=== PATIENT | female | born 1975 | race Caucasian/White ===

== ENCOUNTER → 2017-08-19 08:05 | Outpatient (CLI) | payer BC, SELFPAY ==
--- NOTE | 2017-08-19 08:09 | US_ITS ---
US abdomen limited History:Right upper quadrant pain Ordering Physician:Kari Davis Patient Age: 41 years Comparison:None Findings: Pancreas:Unremarkable. No obvious mass or abnormal fluid collection. No ductal dilatation Liver:No focal liver lesions demonstrated. Homogeneous echogenicity. No intrahepatic biliary ductal dilatation evident Right Kidney:Unremarkable. Normal size and echogenicity. No hydronephrosis Gallbladder:Prior cholecystectomy. Common bile duct is slightly prominent at 8 mm which could be physiological response to the previous cholecystectomy.. Impression: Mild prominence of the common bile duct. Prior cholecystectomy. If there is clinical concern for biliary obstruction then, MRCP be of further value
== END ==
PROVIDERS: PCP Nurse Practitioner Acute Care; Visit Provider Nurse Practitioner Acute Care
DX: R10.11 Right upper quadrant pain (principal)
CPT/HCPCS: 76705

== ENCOUNTER → 2018-03-17 11:28 | Outpatient (POV) | payer BC, SELFPAY | PROVIDERS: Visit Provider Nurse Practitioner Acute Care | DX: Z00.00 Encounter for general adult medical examination without abnormal findings (principal) ==

== ENCOUNTER → 2018-03-31 07:53 | Outpatient (CLI) | payer BC, SELFPAY | PROVIDERS: PCP Family Medicine; Visit Provider Nurse Practitioner Acute Care | DX: R10.11 Right upper quadrant pain (principal); R93.3 Abnormal findings on diagnostic imaging of other parts of digestive tract ==

== ENCOUNTER → 2018-04-01 08:46 | Outpatient (CLI) | payer BC, SELFPAY ==
--- NOTE | 2018-04-01 08:48 | MR_ITS ---
MR abdomen wo con, MR 3-d myelogram/MRCP CLINICAL INDICATION: Right upper quadrant pain. Abnormal right upper quadrant ultrasound with prominent common bile duct ITS.REASON: RUQ PAIN, ABNORMAL FINDINGS GI TRACT ORDERING PHYSICIAN: Kari Davis PATIENT AGE: 42 years Comparison: 03/19/2018 TECHNIQUE: Multiplanar multiecho sequences performed without contrast. MRCP images also generated and reviewed FINDINGS: There are postcholecystectomy changes. There is mild prominence of the intra and extrahepatic biliary radicals. The common bile duct measures up to 11 mm. No internal filling defects are evident. The common bile duct tapers distally as expected. The prominence of the common bile duct malleolus related to postcholecystectomy changes. The common hepatic duct measures up to 14 mm. Pancreatic duct is normal in caliber The liver, spleen, adrenal glands, pancreas, and kidneys have an unremarkable appearance. There is a T2 hyperintense lesion involving the L1 vertebral body on the left. This is nonspecific. IMPRESSION: 1. There is prominence of the common bile duct and common hepatic duct and intrahepatic biliary radicles. This may be related to postcholecystectomy changes. No evidence of common duct stone. Stricture of the distal common bile duct cannot be excluded. The pancreatic duct is not dilated. 2. T2 hyperintense lesion involves the elbow one vertebral body on the left which is nonspecific
== END ==
PROVIDERS: PCP Family Medicine; Visit Provider Nurse Practitioner Acute Care
DX: R10.11 Right upper quadrant pain (principal); R93.3 Abnormal findings on diagnostic imaging of other parts of digestive tract
CPT/HCPCS: 74181; 76376

== ENCOUNTER 2018-04-16 23:13 | Inpatient (IN) ==
[2018-04-16 23:51] LABS: Microscopic, Urine URINE MICROSCOPIC (MICROSCOPIC)
[2018-04-16 23:52] LABS: Basophils % 0.2 % (0.1-2.0); Eosinophils # 0.1 K/mm3 (0.0-0.4); Eosinophils % 0.7 % (0.1-12.0); Hematocrit 47.4 % (37.0-47.0); Hemoglobin 15.4 g/dL (12.2-16.2); Lymphocytes # 1.9 K/mm3 (0.7-4.5); Lymphocytes % 13.2 % (10-50); Mean Corpuscular HGB Conc 32.5 g/dL (31.8-35.4); Mean Corpuscular Hemoglobin 29.9 pg (27.0-31.2); Mean Corpuscular Volume 91.7 fl (81-99); Mean Platelet Volume 7.7 fl (7.4-10.4); Monocytes # 0.6 K/mm3 (0.1-1.0); Monocytes % 3.9 % (1.7-9.3); Neutrophils # 11.7 K/mm3 (1.8-7.8); Neutrophils % 82.1 % (37.0-80.0); Platelet Count 333 K/mm3 (142-424); Red Blood Count 5.17 M/mm3 (4.20-5.40); Red Cell Distribution Width 12.7 % (11.5-17.5); White Blood Count 14.2 K/mm3 (4.8-10.8)
[2018-04-16 23:53] LABS: Appearance,Urine CLEAR (Clear); Blood, Urine 1+ (Negative); Color,Urine YELLOW (Yellow); Glucose,Urine (UA) Negative (Negative); Ketones,Urine Negative (Negative); Leukocyte Esterase,Urine Negative (Negative); Protein,Urine Negative (Negative); Specific Gravity, Urine >= 1.030 (1.005-1.030); Urobilinogen,Urine 0.2 EU/dl (0.2)
[2018-04-16 23:55] LABS: Bilirubin,Urine Negative (Negative)
[2018-04-17 00:01] LABS: Bacteria,Urine 1+ /lpf; Mucus,Urine 1+ /lpf
[2018-04-17 00:12] LABS: Albumin Level 3.3 gm/dL (3.4-5.0); Albumin/Globulin Ratio 0.9 (1.1-1.8); Anion Gap 15.1 mEq/L (5-15); Bilirubin,Total 0.7 mg/dL (0.2-1.0); C-Reactive Protein 1.3 mg/L (0.0-0.9); Calcium 8.9 mg/dL (8.5-10.1); Globulin 3.6 gm/dl (1.3-3.2); Potassium 4.1 mmoL/L (3.5-5.1); Total Protein,Serum 6.9 gm/dL (6.4-8.2)
--- NOTE | 2018-04-17 01:02 | Emergency Department Note ---
ED Disposition Clinical Impression: Pancreatitis, acute Qualifiers: Pancreatitis type: other Acute pancreatitis complication: no infection or necrosis Qualified Code(s): K85.80 - Other acute pancreatitis without necrosis or infection Disposition: Admitted As Inpatient Condition on Discharge: Fair Instructions: DI for Nausea -- Adult, DI for Nausea -- Child, DI for Diarrhea and Traveler's Diarrhea -- Adult, DI for Diarrhea and Traveler's Diarrhea -- Child Referrals: Provider,Referral, [Primary Care Provider] - - Critical Care Critical Care Time: No Attestation: On 04/16/18, the high probability of a clinically significant, sudden or life threatening deterioration of the following system(s) required my full and direct attention, intervention and personal management. The time I documented below is in addition to time spent performing reported procedures but includes the following listed in this critical care notation. Medical Decision Making - Medical Records Medical records reviewed: Yes: I reviewed the patient's medical records. - Rip Inquiry Pt receiving controlled substance: No Vital Signs: 04/16/18 23:30 Temperature 98.2 F Temperature Source Oral Pulse Rate [Right Radial] 89 Respiratory Rate 18 Blood Pressure [Right Arm] 151/82 H Blood Pressure Mean [Right Arm] 105 Blood Pressure Source [Right Arm] Automatic Cuff Blood Pressure Position [Right Arm] Supine 02 Sat by Pulse Oximetry 100 Oxygen Delivery Method Room Air - Lab Data Lab results reviewed: Yes: I reviewed the patient's lab results. Lab Results 04/16/18 23:44: Urine Color Yellow, Urine Appearance Clear, Urine pH 6.0, Ur Specific [place] >= 1.030, Urine Protein Negative, Urine Glucose (UA) Negative, Urine Ketones Negative, Urine Blood 1+, Urine Nitrate Negative, Urine Bilirubin Negative, Urine Urobilinogen 0.2, Ur Leukocyte Esterase Negative, Urine RBC 5- 10, Urine WBC 3-5, Ur Squamous Epith Cells 10-20, Urine Bacteria 1+, Urine Mucus 1+ 04/16/18 23:44: WBC 14.2 H, RBC 5.17, Hgb 15.4, Hct 47.4 H, MCV 91.7, MCH 29.9, MCHC 32.5, RDW 12.7, Plt Count 333, MPV 7.7, Neut % (Auto) 82.1 H, Lymph % (Auto) 13.2, [place] % (Auto) 3.9, Eos % (Auto) 0.7, Baso % (Auto) 0.2, Neut # (Auto) 11.7 H, Lymph # (Auto) 1.9, [place] # (Auto) 0.6, Eos # (Auto) 0.1, Baso # (Auto) 0.0 04/16/18 23:44: Sodium 138, Potassium 4.1, Chloride 102, Carbon Dioxide 25, A nion Gap 15.1 H, BUN 11, Creatinine 0.83, Estimated Creat Clear 105, Estimated GFR 76, Est GFR ( Amer) 92, Glucose 122 H, Calcium 8.9, Total Bilirubin 0.7, AST 173 H, ALT 138 H, Alkaline Phosphatase 122 H, C-Reactive Protein 1.3 H, Total Protein 6.9, Albumin 3.3 L, Globulin 3.6 H, Albumin/Globulin Ratio 0.9 L, Amylase 1011 H*, Lipase 8649 H 04/16/18 23:44: ESR 14 Result diagrams: 04/16/18 23:44 04/16/18 23:44 Orders (Tests/Meds): ED MEDICATIONS Generic Name Dose Route Start Last Admin Trade Name Freq PRN Reason Stop Dose Admin Sodium Chloride 1,000 mls @ 999 mls/hr 04/16/18 23:45 04/16/18 23:44 Sod Chlor 0.9% 1000ml Bag IV 04/17/18 00:45 999 mls/hr .Q1H1M KASI Administration Sodium Chloride 1,000 mls @ 999 mls/hr 04/17/18 00:30 Sod Chlor 0.9% 1000ml Bag IV 04/17/18 01:30 .Q1H1M KASI Discontinued Medications Generic Name Dose Route Start Last Admin Trade Name Freq PRN Reason Stop Dose Admin Famotidine 20 mg 04/16/18 23:43 04/16/18 23:44 Pepcid 20mg/2ml Vial IV 04/16/18 23:44 20 mg ONCE ONE Administration Ketorolac Tromethamine 30 mg 04/16/18 23:43 04/16/18 23:44 Toradol 30mg/Ml Vial IV 04/16/18 23:44 30 mg ONCE ONE Administration Metoclopramide HCl 10 mg 04/16/18 23:43 04/16/18 23:44 Reglan 10mg/2ml Vial IVP 04/16/18 23:44 10 mg ONCE ONE Administration Morphine Sulfate 4 mg 04/16/18 23:52 04/16/18 23:52 Morphine 4mg/Ml Syringe IV 04/16/18 23:53 4 mg ONCE ONE Administration Ondansetron HCl 4 mg 04/16/18 23:43 04/16/18 23:44 Zofran 4mg/2ml Vial IV 04/16/18 23:44 4 mg ONCE ONE Administration ORDERS Category Date Time Status CT abdomen pelvis wo con Stat Cat Scan 04/17/18 00:12 Taken Urinalysis and Microscopic Stat Lab 04/16/18 23:44 Ordered - CT Data CT Scan: Abdomen, Pelvis Time Received: 01:[address] Reviewed: Yes: I have viewed the radiologist's interpretation Preliminary Findings: Abnormal (pancreatitis ) - Physician Consults Physician Consulted: susanne Reason -: Admission Nausea/Vomiting/Diarrhea HPI - General Chief complaint: Nausea/Vomiting/Diarrhea Stated complaint: Procedure in [place] today,vomiting,pain Time Seen by Provider: 04/17/18 00:48 Mode of Arrival: Ambulatory Source of Information: Patient, Spouse, Medical Record Limitations: No Limitations Description of Symptoms (Recalled from ER Triage Doc. by RN): Pt had ERCP today by Dr Snider and C/O vomiting today - History of Present Illness HPI Narrative: pt with upper abd pain with n/v after ercp this am - pt with progressive abd pain MD complaint: nausea, vomiting, abdominal pain Onset (ago): hour(s) Associated Abdominal Pain: Yes Location of pain: epigastric Severity: severe Consistency: colicky Associated symptoms: nausea/vomiting - Related Data Home Medications Medication Instructions Recorded Confirmed Atenolol [Atenolol 25mg Tab] 25 mg PO BID 08/07/17 04/16/18 Cimetidine [Tagamet Hb] 200 mg PO DAILY 08/07/17 04/16/18 diphenhydrAMINE HCl [Benadryl] 25 mg PO DAILY 08/07/17 04/16/18 buspirone 10 mg tablet 10 mg PO DAILY 30 Days #60 tab 11/22/17 04/16/18 psyllium oral powder 1 tbsp PO DAILY 11/22/17 04/16/18 Allergies Allergy/AdvReac Type Severity Reaction Status Date / Time doxycycline Allergy Severe Palpitation Verified 04/16/18 23:53 s ampicillin [AMPICILLIN] Allergy Unknown VOMITTING Verified 04/16/18 23:53 AND DIARRHEA [facility] History - Hepatitis A Screen Drug use history?: No High risk sexual behaviors?: No History of sexually transmitted infection?: No Currently employed?: No Childcare worker?: No Do you have indoor plumbing?: Yes Do you have electricity?: Yes Attestation statement:: This patient has been screened for Hepatitis A risk factors. I have reviewed the patient's past medical history: Yes Medical History: Reports:: Arrhythmia, Palpitations Denies:: Cancer, Diabetes Mellitus Type 1, Diabetes Mellitus Type 2, Internal Pacemaker, Lung Disease, MRSA, Seizures Other Medical History: Reports: Other Other Surgeries: Yes: Appendectomy, Cholecystectomy, Hysterectomy-Total. No: Pacemaker Amputation: No Fractures: No Comment: gallstones - Social History Smoking Status: Current every day smoker Tobacco Type: cigarettes # Packs/Day (cigarettes): 1 Alcohol Intake: never Alcohol Intake Frequency:: other Occupational Status: unemployed - Psychiatric History Expresses thoughts of harming self/others: None Suicide Plan Description: No Plan Family Hx:: No significant family history ROS Obtained: Yes All systems reviewed & no additional complaints - Constitutional Constitutional: Denies fever(s) - Eyes Eyes: Denies change in vision - ENT Ears, Nose, Mouth, and Throat: Denies headache(s), Denies sore throat - Cardiovascular Cardiovascular: Denies chest pain - Respiratory Respiratory: No cough - Gastrointestinal Gastrointestingal: Reports: as per HPI, abdominal pain, nausea, vomiting - Genitourinary Female Genitourinary: Denies flank pain - Musculoskeletal Musculoskeletal: Denies joint pain, Denies joint swelling - Integumentary/Breasts Skin/Breast: Denies rash - Neurologic Neurologic: Denies headache(s), Denies seizure-like activity Physical Exam - General General appearance: alert, in no apparent distress - Head Head exam: normocephalic - Eye Eye exam: Present: PERRL, EOMI. Absent: scleral icterus - ENT ENT exam: Present: mucous membranes dry - Neck Neck exam: Present: trachea midline - Respiratory Respiratory exam: Absent: respiratory distress - Cardiovascular Cardiovascular exam: Present: regular rate - Abdominal Exam Abdominal exam: Present: soft, tenderness Abdominal tenderness: Present: epigastrium, moderate - Extremities Exam Extremities exam: Present: full ROM - Neurological Exam Neurological exam: Present: alert, oriented X3, CN II-XII intact - Psychiatric Psychiatric exam: Present: normal affect - Skin Skin exam: Absent: rash
[2018-04-17 06:32] LABS: Anion Gap 11.9 mEq/L (5-15); Potassium 3.9 mmoL/L (3.5-5.1)
[2018-04-17 06:41] LABS: Basophils % 0.2 % (0.1-2.0); Eosinophils % 0.4 % (0.1-12.0); Lymphocytes % 17.2 % (10-50); Mean Corpuscular Hemoglobin 29.8 pg (27.0-31.2); Mean Platelet Volume 7.7 fl (7.4-10.4); Monocytes # 0.5 K/mm3 (0.1-1.0); Monocytes % 4.3 % (1.7-9.3); Neutrophils % 77.9 % (37.0-80.0); Platelet Count 257 K/mm3 (142-424); Red Cell Distribution Width 12.8 % (11.5-17.5); White Blood Count 11.5 K/mm3 (4.8-10.8)
[2018-04-17 07:02] LABS: Calcium 7.6 mg/dL (8.5-10.1)
[2018-04-17 07:03] LABS: Bilirubin,Direct 0.1 mg/dL (0.0-0.2); Bilirubin,Indirect 0.4 mg/dL (0.0-0.9); Bilirubin,Total 0.5 mg/dL (0.2-1.0)
[2018-04-17 07:04] LABS: Albumin Level 2.6 gm/dL (3.4-5.0); Total Protein,Serum 5.4 gm/dL (6.4-8.2)
[2018-04-17 07:09] LABS: Hemoglobin 12.8 g/dL (12.2-16.2)
--- NOTE | 2018-04-17 07:17 | Pharmacy Consult Notes ---
[facility] Pharmacy VTE Monitoring - Patient Demographics Admission date: 04/16/18 Report Date: 04/17/18 Time: 07:17 Allergies/Adverse Reactions: Patient Allergies doxycycline Allergy (Severe, Verified 04/16/18 23:53) Palpitations ampicillin [AMPICILLIN] Allergy (Unknown, Verified 04/16/18 23:53) VOMITTING AND DIARRHEA Height: 1.68 m Weight: 75.551 kg Patient Problems: Current Active Problems Pancreatitis, acute (Acute) - VTE Risk Labs: VTE Related Lab Results Hgb 12.8 g/dL (12.2-16.2) D 04/17/18 05:45 Hct 40.0 % (37.0-47.0) 04/17/18 05:45 Plt Count 257 K/mm3 (142-424) 04/17/18 05:45 BUN 12 mg/dL (7-18) 04/17/18 05:45 Creatinine 0.73 mg/dL (0.55-1.02) 04/17/18 05:45 Estimated Creat Clear 121 mL/min (50-200) 04/17/18 05:45 Was VTE Risk Assessment Performed: Yes VTE Risk Level: Low Risk Clinical Trial Participant: No - Prophylaxis VTE Prophylaxis Ordered?: Yes Types of VTE Prophylaxis: TEDS Knee High Location of Applied Device: Bilateral Lower Extremeties
--- NOTE | 2018-04-17 08:35 | History & Physical Report ---
*Admission Date: 04/16/18 *Chief complaint: epigastric pain, vomiting *History of present illness: Ms. Damon is a 42-year-old female who has been to the office of [facility] only a few times in the past. The last time she was seen in the office was in July 2017 for right upper quadrant abdominal pain. She had had a previous cholecystectomy and was referred to Dr. Logan for the pain. The patient states she has been seeing Dr. Logan off and on since that time due to chronic abdominal pain. She even had to quit her job. She had an ultrasound of the right upper quadrant on 08/19/2017 which showed mild prominence of the common bile duct. She then had an MRCP on 03/12 07/27 which showed a possible stricture of the distal common bile duct. Dr. Logan also performed and EGD and a colonoscopy on 09/27/17 which showed bile reflux, pylorospasm, and a hemorrhoid. She states yesterday Dr. Logan performed a dilation of her bile duct and she was discharged home. She states she was home for only a few hours and began vomiting and having extreme epigastric pain, therefore she presented to the emergency room. She was found to have a pancreatitis and elevated liver enzymes. She was admitted and placed n.p.o. and started on IV fluids and pain medication. At this time the patient states she is still having significant pain. She has only vomited once since admission. 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 No: Pacemaker Amputation: No Fractures: No - *Social History Educational Level: Completed High School Smoking Status: Current every day smoker Tobacco Type: cigarettes # Packs/Day (cigarettes): 1 Alcohol Intake: former Alcohol Intake Frequency:: other Substance Use Type: former substance user Occupational Status: unemployed Housing: house Household Members: spouse, children Travel in the last 8 weeks: None - Psychiatric History Expresses thoughts of harming self/others: None Suicide Plan Description: No Plan Family Hx:: Coronary Artery Disease, Diabetes Review of Systems - Constitutional Reports weakness, Denies fever(s) - Eyes Denies blurry vision, Denies double vision - ENT Reports dry mouth, Reports nasal congestion, Denies sore throat - *Cardiovascular Denies chest pain, Denies shortness of breath, Denies rapid, pounding, or irregular heartbeat - *Respiratory Denies cough, Denies shortness of breath - *Gastrointestinal Reports abdominal pain (epigastric), Reports nausea, Reports vomiting, Denies loose stools - *Genitourinary Denies difficulty urinating, Denies painful urination - *Musculoskeletal Denies joint pain, Denies body aches - *Neurologic Reports weakness, Denies headache(s), Denies seizure-like activity, Denies dizziness Meds Home Medications Medication Instructions Recorded Confirmed Type Atenolol [Atenolol 25mg Tab] 25 mg PO BID 08/07/17 04/17/18 History Cimetidine [Tagamet Hb] 200 mg PO DAILY 08/07/17 04/17/18 History diphenhydrAMINE HCl [Benadryl] 25 mg PO HS 08/07/17 04/17/18 History buspirone 10 mg tablet 10 mg PO BID 30 Days #60 tab 11/22/17 04/17/18 History psyllium oral powder 1 tbsp PO DAILY 11/22/17 04/16/18 History Phenobarb/Hyoscy/Atropine/Scop 16.2 mg PO NEEDED PRN 04/17/18 04/17/18 History [ Tablet] Polyethylene Glycol 3350 [Miralax 17 gm PO DAILY 04/17/18 04/17/18 History 17gm Packet] Allergies Allergy/AdvReac Type Severity Reaction Status Date / Time doxycycline Allergy Severe Palpitation Verified 04/16/18 23:53 s ampicillin [AMPICILLIN] Allergy Unknown VOMITTING Verified 04/16/18 23:53 AND DIARRHEA Exam Vital signs and Labs for Last 24 Hours: Temp Pulse Resp BP Pulse Ox 98.2 F 82 18 119/69 96 04/17/18 07:15 04/17/18 07:15 04/17/18 07:15 04/17/18 07:15 04/17/18 07:15 Laboratory Results - last 24 hr 04/16/18 23:44: Urine Color Yellow, Urine Appearance Clear, Urine pH 6.0, Ur Specific [place] >= 1.030, Urine Protein Negative, Urine Glucose (UA) Negative, Urine Ketones Negative, Urine Blood 1+, Urine Nitrate Negative, Urine Bilirubin Negative, Urine Urobilinogen 0.2, Ur Leukocyte Esterase Negative, Urine RBC 5- 10, Urine WBC 3-5, Ur Squamous Epith Cells 10-20, Urine Bacteria 1+, Urine Mucus 1+ 04/16/18 23:44: WBC 14.2 H, RBC 5.17, Hgb 15.4, Hct 47.4 H, MCV 91.7, MCH 29.9, MCHC 32.5, RDW 12.7, Plt Count 333, MPV 7.7, Neut % (Auto) 82.1 H, Lymph % (Auto) 13.2, [place] % (Auto) 3.9, Eos % (Auto) 0.7, Baso % (Auto) 0.2, Neut # (Auto) 11.7 H, Lymph # (Auto) 1.9, [place] # (Auto) 0.6, Eos # (Auto) 0.1, Baso # (Auto) 0.0 04/16/18 23:44: Sodium 138, Potassium 4.1, Chloride 102, Carbon Dioxide 25, Anion Gap 15.1 H, BUN 11, Creatinine 0.83, Estimated Creat Clear 105, Estimated GFR 76, Est GFR ( Amer) 92, Glucose 122 H, Calcium 8.9, Total Bilirubin 0.7, AST 173 H, ALT 138 H, Alkaline Phosphatase 122 H, C-Reactive Protein 1.3 H, Total Protein 6.9, Albumin 3.3 L, Globulin 3.6 H, Albumin/Globulin Ratio 0.9 L, Amylase 1011 H*, Lipase 8649 H 04/16/18 23:44: ESR 14 04/17/18 05:45: WBC 11.5 H, RBC 4.30, Hgb 12.8 D, Hct 40.0, MCV 93.0, MCH 29.8, MCHC 32.0, RDW 12.8, Plt Count 257, MPV 7.7, Neut % (Auto) 77.9, Lymph % (Auto) 17.2, [place] % (Auto) 4.3, Eos % (Auto) 0.4, Baso % (Auto) 0.2, Neut # (Auto) 9.0 H, Lymph # (Auto) 2.0, [place] # (Auto) 0.5, Eos # (Auto) 0.0, Baso # (Auto) 0.0 04/17/18 05:45: Sodium 139, Potassium 3.9, Chloride 105, Carbon Dioxide 26, Anion Gap 11.9, BUN 12, Creatinine 0.73, Estimated Creat Clear 121, Estimated GFR 88, Est GFR ( Amer) 106, Glucose 97 D, Calcium 7.6 L D 04/17/18 05:45: Total Bilirubin 0.5, Direct Bilirubin 0.1, Indirect Bilirubin 0.4, AST 70 H D, ALT 93 H D, Alkaline Phosphatase 94, Total Protein 5.4 L, Albumin 2.6 L D, Lipase 4466 H I & O for Last 24 hours: Intake & Output 04/14/18 04/15/18 04/16/18 04/17/18 11:59 11:59 11:59 11:59 Intake Total 1725 / 1725 Balance 1725 / 1725 Weight 166 lb 9 oz - Constitutional no acute distress - *Routine HEENT Exam Head: Present: normocephalic Eye: Present: EOMI, PERRL ENT: Present: mucous membranes dry - *Routine Neck Exam Present: supple. Absent: lymphadenopathy - *Routine Respiratory Exam Present: CTA bilaterally - *Routine Cardiovascular Exam Present: RRR - *Routine Abdominal Exam Present: soft, normoactive bowel sounds, tenderness (diffuse but worse in the epigastric area) - *Routine Extremities Exam Absent: cyanosis, clubbing, edema - *Routine Skin Exam Present: warm. Absent: rash - *Routine Neurological Exam Present: alert, oriented X3 H&P: Result - Impressions Abd CT 1. Acute pancreatitis. 2. Pneumobilia which may be due to the recent ERCP. Fatty liver. 3. Nonobstructing left nephrolithiasis Assessment and Plan (1) Pancreatitis, acute Current visit: Yes Status: Acute Qualifiers: Pancreatitis type: other Acute pancreatitis complication: no infection or necrosis Qualified Code(s): K85.80 - Other acute pancreatitis without necrosis or infection Category: Medical Code(s): K85.90 - Acute pancreatitis without necrosis or inf ection, unspecified (2) Common bile duct dilatation Current visit: Yes Status: Acute Category: Medical Code(s): K83.8 - Other specified diseases of biliary tract (3) Palpitations Current visit: Yes Status: Chronic Category: Medical Code(s): R00.2 - Palpitations - Assessment and plan all Dx Assessment and Plan for all problems:: LFTs and pancreatic enzymes are improving. Will keep patient n.p.o. Will continue pain medication, IV fluids, and antiemetics. Will consult Dr. Logan.
--- NOTE | 2018-04-18 08:49 | Progress Note ---
Internal Medicine - PN: Subj *Date: 04/18/18 *Time: 08:46 Interval history: The patient actually feels better. She was able to rest some last night. She has less discomfort. Her abdomen is soft exam. Blood work is pending. Dr. Joiner spoke with Dr. Logan yesterday. He will be seeing her this morning. We anticipate discharge with outpatient follow-up. Exam Vital signs and Labs for Last 24 Hours: Temp Pulse Resp BP Pulse Ox 98.4 F 97 H 18 118/68 95 04/18/18 08:00 04/18/18 08:00 04/18/18 08:00 04/18/18 08:00 04/18/18 08:00 I & O for Last 24 hours: Intake & Output 04/15/18 04/16/18 04/17/18 04/18/18 11:59 11:59 11:59 11:59 Intake Total 1725 / 1725 1325 / 1325 Balance 1725 / 1725 1325 / 1325 Weight 166 lb 9 oz 167 lb 1.766 oz - Constitutional no acute distress - *Routine HEENT Exam Head: Present: normocephalic Eye: Present: PERRL ENT: Present: mucous membranes moist - *Routine Respiratory Exam Present: CTA bilaterally - *Routine Cardiovascular Exam Present: RRR - *Routine Abdominal Exam Present: soft, tenderness (Mildly tender). Absent: mass - *Routine Extremities Exam Absent: edema Assessment and Plan (1) Pancreatitis, acute Current visit: Yes Status: Acute Qualifiers: Pancreatitis type: other Acute pancreatitis complication: no infection or necrosis Qualified Code(s): K85.80 - Other acute pancreatitis without necrosis or infection Category: Medical Code(s): K85.90 - Acute pancreatitis without necrosis or infection, unspecified (2) Common bile duct dilatation Current visit: Yes Status: Acute Category: Medical Code(s): K83.8 - Other specified diseases of biliary tract (3) Palpitations Current visit: Yes Status: Chronic Category: Medical Code(s): R00.2 - Palpitations - Assessment and plan all Dx Assessment and Plan for all problems:: The patient will be seen by Dr. Logan today. Possible discharge later on today. Outpatient follow-up.
[2018-04-18 09:34] LABS: Albumin Level 2.6 gm/dL (3.4-5.0); Albumin/Globulin Ratio 0.8 (1.1-1.8); Anion Gap 15.5 mEq/L (5-15); Bilirubin,Total 0.9 mg/dL (0.2-1.0); Calcium 8.1 mg/dL (8.5-10.1); Globulin 3.1 gm/dl (1.3-3.2); Potassium 3.5 mmoL/L (3.5-5.1); Total Protein,Serum 5.7 gm/dL (6.4-8.2)
--- NOTE | 2018-04-18 15:02 | Procedure Note ---
[facility] Procedure Note Procedure Note:: S: The patient is much clinically improved is sitting up and wants to eat and go home O: Afebrile vital signs stable Cardiovascular regular rate and rhythm Chest clear to auscultation Abdomen some tenderness in the periumbilical region, no masses, no rebound or guarding, normoactive bowel sounds A/P: 1. Post ERCP pancreatitis. The patient is much clinically improved. The patient's amylase lipase are improved and she had interstitial pancreatitis on CAT scan. I would recommend that we advance the diet today to low-fat and if patient tolerates diet may go home later this evening or in the morning. I discussed this with the patient. She can follow-up as an outpatient.
--- NOTE | 2018-04-18 17:39 | Progress Note ---
Internal Medicine - PN: Subj *Date: 04/18/18 *Time: 17:36 Exam Vital signs and Labs for Last 24 Hours: Temp Pulse Resp BP Pulse Ox 98.1 F 95 H 20 98/56 L 99 04/18/18 16:00 04/18/18 16:00 04/18/18 16:00 04/18/18 16:00 04/18/18 16:00 Laboratory Results - last 24 hr 04/18/18 09:00: Sodium 135 L, Potassium 3.5, Chloride 102, Carbon Dioxide 21, Anion Gap 15.5 H, BUN 9, Creatinine 0.60, Estimated Creat Clear 148, Estimated GFR 110, Est GFR ( Amer) 133 D, Glucose 69 L, Calcium 8.1 L, Total Bilirubin 0.9, AST 22 D, ALT 54 D, Alkaline Phosphatase 89, Total Protein 5.7 L, Albumin 2.6 L, Globulin 3.1, Albumin/Globulin Ratio 0.8 L 04/18/18 09:00: Amylase 154 H 04/18/18 09:00: Lipase 479 H I & O for Last 24 hours: Intake & Output 04/16/18 04/17/18 04/18/18 04/19/18 11:59 11:59 11:59 11:59 Intake Total 1725 / 1725 1325 / 1325 240 / 240 Balance 1725 / 1725 1325 / 1325 240 / 240 Weight 166 lb 9 oz 167 lb 1.766 oz Assessment and Plan (1) Pancreatitis, acute Current visit: Yes Status: Acute Qualifiers: Pancreatitis type: other Acute pancreatitis complication: no infection or necrosis Qualified Code(s): K85.80 - Other acute pancreatitis without necrosis or infection Category: Medical Code(s): K85.90 - Acute pancreatitis without necrosis or infection, unspecified (2) Common bile duct dilatation Current visit: Yes Status: Acute Category: Medical Code(s): K83.8 - Other specified diseases of biliary tract (3) Palpitations Current visit: Yes Status: Chronic Category: Medical Code(s): R00.2 - Palpitations
--- NOTE | 2018-04-20 21:43 | Discharge Summary ---
General - General Admission date:: 04/17/18 Discharge date: 04/18/18 HPI HPI: Ms. Damon is a 42-year-old female who has been to the office of [facility] only a few times in the past. The last time she was seen in the office was in July 2017 for right upper quadrant abdominal pain. She had had a previous cholecystectomy and was referred to Dr. Logan for the pain. The patient states she has been seeing Dr. Logan off and on since that time due to chronic abdominal pain. She even had to quit her job. She had an ultrasound of the right upper quadrant on 08/19/2017 which showed mild prominence of the common bile duct. She then had an MRCP on 03/12 07/27 which showed a possible stricture of the distal common bile duct. Dr. Logan also performed and EGD and a colonoscopy on 09/27/17 which showed bile reflux, pylorospasm, and a hemorrhoid. She states yesterday Dr. Logan performed a dilation of her bile duct and she was discharged home. She states she was home for only a few hours and began vomiting and having extreme epigastric pain, therefore she presented to the emergency room. She was found to have a pancreatitis and elevated liver enzymes. She was admitted and placed n.p.o. and started on IV fluids and pain medication. At this time the patient states she is still having significant pain. She has only vomited once since admission. Hospital Course Hospital Course: The patient's abdominal CT showed acute pancreatitis and pneumobilia likely due to recent ERCP. It also showed fatty liver and nonobstructing left nephrolithiasis. The patient's LFTs and pancreatic enzymes were improving and she was therefore kept n.p.o. Pain medication, IV fluids and antiemetics were continued and Dr. Logan was consulted. By the next day, the patient felt better and was able to rest and had less discomfort. Dr. Joiner did speak with Dr. Logan about the patient and he saw her in consultation. He felt she had post ERCP pancreatitis but was clinically improved. Her amylase and lipase as well as LFT's had improved. He recommended to advance her diet to a low-fat diet and if she tolerated this, he felt she could go home and follow-up with him as an outpatient. The patient tolerated her diet and was stable to be discharged home. She will follow-up in the office [facility] as well as with Dr. Logan. Objective Vital signs: Temp Pulse Resp BP Pulse Ox 98.1 F 95 H 20 98/56 L 99 04/18/18 16:00 04/18/18 16:00 04/18/18 16:00 04/18/18 16:00 04/18/18 16:00 Narrative: - Constitutional no acute distress - *Routine HEENT Exam Head: Present: normocephalic Eye: Present: EOMI, PERRL ENT: Present: mucous membranes dry - *Routine Neck Exam Present: supple. Absent: lymphadenopathy - *Routine Respiratory Exam Present: CTA bilaterally - *Routine Cardiovascular Exam Present: RRR - *Routine Abdominal Exam Present: soft, normoactive bowel sounds, tenderness (diffuse but worse in the epigastric area) - *Routine Extremities Exam Absent: cyanosis, clubbing, edema - *Routine Skin Exam Present: warm. Absent: rash - *Routine Neurological Exam Present: alert, oriented X3 DS: Diagnosis - Discharge Diagnosis (1) Pancreatitis, acute Status: Acute (2) Common bile duct dilatation Status: Acute (3) Palpitations Status: Chronic Discharge Plan - Patient Discharge Instructions ACTIVITY: Limited activity DIET: low fat, low cholesterol Patient Instructions: Acute Pancreatitis - Follow up Plan Follow up with: Carlene Joiner MD [Primary Care Provider] - 04/23/18 Unknown provider or service follow up:: 04/18/18 17:44 Needs follow-up appointment with Kari Davis APRN, gastroenterology. Disposition: Home, Self-Shelter Medications: Home Medications Medication Instructions Recorded Confirmed Type Atenolol [Atenolol 25mg Tab] 25 mg PO BID 08/07/17 04/17/18 History Cimetidine [Tagamet Hb] 200 mg PO DAILY 08/07/17 04/17/18 History buspirone 10 mg tablet 10 mg PO BID 30 Days #60 tab 11/22/17 04/17/18 History psyllium oral powder 1 tbsp PO DAILY 11/22/17 04/16/18 History Phenobarb/Hyoscy/Atropine/Scop 16.2 mg PO NEEDED PRN 04/17/18 04/17/18 History [ Tablet] Polyethylene Glycol 3350 [Miralax 17 gm PO DAILY 04/17/18 04/17/18 History 17gm Packet] Prescriptions/Medication Reconciliation: Continue buspirone 10 mg tablet 10 mg PO BID 30 Days #60 tab psyllium oral powder 1 tbsp PO DAILY Cimetidine [Tagamet Hb] 200 mg PO DAILY Phenobarb/Hyoscy/Atropine/Scop [ Tablet] 16.2 mg PO NEEDED PRN PRN Reason: STOMACH CRAMPS Polyethylene Glycol 3350 [Miralax 17gm Packet] 17 gm PO DAILY Atenolol [Atenolol 25mg Tab] 25 mg PO BID Discontinued diphenhydrAMINE HCl [Benadryl] 25 mg PO HS
== END 2018-04-18 18:15 | disposition home or self-care (01) | DRG 440 ==
LOC: ER 23:13 → 2ND 04-17 01:20
PROVIDERS: ADMIT Family Medicine; ATTEND Family Medicine
CPT/HCPCS: J2405

== ENCOUNTER → 2018-05-19 10:43 | Outpatient (POV) | payer BC, SELFPAY ==
[2018-05-19 11:36] LABS: Basophils % 0.3 % (0.1-2.0); Eosinophils # 0.3 K/mm3 (0.0-0.4); Eosinophils % 2.8 % (0.1-12.0); Hematocrit 45.2 % (37.0-47.0); Hemoglobin 14.8 g/dL (12.2-16.2); Lymphocytes # 2.4 K/mm3 (0.7-4.5); Mean Corpuscular HGB Conc 32.7 g/dL (31.8-35.4); Mean Corpuscular Hemoglobin 30.1 pg (27.0-31.2); Mean Corpuscular Volume 92.2 fl (81-99); Mean Platelet Volume 7.9 fl (7.4-10.4); Monocytes # 0.6 K/mm3 (0.1-1.0); Monocytes % 6.6 % (1.7-9.3); Neutrophils # 6.4 K/mm3 (1.8-7.8); Neutrophils % 65.3 % (37.0-80.0); Platelet Count 284 K/mm3 (142-424); Red Blood Count 4.91 M/mm3 (4.20-5.40); Red Cell Distribution Width 12.9 % (11.5-17.5); White Blood Count 9.7 K/mm3 (4.8-10.8)
[2018-05-19 12:29] LABS: Alanine Aminotransferase 25 U/L (12-78); Albumin Level 3.1 gm/dL (3.4-5.0); Alkaline Phosphatase 86 U/L (46-116); Amylase 38 U/L (25-115); Anion Gap 13.4 mEq/L (5-15); Aspartate Amino Transferase 13 U/L (15-37); Bilirubin,Total 0.3 mg/dL (0.2-1.0); Blood Urea Nitrogen 11 mg/dL (7-18); Carbon Dioxide 28 mmol/L (21.0-32.0); Chloride 104 mmol/L (98-107); Creatinine,Serum 0.87 mg/dL (0.55-1.02); Estimated Glomerular Filt Rate 72 ml/min (>60); GFR (African American) 87 ML/MIN (>60); Glucose 84 mg/dL (74-106); Lipase 153 u/L (73-393); Potassium 4.4 mmoL/L (3.5-5.1); Sodium 141 mmol/L (136-145); Total Protein,Serum 6.1 gm/dL (6.4-8.2)
== END ==
PROVIDERS: Visit Provider Nurse Practitioner Acute Care
DX: K85.90 Acute pancreatitis without necrosis or infection, unspecified (principal)
CPT/HCPCS: 36415; 80053; 82150; 83690; 85025

== ENCOUNTER → 2018-09-16 10:18 | Outpatient (POV) | payer BC, SELFPAY | PROVIDERS: Visit Provider Dermatology | DX: Z00.00 Encounter for general adult medical examination without abnormal findings (principal) ==

== ENCOUNTER → 2018-10-20 12:44 | Outpatient (POV) | payer BC, SELFPAY | PROVIDERS: PCP Family Medicine; Visit Provider Nurse Practitioner Family | DX: Z00.00 Encounter for general adult medical examination without abnormal findings (principal) ==

== ENCOUNTER → 2019-04-09 18:33 | Outpatient (CLI) | payer BC, SELFPAY | PROVIDERS: Visit Provider Podiatrist | DX: L60.0 Ingrowing nail (principal) | CPT/HCPCS: 87102; 87206; 87220 ==

== ENCOUNTER → 2019-05-06 10:42 | Outpatient (CLI) | payer BC, SELFPAY ==
--- NOTE | 2019-05-06 10:47 | XR_ITS ---
PROCEDURE: XR CHEST 2V CLINICAL HISTORY: BRONCHITIS Hemoptysis COMPARISON: Chest from 01/01/2016 FINDINGS: The cardiomediastinal silhouette and pulmonary vascularity are within normal limits. The lungs are clear without infiltrates, suspicious nodules, or pleural effusions. Minimal thoracic curvature convex right and thoracolumbar curvature convex left IMPRESSION: No acute findings. Dictated by: Jason Manuel MD 05/06/2019 11:59 Electronically signed by Jason Maneul MD in [place] 05/06/2019 11:59
== END ==
PROVIDERS: PCP Family Medicine; Visit Provider Nurse Practitioner Family
DX: J40 Bronchitis, not specified as acute or chronic (principal)
CPT/HCPCS: 71046

== ENCOUNTER → 2022-01-01 16:44 | Outpatient (CLI) | payer BC, SELFPAY ==
--- NOTE | 2022-01-01 16:47 | MM_ITS ---
PROCEDURE INFORMATION: Exam: MG Bilateral Screening 3D Mammography Exam date and time: 01/01/2022 4:39 PM Age: 46 years old Clinical indication: Baseline. No family history of breast cancer. TECHNIQUE: Imaging protocol: Bilateral Screening tomosynthesis and 2D mammography including computer-aided detection (CAD) when performed. COMPARISON: No relevant prior studies available. FINDINGS: MAMMOGRAPHY: Breast composition: The breasts are heterogeneously dense, which may obscure small masses. Mass: No suspicious mass. Architectural distortion: None. Calcifications: No suspicious calcifications. Asymmetric density: None. Skin thickening: None. Axillary adenopathy: None. IMPRESSION: No mammographic evidence of malignancy. Annual screening is recommended unless otherwise clinically indicated. ASSESSMENT: BI-RADS Category 1: Negative
== END ==
PROVIDERS: PCP Family Medicine; Visit Provider Nurse Practitioner Family
DX: Z12.31 Encounter for screening mammogram for malignant neoplasm of breast (principal)
CPT/HCPCS: 77063; 77067

== ENCOUNTER 2022-07-14 21:07 | Emergency (ER) | payer BC, SELFPAY ==
[2022-07-14 21:08] VITALS: BP 155/80; PULSE 66; RESP 16; TEMP 36.4; O2SAT 99; BMI 27.4
[2022-07-14 21:24] VITALS: BP 155/80; PULSE 66; RESP 16; TEMP 36.4; O2SAT 97
--- NOTE | 2022-07-15 01:47 | HMH.EDGENADL ---
Discharge Plan Disposition Patient Disposition: Home, Self-Care Condition: Good Prescriptions Prescriptions: No Action ciclopirox 0.77 % gel 1 applic topical ONCE 90 Days Qty: 30 2RF psyllium powder 1 tbsp PO DAILY buspirone 10 mg tablet 10 mg PO TID 30 Days Qty: 90 xqtvcbwk-plvjysqbs-DB 3.5-10,000-1 mg/mL-unit/mL-% solution 2 drp OTIC DAILY 14 Days Qty: 10 0RF Rx Instructions: apply 2 drops to the affected toe after soaking daily. mupirocin 2 % ointment 1 applic TOPICAL BID Qty: 30 0RF atenolol 25 MG tablet 25 mg PO BID cimetidine 200 MG tablet 200 mg PO DAILY segrljyhl-duteca-rzwlhkkq-scop 16.2 MG tablet 16.2 mg PO NEEDED PRN (Reason: STOMACH CRAMPS) polyethylene glycol 3350 17 GM powder in packet 17 gm PO DAILY Referrals Follow up/Referrals: Lilli Galdamez APRN [Primary Care Provider] - See instructions Clinical Impressions Clinical Impression: Acute carpal tunnel syndrome Discharge ED Provider: Armond Erickson General Adult HPI General Chief complaint: Extremity Injury, Upper Stated complaint: Right Wrist pain Time Seen by Provider: 07/14/22 21:13 Mode of Arrival: Ambulatory Source of Information: Patient Limitations: No Limitations Description of Symptoms (Recalled from ER Triage Doc. by RN): Pt arrives to ED with c/o right wrist pain that started approx 0430 this morning. Pt stated it woke her up from her sleep and worsens w movement. Denies any trauma. History of Present Illness HPI narrative: This is a very pleasant 46-year-old lady with no significant past medical history who presents to the emergency department with a chief complaint of right wrist pain. Patient first noticed this upon awakening this morning. She complains of pain in her right wrist. Denies any trauma. No fevers. No erythema.This is never happened before. Related Data Home Medications Medication Instructions Recorded Confirmed atenolol 25 mg tablet 25 mg PO BID palpitations 08/07/17 04/09/19 cimetidine 200 mg tablet 200 mg PO DAILY GERD 08/07/17 04/09/19 psyllium 1 tbsp PO DAILY CONSTIPATION 11/22/17 04/09/19 kftvkllaf-nzujgpuxh-xovcaaao-scop 16.2 mg PO NEEDED PRN STOMACH 04/17/18 04/09/19 16.2 mg-0.1037 mg-0.0194 mg tablet CRAMPS polyethylene glycol 3350 17 gram 17 gm PO DAILY CONSTIPATION 04/17/18 04/09/19 oral powder packet buspirone 10 mg tablet 10 mg PO TID Anxiety 30 days #90 04/09/19 04/09/19 tabs Previous Rx's Medication Instructions Recorded ciclopirox 0.77 % topical gel 1 applic topical ONCE toenail 04/09/19 fungus 90 days #30 grams mupirocin 2 % topical ointment 1 applic topical BID #30 grams 04/15/19 ydhsjwqo-wylzmrtpz-ftftdzyhl 3.5 2 drp otic (ear) DAILY infection 04/15/19 mg/mL-10,000 unit/mL-1 % ear 14 days #10 mL solution Allergies Allergy/AdvReac Type Severity Reaction Status Date / Time doxycycline Allergy Severe Palpitation Verified 04/09/19 11:06 s ampicillin [AMPICILLIN] Allergy Unknown VOMITTING Verified 04/09/19 11:06 AND DIARRHEA PFSH [facility] Disclaimer: The information contained in this section may have been updated after the patient was seen, as this information can be updated by other users. Social History Smoking Status: Never smoker alcohol intake: never substance use type: former substance user current occupational status: unemployed Travel in the last 8 weeks: None household members: spouse and children housing: house caffeine: No ROS Obtained: Yes All systems reviewed & no additional complaints except as documented Physical Exam General General appearance: alert and in no apparent distress Head Head exam: atraumatic Eye Eye exam: Present normal appearance ENT ENT exam: Present normal exam Neck Neck exam: Present normal inspection Chest Chest inspection: Present normal inspection Respiratory Respiratory exam: Present normal lung sounds bilateral
== END 2022-07-14 21:28 | disposition home or self-care (01) ==
LOC: ER 21:23
PROVIDERS: Emergency Provider Emergency Medicine; PCP Nurse Practitioner Family
DX: G56.01 Carpal tunnel syndrome, right upper limb (principal)
CPT/HCPCS: 99283; 99284

== ENCOUNTER 2022-07-28 05:16 | Emergency (ER) | payer BC, SELFPAY ==
[2022-07-28 05:25] VITALS: BP 123/67; PULSE 76; RESP 15; TEMP 36.2; O2SAT 98; BMI 26.6
--- NOTE | 2022-07-28 05:31 | XR_ITS ---
PROCEDURE INFORMATION: Exam: XR Right Forearm Exam date and time: 07/28/2022 5:31 AM Age: 46 years old Clinical indication: Pain; Lower or forearm; Right; Additional info: Wrist pain, no known injury with rad up into forea TECHNIQUE: Imaging protocol: Radiologic exam of the right forearm. Views: 2 views. COMPARISON: CR XR WRIST RT MIN 3V 07/28/2022 5:29 AM FINDINGS: Bones/joints: No acute bony injury or malalignment in the visualized right forearm. Soft tissues: No radiopaque soft tissue foreign body. IMPRESSION: No acute bony injury or malalignment in the visualized right forearm.
--- NOTE | 2022-07-28 05:31 | XR_ITS ---
PROCEDURE INFORMATION: Exam: XR Right Wrist Exam date and time: 07/28/2022 5:29 AM Age: 46 years old Clinical indication: Pain; Wrist; Right; Additional info: Wrist pain radiating up into elbow, no known injur TECHNIQUE: Imaging protocol: Radiologic exam of the right wrist. Views: 3 or more views. COMPARISON: No relevant prior studies available. FINDINGS: The order requisition states right wrist while the images are labeled left wrist. Technologist clarification is required. Bones/joints: No acute bony injury or malalignment in the visualized wrist. Soft tissues: No radiopaque foreign body. IMPRESSION: No acute bony injury or malalignment in the visualized wrist, see comments above.
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
[2022-07-28 06:08] VITALS: BP 115/57; PULSE 71; RESP 15; TEMP 36.8; O2SAT 98
== END 2022-07-28 06:38 | disposition home or self-care (01) ==
PROVIDERS: Emergency Provider Emergency Medicine; PCP Nurse Practitioner Family
DX: M25.531 Pain in right wrist (principal)
CPT/HCPCS: 73090; 73110; 96372; 99283; 99284

== ENCOUNTER 2024-06-11 10:56 | Outpatient (POV) | payer BC, SELFPAY ==
--- NOTE | 2024-06-11 11:52 | EXP.PAIN.OV ---
HPI Data of Consult Patient: new to practice Consult date: 06/11/24 Requesting Physician: Vera Orona APRN Primary Care Provider: Lilli Galdamez APRN Consult Narrative Reason for consult: Neck pain, left arm numbness tingling, mid back pain History of present illness: Ms. Damon is a 48 year old female who presents today as a new patient. She is a referral from [facility]. Today she rates her pain a 10 out of 10. Patient states thats she had a cervical fusion back in September 2022 and had chronic neck pain for about a year before this surgery. Patient states that then she ended up having chronic pain throughout her neck even after surgery and it has continued to progressively worsen. Patient has tried oral medications, heat and ice, topicals, at home stretching exercise for longer than 12 weeks. Patient has had physical therapy with no change of symptoms. She states that the heat can temporarily help but sometimes will also aggravate her back symptoms. She states that ice just made it worse. Patient states that it is an intense burning sensation that is constant and nothing seems to help. Patient states it feels like she is chewing on an electric fence . Patient states even the simplest activities like washing her hair that she cannot complete. She states she has to stop and take multiple breaks. Patient does state the pain is all at around the base of her neck and radiates down to around her bra line. Patient states that she has tried meloxicam in the past with no help. Patient states that she does continue Tylenol and ibuprofen as well as has been given muscle relaxers and some pain medicines. Patient is interested in any help we may be able to provide. Patient states she is just miserable and feels like she has no quality of life. Her Rip has been reviewed and is appropriate. CC: Vera Orona APRN [facility] Disclaimer: The information contained in this section may have been updated after the patient was seen, as this information can be updated by other users. Medical History (Updated 06/11/24 @ 11:54 by Vera Orona APRN) Cervical vertebral fusion Social History Smoking Status: Unknown if ever smoked alcohol intake: never substance use type: former substance user current occupational status: unemployed Travel in the last 8 weeks: None household members: spouse and children housing: house caffeine: No Review of Systems Review of Systems Review of systems:: pertinent systems reviewed and negative unless documented below Review of systems (narrative): Review of Systems: General: No recent weight changes, no fever, no sleep disturbances Respiratory: No cough, no shortness of air, no recurring pulmonary infections Cardiovascular/peripheral vascular: No chest pain, no palpitations, no edema, no shortness of breath Gastrointestinal: No new onset incontinence, normal bowel movements reported Genitourinary: No new onset incontinence Musculoskeletal: Neck pain, mid back pain, left arm numbness tingling Psychiatric: [Normal mood/affect] Neurological: [Denies weakness in extremities], [denies balance issues] Meds Home Medications and Allergies Home Medications ?Medication ?Instructions ?Recorded ?Confirmed ?Type atenolol 25 mg tablet 25 mg PO BID palpitations 08/07/17 07/28/22 History buspirone 10 mg tablet 10 mg PO TID Anxiety 30 days #90 04/09/19 07/28/22 History tabs ketorolac 10 mg tablet 10 mg PO Q8H 3 days #9 tabs 07/28/22 Rx prednisone 20 mg tablet 20 mg PO BID #10 tabs 07/28/22 Rx diclofenac sodium 75 mg 75 mg PO BID #28 tabs 06/11/24 Rx tablet,delayed release New Prescriptions to Start Prescriptions: diclofenac sodium Vera Orona Allergies Allergy/AdvReac Type Severity Reaction Status Date / Time doxycycline Allergy Severe Palpitation Verified 04/09/19 11:06 s ampicillin (AMPICILLIN) Allergy Unknown VOMITTING Verified 04/09/19 11:06 AND DIARRHEA Objective Narrative: Physical Exam: General: Alert and oriented x3, no acute distress, pleasant and cooperative Lungs: Respirations even and unlabored, symmetrical chest expansion Eyes: PERRL Musculoskeletal: Flexion and extension of cervical [spine] somewhat guarded secondary to pain, [antalgic gait noted] point tenderness along her lower cervical spine and radiating down her thoracic spine Neurological: Speech clear, no gross sensory deficit Additional findings Additional findings: X-ray imaging cervical spine 10/12/2022 Findings: No acute fracture. No subluxation. There is severe degenerative disc disease at C4-C5, C5-C6 and C6 or C7 with posterior osteophytes resulting in central canal and bilateral neuroforaminal stenosis. Soft tissues are unremarkable. Limited images of the lung apices are unremarkable. Assessment and Plan *Assessment and plan (1) Cervical radiculopathy: Status: Acute Category: Medical Code(s): M54.12 - Radiculopathy, cervical region (2) Degenerative disc disease, cervical: Status: Acute Category: Medical Code(s): M50.30 - Other cervical disc degeneration, unspecified cervical region (3) Thoracic radiculopathy: Status: Acute Category: Medical Code(s): M54.14 - Radiculopathy, thoracic region (4) Mid back pain: Status: Acute Category: Medical Code(s): M54.9 - Dorsalgia, unspecified Plan Patient is experiencing severe pain from her neck down to her mid back with radiating numbness and tingling. I did discuss with the patient due to the extent of her complaints I would like to order x-ray imaging of her cervical and thoracic spine. Patient will also be sent for MRI without contrast of her cervical spine. It has been over a year since she has had any updated imaging. I did also discuss with the patient that in future we will also plan to do an MRI of her thoracic spine. Patient agrees with this plan of care. I will order the patient a compounded cream and send in a prescription of diclofenac 75 mg twice daily. Patient was counseled to discontinue all other NSAIDs while taking this medication and to take it with food to minimize GI upset. Patient acknowledges understanding agrees with this plan of care. We did also talk regarding in future about starting on a nerve medication we will follow-up with this at her next appointment. Patient will return to clinic in 2 weeks. Patient has been instructed to contact the clinic with any concerns before the next appointment. Dr. Redd has reviewed this note and agrees with this plan of care. This note was dictated using voice recognition software and make contain errors or omissions. All injections are used with Lidocaine, Bupivacaine and Depo Medrol. Occasionally urine drug screen is needed to verify patient's compliance with our office pain contract. This is ordered based off specific treatments related to chronic pain with the potential to abuse certain medications.
--- NOTE | 2024-06-11 11:56 | XR_ITS ---
FINAL REPORT CLINICAL HISTORY: Chronic neck pain COMPARISON: None FINDINGS: Three views of the cervical spine were obtained. No fracture is present. There is surgical fusion of C4 through C7. The hardware is unremarkable. No prevertebral soft tissue swelling is seen. Retrolisthesis is noted of C4 on C5 measuring 2.5 mm. IMPRESSION: Lower cervical fusion. Retrolisthesis of C4 on C5. Reviewed, Interpreted and Dictated by Carlene Brian MD Transcribed by Yesenia Baum Authenticated and [facility]
--- NOTE | 2024-06-11 11:56 | XR_ITS ---
FINAL REPORT CLINICAL HISTORY: Mid back pain COMPARISON: None FINDINGS: Four views of the thoracic spine were obtained. There is no fracture present. There are mild diffuse degenerative disc changes. Mild S shaped scoliosis is noted. IMPRESSION: Mild degenerative changes. Reviewed, Interpreted and Dictated by Carlene Brian MD Transcribed by Yesenia Baum Authenticated and [facility]
[2024-06-11 12:36] VITALS: BP 138/93; PULSE 99; RESP 18; O2SAT 96; BMI 26.6
== END 2024-06-11 23:59 | disposition home or self-care (01) ==
PROVIDERS: PCP Nurse Practitioner Family; Visit Provider Nurse Practitioner Family
DX: M50.10 Cervical disc disorder with radiculopathy, unspecified cervical region (principal); M43.22 Fusion of spine, cervical region; M54.9 Dorsalgia, unspecified
CPT/HCPCS: 72040; 72072; 99202; G0463

== ENCOUNTER 2024-06-25 09:23 | Outpatient (POV) | payer BC, SELFPAY ==
--- OUTSIDE RECORDS SUMMARY | 2024-06-25 09:25 | XMS_ITS | Clinical Summary ---
Author Organization [facility] , [facility] Address [address] [place] [phone] Phone Care Team Providers Care Business Line Manager Name Role Phone Anne Galdamez APRN Unavailable [phone] Yara LINDSEY, Meir Wiseman Unavailable [phone] Reason for Visit and Chief Complaint Epidural Steroid Injection Problems Includes: Problems addressed during this encounter and other active Problems All Visits Onset Date Resolved Date Provider Condition S tatus Lower Back Pain 12/30/2023 Sanchez mejía MD Active Last Documented On 4 11:59AM ; [facility], [facility] Neck Pain 09/24/2022 Sanchez Zamora MD Active Last Documented On 3 8:32AM ; [facility] Joint Pain, Localized in the Right Wrist 05/14/2022 Meir Livingston MD Active Last Documented On 3 12:47PM ; [facility], [facility] Plan of Treatment Future Appointments Date Time Location Provi ceferino Phone Call 06/25/2024 1:00PM [facility] DENICE BENEDICT PA-C Last Documented On 5 3:38PM ; [facility] Epidural Steroid Injection 07/01/2024 1:30PM [facility] DENICE Ramsey [employer] ADJUSTER Last Documented On 5 1:19PM ; [facility], [facility] Follow Up 08/17/2024 1:15PM [facility] ISAIAS Zamora MD Last Documented On 5 3:14PM ; [facility], [facility] Assessments Includes: Assessments from this encounter No Assessments Recorded Medical Equipment - Implanted Devices Includes: Current Devices No Medical Equipment Recorded Medications Includes: Medications discussed during this encounter and other current Medications Current Medications (continue as prescribed) traMADol HCl 50 MG Oral Tablet 06/05/2024 - 07/05/2024 Provider: Sanchez Zamora MD Diagnosis: Fusion of spine, cervical region Take 1 tablet PO up to twice a day, NEEDED Last Documented On 5 4:13PM By Sanchez Zamora ; [facility] Wegovy 2.4 MG/0.75ML Subcuta neous Solution Auto-injector 02/22/2024 Provider: Anne Galdamez APRN Diagnosis: Last Documented On 5 10:42AM By Aileen Hollingsworth ; [facility] Atenolol 25 MG Oral Tablet 02/17/2024 Provider: Diagnosis: Last Documented On 5 10:42AM By Aileen Hollingsworth ; [facility] Hyoscyamine Sulfate 0.125 MG Sublingual Tablet Subling ual 06/17/2023 Provider: Diagnosis: Last Documented On 4 3:26PM By Dottie Cardenas ; [facility] busPIRone HCl 5 MG Oral Tablet 06/17/2023 Provider: Diagnosis: Last Documented On 4 3:25PM By Dottie Cardenas ; [facility] Estradiol 1 MG Oral Tablet 05/05/2023 Provider: Mackenzie Galdamez APRN Diagnosis: Last Documented On 4 3:24PM By Dottie Cardenas ; [facility] FLUoxetine HCl 20 MG Oral Capsule 05/05/2023 Provide r: Anne Galdamez APRN Diagnosis: Last Documented On 4 3:24PM By Dottie Cardenas ; [facility] Medications Administered Includes: Administered Medications from this encounter No Administered Medications Recorded Results Includes: Results discussed during this encounter No Results Recorded For Specified Dates History of Present Illness Includes: History of Present Illness from this encounter No History of Present Illness Recorded Social History No Social History Recorded - Smoking Status Unknown Procedures and Surgical History Includes: Procedures from this encounter Procedures Code Diagnosis Performing Provider Service Location Service Date Cervical/Thoracic epidural injection 45527 Radiculopathy, cervical region Chau Ramsey [facility] 05/20/2024 Last Documented On 5 1:48PM ; [facility] Triamcinolone/Kenalog, 10mg per cc [id number] Radiculopathy, cervical region Chau Ramsey [employer] [facility] 05/20/2024 Last Documented On 5 1:48PM ; [facility] Medical History Includes: Medical History addressed during this encounter No Medical History Recorded Family History Includes: Family History addressed during this encounter No Family History Recorded Review of Systems Includes: Review of Systems from this encounter No Review of Systems Recorded Mental Status Includes: Mental Status from this encounter No Mental Status Recorded Functional Status Includes: Functional Status from this encounter No Functional Status Recorded Physical Exam Includes: Physical Exam from this encounter No Physical Exam Recorded Allergies Includes: Active Allergies Substance Type Reaction Onset Date Resolved Date Statu s Ampicillin Allergy Vomiting, Diarrh ea / Diarrheal disorder 05/14/2022 Active Last Documented On 5 9:48AM ; [facility] Encounters Encounter Provider Location Date Check-In Time Check-Out Time Diagnosis Epidural Steroid Injection Chau Ramsey [employer] [facility] 05/21/19 25 2:44PM 3:13PM Insurance Includes: Active Insurance Policies Plan Name Member ID Group # Subscriber Relationship Effect erika Dates 1 - [facility] [id number] Kamaljit Damon 03/11/2022 - Unknown Clinical Notes Includes: Clinical Notes from this encounter No Clinical Notes Recorded
--- OUTSIDE RECORDS SUMMARY | 2024-06-25 09:25 | XMS_ITS | Clinical Summary ---
Author Organization [facility] , [facility] Address [address] [place] [address] Phone Care Team Providers Care Assistant Store Leader Name Role Phone Anne Galdamez APRN Unavailable [phone] Yara LINDSEY, Meir Wiseman Unavailable [phone] Reason for Visit and Chief Complaint [Patient Encounter] Problems Includes: Problems addressed during this encounter and other active Problems All Visits Onset Date Resolved Date Provider Condition S tatus Lower Back Pain 12/30/2023 Sanchez mejía MD Active Last Documented On 4 11:59AM ; [facility] Neck Pain 09/24/2022 Sanchez Zamora MD Active Last Documented On 3 8:32AM ; [facility] Joint Pain, Localized in the Right Wrist 05/14/2022 Meir Livingston MD Active Last Documented On 3 12:47PM ; [facility], [facility] Plan of Treatment Pending Tests Order Diagnosis Results Due Ordering P rovider Radiology - CT Scan Cervical Cervicalgia 10/08/22 Denzel Zamora MD Last Documented On 3 9:44AM ; [facility] Radiology - MRI MRI Lumbar Spine Low back pain, unspecified 01/13/24 Sanchez Zamora MD Last Documented On 4 10:58AM ; [facility], [facility] Future Appointments Date Time Location Provi ceferino Phone Call 06/25/2024 1:00PM [facility] DENICE BENEDICT PA-C Last Documented On 5 3:38PM ; [facility], [facility] Epidural Steroid Injection 07/01/2024 1:30PM [facility] DENICE Ramsey CRNA Last Documented On 5 1:19PM ; [facility], [facility] Follow Up 08/17/2024 1:15PM [facility] ISAIAS Zamora MD Last Documented On 5 3:14PM ; [facility], [facility] Assessments Includes: Assessments from this encounter No Assessments Recorded Medical Equipment - Implanted Devices Includes: Current Devices No Medical Equipment Recorded Medications Includes: Medications discussed during this encounter and other current Medications New / Renewed during this visit Sanchez Zamora MD on 06/05/2024 traMADol HCl 50 MG Oral Tablet Provider: Sanchez mejía MD 30 day supply: 60 tablet, 0 refills Diagnosis: Fusion of spine, cervical region Take 1 tablet PO up to twice a day, NEEDED Pharmacy: [facility] [phone], [address] - Last Documented On 5 4:13PM By Sanchez Zamora ; [facility], [facility] Current Medications (continue as prescribed) Wegovy 2.4 MG/0.75ML Subcuta neous Solution Auto-injector 02/22/2024 Provider: Anne Galdamez APRN Diagnosis: Last Documented On 5 10:42AM By Aileen Hollingsworth ; [facility], [facility] Atenolol 25 MG Oral Tablet 02/17/2024 Provider: Diagnosis: Last Documented On 5 10:42AM By Aileen Hollingsworth ; [facility], [facility] Hyoscyamine Sulfate 0.125 MG Sublingual Tablet Subling ual 06/17/2023 Provider: Diagnosis: Last Documented On 4 3:26PM By Dottie Cardenas ; [facility], [facility] busPIRone HCl 5 MG Oral Tablet 06/17/2023 Provider: Diagnosis: Last Documented On 4 3:25PM By Dottie Cardenas ; [facility], [facility] Estradiol 1 MG Oral Tablet 05/05/2023 Provider: Mackenzie Galdamez APRN Diagnosis: Last Documented On 4 3:24PM By Dottie Cardenas ; [facility], [facility] FLUoxetine HCl 20 MG Oral Capsule 05/05/2023 Provide r: Anne Galdamez GEE Diagnosis: Last Documented On 4 3:24PM By Dottie Cardenas ; [facility], [facility] Medications Administered Includes: Administered Medications from this encounter No Administered Medications Recorded Results Includes: Results discussed during this encounter No Results Recorded For Specified Dates History of Present Illness Includes: History of Present Illness from this encounter No History of Present Illness Recorded Social History No Social History Recorded - Smoking Status Unknown Medical History Includes: Medical History addressed during [...] Active Last Documented On 5 9:48AM ; [facility], [facility] Encounters Encounter Provider Location Date Check-In Time Check-Out Time Diagnosis [Patient Encounter] Sanchez Zamora MD 06/05/2024 4:01PM 11:59PM Insurance Includes: Active Insurance Policies Plan Name Member ID Group # Subscriber Relationship Effect erika Dates - [facility] [id number] Kamaljit Damon 03/11/2022 - Unknown Clinical Notes Includes: Clinical Notes from this encounter No Clinical Notes Recorded
--- OUTSIDE RECORDS SUMMARY | 2024-06-25 09:26 | XMS_ITS ---
Care Plan - [facility], [facility] Created on: June 25, 2024 Yasmeen Damon : 1975 Sex: Female Author Organization [facility] , [facility] Address [address] [place] [address] Phone Care Team Providers Care Drawer Liner Name Role Phone Anne Galdamez APRN Unavailable [phone] Yara LINDSEY, Meir Wiseman Unavailable [phone]
--- OUTSIDE RECORDS SUMMARY | 2024-06-25 09:26 | XMS_ITS | Clinical Summary ---
Author Organization [facility] , [facility] Address [address] [place] [phone] Phone Care Team Providers Care E Commerce Marketing Manager Name Role Phone Anne Galdamez APRN Unavailable [phone] Yara LINDSEY, Meir Wiseman Unavailable [phone] Reason for Visit and Chief Complaint The Chief Complaint is: lower back pain Problems Includes: Problems addressed during this encounter and other active Problems Current Visit Onset Date Resolved Date Provider Conditio n Status Lower Back Pain 12/30/2023 Sanchez mejía MD Active Last Documented On 4 11:59AM ; [facility] Past Visits Onset Date Resolved Date Provider Condition Status Neck Pain 09/24/2022 Sanchez Zamora MD Active Last Documented On 3 8:32AM ; [facility], [facility] Joint Pain, Localized in the Right Wrist 05/14/2022 Meir Livingston MD Active Last Documented On 3 12:47PM ; [facility], [facility] Plan of Treatment Pending Tests Order Diagnosis Results Due Ordering P rovider Radiology - CT Scan Cervical Cervicalgia 10/08/22 Denzel Zamora MD Last Documented On 3 9:44AM ; [facility], [facility] Radiology - MRI MRI Lumbar Spine Low back pain, unspecified 01/13/24 Sanchez Zamora MD Last Documented On 4 10:58AM ; [facility] Future Appointments Date Time Location Provi ceferino Phone Call 06/25/2024 1:00PM [facility] DENICE BENEDICT PA-C Last Documented On 5 3:38PM ; [facility] Epidural Steroid Injection 07/01/2024 1:30PM [facility] DENICE Ramsey CRNA Last Documented On 5 1:19PM ; [facility] Follow Up 08/17/2024 1:15PM [facility] ISAIAS Zamora MD Last Documented On 5 3:14PM ; [facility], [facility] Instructions to patient Lose weight Last Documented On 5 9:48AM ; [facility] Assessments Includes: Assessments from this encounter Findings - Overweight - Last Documented On 05/22/2024 8:33AM ; [facility], [facility] Instructions Includes: Instructions from this encounter Instructions to patient Lose weight Last Documented On 5 9:48AM ; [facility] Medical Equipment - Implanted Devices Includes: Current Devices No Medical Equipment Recorded Medications Includes: Medications discussed during this encounter and other current Medications New / Renewed during this visit Sanchez Zamora MD on 04/27/2024 tiZANidine HCl 4 MG Oral Tablet Provider: Sanchez mejía MD 30 day supply: 90 tablet, 0 refills Diagnosis: Cervical disc disorder at C5-C6 level with myelopathy Take 1 tablet PO up to three times a day, NEEDED Pharmacy: [facility] [id number], [address] - Last Documented On 5 11:35AM By Sanchez Zamora ; [facility], [facility] Current Medications (continue as prescribed) traMADol HCl 50 MG Oral Tablet 06/05/2024 - 07/05/2024 Provider: Sanchez Zamora MD Diagnosis: Fusion of spine, cervical region Take 1 tablet PO up to twice a day, NEEDED Last Documented On 5 4:13PM By Sanchez VALENTINO [facility], [facility] Wegovy 2.4 MG/0.75ML Subcuta neous Solution Auto-injector 02/22/2024 Provider: Anne Galdamez APRN Diagnosis: Last Documented On 5 10:42AM By Aileen VALENTINO [facility], [facility] Atenolol 25 MG Oral Tablet 02/17/2024 Provider: Diagnosis: Last Documented On 5 10:42AM By Aileen Hollingsworth ; [facility] Hyoscyamine Sulfate 0.125 MG Sublingual Tablet Subling ual 06/17/2023 Provider: Diagnosis: Last Documented On 4 3:26PM By Dottie Cardenas ; [facility], [facility] busPIRone HCl 5 MG Oral Tablet 06/17/2023 Provider: Diagnosis: Last Documented On 4 3:25PM By Dottie Cardenas ; [facility] Estradiol 1 MG Oral Tablet 05/05/2023 Provider: Mackenzie Galdamez APRN Diagnosis: Last Documented On 4 3:24PM By Dottie Cardenas ; [facility], [facility] FLUoxetine HCl 20 MG Oral Capsule 05/05/2023 Provide r: Anne Galdamez APRN Diagnosis: Last Documented On 4 3:24PM By Dottie Cardenas ; [facility], [facility] Past Medications on file tiZANidine HCl 4 MG Oral Tablet 03/13/2024 - 04/12/2024 Provider: Sanchez Zamora MD Diagnosis: Cervical disc disorder at C5-C6 level with myelopathy Take 1 tablet PO up to three times a day, NEEDED Last Documented On 5 3:14PM By Aileen Hollingsworth ; [facility], [facility] tiZANidine HCl 4 MG Oral Tablet 02/21/2024 - 03/02/2024 Provider: Sanchez Zamora MD Diagnosis: Cervical disc disorder at C5-C6 level with myelopathy Take 1 tablet PO up to three times a day, NEEDED Last Documented On 4 3:53PM By Sanchez Zamora ; [facility] tiZANidine HCl 4 MG Oral Tablet 02/04/2024 - 02/14/2024 Provider: CONCETTA BENEDICT PA-C Diagnosis: Cervical disc di sorder at C5-C6 level with myelopathy Take 1 tablet PO up to three times a day, NEEDED Last Documented On 4 4:14PM By Aileen Hollingsworth ; [facility], [facility] HYDROcodone-Acetaminophen 10 -325 MG Oral Tablet 12/30/2023 - 01/06/2024 Provider: Sanchez Zamora MD Diagnosis: Radiculopathy, cervical region Take 1 tablet PO Q4H, NEE DED-may take with tylenol Last Documented On 4 12:13PM By Sanchez Zamora ; [facility] HYDROcodone-Acetaminophen 10 -325 MG Oral Tablet 11/25/2023 - 12/02/2023 Provider: Sanchez Zamora MD Diagnosis: Radiculopathy, cervical region Take 1 tablet PO Q4H, NEE DED-may take with tylenol Last Documented On 4 2:14PM By Sanchez Zamora ; [facility] Methocarbamol 750 MG Oral Tablet 11/01/2023 - 12/01/2023 Provider: Sanchez Zamora MD Diagnosis: Cervical disc disorder at C5-C6 level with myelopathy Take 1 tablet PO up to 3 michelle es a day as needed Last Documented On 4 2:38PM By Sanchez Zamora ; [facility] HYDROcodone-Acetaminophen 10 -325 MG Oral Tablet 11/01/2023 - 11/08/2023 Provider: Sanchez Zamora MD Diagnosis: Radiculopathy, cervical region Take 1 tablet PO Q4H, NEE DED-may take with tylenol Last Documented On 4 2:38PM By Sanchez Zamora ; [facility] Medrol 4 MG Oral Tablet Therapy Pack 10/23/2023 - 10/30/2023 Provider: Sanchez Dawn MD Diagnosis: Cervicalgia Take as directed Last Documented On 4 10:25AM By Aileen Hollingsworth ; [facility] HYDROcodone-Acetaminophen 10 -325 MG Oral Tablet 10/14/2023 - 10/21/2023 Provider: Sanchez Zamora MD Diagnosis: Radiculopathy, cervical region Take 1 tablet PO Q4H, NEE DED-may take with tylenol Last Documented On 4 8:56AM By Sanchez Zamora ; [facility] Cephalexin 500 MG Oral Tablet 10/09/2023 - 10/16/2023 Provider: Sanchez Dawn MD Diagnosis: Cervicalgia Take 1 tablet PO four times a day until finished Last Documented On 4 1:39PM By Aileen Hollingsworth ; [facility], [facility] Medrol 4 MG Oral Tablet Therapy Pack 10/09/2023 - 10/16/2023 Provider: Sanchez Dawn MD Diagnosis: Cervicalgia Take as directed Last Documented On 4 1:39PM By Aileen Hollingsworth ; [facility] HYDROcodone-Acetaminophen 10 -325 MG Oral Tablet 10/02/2023 - 10/09/2023 Provider: Sanchez Zamora MD Diagnosis: Radiculopathy, cervical region Take 1 tablet PO Q4H, NEE DED-may take with tylenol Last Documented On 4 5:00PM By Sanchez Zamora ; [facility] Docusate Sodium 100 MG Oral Capsule, conventional 09/26/2023 - 10/26/2023 Provider: Sanchez Hayden MD Diagnosis: Take 1 capsule PO twice a day for constipation Last Documented On 4 2:39PM By Sanchez Zamora ; [facility] Methocarbamol 750 MG Oral Tablet 09/26/2023 - 10/26/2023 Provider: Sanchez Dawn MD Diagnosis: three times a day Take 1 tab let PO up to 3 times a day as needed Last Documented On 4 2:39PM By Sanchez Zamora ; [facility] HYDROcodone-Acetaminophen 5- 325 MG Oral Tablet 09/26/2023 - 10/03/2023 Provider: Sanchez Zamora MD Diagnosis: 1 po q 4h Take 1 tablet PO q 4h as needed - may take with Tylenol Last Documented On 4 2:39PM By Sanchez Zamora ; [facility] Methocarbamol 750 MG Oral Tablet 07/05/2023 - 08/04/2023 Provider: Sanchez Zamora MD Diagnosis: Cervicalgia Take 1 tablet PO up to 3 times a day as needed Last Documented On 4 4:01PM By Aileen Hollingsworth ; [facility] Meloxicam 15 MG Oral Tablet 07/05/2023 - 08/04/2023 Provider: Sanchez Dawn MD Diagnosis: Cervicalgia Take 1 tablet PO once a day, as needed Last Documented On 4:01PM By Aileen Hollingsworth ; [facility] Medications Administered Includes: Administered Medications from this encounter No Administered Medications Recorded Vital Signs Includes: Vital Signs from this encounter Vital Name 04/27/2024 09:48A Height (in) 65 Weight (lb) 165.25 Body Mass Index 27.5 Body Surface Area 1.8 Pain Level 8 Note: HL Last Documented: On 04/27/2024 9:48AM ; [facility] Results Includes: Results discussed during this encounter No Results Recorded For Specified Dates History of Present Illness Includes: History of Present Illness from this encounter MARYBETH Damon is a 48 year old female. - Allergy list reviewed - Problem list reviewed - Medication list reviewed - Previous history of new onset pain Injury is not work related or an automotive accident - Patient pain level from 1-10: 8 - Yes, previous treatment. - History of Physical Therapy - History of Home Exercise - History of Injections 04/02/2024 Isaac L4-S1 MBB 0% relief - - Review of medications documented Medications used for this condition: This is a 48-year-old female following up with me. Unfortunately the L4-5 and L5-S1 facet joint injections really did not help her very much. She was complaining of a lot of pain in her posterior cervical spine particularly sort of at the C7 spinous process down to the area around her bra strap. Social History Description Last Updated Caffeine use 05/14/2022 Last Documented On 5 9:48AM ; [facility] Tobacco non-user 05/14/2022 Last Documented On 5 9:48AM ; [facility] No recent change in diet 05/14/2022 Last Documented On 5 9:48AM ; [facility] Not a current smoker. 05/14/2022 Last Documented On 5 9:48AM ; [facility] Not exercising regularly 05/14/2022 Last Documented On 5 9:48AM ; [facility] Not using alcohol 05/14/2022 Last Documented On 5 9:48AM ; [facility] Not using drugs 05/14/2022 Last Documented On 5 9:48AM ; [facility], [facility] Smoking Status Unknown Procedures and Surgical History Includes: Procedures from this encounter Procedures Code Diagnosis Performing Provider Service L ocation Service Date use of tobacco assessment performed 1000F Last Documented On 5 9:48AM ; [facility], [facility] review of medications documented 1160F Last Documented On 5 9:48AM ; [facility], [facility] X-ray 10/09/2023 Neck @ [facility] ~10/23/2023 Neck @ [facility] ~11/25/2023 Neck @ [facility] ~12/30/2023 Neck @ [facility] ~12/30/2023 LSpine @ [facility] [id number] Last Documented On 5 9:50AM ; [facility], [facility] CT scan 10/12/2022 [facility]Spine @ [facility] [id number] Last Documented On 5 9:48AM ; [facility], [facility] an MRI was performed 09/05/2022 Neck @ [facility] ~11/0 10/2023 [facility]Spine @ [facility] [id number] Last Documented On 5 9:48AM ; [facility], [facility] Surgical History Last Updated Past Surgical History: 09/27/2023 C4-7 A CDF @ [facility] 10/09/2023 Last Documented On 5 9:48AM ; [facility] History of appendectomy 05/14/2022 Last Documented On 5 9:48AM ; [facility], [facility] History of History of Gallbladder 2022 Last Documented On 5 9:48AM ; [facility], [facility] History of hysterectomy 05/14/2022 Last Documented On 5 9:48AM ; [facility], [facility] Medical History Includes: Medical History addressed during this encounter Description Last Updated History of Heartburn / Acid Reflux 05/14 Last Documented On 5 9:48AM ; [facility], [facility] History of History of Blood Transfusion 05/14/2022 Last Documented On 5 9:48AM ; [facility] History of Irregular Heartbeat 3 Last Documented On 5 9:48AM ; [facility] Family History Includes: Family History addressed during this encounter Description Last Updated Diabetes mellitus 05/14/2022 Last Documented On 5 9:48AM ; [facility] Review of Systems Includes: Review of Systems from this encounter Systemic: Not feeling tired, no recent weight loss, and no recent weight gain. Head: No headache and no sinus pain. Eyes: No vision problems, no Cataracts, no Glasses/Contacts, and no Glaucoma. Otolaryngeal: No hearing loss and no tinnitus. Cardiovascular: No chest pain or discomfort. Palpitations. No Hypertension and no High Cholesterol. Pulmonary: No daytime asthma symptoms and no chronic cough. No wheezing. Gastrointestinal: Heartburn. No abdominal pain. Indigestion. No Peptic Ulcer, no GI Stomach Bleed, and no Ulcers. Acid Reflux. Endocrine: No hot flashes, no muscle weakness, no Diabetes, no Hypothyroid, and no Hyperthyroid. Hematologic: No easy bleeding, no tendency for easy bruising, and no Anemia. Musculoskeletal: No Arthritis and no lower back pain. No soft tissue swelling. Pain localized to one or more joints. Neurological: No dizziness, no convulsions, and no numbness. Psychological: Anxiety. No emotional lability, no depression, and no insomnia. Not crying for no reason. Skin: No dry skin. No Ulcers, no Scars, and no rash. Allergic and Immunologic: No complaint of seasonal allergic reaction. Mental Status Includes: Mental Status from this encounter Description Anxiety Functional Status Includes: Functional Status from this encounter No Functional Status Recorded Physical Exam Includes: Physical Exam from this encounter Allergies Includes: Active Allergies Substance Type Reaction Onset Date Resolved Date Statu s Ampicillin Allergy Vomiting, Diarrh ea / Diarrheal disorder 05/14/2022 Active Last Documented On 5 9:48AM ; [facility] Encounters Encounter Provider Location Date Check-In Time Check-Out Time Diagnosis Follow Up Sanchez guaman MD [facility] 5 9:26AM 10:49AM Overweight Insurance Includes: Active Insurance Policies Plan Name Member ID Group # Subscriber Relationship Effect erika Dates 1 - [employer] [place] [id number] Kamaljit Damon 03/11/2022 - Unknown Clinical Notes Includes: Clinical Notes from this encounter * Progress note Date Encounter Last Documented by 04/27/2024 Follow Up Last documented on 05/22/2024; 8:33 AM, Sanchez Hayden MD; [facility] Active Problems & Conditions - Joint Pain, Localized in the Right Wrist - Lower Back Pain - Neck Pain Chief Complaint The Chief Complaint is: Lower back pain. Referred Here Referred by [facility]- Dr. Meir Colin. History of Present Illness Yasmeen Damon is a 48 year old female. - Allergy list reviewed - Problem list reviewed - Medication list reviewed - Previous history of new onset pain Injury is not work related or an automotive accident - Patient pain level from 1-10: 8 - Yes, previous treatment. - History of Physical Therapy - History of Home Exercise - History of Injections 04/02/2024 Isaac L4-S1 MBB 0% relief - - Review of medications documented Medications used for this condition: This is a 48-year-old female following up with me. Unfortunately the L4-5 and L5-S1 facet joint injections really did not help her very much. She was complaining of a lot of pain in her posterior cervical spine particularly sort of at the C7 spinous process down to the area around her bra strap. Current Medication - Atenolol 25 MG Oral Tablet twice a day 90 days, 0 refills - busPIRone HCl 5 MG Oral Tablet take as directed 0 days, 0 refills - Estradiol 1 MG Oral Tablet 90 days, 0 refills - FLUoxetine HCl 20 MG Oral Capsule 90 days, 0 refills - Hyoscyamine Sulfate 0.125 MG Sublingual Tablet Sublingual take as directed 0 days, 0 refills - Wegovy 2.4 MG/0.75ML Subcutaneous Solution Auto-injector use as directed 28 days, 0 refills Past Medical/Surgical History Diagnoses: History of Blood Transfusion Irregular Heartbeat Heartburn / Acid Reflux Surgical: - Appendectomy - Past Surgical History: 09/27/2023 C4-7 ACDF @ [facility] - Hysterectomy - History of Gallbladder Social History Not a current smoker. Current diet: No recent change in diet. Caffeine use: Caffeine use. Tobacco use: Tobacco non-user. Alcohol: Not using alcohol. Drug Use: Not using drugs. Habits: Not exercising regularly. Allergies - Ampicillin Reaction: Diarrhea / Diarrheal disorder (Severe), Vomiting (Severe) Family History Diabetes mellitus Review Of Systems Systemic: Not feeling tired, no recent weight loss, and no recent weight gain. Head: No headache and no sinus pain. Eyes: No vision problems, no Cataracts, no Glasses/Contacts, and no Glaucoma. Otolaryngeal: No hearing loss and no tinnitus. Cardiovascular: No chest pain or discomfort. Palpitations. No Hypertension and no High Cholesterol. Pulmonary: No daytime asthma symptoms and no chronic cough. No wheezing. Gastrointestinal: Heartburn. No abdominal pain. Indigestion. No Peptic Ulcer, no GI Stomach Bleed, and no Ulcers. Acid Reflux. Endocrine: No hot flashes, no muscle weakness, no Diabetes, no Hypothyroid, and no Hyperthyroid. Hematologic: No easy bleeding, no tendency for easy bruising, and no Anemia. Musculoskeletal: No Arthritis and no lower back pain. No soft tissue swelling. Pain localized to one or more joints. Neurological: No dizziness, no convulsions, and no numbness. Psychological: Anxiety. No emotional lability, no depression, and no insomnia. Not crying for no reason. Skin: No dry skin. No Ulcers, no Scars, and no rash. Allergic and Immunologic: No complaint of seasonal allergic reaction. Physical Findings - Vitals taken 04/27/2024 09:48 am HL Height 65 in Weight 165 lbs 4 oz Body Mass Index 27.5 kg/m2 Body Surface Area 1.8 m2 Pain Level 8 General: Alert and Oriented A&Ox3 Focused Musculoskeletal Exam of the Spine: Patient is able to ambulate in the room without assistive device No focal tenderness to palpation in the Lumbar Spine Motor HF KE AD EHL GS Right 5/5 5/5 5/5 5/5 5/5 Left 5/5 5/5 5/5 5/5 5/5 Sensation L2 L3 L4 L5 S1 Right 2 2 2 2 2 Left 2 2 2 2 2 Patellar reflex is 2+ bilaterally Achilles reflex is 2+ bilaterally No ankle clonus Symmetric, palpable posterior tibialis pulse bilaterally User Defined 5 This is a 48-year-old female status post C4-7 anterior cervical diskectomy and fusion that was done for cervical myelopathy and cervical stenosis. It was nice seeing Yasmeen. I told her that I think it would be reasonable to try C7-T1 epidural steroid injection to treat these symptoms in her cervicothoracic junction. Assessment - Overweight Previous Tests Imaging: X-Ray: X-ray 10/09/2023 Neck @ [facility] 10/23/2023 Neck @ [facility] 11/25/2023 Neck @ [facility] 12/30/2023 Neck @ [facility] 12/30/2023 LSpine @ [facility]. CT Scan: CT scan 10/12/2022 Kushal @ [facility]. MRI Scan: An MRI was performed 09/05/2022 Neck @ [facility] 01/17/2024 LSpine @ [facility]. Counseling/Education - Tobacco non-user - Use of tobacco assessment performed - Lose weight Plan StartCited - Cervical disc disorder at C5-C6 level with myelopathy tiZANidine HCl 4 MG tablet Take 1 tablet PO up to three times a day, NEEDED, 30 days, 0 refills EndCited Practice Management Use of tobacco assessment performed Review of medications documented. Care Team - Anne Galdamez APRN Notes This dictation was done with voice recognition software and may contain errors or omissions. Health Reminders - Assess BMI satisfied 04/27/2024. - Assess Tobacco Use satisfied 05/14/2022. - Follow Up Plan BMI Management satisfied 04/27/2024.
--- OUTSIDE RECORDS SUMMARY | 2024-06-25 09:26 | XMS_ITS ---
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 Role Phone Denice FLORENCENLetitiaAnne Unavailable [phone] Yara LINDSEY, Meir Wiseman Unavailable [phone] Problems Includes: Active, inactive, and resolved Problems All Visits Onset Date Resolved Date Provider Condition S tatus Lower Back Pain 12/30/2023 Sanchez mejía MD Active Last Documented On 4 11:59AM ; [facility] Neck Pain 09/24/2022 Sacnhez Zamora MD Active Last Documented On 3 8:32AM ; [facility] Joint Pain, Localized in the Right Wrist 05/14/2022 Meir Livingston MD Active Last Documented On 3 12:47PM ; [facility] Plan of Treatment Pending Tests Order Diagnosis Results Due Ordering P rovider Procedure/Tests EMG 06/18/22 Meir Livingston MD Last Documented On 3 5:13PM ; [facility] Radiology - MRI MRI Cervical Spine 08/22/22 Cory Livingston MD Last Documented On 3 1:02PM ; [facility] Radiology - CT Scan Cervical Cervicalgia 10/08/22 Denzel Zamora MD Last Documented On 3 9:44AM ; [facility] Radiology - MRI MRI Lumbar Spine Low back pain, unspecified 01/13/24 Sanchez Zamora MD Last Documented On 4 10:58AM ; [facility] Future Appointments Date Time Location Provi ceferino Phone Call 06/25/2024 1:00PM [facility] DENICE BENEDICT PA-C Last Documented On 5 3:38PM ; [facility] Epidural Steroid Injection 07/01/2024 1:30PM [facility] DENICE Ramsey CRNA Last Documented On 5 1:19PM ; [facility] Follow Up 08/17/2024 1:15PM [facility] ISAIAS Zamora MD Last Documented On 5 3:14PM ; [facility] Instructions to patient Lose weight Last Documented On 5 9:48AM ; [facility] Lose weight Last Documented On 5 10:05AM ; [facility] Lose weight Last Documented On 4 10:49AM ; [facility] Lose weight Last Documented On 4 1:42PM ; [facility] Lose weight Last Documented On 4 9:52AM ; [facility] Lose weight Last Documented On 4 1:04PM ; [facility] Lose weight Last Documented On 4 3:46PM ; [facility] Lose weight Last Documented On 3 8:32AM ; [facility] Lose weight Last Documented On 3 1:54PM ; [facility] Lose weight Last Documented On 3 2:56PM ; [facility] Lose weight Last Documented On 3 2:32PM ; [facility] Lose weight Last Documented On 3 1:04PM ; [facility] Assessments Includes: Assessments for all patient encounters Findings Encounter Date Overweight Follow Up with Sanchez Hayden MD 04/27/2024 Last Documented On 5 8:33AM ; [facility] Overweight Follow Up with Sanchez Hayden MD 03/23/2024 Last Documented On 5 11:40AM ; [facility] Overweight Follow Up with Sanchez Hayden MD 12/30/2023 Last Documented On 4 10:58AM ; [facility] Overweight Post Op with Sanchez craig MD 11/25/2023 Last Documented On 4 3:49PM ; [facility] Overweight Post Op with Sanchez craig MD 10/23/2023 Last Documented On 4 6:38PM ; [facility] Overweight Post Op with Sanchez craig MD 10/09/2023 Last Documented On 4 9:37AM ; [facility] Overweight Follow Up with Sanchez Hayden MD 06/17/2023 Last Documented On 4 11:19AM ; [facility] Overweight WORK COMP with Sanchez Hayden MD 09/24/2022 Last Documented On 3 10:21AM ; [facility] Instructions Includes: Instructions for all patient encounters Instructions to patient Lose weight Last Documented On 5 9:48AM ; [facility] Lose weight Last Documented On 5 10:05AM ; [facility] Lose weight Last Documented On 4 10:49AM ; [facility] Lose weight Last Documented On 4 1:42PM ; [facility] Lose weight Last Documented On 4 9:52AM ; [facility] Lose weight Last Documented On 4 1:04PM ; [facility] Lose weight Last Documented On 4 3:46PM ; [facility] Lose weight Last Documented On 3 8:32AM ; [facility] Lose weight Last Documented On 3 1:54PM ; [facility] Lose weight Last Documented On 3 2:56PM ; [facility] Lose weight Last Documented On 3 2:32PM ; [facility] Lose weight Last Documented On 3 1:04PM ; [facility] Medical Equipment - Implanted Devices Includes: Current and historical Devices No Medical Equipment Recorded Medications Includes: Current and historical Medications Current Medications (continue as prescribed) traMADol HCl 50 MG Oral Tablet 06/05/2024 - 07/05/2024 Provider: Sanchez Zamora MD Diagnosis: Fusion of spine, cervical region Take 1 tablet PO up to twice a day, NEEDED Last Documented On 5 4:13PM By Sanchez Zamora ; [facility] Wegovy 2.4 MG/0.75ML Subcuta neous Solution Auto-injector 02/22/2024 Provider: Anne Galdamez APRN Diagnosis: Last Documented On 5 10:42AM By Aileen Hollingsworth ; [facility] Atenolol 25 MG Oral Tablet 02/17/2024 Provider: Diagnosis: Last Documented On 5 10:42AM By Aileen Hollingsworth ; [facility] Hyoscyamine Sulfate 0.125 MG Sublingual Tablet Subling ual 06/17/2023 Provider: Diagnosis: Last Documented On 4 3:26PM By Dottie Cardenas ; [facility] busPIRone HCl 5 MG Oral Tablet 06/17/2023 Provider: Diagnosis: Last Documented On 4 3:25PM By Dottie Cardenas ; [facility] Estradiol 1 MG Oral Tablet 05/05/2023 Provider: Mackenzie Galdamez APRN Diagnosis: Last Documented On 4 3:24PM By Dottie Cardenas ; [facility] FLUoxetine HCl 20 MG Oral Capsule 05/05/2023 Provide r: Anne Galdamez APRN Diagnosis: Last Documented On 4 3:24PM By Dottie Cardenas ; [facility] Past Medications on file tiZANidine HCl 4 MG Oral Tablet 04/27/2024 - 05/27/2024 Provider: Sanchez Zamora MD Diagnosis: Cervical disc disorder at C5-C6 level with myelopathy Take 1 tablet PO up to three times a day, NEEDED Last Documented On 5 11:35AM By Sanchez Zamora ; [facility] tiZANidine HCl 4 MG Oral Tablet 03/13/2024 - 04/12/2024 Provider: Sanchez Zamora MD Diagnosis: Cervical disc disorder at C5-C6 level with myelopathy Take 1 tablet PO up to three times a day, NEEDED Last Documented On 5 3:14PM By Aileen Hollingsworth ; [facility] tiZANidine HCl 4 MG Oral Tablet 02/21/2024 - 03/02/2024 Provider: Sanchez Zamora MD Diagnosis: Cervical disc disorder at C5-C6 level with myelopathy Take 1 tablet PO up to three times a day, NEEDED Last Documented On 4 3:53PM By Sanchez Zamora ; [facility] tiZANidine HCl 4 MG Oral Tablet 02/04/2024 - 02/14/2024 Provider: CONCETTA BENEDICT PA-C Diagnosis: Cervical disc di sorder at C5-C6 level with myelopathy Take 1 tablet PO up to three times a day, NEEDED Last Documented On 4 4:14PM By Aileen Hollingsworth ; [facility] HYDROcodone-Acetaminophen 10 -325 MG Oral Tablet 12/30/2023 - 01/06/2024 Provider: Sanchez Zamora MD Diagnosis: Radiculopathy, cervical region Take 1 tablet PO Q4H, NEE DED-may take with tylenol Last Documented On 4 12:13PM By Sanchez Zamora ; [facility] HYDROcodone-Acetaminophen 10 -325 MG Oral Tablet 11/25/2023 - 12/02/2023 Provider: Sanchez Zamora MD Diagnosis: Radiculopathy, cervical region Take 1 tablet PO Q4H, NEE DED-may take with tylenol Last Documented On 4 2:14PM By Sanchez Zamora ; [facility] Methocarbamol 750 MG Oral Tablet 11/01/2023 - 12/01/2023 Provider: Sanchez Zamora MD Diagnosis: Cervical disc disorder at C5-C6 level with myelopathy Take 1 tablet PO up to 3 michelle es a day as needed Last Documented On 4 2:38PM By Sanchez Zamora ; [facility] HYDROcodone-Acetaminophen 10 -325 MG Oral Tablet 11/01/2023 - 11/08/2023 Provider: Sanchez Zamora MD Diagnosis: Radiculopathy, cervical region Take 1 tablet PO Q4H, NEE DED-may take with tylenol Last Documented On 4 2:38PM By Sanchez Zamora ; [facility] Medrol 4 MG Oral Tablet Therapy Pack 10/23/2023 - 10/30/2023 Provider: Sanchez Dawn MD Diagnosis: Cervicalgia Take as directed Last Documented On 4 10:25AM By Aileen Hollingsworth ; [facility] HYDROcodone-Acetaminophen 10 -325 MG Oral Tablet 10/14/2023 - 10/21/2023 Provider: Sanchez Zamora MD Diagnosis: Radiculopathy, cervical region Take 1 tablet PO Q4H, NEE DED-may take with tylenol Last Documented On 4 8:56AM By Sanchez Zamora ; [facility] Cephalexin 500 MG Oral Tablet 10/09/2023 - 10/16/2023 Provider: Sanchez Dawn MD Diagnosis: Cervicalgia Take 1 tablet PO four times a day until finished Last Documented On 4 1:39PM By Aileen Hollingsworth ; [facility] Medrol 4 MG Oral Tablet Therapy Pack 10/09/2023 - 10/16/2023 Provider: Sanchez Dawn MD Diagnosis: Cervicalgia Take as directed Last Documented On 4 1:39PM By Aileen Hollingsworth ; [facility] HYDROcodone-Acetaminophen 10 -325 MG Oral Tablet 10/02/2023 - 10/09/2023 Provider: Sanchez Zamora MD Diagnosis: Radiculopathy, cervical region Take 1 tablet PO Q4H, NEE DED-may take with tylenol Last Documented On 4 5:00PM By Sanchez Zamora ; [facility] Docusate Sodium 100 MG Oral Capsule, conventional 09/26/2023 - 10/26/2023 Provider: Sanchez Hayden MD Diagnosis: Take 1 capsule PO twice a day for constipation Last Documented On 4 2:39PM By Sanchez Zamora ; [facility] Methocarbamol 750 MG Oral Tablet 09/26/2023 - 10/26/2023 Provider: Sanchez Dawn MD Diagnosis: three times a day Take 1 tab let PO up to 3 times a day as needed Last Documented On 4 2:39PM By Sanchez Zamora ; [facility] HYDROcodone-Acetaminophen 5- 325 MG Oral Tablet 09/26/2023 - 10/03/2023 Provider: Sanchez Zamora MD Diagnosis: 1 po q 4h Take 1 tablet PO q 4h as needed - may take with Tylenol Last Documented On 4 2:39PM By Sanchez Zamora ; [facility] Methocarbamol 750 MG Oral Tablet 07/05/2023 - 08/04/2023 Provider: Sanchez Zamora MD Diagnosis: Cervicalgia Take 1 tablet PO up to 3 times a day as needed Last Documented On 4 4:01PM By Aileen Hollingsworth ; [facility] Meloxicam 15 MG Oral Tablet 07/05/2023 - 08/04/2023 Provider: Sanchez Dawn MD Diagnosis: Cervicalgia Take 1 tablet PO once a day, as needed Last Documented On 4 4:01PM By Aileen Hollingsworth ; [facility] Hyoscyamine Sulfate 0.125 MG Sublingual Tablet Sublingual 04/08/2023 - 06/17/2023 Provider: Diagnosis: Last Documented On 4 3:25PM By Dottie Cardenas ; [facility] Atenolol 25 MG Oral Tablet 03/20/2023 - 06/19/2023 Pro vider: Diagnosis: Last Documented On 5 10:42AM By Aileen Hollingsworth ; [facility] traMADol HCl 50 MG Oral Tablet 08/08/2022 - 06/17/2023 Provider: Diagnosis: Last Documented On 4 3:25PM By Dottie Cardenas ; [facility] Ketorolac Tromethamine 10 MG Oral Tablet 08/08/2022 - 06/17/2023 Provider: Diagnosis: Last Documented On 4 3:25PM By Dottie Cardenas ; [facility] predniSONE 10 MG Oral Tablet 08/08/2022 - 06/17/2023 P rovider: Diagnosis: Last Documented On 4 3:25PM By Dottie Cardenas ; [facility] Estradiol 0.5 MG Oral Tablet 05/03/2022 - 06/17/2023 P rovider: Anne Galdamez APRN Diagnosis: Last Documented On 4 3:25PM By Dottie Cardenas ; [facility] methylPREDNISolone 4 MG Oral Tablet Therapy Pack 05/02/2022 - 06/17/2023 Provider: Demetria CURRY Diagnosis: Last Documented On 4 3:25PM By Dottie Cardenas ; [facility] busPIRone HCl 10 MG Oral Tablet 04/17/2022 - Provider: Diagnosis: Last Documented On 4 3:25PM By Dottie Cardenas ; [facility] Atenolol 25 MG Oral Tablet 03/06/2022 - 06/17/2023 Pro vider: CARLOS GILMORE MD Diagnosis: Last Documented On 4 3:24PM By Dottie Cardenas ; [facility] Medications Administered Includes: Administered Medications in patient's chart No Administered Medications Recorded Vital Signs Includes: Vital Signs from 06/26/2023 through 06/25/2024 Vital Name 04/27/2024 09:48A 03/23/2024 10:06A 12/30/2023 11:26A 11/25/2023 01:43P 10/23/2023 09:55A Height (in) 65 65 65 65 65 Weight (lb) 165.25 170 178.6 181 189 Body Mass Index 27.5 28.3 29.7 30.1 31.5 Body Surface Area 1.8 1.8 1.9 1.9 1.9 Pain Level 8 5 5 3 Note: HL clw LC HL HL Last Documented: On 04/27/2024 9:48AM ; [facility] On 03/23/2024 10:13AM ; [facility] On 12/30/2023 11:26AM ; [facility] On 11/25/2023 1:43PM ; [facility] On 10/23/2023 9:55AM ; [facility] Vital Name 10/09/2023 01:04P Height (in) 65 Weight (lb) 189.4 Body Mass Index 31.5 Body Surface Area 1.9 Note: HL Last Documented: On 10/09/2023 1:04PM ; [facility] Results Includes: Results from 06/26/2023 through 06/25/2024 No Results Recorded For Specified Dates History of Present Illness History of Present Illness not supported for this document type No History of Present Illness Recorded Social History Description Last Updated Caffeine use 05/14/2022 Last Documented On 3 2:08PM ; [facility] Tobacco non-user 05/14/2022 Last Documented On 3 2:08PM ; [facility] No recent change in diet 05/14/2022 Last Documented On 3 2:08PM ; [facility] Not a current smoker. 05/14/2022 Last Documented On 3 2:08PM ; [facility] Not exercising regularly 05/14/2022 Last Documented On 3 2:08PM ; [facility] Not using alcohol 05/14/2022 Last Documented On 3 2:08PM ; [facility] Not using drugs 05/14/2022 Last Documented On 3 2:08PM ; [facility] Smoking Status Unknown Procedures and Surgical History Includes: Procedures from 06/26/2023 through 06/25/2024 Procedures Code Diagnosis Performing Provider Service Location Service Date Triamcinolone/Danis alog, 10mg per cc J3301 Radiculopathy, cervical region Chau Ramsey CRNA [facility] 05/20/2024 Last Documented On 5 1:48PM ; [facility] Cervical/Thoracic epidural injection 64069 Radiculopathy, cervical region Chau Ramsey NURSE PRACTITIONER [facility] 05/20/2024 Last Documented On 5 1:48PM ; [facility] Triamcinolone/Kenalog, 10mg per cc 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, lumbar region Chau Ramsey NURSE PRACTITIONER [facility] 04/02/2024 Last Documented On 5 9:49AM ; [facility] Injection, paravertebral facet, lumb/sacr second level (Bilateral Procedure) 69675 Spondyls w/o myelopathy or radiculopathy, lumbosacr region Chau Ramsey NURSE PRACTITIONER [facility] 04/02/2024 Last Documented On 5 9:49AM ; [facility] Injection, paravertebral facet, lumbar / sacral (Bilateral Procedure) 24300 Spondylosis w/o myelopathy or radiculopathy, lumbar region Chau Ramsey NURSE PRACTITIONER [facility] 04/02/2024 Last Documented On 5 9:49AM ; [facility] X-RAY EXAM OF LOWER SPINE 4-5 VIEWS 11809 Other low back pain Sanchez Zamora MD [facility] 12/30/2023 Last Documented On 4 1:40PM ; [facility] X-RAY EXAM OF NECK SPINE 2 VIEWS 11162 Fusion of spine, cervical region Sanchez Zamora MD [facility] 12/30/2023 Last Documented On 4 1:40PM ; [facility] X-RAY EXAM OF NECK SPINE 2 VIEWS 19197 Fusion of spine, cervical region Sanchez Zamora MD [facility] 11/25/2023 Last Documented On 4 3:13PM ; [facility] X-RAY EXAM OF NECK SPINE 2 VIEWS 78290 Fusion of spine, cervical region Sanchez Zamora MD [facility] 10/23/2023 Last Documented On 4 8:43AM ; [facility] X-RAY EXAM OF NECK SPINE 2 VIEWS 53729 Cervical disc disorder at C6-C7 level with myelopathy [facility] 10/09/2023 Last Documented On 4 6:37AM ; [facility] Insertion of interbody cage each interspace 53671 Cervical disc disorder at C6-C7 level with myelopathy Sanchez aZmora MD [facility] 09/27/2023 Last Documented On 4 8:18AM ; [facility] Arthrodesis, anterior interbody, including disc space prepar (Distinct procedure) 63985 Cervical disc disorder at C6-C7 level with myelopathy Sanchez Zamora MD [facility] 09/27/2023 Last Documented On 4 8:18AM ; [facility] INSERT SPINE FIXATION DEVICE (Distinct procedure) 49584 Cervical disc disorder at C4-C5 level with myelopathy, Cervical disc disorder at C5-C6 level with myelopathy, Cervical disc disorder at C6-C7 level with myelopathy Sanchez Zamora MD [facility] 09/27/2023 Last Documented On 4 12:44PM ; [facility] SPINAL BONE ALLOGRAFT 18943 Cervical disc disorder at C6-C7 level with myelopathy Sanchez Zamora MD [facility] 09/27/2023 Last Documented On 4 8:18AM ; [facility] Arthrodesis, anterior interbody, including disc space prepar 66605 Cervical disc disorder at C5-C6 level with myelopathy Sanchez Zamora MD [facility] 09/27/2023 Last Documented On 4 8:18AM ; [facility] Arthodesis,anterior interbody 88744 Cervical disc disorder at C4-C5 level with myelopathy Sanchez Zamora MD [facility] 09/27/2023 Last Documented On 4 12:55PM ; [facility] Surgical History Last Updated Past Surgical History: 09/27/2023 C4-[address] [facility] 10/09/2023 Last Documented On 4 9:37AM ; [facility] History of appendectomy 05/14/2022 Last Documented On 3 2:08PM ; [facility] History of History of Gallbladder 2022 Last Documented On 3 2:08PM ; [facility] History of hysterectomy 05/14/2022 Last Documented On 3 2:08PM ; [facility] Medical History Includes: Medical History in patient's chart Description Last Updated History of Heartburn / Acid Reflux 05/14 Last Documented On 3 2:08PM ; [facility] History of History of Blood Transfusion 05/14/2022 Last Documented On 3 2:08PM ; [facility] History of Irregular Heartbeat 3 Last Documented On 3 2:08PM ; [facility] Family History Includes: Family History in patient's chart Description Last Updated Diabetes mellitus 05/14/2022 Last Documented On 3 2:08PM ; [facility] Review of Systems Review of Systems not supported for this document type No Review of Systems Recorded Mental Status No Mental Status Recorded Functional Status No Functional Status Recorded Physical Exam Physical Exam not supported for this document type No Physical Exam Recorded Immunizations Includes: Immunizations in patient's chart Vaccine Dose # Date Site Reaction(s) Status Source Influenza 1 12/09/2021 Complete (Reported) Patient Last Documented On 3 1:05PM ; [facility] PCV (Pneumovax 23) 1 05/14/2022 Complete (Refused - Patient objection) [facility] Last Documented On 3 1:05PM ; [facility] Td 1 05/14/2022 Complete (Refused - Patient objection) [facility] Last Documented On 3 1:05PM ; [facility] Allergies Includes: Active, inactive, and resolved Allergies Substance Type Reaction Onset Date Resolved Date Statu s Ampicillin Allergy Vomiting, Diarrh ea / Diarrheal disorder 05/14/2022 Active Last Documented On 5 9:48AM ; [facility] Encounters Includes: Encounters from 06/26/2023 through 06/25/2024 Encounter Provider Location Date Check-In Time Check-Out Time Diagnosis [Patient Encounter] [facility] 06/06/19 25 05/20/2024 4:01PM 05/20/2024 11:59PM Epidural Steroid Injection Chau Ramsey NURSE PRACTITIONER [facility] 05/21/19 2:44PM 3:13PM Epidural Steroid Injection Chau Ramsey NURSE PRACTITIONER 05/21/19 25 04/27/2024 9:16AM 04/27/2024 11:59PM Follow Up [facility] 04/27/19 9:26AM 10:49AM Overweight facet Chau Ramsey [facility] 04/02/19 2:41PM 3:06PM Follow Up [facility] 03/23/19 10:03AM 10:54AM Overweight [Patient Encounter] [facility] 02/21/20 24 12/30/2023 3:52PM 12/30/2023 11:59PM [Patient Encounter] CONCETTA BENEDICT PA-C 02/04/20 24 12/30/2023 4:08PM 12/30/2023 11:59PM Follow Up [facility] 12/30/19 10:48AM 12:01PM Overweight Post Op [facility] 11/25/19 24 1:36PM 2:03PM Overweight Post Op [facility] 10/23/19 9:47AM 10:19AM Overweight Post Op [facility] 10/09/19 24 12:55PM 1:32PM Overweight [facility] 09/27/19 24 8:28AM 06/17/2023 11:59PM [Patient Encounter] [facility] 09/26/19 24 06/17/2023 2:34PM 06/17/2023 11:59PM Insurance Includes: Active Insurance Policies Plan Name Member ID Group # Subscriber Relationship Effect erika Dates 1 - [employer] [place] [id number] Kamaljit Damon 03/11/2022 - Unknown Clinical Notes Includes: Signed Clinical Notes starting from 02/22/2022 * Progress note Date Encounter Last Documented by 04/27/2024 Follow Up Last documented on 05/22/2024; 8:33 AM, Sanchez Hayden MD; [facility] Active Problems & Conditions - Joint Pain, [...] Past Surgical History: 09/27/2023 C4-[address] [facility] - Hysterectomy - History of Gallbladder Social [...] 12/30/2023 Neck @ [facility] 12/30/2023 LSpine @ [facility]. CT Scan: CT scan 10/12/2022 Kushal @ [facility]. MRI Scan: An MRI was performed 09/05/2022 Neck @ [facility] [facility] [place] 01/[facility]24 [facility]ine @ [facility] [place]. Counseling/Education - Tobacco non-user - Use of [...] Follow Up Plan BMI Management satisfied 04/27/2024. * Progress note Date Encounter Last Documented by 04/02/2024 facet Last documented on 04/07/2024; 11:53 AM, Chau Ramsey NURSE PRACTITIONER; [facility] Plan LUMBAR TWO LEVEL FACET BLOCK Diagnosis-facet joint arthropathy Procedure- BILATERAL lumbar L4-5, L5-S1 facet joint injection under fluoroscopy Details of the procedure were explained to the patient. The patient was taken to procedure room and placed in the prone position on fluoroscopy table. The area over the lumbar spine was cleansed using chlorhexidine as a cleansing solution. Using fluoroscopy guidance markers were placed at the BILATERAL L4-5 and L5-S1 facet joints. The skin and subcutaneous tissue was anesthetized using 1% lidocaine and a 25-gauge needle. Using fluoroscopy guidance a 22-gauge 3 inch spinal needle was used to access the BILATERAL L4-5 and L5-S1 facet joint. At this time 1 cc of 1% lidocaine containing 40 mg of KENALOG was injected. [place] were removed. Band-Aid applied. Patient tolerated the procedure without difficulty. There were no complications. Patient was reevaluated 10 minutes postprocedure. Patient reports improvement in terms of their lumbar back pain in flexion, extension, left and right rotation. Notes This dictation was done with voice recognition software and may contain errors and omissions. * Progress note Date Encounter Last Documented by 03/23/2024 Follow Up Last documented on 03/23/2024; 11:40 AM, Sanchez Hayden MD; [facility] Active Problems & Conditions - Joint Pain, [...] accident - Patient pain level from 1-10: 5 - Yes, previous treatment. - History of Physical Therapy - History of Home Exercise - - Review of medications documented Medications used for this condition: This is a 48 we will following up with me on an of the lumbar spine. She report pain in her back that is worse running [id number]. We provided her a home exercise program on 09/24/2022 and she continues the exercises daily. Current Medication - Atenolol 25 MG Oral [...] as directed 0 days, 0 refills - tiZANidine HCl 4 MG Oral Tablet Take 1 tablet PO up to three times a day, NEEDED, 30 days, 0 refills - Wegovy 2.4 MG/0.75ML Subcutaneous Solution Auto-injector use as directed 28 days, 0 refills Past Medical/Surgical History Diagnoses: History of Blood Transfusion Irregular Heartbeat Heartburn / Acid Reflux Surgical: - Appendectomy - Past Surgical History: 09/27/2023 C4-[address] [facility] - Hysterectomy - History of Gallbladder Social [...] allergic reaction. Physical Findings - Vitals taken 03/23/2024 10:06 am clw Height 65 in Weight 170 lbs Body Mass Index 28.3 kg/m2 Body Surface Area 1.8 m2 Pain Level 5 General: Alert and Oriented A&Ox3 Focused Musculoskeletal [...] clonus Symmetric, palpable posterior tibialis pulse bilaterally Tests MRI lumbar spine There was no obvious fracture or spondylolisthesis but there is lumbar facet arthropathy with bilateral facet effusions at L4-5 and L5 S1 User Defined 5 This is a 48-year-old female with lumbar facet arthropathy. It was nice seeing Yasmeen in the office today. I told her we could try bilateral L4-5 and L5-S1 facet joint injections part of a radiofrequency ablation workup at these levels. Assessment - Overweight Previous Tests Imaging: X-Ray: X-ray 08/08/2022 Neck @ [facility] 10/09/2023 Neck @ [facility] 10/23/2023 Neck @ [facility] 11/25/2023 Neck @ [facility] 12/30/2023 Neck @ [facility]. CT Scan: CT scan 10/12/2022 Kushal @ [facility]. MRI Scan: An MRI was performed 09/05/2022 Neck @ [facility] [place] 01/17/2024 LSpine @ [facility] [place]. Counseling/Education - Tobacco non-user - Use of tobacco assessment performed - Lose weight Practice Management Use of tobacco assessment performed Review of medications documented. Care Team - Anne Galdamez APRN Notes This dictation was done with voice recognition software and may contain errors or omissions. Health Reminders - Assess BMI satisfied 03/23/2024. - Assess Tobacco Use satisfied 05/14/2022. - Follow Up Plan BMI Management satisfied 03/23/2024. * Progress note Date Encounter Last Documented by 12/30/2023 Follow Up Last documented on 12/31/2023; 10:58 AM, Sanchez Hayden MD; [facility] Active Problems & Conditions - Joint Pain, Localized in the Right Wrist - Lower Back Pain - Neck Pain Chief Complaint The Chief Complaint is: Neck pain. Referred Here Referred by IHR. History of Present Illness Yasmeen Damon is a 48 year old female. - Allergy list reviewed - Problem list reviewed - Medication list reviewed - Previous history of new onset pain Injury is not work related or an automotive accident - Patient pain level from 1-10: 5 - Yes, previous treatment. - History of Physical Therapy - History of Home Exercise - - Review of medications documented Medications used for this condition: This is a very pleasant 48-year-old female who is following up three-month status post C4-7 anterior cervical diskectomy and fusion. She said that her left arm function continues to improve in she was nearly regained full strengthen it although it is still slightly weak compared to the right. Otherwise she is now complaining of a lot of low back pain and some numbness in the legs. Current Medication - Atenolol 25 MG Oral Tablet 90 days, 0 refills - busPIRone HCl 5 MG Oral Tablet take as directed 0 days, 0 refills - Estradiol 1 MG Oral Tablet 90 days, 0 refills - FLUoxetine HCl 20 MG Oral Capsule 90 days, 0 refills - Hyoscyamine Sulfate 0.125 MG Sublingual Tablet Sublingual take as directed 0 days, 0 refills Past Medical/Surgical History Diagnoses: History of Blood Transfusion Irregular Heartbeat Heartburn / Acid Reflux Surgical: - Appendectomy - Past Surgical History: 09/27/2023 C4-[address]CDF @ [facility] - Hysterectomy - History of Gallbladder Social [...] allergic reaction. Physical Findings - Vitals taken 12/30/2023 11:26 am LC Height 65 in Weight 178 lbs 9.6 oz Body Mass Index 29.7 kg/m2 Body Surface Area 1.9 m2 Pain Level 5 General: Alert and oriented x3 Focused musculoskeletal exam of the spine: Surgical incision is well-healed and clean, dry, and intact. There are no signs or symptoms concerning for infection Moving the bilateral lower extremities similar to preoperative state with no new focal deficits She now has full 5/5 strength of her biceps and can initiate shoulder abduction and I can appreciate dealt with firing at a 4-/ 5 strength level. Continues to have 5/5 strength with wrist extension, finger flexion, elbow extension, and hand intrinsics. This is slightly improved from her last exam Ambulating similar to preoperative state Tests 2v cervical spine xrays AP and Lateral views of the cervical spine were obtained today There is anterior cervical instrumentation that has not changed in appearance there is no concern for hardware failure or loosening. 4v lumbar spine xrays AP, Lateral, Flexion and Extension views of the lumbar spine were obtained today There is no obvious fracture or spondylolisthesis User Defined 5 This is a 48-year-old female with a history of a prior C4-7 anterior cervical diskectomy and fusion overall doing well from that standpoint now with lumbar radiculopathy. It was nice seeing Yasmeen back in the office. I told her that I think it is reasonable to proceed with an MRI of the lumbar spine in his hip there was any compressive pathology contributing to her symptoms. Assessment - Overweight Previous Tests Imaging: X-Ray: An X-ray was performed 08/08/2022 Neck @ [facility] 10/09/2023 Neck @ [facility] 10/23/2023 Neck @ [facility] 11/25/2023 Neck @ [facility] 12/30/2023 Neck @ [facility]. CT Scan: CT scan 10/12/2022 Amyine @ [facility]. MRI Scan: An MRI was performed 09/05/2022 Neck @ [facility] [place]. Counseling/Education - Tobacco non-user - Use of tobacco assessment performed - Lose weight Plan StartCited - Low back pain, unspecified Therapy/Physical Therapy: Lumbar Instructions: See PT order attached Radiology/MRI: MRI Lumbar Spine EndCited StartCited - Radiculopathy, cervical region HYDROcodone-Acetaminophen 10-325 MG tablet Take 1 tablet PO Q4H, NEEDED-may take with tylenol, 7 days, 0 refills EndCited Practice Management Use of tobacco assessment performed Review of medications documented. Care Team - Anne Galdamez APRN Notes This dictation was done with voice recognition software and may contain errors or omissions. * Progress note Date Encounter Last Documented by 11/25/2023 Post Op Last documented on 11/25/2023; 3:49 PM, Sanchez Hayden MD; [facility] Active Problems & Conditions - Joint Pain, Localized in the Right Wrist - Neck Pain Chief Complaint The Chief Complaint is: Neck pain. Referred Here Referred by IHR. History of Present Illness Yasmeen Damon is a 48 year old female. - Allergy list reviewed - Problem list reviewed - Medication list reviewed - Previous history of new onset pain Injury is not work related or an automotive accident - Patient pain level from 1-10: 3 - Yes, previous treatment. - History of Physical Therapy - History of Home Exercise - - Review of medications documented Medications used for this condition: This is a 48-year-old female following up me 2 months after a C4-7 anterior cervical diskectomy and fusion unfortunately associated with a left C5 nerve palsy. She was very happy to tell me that her left deltoid function is improving and she was able to do her own make up today. Current Medication - Atenolol 25 MG Oral Tablet 90 days, 0 refills - busPIRone HCl 5 MG Oral Tablet take as directed 0 days, 0 refills - Estradiol 1 MG Oral Tablet 90 days, 0 refills - FLUoxetine HCl 20 MG Oral Capsule 90 days, 0 refills - Hyoscyamine Sulfate 0.125 MG Sublingual Tablet Sublingual take as directed 0 days, 0 refills - Methocarbamol 750 MG Oral Tablet Take 1 tablet PO up to 3 times a day as needed, 30 days, 0 refills Past Medical/Surgical History Diagnoses: History of Blood Transfusion Irregular Heartbeat Heartburn / Acid Reflux Surgical: - Appendectomy - Past Surgical History: 09/27/2023 C4-[address]F @ [facility] - Hysterectomy - History of Gallbladder Social [...] allergic reaction. Physical Findings - Vitals taken 11/25/2023 01:43 pm HL Height 65 in Weight 181 lbs Body Mass Index 30.1 kg/m2 Body Surface Area 1.9 m2 Pain Level 3 General: Alert and oriented x3 Focused musculoskeletal exam of the spine: Surgical incision is well-healed and clean, dry, and intact. There are no signs or symptoms concerning for infection Moving the bilateral lower extremities similar to preoperative state with no new focal deficits She now has full 5/5 strength of her biceps and can initiate shoulder abduction and I can appreciate dealt with firing at a 3 or 5 strength level. Continues to have 5/5 strength with wrist extension, finger flexion, elbow extension, and hand intrinsics. This is slightly improved from her last exam Ambulating similar to preoperative state Tests 2v cervical spine xrays AP and Lateral views of the cervical spine were obtained today There is similar appearance of her C4-7 anterior cervical diskectomy and fusion with no obvious hardware failure or complication. User Defined 5 48-year-old female 2 months status post C4-7 anterior cervical diskectomy and fusion complicated by a left C5 palsy postoperatively. It was nice seeing Yasmeen in the office today. It was very relieved to see that her left C5 nerve as already starting to show signs of motor recovery. I told her we will continue watch. I will see her back in a month which will constitute a three- month postoperative visit. Assessment - Overweight Previous Tests Imaging: X-Ray: An X-ray was performed 08/08/2022 Neck @ [facility] 10/09/2023 Neck @ [facility] 10/23/2023 Neck @ [facility] 11/25/2023 Neck @ [facility]. CT Scan: CT scan 10/12/2022 Amyine @ [facility]. MRI Scan: An MRI was performed 09/05/2022 Neck @ [facility] [place]. Counseling/Education - Tobacco non-user - Use of tobacco assessment performed - Lose weight Plan StartCited - Radiculopathy, cervical region HYDROcodone-Acetaminophen 10-325 MG tablet Take 1 tablet PO Q4H, NEEDED-may take with tylenol, 7 days, 0 refills EndCited Practice Management Use of tobacco assessment performed Review of medications documented. Care Team - Anne Galdamez APRN Notes This dictation was done with voice recognition software and may contain errors or omissions. * Progress note Date Encounter Last Documented by 10/23/2023 Post Op Last documented on 10/23/2023; 6:38 PM, Sanchez Hay[place] MD; [facility] Active Problems & Conditions - Joint Pain, Localized in the Right Wrist - Neck Pain Chief Complaint The Chief Complaint is: Neck pain. Referred Here Referred by IHR. History of Present Illness Yasmeen Damon is a 48 year old female. - Allergy list reviewed - Problem list reviewed - Medication list reviewed - Previous history of new onset pain Injury is not work related or an automotive accident - Patient pain level from 1-10: 7 - Yes, previous treatment. - History of Physical Therapy - History of Home Exercise - - Review of medications documented Medications used for this condition: This is a 48-year-old female following up with me status post a C4-5, C5-6, C6-7 anterior cervical diskectomy and fusion. This was complicated by a C5 nerve palsy in the left side. She does notice that she was getting some pins and needles in the left deltoid area and does feel as though she was getting some return of function Current Medication - Atenolol 25 MG Oral Tablet 90 days, 0 refills - busPIRone HCl 5 MG Oral Tablet take as directed 0 days, 0 refills - Docusate Sodium 100 MG Oral Capsule, conventional Take 1 capsule PO twice a day for constipation, 30 days, 0 refills - Estradiol 1 MG Oral Tablet 90 days, 0 refills - FLUoxetine HCl 20 MG Oral Capsule 90 days, 0 refills - Hyoscyamine Sulfate 0.125 MG Sublingual Tablet Sublingual take as directed 0 days, 0 refills - Methocarbamol 750 MG Oral Tablet three times a day Take 1 tablet PO up to 3 times a day as needed, 30 days, 0 refills Past Medical/Surgical History Diagnoses: History of Blood Transfusion Irregular Heartbeat Heartburn / Acid Reflux Surgical: - Appendectomy - Past Surgical History: 09/27/2023 C4-[address]CDF @ [facility] - Hysterectomy - History of Gallbladder Social [...] allergic reaction. Physical Findings - Vitals taken 10/23/2023 09:55 am HL Height 65 in Weight 189 lbs Body Mass Index 31.5 kg/m2 Body Surface Area 1.9 m2 General: Alert and oriented x3 Focused musculoskeletal exam of the spine: Surgical incision is well-healed and clean, dry, and intact. There are no signs or symptoms concerning for infection Moving the bilateral lower extremities similar to preoperative state with no new focal deficits She does have focal weakness in the left C5 nerve distribution with difficulty with deltoid function and biceps function, but she was 5/5 strength with wrist extension, finger flexion, elbow extension, and hand intrinsics. This is slightly improved from her last exam Ambulating similar to preoperative state Tests 2v cervical spine xrays AP and Lateral views of the cervical spine were obtained today There is no interval change in the appearance of her anterior cervical diskectomy and fusion hardware User Defined 5 This is a 48-year-old female status post C4-5, C5-6, C6-7 anterior cervical diskectomy and fusion. Now with left C5 nerve palsy. It was very nice seeing Yasmeen in the office today. I told her I would give her another Medrol Dosepak because I do think it helped her a great deal. We are also going to start her in physical therapy predominantly for left C5 nerve palsy to work on passive range of motion recruitment of left deltoid biceps fibers. She will follow up with me in somewhere between 2-4 weeks to check in. Assessment - Overweight Previous Tests Imaging: X-Ray: An X-ray was performed 08/08/2022 Neck @ [facility] 10/09/2023 Neck @ [facility] 10/23/2023 Neck @ [facility]. CT Scan: CT scan 10/12/2022 CSpine @ [facility]. MRI Scan: An MRI was performed 09/05/2022 Neck @ [facility] [place]. Counseling/Education - Tobacco non-user - Use of tobacco assessment performed - Lose weight Plan StartCited - Cervicalgia Therapy/Physical Therapy: Cervical Instructions: See PT order attached Medrol 4 MG tablet Take as directed, 7 days, 0 refills EndCited Practice Management Use of tobacco assessment performed Review of medications documented. Care Team - Anne Galdamez APRN Notes This dictation was done with voice recognition software and may contain errors or omissions. * Progress note Date Encounter Last Documented by 10/09/2023 Post Op Last documented on 10/10/2023; 9:37 AM, Sanchez Hay[place] MD; [facility], [facility] Active Problems & Conditions - Joint Pain, Localized in the Right Wrist - Neck Pain Chief Complaint The Chief Complaint is: Neck pain. Referred Here Referred by IHR. History of Present Illness Yasmeen Damon is a 47 year old female. - Allergy list reviewed - Problem list reviewed - Medication list reviewed - Previous history of new onset pain Injury is not work related or an automotive accident - Patient pain level from 1-10: 7 - Yes, previous treatment. - History of Physical Therapy - History of Home Exercise - - Review of medications documented Medications used for this condition: This is a 47-year-old female following up 2 weeks status post a C4-7 anterior cervical diskectomy and fusion. She does say that she can appreciate a difference in the where neck feels and feels as though it has improved some of her symptoms. However, her major complaint right now is weakness with her left arm in a difficulty lifting it with forward elevation. She has no distal weakness in the wrist extensors her hand function, nearly proximal weakness. She said she did not notice it until 2-3 days after her surgery. Otherwise, she denies fevers or chills. Denies drainage from her incision. She did have some redness from the tape over her incision but said that most adhesives give her this reaction. Current Medication - Atenolol 25 MG Oral Tablet 90 days, 0 refills - busPIRone HCl 5 MG Oral Tablet take as directed 0 days, 0 refills - Docusate Sodium 100 MG Oral Capsule, conventional Take 1 capsule PO twice a day for constipation, 30 days, 0 refills - Estradiol 1 MG Oral Tablet 90 days, 0 refills - FLUoxetine HCl 20 MG Oral Capsule 90 days, 0 refills - Hyoscyamine Sulfate 0.125 MG Sublingual Tablet Sublingual take as directed 0 days, 0 refills - Methocarbamol 750 MG Oral Tablet three times a day Take 1 tablet PO up to 3 times a day as needed, 30 days, 0 refills Past Medical/Surgical History Diagnoses: History of Blood Transfusion Irregular Heartbeat Heartburn / Acid Reflux Surgical: - Appendectomy - Past Surgical History: 09/27/2023 C4-[address]F @ [facility] - Hysterectomy - History of Gallbladder Social [...] allergic reaction. Physical Findings - Vitals taken 10/09/2023 01:04 pm HL Height 65 in Weight 189 lbs 6.4 oz Body Mass Index 31.5 kg/m2 Body Surface Area 1.9 m2 General: Alert and oriented x3 Focused musculoskeletal exam of the spine: Surgical incision is well-healed and clean, dry, and intact. There are no signs or symptoms concerning for infection Moving the bilateral lower extremities similar to preoperative state with no new focal deficits She does have focal weakness in the left C5 nerve distribution with difficulty with deltoid function and biceps function, but she was 5/5 strength with wrist extension, finger flexion, elbow extension, and hand intrinsics. Ambulating similar to preoperative state Tests 2v cervical spine xrays AP and Lateral views of the cervical spine were obtained today There is anterior cervical diskectomy and fusion hardware at C4-5, C5-6, and C6- 7 with no obvious subsidence or failure User Defined 5 This is a 47-year-old female 2 weeks status post C4-7 anterior cervical diskectomy and fusion now with a left C5 nerve palsy. It was very nice seeing Yasmeen in the office today. We had a long and difficult conversation about the postoperative C5 nerve palsy. I did explain to her that there is a low incidence of this occurring in all cervical spine surgeries in the risk is elevated in patients with preoperative cervical myelopathy such as her. The risks also goes up with ossified disc fragments or posterior longitudinal ligament fragments. We did use neuro monitoring in her case as a precaution, but the signals were unreliable and I believe that 1 of the NURSE PRACTITIONER is in the room may have administered a paralytic which made the signal is even more unreliable. Either way, we spent a good deal of time counseling her on the rate of postoperative C5 nerve palsy in the likelihood of recovery. I do suspect she will recover. I am going to give her a Medrol Dosepak for now and I am going to see her back sooner than typical for follow up to assess things further and I will likely start her in physical therapy for the left arm at that time. Assessment - Overweight Previous Tests Imaging: X-Ray: An X-ray was performed 08/08/2022 Neck @ [facility] 10/09/2023 Neck @ [facility]. CT Scan: CT scan 10/12/2022 Amyine @ [facility]. MRI Scan: An MRI was performed 09/05/2022 Neck @ [facility] [place]. Counseling/Education - Tobacco non-user - Use of tobacco assessment performed - Lose weight Plan StartCited - Cervicalgia Medrol 4 MG tablet Take as directed, 7 days, 0 refills Cephalexin 500 MG tablet Take 1 tablet PO four times a day until finished, 7 days, 0 refills EndCited Practice Management Use of tobacco assessment performed Review of medications documented. Care Team - Anne Galdamez APRN Notes This dictation was done with voice recognition software and may contain errors or omissions.
--- OUTSIDE RECORDS SUMMARY | 2024-06-25 09:26 | XMS_ITS | Clinical Summary ---
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 Name Role Phone Anne Galdamez APRN Unavailable [phone] Yara LINDSEY, Meir Wiseman Unavailable [phone] Reason for Visit and Chief Complaint facet Problems Includes: Problems addressed during this encounter and other active Problems All Visits Onset Date Resolved Date Provider Condition S tatus Lower Back Pain 12/30/2023 Sanchez mejía MD Active Last Documented On 4 11:59AM ; [facility] Neck Pain 09/24/2022 Sanchez Zamora MD Active Last Documented On 3 8:32AM ; [facility] Joint Pain, Localized in the Right Wrist 05/14/2022 Meir Livingston MD Active Last Documented On 3 12:47PM ; [facility] Plan of Treatment LUMBAR TWO LEVEL FACET BLOCK Diagnosis-facet joint [...] containing 40 mg of KENALOG was injected. [place] were removed. Band-Aid applied. Patient tolerated the procedure without difficulty. There were no complications. Patient was reevaluated 10 minutes postprocedure. Patient reports improvement in terms of their lumbar back pain in flexion, extension, left and right rotation. - Last Documented On 04/07/2024 11:53AM ; [facility], [facility] Future Appointments Date Time Location Provi ceferino Phone Call 06/25/2024 1:00PM [facility]-C Last Documented On 3:38PM ; [facility] Epidural Steroid Injection 07/01/2024 1:30PM [facility] Chau Ramsey CRNA Last Documented On 1:19PM ; [facility] Follow Up 08/17/2024 1:15PM [facility] ISAIAS Zamora MD Last Documented On 3:14PM ; [facility] Assessments Includes: Assessments from this encounter [...] twice a day, NEEDED Last Documented On 4:13PM By Sanchez Zamora ; [facility] Wegovy 2.4 MG/0.75ML Subcuta neous Solution Auto-injector 02/22/2024 Provider: Anne Galdamez APRN Diagnosis: Last Documented On 5 10:42AM By Aileen Hollingsworth ; [facility] Atenolol 25 MG Oral Tablet 02/17/2024 Provider: Diagnosis: Last Documented On 10:42AM By Aileen Hollingsworth ; [facility] Hyoscyamine Sulfate 0.125 MG Sublingual Tablet Subling ual 06/17/2023 Provider: Diagnosis: Last Documented On 3:26PM By Dottie Bean [facility] busPIRone HCl 5 MG Oral Tablet 06/17/2023 Provider: Diagnosis: Last Documented On 4 3:25PM By Dottie Bean [facility] Estradiol 1 MG Oral Tablet 05/05/2023 Provider: Mackenzie Galdamez APRN Diagnosis: Last Documented On 4 3:24PM By Dottie Cardenas ; [facility] FLUoxetine HCl 20 MG Oral Capsule 05/05/2023 Provide r: Annekelby Galdamez APRN Diagnosis: Last Documented On 4 3:24PM By Dottie Cardenas ; [facility] Medications Administered Includes: Administered Medications from [...] Diagnosis Performing Provider Service Location Service Date Injection, paravertebral facet, lumbar / sacral (Bilateral Procedure) 15920 Spondylosis w/o myelopathy or radiculopathy, lumbar region Chau Ramsey CRNA [facility] 04/02/2024 Last Documented On 5 9:49AM ; [facility] Injection, paravertebral facet, lumb/sacr second level (Bilateral Procedure) 92345 Spondyls w/o myelopathy or radiculopathy, lumbosacr region Chau Ramsey CANOE INSPECTOR FINAL [facility] 04/02/2024 Last Documented On 5 9:49AM ; [facility] Triamcinolone/Kenalog, 10mg per cc 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, lumbar region Chau Ramsey CANOE INSPECTOR FINAL [facility] 04/02/2024 Last Documented On 5 9:49AM ; [facility] Medical History Includes: Medical History addressed [...] Active Last Documented On 5 9:48AM ; [facility] Encounters Encounter Provider Location Date Check-In Time Check- Out Time Diagnosis facet Chau Ramsey MARCIA [facility] 5 2:41PM 3:06PM Insurance Includes: Active Insurance Policies Plan Name Member ID Group # Subscriber Relationship Effect erika Dates 1 - [facility] [id number] Kamaljit Damon 03/11/2022 - Unknown Clinical Notes Includes: Clinical Notes from this encounter * Progress note Date Encounter Last Documented by 04/02/2024 facet Last documented on 04/07/2024; 11:53 AM, Chau Ramsey CRNA; [facility] Plan LUMBAR TWO LEVEL FACET BLOCK Diagnosis-facet [...] containing 40 mg of KENALOG was injected. [place] were removed. Band-Aid applied. Patient tolerated the procedure without difficulty. There were no complications. Patient was reevaluated 10 minutes postprocedure. Patient reports improvement in terms of their lumbar back pain in flexion, extension, left and right rotation. Notes This dictation was done with voice recognition software and may contain errors and omissions.
--- OUTSIDE RECORDS SUMMARY | 2024-06-25 09:27 | XMS_ITS | Clinical Summary ---
Author Organization [facility] , [facility] Address [address] [place] [address] Phone Care Team Providers Care Account Resolution Expert Name Role Phone Anne Galdamez APRN Unavailable [phone] Yara LINDSEY, Meir Wiseman Unavailable [phone] Reason for Visit and Chief Complaint Epidural Steroid Injection Problems Includes: Problems addressed during this encounter and other active Problems All Visits Onset Date Resolved Date Provider Condition S tatus Lower Back Pain 12/30/2023 Sanchez mejía MD Active Last Documented On 4 11:59AM ; [facility], [facility] Neck Pain 09/24/2022 Sanchez Zamora MD Active Last Documented On 3 8:32AM ; [facility], [facility] Joint Pain, Localized in the Right Wrist 05/14/2022 Meir Livingston MD Active Last Documented On 3 12:47PM ; [facility], [facility] Plan of Treatment Future Appointments Date Time Location Provi ceferino Phone Call 06/25/2024 1:00PM [facility] DENICE BENEDICT PA-C Last Documented On 5 3:38PM ; [facility], [facility] Epidural Steroid Injection 07/01/2024 1:30PM [facility] DENICE Ramsey WINDOW SHADE CUTTER Last Documented On 5 1:19PM ; [facility], [facility] Follow Up 08/17/2024 1:15PM [facility] ISAIAS Zamora MD Last Documented On 5 3:14PM ; [facility], [facility] Assessments Includes: Assessments from this encounter [...] On 5 4:13PM By Sanchez Zamora ; [facility], [facility] Wegovy 2.4 MG/0.75ML Subcuta neous Solution Auto-injector 02/22/2024 Provider: Anne Galdamez APRN Diagnosis: Last Documented On 5 10:42AM By Aileen Hollingsworth ; [facility], [facility] Atenolol 25 MG Oral Tablet 02/17/2024 Provider: Diagnosis: Last Documented On 5 10:42AM By Aileen Hollingsworth ; [facility], [facility] Hyoscyamine Sulfate 0.125 MG Sublingual Tablet Subling ual 06/17/2023 Provider: Diagnosis: Last Documented On 4 3:26PM By Dottie Cardenas ; [facility] busPIRone HCl 5 MG Oral Tablet 06/17/2023 Provider: Diagnosis: Last Documented On 4 3:25PM By Dottie Cardenas ; [facility] Estradiol 1 MG Oral Tablet 05/05/2023 Provider: Mackenzie Galdamez APRN Diagnosis: Last Documented On 4 3:24PM By Dottie Cardenas ; [facility], [facility] FLUoxetine HCl 20 MG Oral Capsule 05/05/2023 Provide r: Anne Galdamez APRN Diagnosis: Last Documented On 4 3:24PM By Dottie Cardenas ; [facility], [facility] Medications Administered Includes: Administered Medications from [...] Diarrheal disorder 05/14/2022 Active Last Documented On 9:48AM ; [facility], [facility] Encounters Encounter Provider Location Date Check-In Time Check-Out Time Diagnosis Epidural Steroid Injection Chau Ramsey CRNA 05/20/2024 9:16AM 11:59PM Insurance Includes: Active Insurance Policies Plan Name Member ID Group # Subscriber Relationship Effect erika Dates 1 - [facility] [id number] Nelson, Kamaljit 03/11/2022 - Unknown Clinical Notes Includes: Clinical Notes from this encounter No Clinical Notes Recorded
--- NOTE | 2024-06-25 09:37 | A.OFFVIS_ITS ---
[facility] Disclaimer: The information contained in this section may have been updated after the patient was seen, as this information can be updated by other users. Medical History Anxiety GERD (gastroesophageal reflux disease) Palpitations Cervical vertebral fusion Surgical History Hx of cholecystectomy H/O: hysterectomy Hx of cervical spinal arthrodesis History of appendectomy Family History Other Diabetes Social History Smoking Status: Unknown if ever smoked alcohol intake: never substance use type: former substance user current occupational status: other Travel in the last 8 weeks: None household members: spouse and children housing: house caffeine: No PM Subjective & Objective Subjective Subjective:: Patient is a pleasant 48-year-old female who presents today for 2-week follow-up of cervical and thoracic x-ray imaging. Today she rates her pain a 6 out of 10. patient was prescribed compounded cream and diclofenac 75 mg twice a day from her last visit. Patient states that she did not necessarily notice a significant improvement with the diclofenac however did feel like that the cream did help. Patient does state that she is still having the same pain that we discussed from her last visit. Patient just continues to state that she has absolutely no quality of life. Patient has been dealing with this pain for over a year following her cervical fusion with no additional changes. She has tried injection therapy including epidurals with minimal relief. Her Rip has been reviewed. Review of Systems: General: No recent weight changes, no fever, no sleep disturbances Respiratory: No cough, no shortness of air, no recurring pulmonary infections Cardiovascular/peripheral vascular: No chest pain, no palpitations, no edema, no shortness of breath Gastrointestinal: No new onset incontinence, normal bowel movements reported Genitourinary: No new onset incontinence Musculoskeletal: Neck pain, left arm numbness tingling Psychiatric: [Normal mood/affect] Neurological: [Denies weakness in extremities], [denies balance issues] Pain at rest (0-10 scale): 6 Objective Objective:: Physical Exam: General: Alert and oriented x3, no acute distress, pleasant and cooperative Lungs: Respirations even and unlabored, symmetrical chest expansion Eyes: PERRL Musculoskeletal: Flexion and extension of cervical [spine] somewhat guarded secondary to pain, [antalgic gait noted] Neurological: Speech clear, no gross sensory deficit Has patient had previous pain injection?: No Conservative treatment options previously tried: Home exercise plan Length of treatment: Longer than 12 weeks Meds Home Medications and Allergies Home Medications ?Medication ?Instructions ?Recorded ?Confirmed ?Type atenolol 25 mg tablet 25 mg PO BID palpitations 08/07/17 06/25/24 History buspirone 10 mg tablet 10 mg PO TID Anxiety 30 days #90 04/09/19 06/25/24 History tabs ketorolac 10 mg tablet 10 mg PO Q8H 3 days #9 tabs 07/28/22 06/25/24 Rx prednisone 20 mg tablet 20 mg PO BID #10 tabs 07/28/22 06/25/24 Rx diclofenac sodium 75 mg 75 mg PO BID #28 tabs 06/11/24 06/25/24 Rx tablet,delayed release New Prescriptions to Start Prescriptions: Allergies Allergy/AdvReac Type Severity Reaction Status Date / Time doxycycline Allergy Severe Palpitation Verified 04/09/19 11:06 s ampicillin (AMPICILLIN) Allergy Unknown VOMITTING Verified 04/09/19 11:06 AND DIARRHEA Assessment and Plan *Assessment and plan (1) Thoracic radiculopathy: Status: Acute Category: Medical Code(s): M54.14 - Radiculopathy, thoracic region (2) Mid back pain: Status: Acute Category: Medical Code(s): M54.9 - Dorsalgia, unspecified (3) Cervical radiculopathy: Status: Acute Category: Medical Code(s): M54.12 - Radiculopathy, cervical region (4) Degenerative disc disease, cervical: Status: Acute Category: Medical Code(s): M50.30 - Other cervical disc degeneration, unspecified cervical region Plan I did review over the patient's x-ray imaging of her cervical and thoracic spine. I did discuss with the patient that hopefully we will have approval from insurance for the advanced MRI coming up. I will send in a 2-week dose of gabapentin 100 mg 3 times daily and baclofen 5 mg 3 times daily as needed. Patient will return to clinic in 2 weeks. Patient has been instructed to contact the clinic with any concerns before the next appointment. Dr. Redd has reviewed this note and agrees with this plan of care. This note was dictated using voice recognition software and make contain errors or omissions. All injections are used with Lidocaine, Bupivacaine and Depo Medrol. Occasionally urine drug screen is needed to verify patient's compliance with our office pain contract. This is ordered based off specific treatments related to chronic pain with the potential to abuse certain medications.
[2024-06-25 10:07] VITALS: BP 126/78; PULSE 97; RESP 14; O2SAT 97; BMI 26.6
== END 2024-06-25 23:59 | disposition home or self-care (01) ==
PROVIDERS: PCP Nurse Practitioner Family; Visit Provider Nurse Practitioner Family
DX: M54.9 Dorsalgia, unspecified (principal); M50.10 Cervical disc disorder with radiculopathy, unspecified cervical region
CPT/HCPCS: 99212; G0463

== ENCOUNTER 2024-07-02 16:55 | Outpatient (CLI) | payer BC, SELFPAY ==
--- OUTSIDE RECORDS SUMMARY | 2024-07-02 16:56 | XMS_ITS | Clinical Summary ---
Author Organization [facility] , [facility] Address [address] [place] [address] Phone Care Team Providers Care Stone Grader Name Role Phone Denice FLORENCENAnne Unavailable [phone] Yara LINDSEY, Meir Wiseman Unavailable [phone] Reason for Visit and Chief Complaint Epidural Steroid Injection Problems Includes: Problems addressed during this encounter and other active Problems All Visits Onset Date Resolved Date Provider Condition S tatus Lower Back Pain 12/30/2023 Sanchez mejía MD Active Last Documented On 4 11:59AM ; [facility], [facility] Neck Pain 09/24/2022 Sanchez Zamora MD Active Last Documented On 3 8:32AM ; [facility], [facility] Joint Pain, Localized in the Right Wrist 05/14/2022 Meir Livingston MD Active Last Documented On 3 12:47PM ; [facility], [facility] Plan of Treatment Future Appointments Date Time Location Provi ceferino Follow Up 08/17/2024 1:15PM [facility] Sanchez Zamora MD Last Documented On 5 3:14PM ; [facility], [facility] Assessments Includes: Assessments from this encounter No Assessments Recorded Medical Equipment - Implanted Devices Includes: Current Devices No Medical Equipment Recorded Medications Includes: Medications discussed during this encounter and other current Medications Current Medications (continue as prescribed) Baclofen 5 MG Oral Tablet 06/25/2024 Provider: Irvin Orona APRN Diagnosis: Last Documented On 5 1:43PM By Yue Núñez ; [facility], [facility] Gabapentin 100 MG Oral Capsule 06/25/2024 Provider: Vera Orona APRN Diagnosis: Last Documented On 5 1:43PM By Yue Núñez ; [facility] traMADol HCl 50 MG Oral Tablet 06/05/2024 - 07/05/2024 Provider: Sanchez Zamora MD Diagnosis: Fusion of spine, cervical region Take 1 tablet PO up to twice a day, NEEDED Last Documented On 5 4:13PM By Sanchez Zamora ; [facility] Wegovy 2.4 MG/0.75ML Subcuta neous Solution Auto-injector 02/22/2024 Provider: Anne Galdamez APRN Diagnosis: Last Documented On 5 10:42AM By Aileen Hollingsworth ; [facility] Atenolol 25 MG Oral Tablet 02/17/2024 Provider: Diagnosis: Last Documented On 5 10:42AM By Aileen Hollingsworth ; [facility] Hyoscyamine Sulfate 0.125 MG Sublingual Tablet Subling ual 06/17/2023 Provider: Diagnosis: Last Documented On 4 3:26PM By Dottie Cardenas ; [facility] busPIRone HCl 5 MG Oral Tablet 06/17/2023 Provider: Diagnosis: Last Documented On 4 3:25PM By Dottie Cardenas ; [facility] Estradiol 1 MG Oral Tablet 05/05/2023 Provider: Mackenzie Galdamez APRN Diagnosis: Last Documented On 4 3:24PM By Dottie Cardenas ; [facility] FLUoxetine HCl 20 MG Oral Capsule 05/05/2023 Provide r: Anne Galdamez APRN Diagnosis: Last Documented On 4 3:24PM By Dottie Cardenas ; [facility], [facility] Medications Administered Includes: Administered Medications from [...] Service Location Service Date Cervical/Thoracic epidural injection 83659 Radiculopathy, cervical region Chau Ramsey [facility] 05/20/2024 Last Documented On 5 1:48PM ; [facility] Triamcinolone/Kenalog, 10mg per cc J3301 Radiculopathy, cervical region Chau Ramsey [facility] 05/20/2024 Last Documented On 5 1:48PM ; [facility] Medical History Includes: Medical History addressed during [...] disorder 05/14/2022 Active Last Documented On 5 1:04PM ; [facility] Encounters Encounter Provider Location Date Check-In Time Check-Out Time Diagnosis Epidural Steroid Injection Chau Ramsey [facility] 05/21/19 25 2:44PM 3:13PM Insurance Includes: Active Insurance Policies Plan Name Member ID Group # Subscriber Relationship Effect erika Dates 1 - [facility] [id number] Kamaljit Damon 03/11/2022 - Unknown Clinical Notes Includes: Clinical Notes from this encounter No Clinical Notes Recorded
--- OUTSIDE RECORDS SUMMARY | 2024-07-02 16:56 | XMS_ITS | Clinical Summary ---
Author Organization [facility] , [facility] Address [address] [place] [address] Phone Care Team Providers Care Field Return Repairer Name Role Phone Anne Galdamez APRN Unavailable [phone] Yara LINDSEY, Meir Wiseman Unavailable [phone] Reason for Visit and Chief Complaint [Patient Encounter] Problems Includes: Problems addressed during this encounter and other active Problems All Visits Onset Date Resolved Date Provider Condition S tatus Lower Back Pain 12/30/2023 Sanchez mejía MD Active Last Documented On 4 11:59AM ; [facility], [facility] Neck Pain 09/24/2022 Sanchez Zamora MD Active Last Documented On 3 8:32AM ; [facility], [facility] Joint Pain, Localized in the Right Wrist 05/14/2022 Meir Livingston MD Active Last Documented On 3 12:47PM ; [facility], [facility] Plan of Treatment Pending Tests Order Diagnosis Results Due Ordering P rovider Radiology - CT Scan Cervical Cervicalgia 10/08/22 Denzel Zamora MD Last Documented On 3 9:44AM ; [facility], [facility] Radiology - MRI MRI Lumbar Spine Low back pain, unspecified 01/13/24 Sanchez Zamora MD Last Documented On 4 10:58AM ; [facility], [facility] Future Appointments Date Time Location Provi ceferino Follow Up 08/17/2024 1:15PM [facility] IGLOOELAINA Zamora MD Last Documented On 5 3:14PM ; [facility], [facility] Assessments Includes: Assessments from this encounter [...] up to twice a day, NEEDED Pharmacy: [facility] [phone], [address] - Last Documented On 5 4:13PM By Sanchez Zamora ; [facility], [facility] Current Medications (continue as prescribed) Baclofen 5 MG Oral Tablet 06/25/2024 Provider: Irvin Orona APRN Diagnosis: Last Documented On 5 1:43PM By Yue Núñez ; [facility], [facility] Gabapentin 100 MG Oral Capsule 06/25/2024 Provider: Vera Orona APRN Diagnosis: Last Documented On 5 1:43PM By Yue Núñez ; [facility], [facility] Wegovy 2.4 MG/0.75ML Subcuta neous Solution Auto-injector 02/22/2024 Provider: Anne Galdamez APRN Diagnosis: Last Documented On 5 10:42AM By Aileen Hollingsworth ; [facility], [facility] Atenolol 25 MG Oral Tablet 02/17/2024 Provider: Diagnosis: Last Documented On 5 10:42AM By Aileen Hollingsworth ; [facility], [facility] Hyoscyamine Sulfate 0.125 MG Sublingual Tablet Subling ual 06/17/2023 Provider: Diagnosis: Last Documented On 4 3:26PM By Dottie Cardenas ; [facility] busPIRone HCl 5 MG Oral Tablet 06/17/2023 Provider: Diagnosis: Last Documented On 4 3:25PM By Dottie Cardenas ; [facility] Estradiol 1 MG Oral Tablet 05/05/2023 Provider: Mackenzie Galdamez APRN Diagnosis: Last Documented On 4 3:24PM By Dottie Cardenas ; [facility], [facility] FLUoxetine HCl 20 MG Oral Capsule 05/05/2023 Provide r: Anne Omalleyscarlet FLYNN Diagnosis: Last Documented On 4 3:24PM By Dottie Cardenas ; [facility], [facility] Medications Administered Includes: Administered Medications from [...] Active Last Documented On 5 1:04PM ; [facility], [facility] Encounters Encounter Provider Location Date Check-In Time Check-Out Time Diagnosis [Patient Encounter] Sanchez Zamora MD 06/05/2024 4:01PM 11:59PM Insurance Includes: Active Insurance Policies Plan Name Member ID Group # Subscriber Relationship Effect erika Dates - [facility] [id number] Kamaljit Damon 03/11/2022 - Unknown Clinical Notes Includes: Clinical Notes from this encounter No Clinical Notes Recorded
--- NOTE | 2024-07-02 16:57 | MR_ITS ---
PROCEDURE INFORMATION: Exam: MR Cervical Spine Without Contrast Exam date and time: 07/02/2024 5:02 PM Age: 48 years old Clinical indication: Neck pain. PT had fusion in September 2023. PT stated left arm numbness and sharp pain between scapula's since surgery TECHNIQUE: Imaging protocol: Magnetic resonance imaging of the cervical spine without contrast. COMPARISON: CR XR CERVICAL SPINE 3V 06/11/2024 11:57 AM FINDINGS: Bones/joints: Craniocervical alignment is normal. Prior ACDF C4-C7. Odontoid intact. C2-C3: Minor uncovertebral spurring bilaterally. No canal or foraminal stenosis. C3-C4: Mild anterior spurring. Shallow right paracentral protrusion, probably spondylotic, measuring 2.3 mm AP with slight rightward ventral cord surface flattening. No intrinsic cord signal change. Mild canal stenosis with midline AP thecal sac 8.9 mm. No significant foraminal stenosis. C4-C5: Interbody fusion with severe local susceptibility artifact. Right paracentral protrusion, probably spondylotic, measuring 3-4 mm AP with moderate-severe rightward ventral cord surface flattening and severe canal stenosis with midline AP thecal sac 6.5 mm. Faint cord T2 hyperintensity suggesting mild compressive myelomalacia. No cord hemorrhage or syrinx. Severe left and mild-moderate right foraminal stenosis. C5-C6: Interbody fusion with severe local susceptibility artifact. Central to right foraminal protrusion, likely spondylotic, measuring 4.5 mm AP. Severe central canal stenosis with midline AP thecal sac 6.1 mm and severe ventral cord surface flattening. Faint cord T2 hyperintensity suggesting compressive myelomalacia. No cord hemorrhage or syrinx. Severe right and moderate-severe left foraminal stenosis. C6-C7: Interbody fusion with severe local susceptibility artifact. Posterior central to left paracentral annular protrusion measuring 4 mm AP with severe central canal stenosis, midline AP thecal sac 6.2 mm, and moderate-severe leftward ventral cord surface flattening. Faint cord T2 hyperintensity suggesting mild compressive myelomalacia. No cord hemorrhage or syrinx. Small right foraminal protrusion measuring 3.5 mm AP x 7 mm transverse, producing moderate right foraminal stenosis. C7-T1: Mild anterior spurring. No canal or foraminal stenosis. Soft tissues: Soft tissues are unremarkable. Brain: Visualized portions of the brain are unremarkable. Thyroid: There is a 12 mm T2 hyperintense nodule in the right thyroid lobe which does not require further evaluation based on current consensus criteria. Vasculature: Expected flow voids in the vertebral arteries. Nerves: 5 mm root sheath cyst incidentally noted in the proximal right T1 root. IMPRESSION: 1. Prior ACDF C4-C7 with severe metallic susceptibility effects limiting assessment. 2. Protrusions at C3-C4 through C6-C7 with varying degrees of canal and foraminal stenosis detailed above. Given the susceptibility effects from the metallic hardware, CT myelography may be helpful to quantify stenoses. 3. Severe canal stenosis with significant cord surface flattening and mild compressive myelomalacia is seen C4-C5 through C6-C7. COMMENTS: Consistent with the [employer]'s Incidental Findings Committee white paper (J Am Gayatri Radiol 2015): In patients aged 35 years and older with an incidental thyroid nodule equal to or greater than 1.[address], MRI or extrathyroidal US, further evaluation with dedicated thyroid US is recommended for patients with normal life expectancy and without comorbidities. For smaller nodules without suspicious features, no further evaluation or follow up is recommended.
--- OUTSIDE RECORDS SUMMARY | 2024-07-02 16:57 | XMS_ITS ---
Care Plan - [facility], [facility] Created on: July 02, 2024 Yasmeen Damon : 1975 Sex: Female Author Organization [facility] , [facility] Address [address] [place] [address] Phone Care Team Providers Care Phd Intern Name Role Phone Anne Galdamez APRN Unavailable [phone] Yara LINDSEY, Meir Wiseman Unavailable [phone]
--- OUTSIDE RECORDS SUMMARY | 2024-07-02 16:57 | XMS_ITS ---
Author Organization [facility] , [facility] Address [address] [place] [address] Phone Care Team Providers Care Storage Center Manager Name Role Phone Denice FLORENCENLetitiaAnne Unavailable [phone] Yara LINDSEY, Meir Wiseman Unavailable [phone] Problems Includes: Active, inactive, and resolved Problems All Visits Onset Date Resolved Date Provider Condition S tatus Lower Back Pain 12/30/2023 Sanchez mejía MD Active Last Documented On 4 11:59AM ; [facility], [facility] Neck Pain 09/24/2022 Sanchez Zamora MD Active Last Documented On 3 8:32AM ; [facility], [facility] Joint Pain, Localized in the Right Wrist 05/14/2022 Meir Livingston MD Active Last Documented On 3 12:47PM ; [facility], [facility] Plan of Treatment Pending Tests Order Diagnosis Results Due Ordering P rovider Procedure/Tests EMG 06/18/22 Meir Livingston MD Last Documented On 3 5:13PM ; [facility], [facility] Radiology - MRI MRI Cervical Spine 08/22/22 Cory Livingston MD Last Documented On 3 1:02PM ; [facility], [facility] Radiology - CT Scan Cervical Cervicalgia 10/08/22 Denzel Zamora MD Last Documented On 3 9:44AM ; [facility], [facility] Radiology - MRI MRI Lumbar Spine Low back pain, unspecified 01/13/24 Sanchez Zamora MD Last Documented On 4 10:58AM ; [facility], [facility] Future Appointments Date Time Location Provi ceferino Follow Up 08/17/2024 1:15PM [facility] LARSEN BAYAilyn Zamora MD Last Documented On 5 3:14PM ; [facility] Instructions to patient Lose weight Last Documented On 5 1:05PM ; [facility] Lose weight Last Documented On 5 9:48AM [...] weight Last Documented On 3 1:04PM ; [facility] Assessments Includes: Assessments for all patient encounters Findings Encounter Date Overweight Phone Call with CONCETTA Camarillo 06/25/2024 Last Documented On 5 1:33PM ; [facility] Overweight Follow Up with Sanchez Hayden MD 04/27/2024 Last Documented On 5 8:33AM ; [facility] Overweight Follow Up with Sanchez Hayden MD 03/23/2024 Last Documented On 5 11:40AM ; [facility] Overweight Follow Up with Sanchez Hayden MD 12/30/2023 Last Documented On 4 10:58AM ; [facility] Overweight Post Op with Sanchze craig MD 11/25/2023 Last Documented On 4 [...] patient Lose weight Last Documented On 5 1:05PM ; [facility] Lose weight Last Documented On 5 9:48AM [...] weight Last Documented On 3 1:04PM ; [facility] Medical Equipment - Implanted Devices Includes: Current and historical Devices No Medical Equipment Recorded Medications Includes: Current and historical Medications Current Medications (continue as prescribed) Baclofen 5 MG Oral Tablet 06/25/2024 Provider: Irvin Orona APRN Diagnosis: Last Documented On 5 1:43PM By Yue Wilton ; [facility], [facility] Gabapentin 100 MG Oral Capsule 06/25/2024 Provider: Vera Orona APRN Diagnosis: Last Documented On 5 1:43PM By Yue Núñez ; [facility] traMADol HCl 50 MG Oral Tablet 06/05/2024 - 07/05/2024 Provider: Sanchez Zamora MD Diagnosis: Fusion of spine, cervical region Take 1 tablet PO up to twice a day, NEEDED Last Documented On 5 4:13PM By Sanchez Zamora ; [facility], [facility] Wegovy 2.4 MG/0.75ML Subcuta neous Solution Auto-injector 02/22/2024 Provider: Anne Galdamez APRN Diagnosis: Last Documented On 5 10:42AM By Aileen Hollingsworth ; [facility], [facility] Atenolol 25 MG Oral Tablet 02/17/2024 Provider: Diagnosis: Last Documented On 5 10:42AM By Aileen Hollingsworth ; [facility], [facility] Hyoscyamine Sulfate 0.125 MG Sublingual Tablet Subling ual 06/17/2023 Provider: Diagnosis: Last Documented On 4 3:26PM By Dottie Cardenas ; [facility], [facility] busPIRone HCl 5 MG Oral Tablet 06/17/2023 Provider: Diagnosis: Last Documented On 4 3:25PM By Dottie Cardenas ; [facility], [facility] Estradiol 1 MG Oral Tablet 05/05/2023 Provider: Mackenzie Galdamez APRN Diagnosis: Last Documented On 4 3:24PM By Dottie Cardenas ; [facility], [facility] FLUoxetine HCl 20 MG Oral Capsule 05/05/2023 Provide r: Anne Galdamez APRN Diagnosis: Last Documented On 4 3:24PM By Dottie Cardenas ; [facility], [facility] Past Medications on file tiZANidine HCl 4 MG Oral Tablet 04/27/2024 - 05/27/2024 Provider: Sanchez Zamora MD Diagnosis: Cervical disc disorder at C5-C6 level with myelopathy Take 1 tablet PO up to three times a day, NEEDED Last Documented On 5 11:35AM By Sanchez Zamora ; [facility] tiZANidine HCl 4 MG Oral Tablet 03/13/2024 - 04/12/2024 Provider: Sanchez Zamora MD Diagnosis: Cervical disc disorder at C5-C6 level with myelopathy Take 1 tablet PO up to three times a day, NEEDED Last Documented On 5 3:14PM By Aileen Hollingsworth ; [facility] tiZANidine HCl 4 MG Oral Tablet 02/21/2024 - 03/02/2024 Provider: Sanchez Zamora MD Diagnosis: Cervical disc disorder at C5-C6 level with myelopathy Take 1 tablet PO up to three times a day, NEEDED Last Documented On 4 3:53PM By Sanchez Zamora ; [facility] tiZANidine HCl 4 MG Oral Tablet 02/04/2024 - 02/14/2024 Provider: CONCETTA BENEDICT PA-C Diagnosis: Cervical disc di sorder at C5-C6 level with myelopathy Take 1 tablet PO up to three times a day, NEEDED Last Documented On 4 4:14PM By Aileen Hollingsworth ; [facility] HYDROcodone-Acetaminophen 10 -325 MG Oral Tablet 12/30/2023 - 01/06/2024 Provider: Sanchez Zamora MD Diagnosis: Radiculopathy, cervical region Take 1 tablet PO Q4H, NEE DED-may take with tylenol Last Documented On 4 12:13PM By Sanchez Zamora ; [facility] HYDROcodone-Acetaminophen 10 -325 MG Oral Tablet 11/25/2023 - 12/02/2023 Provider: Sanchez Zamora MD Diagnosis: Radiculopathy, cervical region Take 1 tablet PO Q4H, NEE DED-may take with tylenol Last Documented On 4 2:14PM By Sanchez Zamora ; [facility] HYDROcodone-Acetaminophen 10 -325 MG Oral Tablet 11/01/2023 - 11/08/2023 Provider: Sanchez Zamora MD Diagnosis: Radiculopathy, cervical region Take 1 tablet PO Q4H, NEE DED-may take with tylenol Last Documented On 4 2:38PM By Sanchez Zamora ; [facility] Methocarbamol 750 MG Oral Tablet 11/01/2023 - 12/01/2023 Provider: Sanchez Zamora MD Diagnosis: Cervical disc disorder at C5-C6 level with myelopathy Take 1 tablet PO up to 3 michelle es a day as needed Last Documented On 4 2:38PM By Sanchez Zamora ; [facility] Medrol 4 MG Oral Tablet Therapy Pack 10/23/2023 - 10/30/2023 Provider: Sanchez Dawn MD Diagnosis: Cervicalgia Take as directed Last Documented On 4 10:25AM By Aileen Hollingsworth ; [facility] HYDROcodone-Acetaminophen 10 -325 MG Oral Tablet 10/14/2023 - 10/21/2023 Provider: Sanchez Zamora MD Diagnosis: Radiculopathy, cervical region Take 1 tablet PO Q4H, NEE DED-may take with tylenol Last Documented On 4 8:56AM By Sanchez Zamora ; [facility] Medrol 4 MG Oral Tablet Therapy Pack 10/09/2023 - 10/16/2023 Provider: Sanchez Dawn MD Diagnosis: Cervicalgia Take as directed Last Documented On 4 1:39PM By Aileen Hollingsworth ; [facility] Cephalexin 500 MG Oral Tablet 10/09/2023 - 10/16/2023 Provider: Sanchez Dawn MD Diagnosis: Cervicalgia Take 1 tablet PO four times a day until finished Last Documented On 4 1:39PM By Aileen Hollingsworth ; [facility] HYDROcodone-Acetaminophen 10 -325 MG Oral Tablet 10/02/2023 - 10/09/2023 Provider: Sacnhez Zamora MD Diagnosis: Radiculopathy, cervical region Take 1 tablet PO Q4H, NEE DED-may take with tylenol Last Documented On 4 5:00PM By Sanchez Zamora ; [facility], [facility] Docusate Sodium 100 MG Oral Capsule, conventional 09/26/2023 - 10/26/2023 Provider: Sanchez Hayden MD Diagnosis: Take 1 capsule PO twice a day for constipation Last Documented On 4 2:39PM By Sanchez Zamora ; [facility] HYDROcodone-Acetaminophen 5- 325 MG Oral Tablet 09/26/2023 - 10/03/2023 Provider: Sanchez Zamora MD Diagnosis: 1 po q 4h Take 1 tablet PO q 4h as needed - may take with Tylenol Last Documented On 4 2:39PM By Sanchez Zamora ; [facility] Methocarbamol 750 MG Oral Tablet 09/26/2023 - 10/26/2023 Provider: Sanchez Dawn MD Diagnosis: three times a day Take 1 tab let PO up to 3 times a day as needed Last Documented On 4 2:39PM By Sanchez Zamora ; [facility] Meloxicam 15 MG Oral Tablet 07/05/2023 - 08/04/2023 Provider: Sanchez Dawn MD Diagnosis: Cervicalgia Take 1 tablet PO once a day, as needed Last Documented On 4 4:01PM By Aileen Hollingsworth ; [facility] Methocarbamol 750 MG Oral Tablet 07/05/2023 - 08/04/2023 Provider: Sanchez Zamora MD Diagnosis: Cervicalgia Take 1 tablet PO up to 3 times a day as needed Last Documented On 4 4:01PM By Aileen Hollingsworth ; [facility] Hyoscyamine Sulfate 0.125 MG Sublingual Tablet Sublingual 04/08/2023 - 06/17/2023 Provider: Diagnosis: Last Documented On 4 3:25PM By Dottie Cardenas ; [facility] Atenolol 25 MG Oral Tablet 03/20/2023 - 06/19/2023 Pro vider: Diagnosis: Last Documented On 5 10:42AM By Aileen Hollingsworth ; [facility] traMADol HCl 50 MG Oral Tablet 08/08/2022 - 06/17/2023 Provider: Diagnosis: Last Documented On 4 3:25PM By Dottie Cardenas ; [facility] Ketorolac Tromethamine 10 MG Oral Tablet 08/08/2022 - 06/17/2023 Provider: Diagnosis: Last Documented On 4 3:25PM By Dottie Cardenas ; [facility] predniSONE 10 MG Oral Tablet 08/08/2022 - 06/17/2023 P rovider: Diagnosis: Last Documented On 4 3:25PM By Dottie Cardenas ; [facility] Estradiol 0.5 MG Oral Tablet 05/03/2022 - 06/17/2023 P rovider: Anne Galdamez APRN Diagnosis: Last Documented On 4 3:25PM By Dottie Cardenas ; [facility] methylPREDNISolone 4 MG Oral Tablet Therapy Pack 05/02/2022 - 06/17/2023 Provider: Demetria CURRY Diagnosis: Last Documented On 4 3:25PM By Dottie Cardenas ; [facility] busPIRone HCl 10 MG Oral Tablet 04/17/2022 - Provider: Diagnosis: Last Documented On 4 3:25PM By Dottie Cardenas ; [facility] Atenolol 25 MG Oral Tablet 03/06/2022 - 06/17/2023 Pro vider: CARLOS GILMORE MD Diagnosis: Last Documented On 4 3:24PM By Dottie Cardenas ; [facility] Medications Administered Includes: Administered Medications in patient's chart No Administered Medications Recorded Vital Signs Includes: Vital Signs from 07/03/2023 through 07/02/2024 Vital Name 04/27/2024 09:48A 03/23/2024 10:06A 12/30/2023 11:26A 11/25/2023 01:43P 10/23/2023 09:55A Height (in) 65 65 65 65 65 Weight (lb) 165.25 170 178.6 181 189 Body Mass Index 27.5 28.3 29.7 30.1 31.5 Body Surface Area 1.8 1.8 1.9 1.9 1.9 Pain Level 8 5 5 3 Note: HL clw LC HL HL Last Documented: On 04/27/2024 9:48AM ; [facility] On 03/23/2024 10:13AM ; [facility] On 12/30/2023 11:26AM ; [facility] On 11/25/2023 1:43PM ; [facility] On 10/23/2023 9:55AM ; [facility] Vital Name 10/09/2023 01:04P Height (in) 65 Weight (lb) 189.4 Body Mass Index 31.5 Body Surface Area 1.9 Note: HL Last Documented: On 10/09/2023 1:04PM ; [facility] Results Includes: Results from 07/03/2023 through 07/02/2024 No Results Recorded For Specified Dates History of Present Illness History of Present Illness not supported for this document type No History of Present Illness Recorded Social History Description Last Updated Caffeine use 05/14/2022 Last Documented On 3 2:08PM ; [facility] Tobacco non-user 05/14/2022 Last Documented On 3 2:08PM ; [facility] No recent change in diet 05/14/2022 Last Documented On 3 2:08PM ; [facility] Not a current smoker. 05/14/2022 Last Documented On 3 2:08PM ; [facility] Not exercising regularly 05/14/2022 Last Documented On 3 2:08PM ; [facility] Not using alcohol 05/14/2022 Last Documented On 3 2:08PM ; [facility] Not using drugs 05/14/2022 Last Documented On 3 2:08PM ; [facility] Smoking Status Unknown Procedures and Surgical History Includes: Procedures from 07/03/2023 through 07/02/2024 Procedures Code Diagnosis Performing Provider Service Location Service Date Audio Only Telehealth level 2 [place] [address] Other intervertebral disc displacement, lumbar region CONCETTA BENEDICT PA-C Telehealth Services 06/25/2024 Last Documented On 5 3:47PM ; [facility], [facility] Triamcinolone/Kenalog, 10mg per cc J3301 Radiculopathy, cervical region Chau Ramsey [employer] [facility] 05/20/2024 Last Documented On 5 1:48PM ; [facility] Cervical/Thoracic epidural injection 06036 Radiculopathy, cervical region Chau Ramsey [employer] [facility] 05/20/2024 Last Documented On 5 1:48PM ; [facility] Injection, paravertebral facet, lumbar / sacral (Bilateral Procedure) 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 Spondylosis w/o myelopathy or radiculopathy, lumbar region Chau Ramsey [employer] [facility] 04/02/2024 Last Documented On 5 9:49AM ; [facility] Triamcinolone/Kenalog, 10mg per cc 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, lumbar region Chau Ramsey [employer] [facility] 04/02/2024 Last Documented On 5 9:49AM ; [facility] Injection, paravertebral facet, lumb/sacr second level (Bilateral Procedure) 78535 Spondyls w/o myelopathy or radiculopathy, lumbosacr region Chau Ramsey [employer] [facility] 04/02/2024 Last Documented On 5 9:49AM ; [facility] X-RAY EXAM OF LOWER SPINE 4-5 VIEWS 55049 Other low back pain Sanchez Zamora MD [facility] 12/30/2023 Last Documented On 4 1:40PM ; [facility] X-RAY EXAM OF NECK SPINE 2 VIEWS 56941 Fusion of spine, cervical region Sanchez Zamora MD [facility] 12/30/2023 Last Documented On 4 1:40PM ; [facility] X-RAY EXAM OF NECK SPINE 2 VIEWS 30582 Fusion of spine, cervical region Sanchez Zamora MD [facility] 11/25/2023 Last Documented On 4 3:13PM ; [facility] X-RAY EXAM OF NECK SPINE 2 VIEWS 12067 Fusion of spine, cervical region Sanchez Zamora MD [facility] 10/23/2023 Last Documented On 4 8:43AM ; [facility] X-RAY EXAM OF NECK SPINE 2 VIEWS 39020 Cervical disc disorder at C6-C7 level with myelopathy Sanchez Zamora MD [facility] 10/09/2023 Last Documented On 4 6:37AM ; [facility] Arthrodesis, anterior interbody, including disc space prepar (Distinct procedure) 02055 Cervical disc disorder at C6-C7 level with myelopathy Sanchez Zamora MD [facility] 09/27/2023 Last Documented On 4 8:18AM ; [facility] INSERT SPINE FIXATION DEVICE (Distinct procedure) 64758 Cervical disc disorder at C4-C5 level with myelopathy, Cervical disc disorder at C5-C6 level with myelopathy, Cervical disc disorder at C6-C7 level with myelopathy Sanchez Zamora MD [facility] 09/27/2023 Last Documented On 4 12:44PM ; [facility] Insertion of interbody cage each interspace 88472 Cervical disc disorder at C6-C7 level with myelopathy Sanchez Zamora MD [facility] 09/27/2023 Last Documented On 4 8:18AM ; [facility] SPINAL BONE ALLOGRAFT 03447 Cervical disc disorder at C6-C7 level with myelopathy Sanchez Zamora MD [facility] 09/27/2023 Last Documented On 4 8:18AM ; [facility] Arthodesis,anterior interbody 47008 Cervical disc disorder at C4-C5 level with myelopathy Sanchez Zamora MD [facility] 09/27/2023 Last Documented On 4 12:55PM ; [facility] Arthrodesis, anterior interbody, including disc space prepar 55397 Cervical disc disorder at C5-C6 level with myelopathy Sanchez Zamora MD [facility] 09/27/2023 Last Documented On 4 8:18AM ; [facility] Surgical History Last Updated Past Surgical History: 09/27/2023 C4-[address] [facility] 10/09/2023 Last Documented On 4 9:37AM ; [facility] History of appendectomy 05/14/2022 Last Documented On 3 2:08PM ; [facility] History of History of Gallbladder 2022 Last Documented On 3 2:08PM ; [facility] History of hysterectomy 05/14/2022 Last Documented On 3 2:08PM ; [facility] Medical History Includes: Medical History in patient's chart Description Last Updated History of Heartburn / Acid Reflux 05/14 Last Documented On 3 2:08PM ; [facility] History of History of Blood Transfusion 05/14/2022 Last Documented On 3 2:08PM ; [facility] History of Irregular Heartbeat 3 Last Documented On 3 2:08PM ; [facility] Family History Includes: Family History in patient's chart Description Last Updated Diabetes mellitus 05/14/2022 Last Documented On 3 2:08PM ; [facility] Review of Systems Review of Systems not [...] Patient Last Documented On 3 1:05PM ; [facility] PCV (Pneumovax 23) 1 05/14/2022 Complete (Refused - Patient objection) [facility] Last Documented On 3 1:05PM ; [facility] Td 1 05/14/2022 Complete (Refused - Patient objection) [facility] Last Documented On 3 1:05PM ; [facility] Allergies Includes: Active, inactive, and resolved Allergies Substance Type Reaction Onset Date Resolved Date Statu s Ampicillin Allergy Vomiting, Diarrh ea / Diarrheal disorder 05/14/2022 Active Last Documented On 5 1:04PM ; [facility] Encounters Includes: Encounters from 07/03/2023 through 07/02/2024 Encounter Provider Location Date Check-In Time Check-Out Time Diagnosis facet Chau Ramsey [facility] 07/02/19 25 1:22PM 2:17PM Phone Call CONCETTA BENEDICT PA-C [facility] 06/26/19 25 12:51PM 1:22PM Overweight [Patient Encounter] Sanchez Almonte-John Paul mejía MD 06/06/19 25 05/20/2024 4:01PM 05/20/2024 11:59PM Epidural Steroid Injection Chau Ramsey [facility] 05/21/19 25 2:44PM 3:13PM Epidural Steroid Injection Chau Ramsey [facility] 05/21/19 25 04/27/2024 9:16AM 04/27/2024 11:59PM Follow Up Sanchez Almonte-John Paul mejía MD [facility] 04/27/19 25 9:26AM 10:49AM Overweight facet Chau Ramsey [facility] 04/02/19 25 2:41PM 3:06PM Follow Up Sanchez Vazquezen-John Paul mejía MD [facility] 03/23/19 25 10:03AM 10:54AM Overweight [Patient Encounter] Sanchez Almonte-John Paul mejía MD 02/21/20 24 12/30/2023 3:52PM 12/30/2023 11:59PM [Patient Encounter] CONCETTA BENEDICT PA-C 02/04/20 24 12/30/2023 4:08PM 12/30/2023 11:59PM Follow Up Graysen Almonte-Fit ts MD [facility] 12/30/19 24 10:48AM 12:01PM Overweight Post Op Sanchez mejía MD [facility] 11/25/19 24 1:36PM 2:03PM Overweight Post Op Sanchez mejía MD [facility] 10/23/19 24 9:47AM 10:19AM Overweight Post Op Sanchez mejía MD [facility] 10/09/19 24 12:55PM 1:32PM Overweight [facility] Sanchez mejía MD Surgery 09/27/19 24 8:28AM 06/17/2023 11:59PM [Patient Encounter] Sanchez mejía MD 09/26/19 24 06/17/2023 2:34PM 06/17/2023 11:59PM Insurance Includes: Active Insurance Policies Plan Name Member ID Group # Subscriber Relationship Effect erika Dates 1 - [facility] [id number] Kamaljit Damon 03/11/2022 - Unknown Clinical Notes Includes: Signed Clinical Notes starting from 02/22/2022 * Progress note Date Encounter Last Documented by 06/25/2024 Phone Call Last documented on 06/25/2024; 1:33 PM, CONCETTA Cardenas; [facility] Active Problems & Conditions - [...] medications documented Medications used for this condition: Patient's visit today was done via telephone due to scheduling. Patient is scheduled for lumbar epidural injection. Patient dealing mainly with mechanical back symptoms. We did discuss her response to the facet blocks that she had back in March. Patient reports that she had 80% relief for a couple hours following the injection. This was feeling pretty good for him. In this seemed to be the area of concern as far as her back pain is concerned. Unfortunately there was no long-term benefit with the injections. Current Medication - Atenolol 25 MG Oral [...] as directed 0 days, 0 refills - traMADol HCl 50 MG Oral Tablet Take 1 tablet PO up to twice a day, NEEDED, 30 days, 0 refills - Wegovy 2.4 MG/0.75ML Subcutaneous Solution Auto-injector use as directed 28 days, 0 refills Past Medical/Surgical History Diagnoses: History of Blood Transfusion Irregular Heartbeat Heartburn / Acid Reflux Surgical: - Appendectomy - Past Surgical History: 09/27/[address] C4-[address] [facility] - Hysterectomy - History of Gallbladder [...] Immunologic: No complaint of seasonal allergic reaction. Assessment - Overweight Patient has some mild disc degeneration with disc bulging at the L5-S1 level. But she appears to have had an excellent response temporarily to the facet blocks that she had back in March. We have discussed pursuing facet rhizotomy in this case. Patient is wanting to pursue this. Patient understands that is he will have to have a repeat diagnostic injection 1st. It is she gets good temporary relief then we can pursue the facet rhizotomy. I did review her previous MRI scan. There was just some minor disc degeneration at the L5-S1 level. But no high-grade stenosi this. s associated with Previous Tests Imaging: X-Ray: X-ray 10/09/2023 Neck @ [facility] 10/23/2023 Neck @ [facility] 11/25/2023 Neck @ O 12/30/2023 Neck @ [facility] 12/30/2023 LSpine @ [facility]. CT Scan: CT scan 10/12/2022 Kushal @ [facility]. MRI Scan: An MRI was performed 09/05/2022 Neck @ [facility] 01/17/2024 LSpine @ [facility]. Counseling/Education - Tobacco non-user - Use of tobacco assessment performed - Lose weight Plan Repeat facet medial branch blocks with the purpose of pursuing facet rhizotomy. Follow up thereafter. Notes This dictation was done with voice recognition software and may contain errors or omissions. Practice Management Use of tobacco assessment performed Review of medications documented. Care Team - Anne Galdamez APRN Health Reminders - Assess Tobacco Use satisfied 05/14/2022. * Progress note Date Encounter Last Documented by 04/27/2024 Follow Up Last documented on 05/22/2024; 8:33 AM, Sanchez Hayden MD; [facility], [facility] Active Problems & Conditions - [...] Past Surgical History: 09/27/2023 C4-7 ACDF @ [facility] - Hysterectomy - History of Gallbladder Social [...] 12/30/2023 Neck @ [facility] 12/30/2023 LSpine @ [facility]. CT Scan: CT scan 10/12/2022 Kushal @ [facility]. MRI Scan: An MRI was performed 09/05/2022 Neck @ [facility] 01/17/2024 LSpine @ [facility]. Counseling/Education - Tobacco non-user - Use of [...] documented on 04/07/2024; 11:53 AM, Chau Ramsey KEY PUNCH OPERATOR; [facility], [facility] Plan LUMBAR TWO LEVEL FACET [...] containing 40 mg of KENALOG was injected. [place] were removed. Band-Aid applied. Patient tolerated the [...] on 03/23/2024; 11:40 AM, Sanchez Hayden MD; [facility], [facility] Active Problems & Conditions - [...] in her back that is worse running [id number]. We provided her a home exercise program [...] Surgical History: 09/27/2023 C4-[address] [facility] - Hysterectomy - History of Gallbladder [...] Tests Imaging: X-Ray: X-ray 08/08/2022 Neck @ [facility] 10/09/2023 Neck @ [facility] 10/23/2023 Neck @ [facility] 11/25/2023 Neck @ [facility] 12/30/2023 Neck @ [facility]. CT Scan: CT scan 10/12/2022 Kushal @ [facility]. MRI Scan: An MRI was performed 09/05/2022 Neck @ [facility] 01/17/2024 LSpine @ [facility]. Counseling/Education - Tobacco non-user - Use of [...] on 12/31/2023; 10:58 AM, Sanchez Hayden MD; [facility], [facility] Active Problems & Conditions - [...] Surgical History: 09/27/2023 C4-[address] [facility] - Hysterectomy - History of Gallbladder [...] 10/23/2023 Neck @ [facility] 11/25/2023 Neck @ [facility] 12/30/2023 Neck @ [facility]. CT Scan: CT scan 10/12/2022 Amyelda @ [facility]. MRI Scan: An MRI was performed 09/05/2022 Neck @ [facility]. Counseling/Education - Tobacco non-user - Use of [...] on 11/25/2023; 3:49 PM, Sanchez Hayden MD; [facility], [facility] Active Problems & Conditions - [...] Surgical History: 09/27/2023 C4-[address] [facility] - Hysterectomy - History of Gallbladder [...] An X-ray was performed 08/08/2022 Neck @ [facility] 10/09/2023 Neck @ [facility] 10/23/2023 Neck @ [facility] 11/25/2023 Neck @ [facility]. CT Scan: CT scan 10/12/2022 Kushal @ [facility]. MRI Scan: An MRI was performed 09/05/2022 Neck @ [facility]. Counseling/Education - Tobacco non-user - Use of [...] on 10/23/2023; 6:38 PM, Sanchez Hayden MD; [facility], [facility] Active Problems & Conditions - [...] is a 48-year-old female following up with ri status post a C4-5, C5-6, C6-7 anterior [...] Surgical History: 09/27/2023 C4-[address]F @ [facility] - Hysterectomy - History of Gallbladder [...] 10/09/2023 Neck @ [facility] 10/23/2023 Neck @ [facility]. [facility] Scan: CT scan 10/12/2022 Amyine @ [facility]. MRI Scan: An MRI was performed 09/05/2022 Neck @ [facility]. Counseling/Education - Tobacco non-user - Use of [...] on 10/10/2023; 9:37 AM, Sanchez Hayden MD; [facility], [facility] Active Problems & Conditions - [...] Surgical History: 09/27/2023 C4-[address] [facility] - Hysterectomy - History of Gallbladder [...] and I believe that 1 of the KEY PUNCH OPERATOR is in the room may have administered [...] 08/08/2022 Neck @ [facility] 10/09/2023 Neck @ [facility]. CT Scan: CT scan 10/12/2022 Kushal @ [facility]. MRI Scan: An MRI was performed 09/05/2022 Neck @ [facility]. Counseling/Education - Tobacco non-user - Use of [...]
--- OUTSIDE RECORDS SUMMARY | 2024-07-02 16:57 | XMS_ITS | Clinical Summary ---
Author Organization [facility] , [facility] Address [address] [place] [phone] Phone Care Team Providers Care Apparatus Engineering Technologist Name Role Phone Denice FLORENCENAnne Unavailable [phone] Yara LINDSEY, Meir Wiseman Unavailable [phone] Reason for Visit and Chief Complaint Epidural Steroid Injection Problems Includes: Problems addressed during this encounter and other active Problems All Visits Onset Date Resolved Date Provider Condition S tatus Lower Back Pain 12/30/2023 Sanchez mejía MD Active Last Documented On 4 11:59AM ; [facility], [facility] Neck Pain 09/24/2022 Sanchez Zamora MD Active Last Documented On 3 8:32AM ; [facility], [facility] Joint Pain, Localized in the Right Wrist 05/14/2022 Meir Livingston MD Active Last Documented On 3 12:47PM ; [facility], [facility] Plan of Treatment Future Appointments Date Time Location Provi ceferino Follow Up 08/17/2024 1:15PM [facility] Sanchez Zamora MD Last Documented On 5 3:14PM ; [facility], [facility] Assessments Includes: Assessments from this encounter No Assessments Recorded Medical Equipment - Implanted Devices Includes: Current Devices No Medical Equipment Recorded Medications Includes: Medications discussed during this encounter and other current Medications Current Medications (continue as prescribed) Baclofen 5 MG Oral Tablet 06/25/2024 Provider: Irvin Orona APRN Diagnosis: Last Documented On 5 1:43PM By Yue Núñez ; [facility], [facility] Gabapentin 100 MG Oral Capsule 06/25/2024 Provider: Vera Orona APRN Diagnosis: Last Documented On 5 1:43PM By Yue Núñez ; [facility], [facility] traMADol HCl 50 MG Oral Tablet 06/05/2024 - 07/05/2024 Provider: Sanchez Zamora MD Diagnosis: Fusion of spine, cervical region Take 1 tablet PO up to twice a day, NEEDED Last Documented On 5 4:13PM By Sanchez Zamora ; [facility], [facility] Wegovy 2.4 MG/0.75ML Subcuta neous Solution Auto-injector 02/22/2024 Provider: Anne Galdamez APRN Diagnosis: Last Documented On 5 10:42AM By Aileen Hollingsworth ; [facility], [facility] Atenolol 25 MG Oral Tablet 02/17/2024 Provider: Diagnosis: Last Documented On 5 10:42AM By Aileen Hollingsworth ; [facility], [facility] Hyoscyamine Sulfate 0.125 MG Sublingual Tablet Subling ual 06/17/2023 Provider: Diagnosis: Last Documented On 4 3:26PM By Dottie Cardenas ; [facility], [facility] busPIRone HCl 5 MG Oral Tablet 06/17/2023 Provider: Diagnosis: Last Documented On 4 3:25PM By Dottie Cardenas ; [facility] Estradiol 1 MG Oral Tablet 05/05/2023 Provider: Mackenzie Galdamez APRN Diagnosis: Last Documented On 4 3:24PM By Dottie Cardenas ; [facility], [facility] FLUoxetine HCl 20 MG Oral Capsule 05/05/2023 Provide r: Anne Galdamez APRN Diagnosis: Last Documented On 4 3:24PM By Dottie Cardenas ; [facility] Medications Administered Includes: Administered Medications from this [...] Active Last Documented On 5 1:04PM ; [facility], [facility] Encounters Encounter Provider Location Date Check-In Time Check-Out Time Diagnosis Epidural Steroid Injection Chau Ramsey CRNA 05/20/2024 9:16AM 11:59PM Insurance Includes: Active Insurance Policies Plan Name Member ID Group # Subscriber Relationship Effect erika Dates 1 - [facility] [id number] Nelson, Kamaljit 03/11/2022 - Unknown Clinical Notes Includes: Clinical Notes from this encounter No Clinical Notes Recorded
--- OUTSIDE RECORDS SUMMARY | 2024-07-02 16:57 | XMS_ITS | Clinical Summary ---
Author Organization [facility] , [facility] Address [address] [place] [address] Phone Care Team Providers Care Leaf Conditioner Name Role Phone Anne Galdamez APRN Unavailable [phone] Yara LINDSEY, Meir Wiseman Unavailable [phone] Reason for Visit and Chief Complaint facet Problems Includes: Problems addressed during this encounter and other active Problems All Visits Onset Date Resolved Date Provider Condition S tatus Lower Back Pain 12/30/2023 Sanchez mejía MD Active Last Documented On 4 11:59AM ; [facility] Neck Pain 09/24/2022 Sanchez Zamora MD Active Last Documented On 3 8:32AM ; [facility] Joint Pain, Localized in the Right Wrist 05/14/2022 Meir Livingston MD Active Last Documented On 3 12:47PM ; [facility] Plan of Treatment LUMBAR TWO LEVEL [...] containing 40 mg of KENALOG was injected. [place] were removed. Band-Aid applied. Patient tolerated the procedure without difficulty. There were no complications. Patient was reevaluated 10 minutes postprocedure. Patient reports improvement in terms of their lumbar back pain in flexion, extension, left and right rotation. - Last Documented On 07/02/2024 10:58AM ; [facility] Future Appointments Date Time Location Provi ceferino Follow Up 08/17/2024 1:15PM [facility] ISAIAS Zamora MD Last Documented On 3:14PM ; [facility], [facility] Assessments Includes: Assessments from this encounter No Assessments Recorded Medical Equipment - Implanted Devices Includes: Current Devices No Medical Equipment Recorded Medications Includes: Medications discussed during this encounter and other current Medications Current Medications (continue as prescribed) Baclofen 5 MG Oral Tablet 06/25/2024 Provider: Irvin Orona APRN Diagnosis: Last Documented On 1:43PM By Yue Núñez ; [facility], [facility] Gabapentin 100 MG Oral Capsule 06/25/2024 Provider: Vera Orona APRN Diagnosis: Last Documented On 1:43PM By Yue Núñez ; [facility], [facility] traMADol HCl 50 MG Oral Tablet 06/05/2024 - 07/05/2024 Provider: Sanchez Zamora MD Diagnosis: Fusion of spine, cervical region Take 1 tablet PO up to twice a day, NEEDED Last Documented On 4:13PM By Sanchez Zamora ; [facility], [facility] Wegovy 2.4 MG/0.75ML Subcuta neous Solution Auto-injector 02/22/2024 Provider: Anne Galdamez APRN Diagnosis: Last Documented On 5 10:42AM By Aileen Hollingsworth ; [facility], [facility] Atenolol 25 MG Oral Tablet 02/17/2024 Provider: Diagnosis: Last Documented On 5 10:42AM By Aileen Hollingsworth ; [facility], [facility] Hyoscyamine Sulfate 0.125 MG Sublingual Tablet Subling ual 06/17/2023 Provider: Diagnosis: Last Documented On 4 3:26PM By Dottie Bean [facility], [facility] busPIRone HCl 5 MG Oral Tablet 06/17/2023 Provider: Diagnosis: Last Documented On 4 3:25PM By Dottie Bean [facility] Estradiol 1 MG Oral Tablet 05/05/2023 Provider: Mackenzie Galdamez APRN Diagnosis: Last Documented On 4 3:24PM By Dottie Cardenas ; [facility] FLUoxetine HCl 20 MG Oral Capsule 05/05/2023 Provide r: Anne Galdamez APRN Diagnosis: Last Documented On 4 3:24PM By Dottie Cardenas ; [facility] Medications Administered Includes: Administered Medications from [...] Active Last Documented On 5 1:04PM ; [facility] Encounters Encounter Provider Location Date Check-In Time Check- Out Time Diagnosis facet Chau Ramsey CRNA [facility] 5 1:22PM 2:17PM Insurance Includes: Active Insurance Policies Plan Name Member ID Group # Subscriber Relationship Effect erika Dates 1 - [facility] [id number] Kamaljit Damon 03/11/2022 - Unknown Clinical Notes Includes: Clinical Notes from this encounter No Clinical Notes Recorded
--- OUTSIDE RECORDS SUMMARY | 2024-07-02 16:57 | XMS_ITS | Clinical Summary ---
Author Organization [facility] , [facility] Address [address] [place] [address] Phone Care Team Providers Care Esthetician Name Role Phone Anne Galdamez APRN Unavailable [phone] Yara LINDSEY, Meir Wiseman Unavailable [phone] Reason for Visit and Chief Complaint The Chief Complaint is: lower back pain Problems Includes: Problems addressed during this encounter and other active Problems Current Visit Onset Date Resolved Date Provider Conditio n Status Lower Back Pain 12/30/2023 Sanchez mejía MD Active Last Documented On 4 11:59AM ; [facility], [facility] Past Visits Onset Date Resolved Date Provider Condition Status Neck Pain 09/24/2022 Sanchez Zamora MD Active Last Documented On 3 8:32AM ; [facility], [facility] Joint Pain, Localized in the Right Wrist 05/14/2022 Meir Livingston MD Active Last Documented On 3 12:47PM ; [facility], [facility] Plan of Treatment Repeat facet medial branch blocks with the purpose of pursuing facet rhizotomy. Follow up thereafter. - Last Documented On 06/25/2024 1:33PM ; [facility], [facility] Future Appointments Date Time Location Provi ceferino Follow Up 08/17/2024 1:15PM [facility] [place] Zam[place] MD Last Documented On 5 3:14PM ; [facility], [facility] Instructions to patient Lose weight Last Documented On 5 1:05PM ; [facility], [facility] Assessments Includes: Assessments from this encounter Findings - Overweight - Last Documented On 06/25/2024 1:33PM ; [facility] DELUCAS, [facility] Patient has some mild disc degeneration with [...] no high-grade stenosi this. s associated with - Last Documented On 06/25/2024 1:33PM ; [facility], [facility] Instructions Includes: Instructions from this encounter Instructions to patient Lose weight Last Documented On 1:05PM ; [facility], [facility] Medical Equipment - Implanted Devices Includes: Current Devices No Medical Equipment Recorded Medications Includes: Medications discussed during this encounter and other current Medications Current Medications (continue as prescribed) Baclofen 5 MG Oral Tablet 06/25/2024 Provider: Irvin Orona APRN Diagnosis: Last Documented On 1:43PM By Yue Núñez ; [facility], [facility] Gabapentin 100 MG Oral Capsule 06/25/2024 Provider: Vera Orona APRN Diagnosis: Last Documented On 1:43PM By Yue Núñez ; [facility], [facility] traMADol HCl 50 MG Oral Tablet 06/05/2024 - 07/05/2024 Provider: Sanchez Zamora MD Diagnosis: Fusion of spine, cervical region Take 1 tablet PO up to twice a day, NEEDED Last Documented On 4:13PM By Sanchez Zamora ; [facility], [facility] Wegovy 2.4 MG/0.75ML Subcuta neous Solution Auto-injector 02/22/2024 Provider: Anne Galdamez APRN Diagnosis: Last Documented On 10:42AM By Aileen Hollingsworth ; [facility], [facility] Atenolol 25 MG Oral Tablet 02/17/2024 Provider: Diagnosis: Last Documented On 10:42AM By Aileen Hollingsworth ; [facility], [facility] Hyoscyamine Sulfate 0.125 MG Sublingual Tablet Subling ual 06/17/2023 Provider: Diagnosis: Last Documented On 4 3:26PM By Dottie Cardenas ; [facility], [facility] busPIRone HCl 5 MG Oral Tablet 06/17/2023 Provider: Diagnosis: Last Documented On 4 3:25PM By Dottie Cardenas ; [facility] Estradiol 1 MG Oral Tablet 05/05/2023 Provider: Mackenzie Galdamez APRN Diagnosis: Last Documented On 4 3:24PM By Dottie Cardenas ; [facility], [facility] FLUoxetine HCl 20 MG Oral Capsule 05/05/2023 Provide r: Anne Denice FLYNN Diagnosis: Last Documented On 4 3:24PM By Dottie Cardenas ; [facility], [facility] Past Medications on file tiZANidine HCl 4 MG Oral Tablet 04/27/2024 - 05/27/2024 Provider: Sanchez Zamora MD Diagnosis: Cervical disc disorder at C5-C6 level with myelopathy Take 1 tablet PO up to three times a day, NEEDED Last Documented On 5 11:35AM By Sanchez Zamora ; [facility], [facility] tiZANidine HCl 4 MG Oral Tablet 03/13/2024 - 04/12/2024 Provider: Sanchez Zamora MD Diagnosis: Cervical disc disorder at C5-C6 level with myelopathy Take 1 tablet PO up to three times a day, NEEDED Last Documented On 5 3:14PM By Aileen Hollingsworth ; [facility], [facility] tiZANidine HCl 4 MG Oral Tablet 02/21/2024 - 03/02/2024 Provider: Sanchez Zamora MD Diagnosis: Cervical disc disorder at C5-C6 level with myelopathy Take 1 tablet PO up to three times a day, NEEDED Last Documented On 4 3:53PM By Sanchez Zamora ; [facility] tiZANidine HCl 4 MG Oral Tablet 02/04/2024 - 02/14/2024 Provider: CONCETTA BENEDICT PA-C Diagnosis: Cervical disc di sorder at C5-C6 level with myelopathy Take 1 tablet PO up to three times a day, NEEDED Last Documented On 4 4:14PM By Aileen Hollingsworth ; [facility] HYDROcodone-Acetaminophen 10 -325 MG Oral Tablet 12/30/2023 - 01/06/2024 Provider: Sanchez Zamora MD Diagnosis: Radiculopathy, cervical region Take 1 tablet PO Q4H, NEE DED-may take with tylenol Last Documented On 4 12:13PM By Sanchez Zamora ; [facility] HYDROcodone-Acetaminophen 10 -325 MG Oral Tablet 11/25/2023 - 12/02/2023 Provider: Sanchez Zamora MD Diagnosis: Radiculopathy, cervical region Take 1 tablet PO Q4H, NEE DED-may take with tylenol Last Documented On 4 2:14PM By Sanchez Zamora ; [facility] HYDROcodone-Acetaminophen 10 -325 MG Oral Tablet 11/01/2023 - 11/08/2023 Provider: Sanchez Zamora MD Diagnosis: Radiculopathy, cervical region Take 1 tablet PO Q4H, NEE DED-may take with tylenol Last Documented On 4 2:38PM By Sanchez Zamora ; [facility] Methocarbamol 750 MG Oral Tablet 11/01/2023 - 12/01/2023 Provider: Sanchez Zamora MD Diagnosis: Cervical disc disorder at C5-C6 level with myelopathy Take 1 tablet PO up to 3 michelle es a day as needed Last Documented On 4 2:38PM By Sanchez Zamora ; [facility] Medrol 4 MG Oral Tablet Therapy Pack 10/23/2023 - 10/30/2023 Provider: Sanchez Dawn MD Diagnosis: Cervicalgia Take as directed Last Documented On 4 10:25AM By Aileen Hollingsworth ; [facility] HYDROcodone-Acetaminophen 10 -325 MG Oral Tablet 10/14/2023 - 10/21/2023 Provider: Sanchez Zamora MD Diagnosis: Radiculopathy, cervical region Take 1 tablet PO Q4H, NEE DED-may take with tylenol Last Documented On 4 8:56AM By Sanchez Zamora ; [facility] Medrol 4 MG Oral Tablet Therapy Pack 10/09/2023 - 10/16/2023 Provider: Sanchez Dawn MD Diagnosis: Cervicalgia Take as directed Last Documented On 4 1:39PM By Aileen Hollingsowrth ; [facility] Cephalexin 500 MG Oral Tablet 10/09/2023 - 10/16/2023 Provider: Sanchez Dawn MD Diagnosis: Cervicalgia Take 1 tablet PO four times a day until finished Last Documented On 4 1:39PM By Aileen Hollingsworth ; [facility] HYDROcodone-Acetaminophen 10 -325 MG Oral Tablet 10/02/2023 - 10/09/2023 Provider: Sanchez Zamora MD Diagnosis: Radiculopathy, cervical region Take 1 tablet PO Q4H, NEE DED-may take with tylenol Last Documented On 4 5:00PM By Sanchez Zamora ; [facility] Docusate Sodium 100 MG Oral Capsule, conventional 09/26/2023 - 10/26/2023 Provider: Sanchez Hayden MD Diagnosis: Take 1 capsule PO twice a day for constipation Last Documented On 4 2:39PM By Sanchez Zamora ; [facility] HYDROcodone-Acetaminophen 5- 325 MG Oral Tablet 09/26/2023 - 10/03/2023 Provider: Sanchez Zamora MD Diagnosis: 1 po q 4h Take 1 tablet PO q 4h as needed - may take with Tylenol Last Documented On 4 2:39PM By Sanchez Zamora ; [facility] Methocarbamol 750 MG Oral Tablet 09/26/2023 - 10/26/2023 Provider: Sanchez Dawn MD Diagnosis: three times a day Take 1 tab let PO up to 3 times a day as needed Last Documented On 4 2:39PM By Sanchez Zamora ; [facility] Meloxicam 15 MG Oral Tablet 07/05/2023 - 08/04/2023 Provider: Sanchez Dawn MD Diagnosis: Cervicalgia Take 1 tablet PO once a day, as needed Last Documented On 4 4:01PM By Aileen Hollingsworth ; [facility] Methocarbamol 750 MG Oral Tablet 07/05/2023 - [...] was no long-term benefit with the injections. Social History Description Last Updated Caffeine use 05/14/2022 Last Documented On 5 1:04PM ; [facility] Tobacco non-user 05/14/2022 Last Documented On 5 1:04PM ; [facility] No recent change in diet 05/14/2022 Last Documented On 5 1:04PM ; [facility] Not a current smoker. 05/14/2022 Last Documented On 5 1:04PM ; [facility] Not exercising regularly 05/14/2022 Last Documented On 5 1:04PM ; [facility] Not using alcohol 05/14/2022 Last Documented On 5 1:04PM ; [facility], [facility] Not using drugs 05/14/2022 Last Documented On 5 1:04PM ; [facility], [facility] Smoking Status Unknown Procedures and Surgical History Includes: Procedures from this encounter Procedures Code Diagnosis Performing Provider Service Location Service Date Audio Only Telehealth level 2 [place] [address] Other intervertebral disc displacement, lumbar region [facility] BENED[facility] PA-C Telehealth Services 06/25/2024 Last Documented On 5 3:47PM ; [facility], [facility] use of tobacco assessment performed 1000F Last Documented On 5 1:05PM ; [facility], [facility] review of medications documented 1160F Last Documented On 5 1:05PM ; [facility], [facility] X-ray 10/09/2023 Neck @ [facility] ~10/23/2023 Neck @ [facility] ~11/25/2023 Neck @ [facility] ~12/30/2023 Neck @ [facility] ~12/30/2023 [facility]Spine @ [facility] [id number] Last Documented On 5 1:05PM ; [facility] CT scan 10/12/2022 [facility]Spine @ [place] [id number] Last Documented On 5 1:05PM ; [facility] an MRI was performed 09/05/2022 Neck @ [facility] ~11/0 10/2023 [facility] @ [facility] [id number] Last Documented On 5 1:05PM ; [facility] Surgical History Last Updated Past Surgical History: 09/27/2023 C4-7 A CDF @ [facility] 10/09/2023 Last Documented On 5 1:04PM ; [facility] History of appendectomy 05/14/2022 Last Documented On 5 1:04PM ; [facility] History of History of Gallbladder 2022 Last Documented On 5 1:04PM ; [facility], [facility] History of hysterectomy 05/14/2022 Last Documented On 5 1:04PM ; [facility], [facility] Medical History Includes: Medical History addressed during this encounter Description Last Updated History of Heartburn / Acid Reflux 05/14 Last Documented On 5 1:04PM ; [facility] History of History of Blood Transfusion 05/14/2022 Last Documented On 5 1:04PM ; [facility] History of Irregular Heartbeat 3 Last Documented On 5 1:04PM ; [facility] Family History Includes: Family History addressed during this encounter Description Last Updated Diabetes mellitus 05/14/2022 Last Documented On 5 1:04PM ; [facility] Review of Systems Includes: Review of [...] Active Last Documented On 5 1:04PM ; [facility] Encounters Encounter Provider Location Date Check-In Time Check-Out Time Diagnosis Phone Call CONC[facility] BENEDICT PA-C [facility] 06/26/19 12:51PM 1:22PM Overweight Insurance Includes: Active Insurance Policies Plan Name Member ID Group # Subscriber Relationship Effect erika Dates 1 - [facility] [id number] Kamaljit Damon 03/11/2022 - Unknown Clinical Notes Includes: Clinical Notes from this encounter * Progress note Date Encounter Last Documented by 06/25/2024 Phone Call Last documented on 06/25/2024; 1:33 PM, CONCETTA Cardenas; [facility], [facility] Active Problems & Conditions - Joint [...] Past Surgical History: 09/27/2023 C4-7 ACDF @ [facility] - Hysterectomy - History of Gallbladder [...] 12/30/2023 Neck @ [facility] 12/30/2023 LSpine @ [facility]. CT Scan: CT scan 10/12/2022 Kushal @ [facility]. MRI Scan: An MRI was performed 09/05/2022 Neck @ [facility] 01/17/2024 LSpine @ [facility]. Counseling/Education - Tobacco non-user - Use of [...]
== END 2024-07-02 23:59 | disposition home or self-care (01) ==
LOC: RAD 16:55
PROVIDERS: PCP Nurse Practitioner Family; Visit Provider Nurse Practitioner Family
DX: M48.02 Spinal stenosis, cervical region (principal)
CPT/HCPCS: 72141

== ENCOUNTER 2024-07-09 10:14 | Outpatient (POV) | payer BC, SELFPAY ==
--- OUTSIDE RECORDS SUMMARY | 2024-07-09 10:17 | XMS_ITS ---
Care Plan - [facility], [facility] Created on: July 09, 2024 Yasmeen Damon : 1975 Sex: Female Author Organization [facility] , [facility] Address [address] [place] [address] Phone Care Team Providers Care Husbandry Technician Name Role Phone Anne Galdamez APRN Unavailable [phone] Yara LINDSEY, Meir Wiseman Unavailable [phone]
--- OUTSIDE RECORDS SUMMARY | 2024-07-09 10:17 | XMS_ITS | Clinical Summary ---
Author Organization [facility] , [facility] Address [address] [place] [address] Phone Care Team Providers Care Mobile Patrol Officer Name Role Phone Denice FLORENCENAnne Unavailable [phone] Yara LINDSEY, Meir Wiseman Unavailable [phone] Reason for Visit and Chief Complaint Epidural Steroid Injection Problems Includes: Problems addressed during this encounter and other active Problems All Visits Onset Date Resolved Date Provider Condition S tatus Lower Back Pain 12/30/2023 Sanchez mejía MD Active Last Documented On 4 11:59AM ; [facility], [facility] Neck Pain 09/24/2022 Sanchez Zamora MD Active Last Documented On 3 8:32AM ; [facility], [facility] Joint Pain, Localized in the Right Wrist 05/14/2022 Meir Livingston MD Active Last Documented On 3 12:47PM ; [facility], [facility] Plan of Treatment Future Appointments Date Time Location Provi ceferino Follow Up 08/17/2024 1:15PM [facility] Sanchez Zamora MD Last Documented On 5 3:14PM ; [facility], [facility] Assessments Includes: Assessments from this encounter No Assessments Recorded Medical Equipment - Implanted Devices Includes: Current Devices No Medical Equipment Recorded Medications Includes: Medications discussed during this encounter and other current Medications Current Medications (continue as prescribed) Baclofen 5 MG Oral Tablet 06/25/2024 Provider: Irvin Orona APRN Diagnosis: Last Documented On 5 1:43PM By Yue Núñez ; [facility] Gabapentin 100 MG Oral Capsule 06/25/2024 Provider: Vera Orona APRN Diagnosis: Last Documented On 5 1:43PM By Yue Núñez ; [facility] Wegovy 2.4 MG/0.75ML Subcuta neous Solution Auto-injector 02/22/2024 Provider: Anne Galdamez APRN Diagnosis: Last Documented On 5 10:42AM By Aileen Hollingsworth ; [facility] Atenolol 25 MG Oral Tablet 02/17/2024 Provider: Diagnosis: Last Documented On 5 10:42AM By Aileen Hollingsworth ; [facility] Hyoscyamine Sulfate 0.125 MG Sublingual Tablet Subling ual 06/17/2023 Provider: Diagnosis: Last Documented On 4 3:26PM By Dottie Cardenas ; [facility] busPIRone HCl 5 MG Oral Tablet 06/17/2023 Provider: Diagnosis: Last Documented On 4 3:25PM By Dottie Cardenas ; [facility] Estradiol 1 MG Oral Tablet 05/05/2023 Provider: Mackenzie Galdamez APRN Diagnosis: Last Documented On 4 3:24PM By Dottie Cardenas ; [facility] FLUoxetine HCl 20 MG Oral Capsule 05/05/2023 Provide r: Anne Galdamez APRN Diagnosis: Last Documented On 4 3:24PM By Dottie Cardenas ; [facility] Medications Administered Includes: Administered Medications from this [...] Service Location Service Date Cervical/Thoracic epidural injection 36634 Radiculopathy, cervical region [facility] 05/20/2024 Last Documented On 5 1:48PM ; [facility] Triamcinolone/Kenalog, 10mg per cc [id number] Radiculopathy, cervical region [facility] 05/20/2024 Last Documented On 5 1:48PM ; [facility] Medical History Includes: Medical [...] Active Last Documented On 5 1:04PM ; [facility] Encounters Encounter Provider Location Date Check-In Time Check-Out Time Diagnosis Epidural Steroid Injection Chau Ramsey [facility] 05/21/19 25 2:44PM 3:13PM Insurance Includes: Active Insurance Policies Plan Name Member ID Group # Subscriber Relationship Effect erika Dates 1 - [facility] [id number] Kamaljit Damon 03/11/2022 - Unknown Clinical Notes Includes: Clinical Notes from this encounter No Clinical Notes Recorded
--- OUTSIDE RECORDS SUMMARY | 2024-07-09 10:17 | XMS_ITS | Clinical Summary ---
Author Organization [facility] , [facility] Address [address] [place] [address] Phone Care Team Providers Care Worm Farm Laborer Name Role Phone Anne Galdamez APRN Unavailable [phone] Yara LINDSEY, Meir Wiseman Unavailable [phone] Reason for Visit and Chief Complaint [Patient Encounter] Problems Includes: Problems addressed during this encounter and other active Problems All Visits Onset Date Resolved Date Provider Condition S tatus Lower Back Pain 12/30/2023 Sanchez mejía MD Active Last Documented On 4 11:59AM ; [facility], [facility] Neck Pain 09/24/2022 Sanchez Zamora MD Active Last Documented On 3 8:32AM ; [facility], [facility] Joint Pain, Localized in the Right Wrist 05/14/2022 Meir Livingston MD Active Last Documented On 3 12:47PM ; [facility], [facility] Plan of Treatment Pending Tests Order Diagnosis Results Due Ordering P rovider Radiology - CT Scan Cervical Cervicalgia 10/08/22 Denzel Zamora MD Last Documented On 3 9:44AM ; [facility] Radiology - MRI MRI Lumbar Spine Low back pain, unspecified 01/13/24 Sanchez Zamora MD Last Documented On 4 10:58AM ; [facility], [facility] Future Appointments Date Time Location Provi ceferino Follow Up 08/17/2024 1:15PM [facility] NOMEELAINA Zamora MD Last Documented On 5 3:14PM ; [facility], [facility] Assessments Includes: Assessments from this encounter No [...] up to twice a day, NEEDED Pharmacy: [id number] - [address], [id number] - Last Documented On 5 4:13PM By Sanchez Zamora ; [facility], [facility] Current Medications (continue as prescribed) Baclofen 5 MG Oral Tablet 06/25/2024 Provider: Irvin Orona APRN Diagnosis: Last Documented On 5 1:43PM By Yue Núñez ; [facility], [facility] Gabapentin 100 MG Oral Capsule 06/25/2024 Provider: Vera Orona APRN Diagnosis: Last Documented On 5 1:43PM By Yue Núñez ; [facility], [facility] Wegovy 2.4 MG/0.75ML Subcuta neous Solution Auto-injector 02/22/2024 Provider: Anne Galdamez APRN Diagnosis: Last Documented On 5 10:42AM By Aileen Hollingsworth ; [facility], [facility] Atenolol 25 MG Oral Tablet 02/17/2024 Provider: Diagnosis: Last Documented On 5 10:42AM By Aileen Hollingsworth ; [facility], [facility] Hyoscyamine Sulfate 0.125 MG Sublingual Tablet Subling ual 06/17/2023 Provider: Diagnosis: Last Documented On 4 3:26PM By Dottie Cardenas ; [facility] busPIRone HCl 5 MG Oral Tablet 06/17/2023 Provider: Diagnosis: Last Documented On 4 3:25PM By Dottie Cardenas ; [facility] Estradiol 1 MG Oral Tablet 05/05/2023 Provider: Mackenzie Galdamez APRN Diagnosis: Last Documented On 4 3:24PM By Dottie Cardenas ; [facility], [facility] FLUoxetine HCl 20 MG Oral Capsule 05/05/2023 Provide r: Anne Omalleyscarlet FLYNN Diagnosis: Last Documented On 4 3:24PM By Dottie Cardenas ; [facility] Medications Administered Includes: Administered Medications from this [...] Active Last Documented On 5 1:04PM ; [facility], [facility] Encounters Encounter Provider Location Date Check-In Time Check-Out Time Diagnosis [Patient Encounter] Sanchez Zamora MD 06/05/2024 4:01PM 11:59PM Insurance Includes: Active Insurance Policies Plan Name Member ID Group # Subscriber Relationship Effect erika Dates - [facility] [id number] Kamaljit Damon 03/11/2022 - Unknown Clinical Notes Includes: Clinical Notes from this encounter No Clinical Notes Recorded
--- OUTSIDE RECORDS SUMMARY | 2024-07-09 10:17 | XMS_ITS | Clinical Summary ---
Author Organization [facility] , [facility] Address [address] [place] [address] Phone Care Team Providers Care Genetic Scientist Name Role Phone Anne Galdamez APRN Unavailable [phone] Yara LINDSEY, Meir Wiseman Unavailable [phone] Reason for Visit and Chief Complaint The Chief Complaint is: lower back pain Problems Includes: Problems addressed during this encounter and other active Problems Current Visit Onset Date Resolved Date Provider Conditio n Status Lower Back Pain 12/30/2023 Sanchez mejía MD Active Last Documented On 4 11:59AM ; [facility], [facility] Past Visits Onset Date Resolved Date Provider Condition Status Neck Pain 09/24/2022 Sanchez Zamora MD Active Last Documented On 3 8:32AM ; [facility] Joint Pain, Localized in the Right Wrist 05/14/2022 Meir Livingston MD Active Last Documented On 3 12:47PM ; [facility] Plan of Treatment Repeat facet medial branch blocks with the purpose of pursuing facet rhizotomy. Follow up thereafter. - Last Documented On 06/25/2024 1:33PM ; [facility], [facility] Future Appointments Date Time Location Provi ceferino Follow Up 08/17/2024 1:15PM [facility] ISAIAS Zamora MD Last Documented On 5 3:14PM ; [facility] Instructions to patient Lose weight Last Documented On 5 1:05PM ; [facility], [facility] Assessments Includes: Assessments from this encounter Findings - Overweight - Last Documented On 06/25/2024 1:33PM ; [facility], [facility] Patient has some mild disc degeneration with [...] - Last Documented On 06/25/2024 1:33PM ; [facility], [facility] Instructions Includes: Instructions from this encounter Instructions to patient Lose weight Last Documented On 1:05PM ; [facility], [facility] Medical Equipment - Implanted Devices Includes: Current Devices No Medical Equipment Recorded Medications Includes: Medications discussed during this encounter and other current Medications Current Medications (continue as prescribed) Baclofen 5 MG Oral Tablet 06/25/2024 Provider: Irvin Orona APRN Diagnosis: Last Documented On 5 1:43PM By Yue Núñez ; [facility], [facility] Gabapentin 100 MG Oral Capsule 06/25/2024 Provider: Vera Orona APRN Diagnosis: Last Documented On 1:43PM By Yue Núñez ; [facility], [facility] Wegovy 2.4 MG/0.75ML Subcuta neous Solution Auto-injector 02/22/2024 Provider: Anne Galdamez APRN Diagnosis: Last Documented On 5 10:42AM By Aileen Hollingsworth ; [facility], [facility] Atenolol 25 MG Oral Tablet 02/17/2024 Provider: Diagnosis: Last Documented On 5 10:42AM By Aileen Hollingsworth ; [facility], [facility] Hyoscyamine Sulfate 0.125 MG Sublingual Tablet Subling ual 06/17/2023 Provider: Diagnosis: Last Documented On 4 3:26PM By Dottie Cardenas ; [facility], [facility] busPIRone HCl 5 MG Oral Tablet 06/17/2023 Provider: Diagnosis: Last Documented On 4 3:25PM By Dottie Cardenas ; [facility], [facility] Estradiol 1 MG Oral Tablet 05/05/2023 Provider: Mackenzie Galdamez APRN Diagnosis: Last Documented On 4 3:24PM By Dottie Cardenas ; [facility], [facility] FLUoxetine HCl 20 MG Oral Capsule 05/05/2023 Provide r: Anne Denice FLYNN Diagnosis: Last Documented On 4 3:24PM By Dottie Cardenas ; [facility], [facility] Past Medications on file traMADol HCl 50 MG Oral Tablet 06/05/2024 - 07/05/2024 Provider: Sanchez Zamora MD Diagnosis: Fusion of spine, cervical region Take 1 tablet PO up to twice a day, NEEDED Last Documented On 5 4:13PM By Sanchez Zamora ; [facility], [facility] tiZANidine HCl 4 MG Oral Tablet 04/27/2024 - 05/27/2024 Provider: Sanchez Zamora MD Diagnosis: Cervical disc disorder at C5-C6 level with myelopathy Take 1 tablet PO up to three times a day, NEEDED Last Documented On 5 11:35AM By Sanchez Zamora ; [facility], [facility] tiZANidine HCl 4 MG Oral Tablet 03/13/2024 - 04/12/2024 Provider: Sanchez Zamora MD Diagnosis: Cervical disc disorder at C5-C6 level with myelopathy Take 1 tablet PO up to three times a day, NEEDED Last Documented On 5 3:14PM By Aileen Hollingsworth ; [facility], [facility] tiZANidine HCl 4 MG Oral Tablet 02/21/2024 - 03/02/2024 Provider: Sanchez Zamora MD Diagnosis: Cervical disc disorder at C5-C6 level with myelopathy Take 1 tablet PO up to three times a day, NEEDED Last Documented On 4 3:53PM By Sanchez Zamora ; [facility], [facility] tiZANidine HCl 4 MG Oral Tablet 02/04/2024 - 02/14/2024 Provider: CONCETTA BENEDICT PA-C Diagnosis: Cervical disc di sorder at C5-C6 level with myelopathy Take 1 tablet PO up to three times a day, NEEDED Last Documented On 4 4:14PM By Aileen Hollingsworth ; [facility] HYDROcodone-Acetaminophen 10 -325 MG Oral Tablet 12/30/2023 - 01/06/2024 Provider: Sanchez Zamora MD Diagnosis: Radiculopathy, cervical region Take 1 tablet PO Q4H, NEE DED-may take with tylenol Last Documented On 4 12:13PM By Sanchez Zamora ; [facility] HYDROcodone-Acetaminophen 10 -325 MG Oral Tablet 11/25/2023 - 12/02/2023 Provider: Sanchez Zamora MD Diagnosis: Radiculopathy, cervical region Take 1 tablet PO Q4H, NEE DED-may take with tylenol Last Documented On 4 2:14PM By Sanchez Zamora ; [facility] HYDROcodone-Acetaminophen 10 -325 MG Oral Tablet 11/01/2023 - 11/08/2023 Provider: Sanchez Zamora MD Diagnosis: Radiculopathy, cervical region Take 1 tablet PO Q4H, NEE DED-may take with tylenol Last Documented On 4 2:38PM By Sanchez Zamora ; [facility] Methocarbamol 750 MG Oral Tablet 11/01/2023 - 12/01/2023 Provider: Sanchez Zamora MD Diagnosis: Cervical disc disorder at C5-C6 level with myelopathy Take 1 tablet PO up to 3 michelle es a day as needed Last Documented On 4 2:38PM By Sanchez Zamora ; [facility] Medrol 4 MG Oral Tablet Therapy Pack 10/23/2023 - 10/30/2023 Provider: Sanchez Dawn MD Diagnosis: Cervicalgia Take as directed Last Documented On 4 10:25AM By Aileen Hollingsworth ; [facility] HYDROcodone-Acetaminophen 10 -325 MG Oral Tablet 10/14/2023 - 10/21/2023 Provider: Sanchez Zamora MD Diagnosis: Radiculopathy, cervical region Take 1 tablet PO Q4H, NEE DED-may take with tylenol Last Documented On 4 8:56AM By Sanchez Zamora ; [facility] Medrol 4 MG Oral Tablet Therapy Pack 10/09/2023 - 10/16/2023 Provider: Sanchez Dawn MD Diagnosis: Cervicalgia Take as directed Last Documented On 4 1:39PM By Aileen Hollingsworth ; [facility] Cephalexin 500 MG Oral Tablet 10/09/2023 - 10/16/2023 Provider: Sanchez Dawn MD Diagnosis: Cervicalgia Take 1 tablet PO four times a day until finished Last Documented On 4 1:39PM By Aileen Hollingsworth ; [facility] HYDROcodone-Acetaminophen 10 -325 MG Oral Tablet 10/02/2023 - 10/09/2023 Provider: Sanchez Zamora MD Diagnosis: Radiculopathy, cervical region Take 1 tablet PO Q4H, NEE DED-may take with tylenol Last Documented On 4 5:00PM By Sanchez Zamora ; [facility] Docusate Sodium 100 MG Oral Capsule, conventional 09/26/2023 - 10/26/2023 Provider: Sanchez Hayden MD Diagnosis: Take 1 capsule PO twice a day for constipation Last Documented On 4 2:39PM By Sanchez Zamora ; [facility] HYDROcodone-Acetaminophen 5- 325 MG Oral Tablet 09/26/2023 - 10/03/2023 Provider: Sanchez Zamora MD Diagnosis: 1 po q 4h Take 1 tablet PO q 4h as needed - may take with Tylenol Last Documented On 4 2:39PM By Sanchez Zamora ; [facility] Methocarbamol 750 MG Oral Tablet 09/26/2023 - 10/26/2023 Provider: Sanchez Dawn MD Diagnosis: three times a day Take 1 tab let PO up to 3 times a day as needed Last Documented On 4 2:39PM By Sanchez Zamora ; [facility] Meloxicam 15 MG Oral Tablet 07/05/2023 [...] 05/14/2022 Last Documented On 5 1:04PM ; [facility], [facility] Not using drugs 05/14/2022 Last Documented On 5 1:04PM ; [facility], [facility] Smoking Status Unknown Procedures and Surgical History Includes: Procedures from this encounter Procedures Code Diagnosis Performing Provider Service Location Service Date Audio Only Telehealth [place] [address] Other intervertebral disc displacement, lumbar region CONCETTA BENEDICT PA-C Telehealth Services 06/25/2024 Last Documented On 5 3:47PM ; [facility], [facility] use of tobacco assessment performed 1000F Last Documented On 5 1:05PM ; [facility], [facility] review of medications documented 1160F Last Documented On 5 1:05PM ; [facility], [facility] X-ray 10/09/2023 Neck @ [facility] ~10/23/2023 Neck @ [facility] ~11/25/2023 Neck @ [facility] ~12/30/2023 Neck @ [facility] ~12/30/2023 [facility]Spine @ [facility] [id number] Last Documented On 5 1:05PM ; [facility] CT scan 10/12/2022 CSpine @ [facility] [id number] Last Documented On 5 1:05PM ; [facility] an MRI was performed 09/05/2022 Neck @ [facility] ~11/0 10/2023 [facility] @ [facility] [id number] Last Documented On 5 1:05PM ; [facility] Surgical History Last Updated Past Surgical History: 09/27/2023 C4-7 A CDF @ [facility] 10/09/2023 Last Documented On 5 1:04PM ; [facility] History of appendectomy 05/14/2022 Last Documented On 5 1:04PM ; [facility] History of History of Gallbladder 2022 Last Documented On 5 1:04PM ; [facility], [facility] History of hysterectomy 05/14/2022 Last Documented On 5 1:04PM ; [facility], [facility] Medical History Includes: Medical History addressed during this encounter Description Last Updated History of Heartburn / Acid Reflux 05/14 Last Documented On 5 1:04PM ; [facility] History of History of Blood Transfusion 05/14/2022 Last Documented On 5 1:04PM ; [facility] History of Irregular Heartbeat 3 Last Documented On 5 1:04PM ; [facility] Family History Includes: Family History addressed during this encounter Description Last Updated Diabetes mellitus 05/14/2022 Last Documented On 5 1:04PM ; [facility] Review of Systems Includes: Review of [...] Active Last Documented On 5 1:04PM ; [facility] Encounters Encounter Provider Location Date Check-In Time Check-Out Time Diagnosis Phone Call CONCETTA BENEDICT PA-C [facility] 06/26/19 12:51PM 1:22PM Overweight Insurance Includes: Active Insurance Policies Plan Name Member ID Group # Subscriber Relationship Effect erika Dates 1 - [facility] [id number] Kamaljit Damon 03/11/2022 - Unknown Clinical Notes Includes: Clinical Notes from this encounter * Progress note Date Encounter Last Documented by 06/25/2024 Phone Call Last documented on 06/25/2024; 1:33 PM, CONCETTA Cardenas; [facility], [facility] Active Problems & Conditions - [...] Past Surgical History: 09/27/2023 C4-7 ACDF @ [facility] - Hysterectomy - History of Gallbladder [...] 12/30/2023 Neck @ [facility] 12/30/2023 LSpine @ [facility]. CT Scan: CT scan 10/12/2022 Kushal @ [facility]. MRI Scan: An MRI was performed 09/05/2022 Neck @ [facility] 01/17/2024 LSpine @ [facility]. Counseling/Education - Tobacco non-user - Use of [...]
--- OUTSIDE RECORDS SUMMARY | 2024-07-09 10:18 | XMS_ITS ---
Author Organization [facility] Address [address] [place] [address] Phone Care Team Providers Care Private Security Guard Name Role Phone Denice FLORENCENLetitiaAnne Unavailable [phone] Yara LINDSEY, Meir Wiseman Unavailable [phone] Problems Includes: Active, inactive, and resolved Problems All Visits Onset Date Resolved Date Provider Condition S tatus Lower Back Pain 12/30/2023 Sanchez mejía MD Active Last Documented On 4 11:59AM ; [facility] Neck Pain 09/24/2022 Sanchez Zamora MD Active Last Documented On 3 8:32AM ; [facility] Joint Pain, Localized in the Right Wrist 05/14/2022 Meir Livingston MD Active Last Documented On 3 12:47PM ; [facility] Plan of Treatment Pending Tests Order Diagnosis Results Due Ordering P rovider Procedure/Tests EMG 06/18/22 Meir Livingston MD Last Documented On 3 5:13PM ; [facility] Radiology - MRI MRI Cervical Spine 08/22/22 Cory Livingston MD Last Documented On 3 1:02PM ; [facility] Radiology - CT Scan Cervical Cervicalgia 10/08/22 Denzel Zamora MD Last Documented On 3 9:44AM ; [facility] Radiology - MRI MRI Lumbar Spine Low back pain, unspecified 01/13/24 Sanchez Zamora MD Last Documented On 4 10:58AM ; [facility] Future Appointments Date Time Location Provi ceferino Follow Up 08/17/2024 1:15PM [facility] KIPNUKAilyn Zamora MD Last Documented On 5 3:14PM [...] On 5 1:43PM By Yue Wilton ; [facility] Gabapentin 100 MG Oral Capsule 06/25/2024 Provider: Vera Orona APRN Diagnosis: Last Documented On 5 1:43PM By Yue Núñez ; [facility] Wegovy 2.4 MG/0.75ML Subcuta neous Solution Auto-injector 02/22/2024 Provider: Anne Galdamez APRN Diagnosis: Last Documented On 5 10:42AM By Aileen Hollingsworth ; [facility] Atenolol 25 MG Oral Tablet 02/17/2024 Provider: Diagnosis: Last Documented On 5 10:42AM By Aileen Hollingsworth ; [facility] Hyoscyamine Sulfate 0.125 MG Sublingual Tablet Subling ual 06/17/2023 Provider: Diagnosis: Last Documented On 4 3:26PM By Dottie Cardenas ; [facility] busPIRone HCl 5 MG Oral Tablet 06/17/2023 Provider: Diagnosis: Last Documented On 4 3:25PM By Dottie Cardenas ; [facility] Estradiol 1 MG Oral Tablet 05/05/2023 Provider: Mackenzie Galdamez APRN Diagnosis: Last Documented On 4 3:24PM By Dottie Cardenas ; [facility] FLUoxetine HCl 20 MG Oral Capsule 05/05/2023 Provide r: Anne Galdamez APRN Diagnosis: Last Documented On 4 3:24PM By Dottie Cardenas ; [facility] Past Medications on file traMADol HCl 50 MG Oral Tablet 06/05/2024 - 07/05/2024 Provider: Sanchez Zamora MD Diagnosis: Fusion of spine, cervical region Take 1 tablet PO up to twice a day, NEEDED Last Documented On 5 4:13PM By Sanchez Zamora ; [facility] tiZANidine HCl 4 MG Oral Tablet 04/27/2024 - 05/27/2024 Provider: Sanchez Zamora MD Diagnosis: Cervical disc disorder at C5-C6 level with myelopathy Take 1 tablet PO up to three times a day, NEEDED Last Documented On 5 11:35AM By Sanchez Zamora ; [facility] tiZANidine HCl 4 MG Oral Tablet 03/13/2024 - 04/12/2024 Provider: Sanchez Zamora MD Diagnosis: Cervical disc disorder at C5-C6 level with myelopathy Take 1 tablet PO up to three times a day, NEEDED Last Documented On 5 3:14PM By Aileen Hollingsworth ; [facility] tiZANidine HCl 4 MG Oral Tablet 02/21/2024 - 03/02/2024 Provider: Sanchez Zamora MD Diagnosis: Cervical disc disorder at C5-C6 level with myelopathy Take 1 tablet PO up to three times a day, NEEDED Last Documented On 4 3:53PM By Sanchez Zamora ; [facility] tiZANidine HCl 4 MG Oral Tablet 02/04/2024 - 02/14/2024 Provider: CONCETTA BENEDICT PA-C Diagnosis: Cervical disc di sorder at C5-C6 level with myelopathy Take 1 tablet PO up to three times a day, NEEDED Last Documented On 4 4:14PM By Aileen Hollingsworth ; [facility] HYDROcodone-Acetaminophen 10 -325 MG Oral Tablet 12/30/2023 - 01/06/2024 Provider: aSnchez Zamora MD Diagnosis: Radiculopathy, cervical region Take 1 tablet PO Q4H, NEE DED-may take with tylenol Last Documented On 4 12:13PM By Sanchez Zamora ; [facility] HYDROcodone-Acetaminophen 10 -325 MG Oral Tablet 11/25/2023 - 12/02/2023 Provider: Sanchez Zamora MD Diagnosis: Radiculopathy, cervical region Take 1 tablet PO Q4H, NEE DED-may take with tylenol Last Documented On 4 2:14PM By Sanchez Zamora ; [facility] HYDROcodone-Acetaminophen 10 -325 MG Oral Tablet 11/01/2023 - 11/08/2023 Provider: Sanchez Zamora MD Diagnosis: Radiculopathy, cervical region Take 1 tablet PO Q4H, NEE DED-may take with tylenol Last Documented On 4 2:38PM By Sanchez Zamora ; [facility] Methocarbamol 750 MG Oral Tablet 11/01/2023 - 12/01/2023 Provider: Sanchez Zamora MD Diagnosis: Cervical disc disorder at C5-C6 level with myelopathy Take 1 tablet PO up to 3 michelle es a day as needed Last Documented On 4 2:38PM By Sanchez Zamora ; [facility] Medrol 4 MG Oral Tablet Therapy Pack 10/23/2023 - 10/30/2023 Provider: Sanchez Dawn MD Diagnosis: Cervicalgia Take as directed Last Documented On 4 10:25AM By Aileen Hollingsworth ; [facility] HYDROcodone-Acetaminophen 10 -325 MG Oral Tablet 10/14/2023 - 10/21/2023 Provider: Sanchez Zamora MD Diagnosis: Radiculopathy, cervical region Take 1 tablet PO Q4H, NEE DED-may take with tylenol Last Documented On 4 8:56AM By Sanchez Zamora ; [facility] Medrol 4 MG Oral Tablet Therapy Pack 10/09/2023 - 10/16/2023 Provider: Sanchez Dawn MD Diagnosis: Cervicalgia Take as directed Last Documented On 4 1:39PM By Aileen Hollingsworth ; [facility] Cephalexin 500 MG Oral Tablet 10/09/2023 [...] On 4 5:00PM By Sanchez Zamora ; [facility] Docusate Sodium 100 MG Oral Capsule, conventional 09/26/2023 - 10/26/2023 Provider: Sanchez Hayden MD Diagnosis: Take 1 capsule PO twice a day for constipation Last Documented On 4 2:39PM By Sanchez Zamora ; [facility] HYDROcodone-Acetaminophen 5- 325 MG Oral Tablet 09/26/2023 - 10/03/2023 Provider: Sanchez Zamora MD Diagnosis: 1 po q 4h Take 1 tablet PO q 4h as needed - may take with Tylenol Last Documented On 4 2:39PM By Sanchez Zamora ; [facility] Methocarbamol 750 MG Oral Tablet 09/26/2023 - 10/26/2023 Provider: Sanchez Dawn MD Diagnosis: three times a day Take 1 tab let PO up to 3 times a day as needed Last Documented On 4 2:39PM By Sanchez Zamora ; [facility] Meloxicam 15 MG Oral Tablet 07/05/2023 - 08/04/2023 Provider: Sanchez Dawn MD Diagnosis: Cervicalgia Take 1 tablet PO once a day, as needed Last Documented On 4 4:01PM By Aileen Hollingsworth ; [facility] Methocarbamol 750 MG Oral Tablet 07/05/2023 - 08/04/2023 Provider: Sanchez Zamora MD Diagnosis: Cervicalgia Take 1 tablet PO up to 3 times a day as needed Last Documented On 4 4:01PM By Aileen Hollingsworth ; [facility] Hyoscyamine Sulfate 0.125 MG Sublingual Tablet Sublingual 04/08/2023 - 06/17/2023 Provider: Diagnosis: Last Documented On 4 3:25PM By Dottie Cardenas ; [facility] Atenolol 25 MG Oral Tablet 03/20/2023 - 06/19/2023 Pro vider: Diagnosis: Last Documented On 5 10:42AM By Aileen Hollingsworth ; [facility] traMADol HCl 50 MG Oral Tablet 08/08/2022 - 06/17/2023 Provider: Diagnosis: Last Documented On 4 3:25PM By Dottie Cardenas ; [facility] Ketorolac Tromethamine 10 MG Oral Tablet 08/08/2022 - 06/17/2023 Provider: Diagnosis: Last Documented On 4 3:25PM By Dottie Cardenas ; [facility] predniSONE 10 MG Oral Tablet 08/08/2022 - 06/17/2023 P rovider: Diagnosis: Last Documented On 4 3:25PM By Dottie Cardenas ; [facility] Estradiol 0.5 MG Oral Tablet 05/03/2022 - 06/17/2023 P rovider: Anne Galdamez APRN Diagnosis: Last Documented On 4 3:25PM By Dottie Cardenas ; [facility] methylPREDNISolone 4 MG Oral Tablet Therapy Pack 05/02/2022 - 06/17/2023 Provider: Demetria CURRY Diagnosis: Last Documented On 4 3:25PM By Dottie Cardenas ; [facility] busPIRone HCl 10 MG Oral Tablet 04/17/2022 - Provider: Diagnosis: Last Documented On 4 3:25PM By Dottie Cardenas ; [facility] Atenolol 25 MG Oral Tablet 03/06/2022 - 06/17/2023 Pro vider: CARLOS GILMORE MD Diagnosis: Last Documented On 4 3:24PM By Dottie Cardenas ; [facility] Medications Administered Includes: Administered Medications in patient's chart No Administered Medications Recorded Vital Signs Includes: Vital Signs from 07/10/2023 through 07/09/2024 Vital Name 04/27/2024 09:48A 03/23/2024 10:06A 12/30/2023 [...] [facility] On 10/23/2023 9:55AM ; [facility] Vital Name 10/09/2023 01:04P Height (in) 65 Weight (lb) 189.4 Body Mass Index 31.5 Body Surface Area 1.9 Note: HL Last Documented: On 10/09/2023 1:04PM ; [facility] Results Includes: Results from 07/10/2023 through 07/09/2024 No Results Recorded For Specified Dates History of Present Illness History of Present Illness not supported for this document type No History of Present Illness Recorded Social History Description Last Updated Caffeine use 05/14/2022 Last Documented On 3 2:08PM ; [facility] Tobacco non-user 05/14/2022 Last Documented On 3 2:08PM ; [facility] No recent change in diet 05/14/2022 Last Documented On 3 2:08PM ; [facility] Not a current smoker. 05/14/2022 Last Documented On 3 2:08PM ; [facility] Not exercising regularly 05/14/2022 Last Documented On 3 2:08PM ; [facility] Not using alcohol 05/14/2022 Last Documented On 3 2:08PM ; [facility] Not using drugs 05/14/2022 Last Documented On 3 2:08PM ; [facility] Smoking Status Unknown Procedures and Surgical History Includes: Procedures from 07/10/2023 through 07/09/2024 Procedures Code Diagnosis Performing Provider Service Location Service Date Triamcinolone/Ke nalog, 10mg per cc 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, lumbar region Chau Ramsey RADIOLOGY RN [facility] 07/01/2024 Last Documented On 5 4:51PM ; [facility] Injection, paravertebral facet, lumb/sacr second level (Bilateral Procedure) 95526 Spondyls w/o myelopathy or radiculopathy, lumbosacr region Chau Ramsey RADIOLOGY RN [facility] 07/01/2024 Last Documented On 5 4:51PM ; [facility] Injection, paravertebral facet, lumbar / sacral (Bilateral Procedure) 40234 Spondylosis w/o myelopathy or radiculopathy, lumbar region Chau Ramsey RADIOLOGY RN [facility] 07/01/2024 Last Documented On 5 4:51PM ; [facility] Audio Only Telehealth level 2 [place] [address] Other intervertebral disc displacement, lumbar region CONCETTA BENEDICT PA-C [facility] 06/25/2024 Last Documented On 5 3:47PM ; [facility] Triamcinolone/Kenalog, 10mg per cc J3301 Radiculopathy, cervical region Chau Ramsey RADIOLOGY RN [facility] 05/20/2024 Last Documented On 5 1:48PM ; [facility] Cervical/Thoracic epidural injection 57998 Radiculopathy, cervical region Chau Ramsey RADIOLOGY RN [facility] 05/20/2024 Last Documented On 5 1:48PM ; [facility] Injection, paravertebral facet, lumb/sacr second level (Bilateral Procedure) 27117 Spondyls w/o myelopathy or radiculopathy, lumbosacr region Chau Ramsey RADIOLOGY RN [facility] 04/02/2024 Last Documented On 5 9:49AM ; [facility] Triamcinolone/Kenalog, 10mg per cc 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, lumbar region Chau Ramsey RADIOLOGY RN [facility] 04/02/2024 Last Documented On 5 9:49AM ; [facility] Injection, paravertebral facet, lumbar / sacral (Bilateral Procedure) 91177 Spondylosis w/o myelopathy or radiculopathy, lumbar region Chau Ramsey RADIOLOGY RN [facility] 04/02/2024 Last Documented On 5 9:49AM ; [facility] X-RAY EXAM OF LOWER SPINE 4-5 VIEWS 12038 Other low back pain Sanchez Zamora MD [facility] 12/30/2023 Last Documented On 4 1:40PM ; [facility] X-RAY EXAM OF NECK SPINE 2 VIEWS 33389 Fusion of spine, cervical region Sanchez Zamora MD [facility] 12/30/2023 Last Documented On 4 1:40PM ; [facility] X-RAY EXAM OF NECK SPINE 2 VIEWS 03025 Fusion of spine, cervical region Sanchez Zamora MD [facility] 11/25/2023 Last Documented On 4 3:13PM ; [facility] X-RAY EXAM OF NECK SPINE 2 VIEWS 42717 Fusion of spine, cervical region Sanchez Zamora MD [facility] 10/23/2023 Last Documented On 4 8:43AM ; [facility] X-RAY EXAM OF NECK SPINE 2 VIEWS 12579 Cervical disc disorder at C6-C7 level with myelopathy Sanchez Zamora MD [facility] 10/09/2023 Last Documented On 4 6:37AM ; [facility] INSERT SPINE FIXATION DEVICE (Distinct procedure) 51969 Cervical disc disorder at C4-C5 level with myelopathy, Cervical disc disorder at C5-C6 level with myelopathy, Cervical disc disorder at C6-C7 level with myelopathy Sanchez Zamora MD [facility] 09/27/2023 Last Documented On 4 12:44PM ; [facility] Arthodesis,anterior interbody 38866 Cervical disc disorder at C4-C5 level with myelopathy Sanchez Zamora MD [facility] 09/27/2023 Last Documented On 4 12:55PM ; [facility] Arthrodesis, anterior interbody, including disc space prepar 71520 Cervical disc disorder at C5-C6 level with myelopathy Sanchez Zamora MD [facility] 09/27/2023 Last Documented On 4 8:18AM ; [facility] Arthrodesis, anterior interbody, including disc space prepar (Distinct procedure) 45827 Cervical disc disorder at C6-C7 level with myelopathy Sanchez Zamora MD [facility] 09/27/2023 Last Documented On 4 8:18AM ; [facility] Insertion of interbody cage each interspace 13818 Cervical disc disorder at C6-C7 level with myelopathy Sanchez Zamora MD [facility] 09/27/2023 Last Documented On 4 8:18AM ; [facility] SPINAL BONE ALLOGRAFT 54747 Cervical disc disorder at C6-C7 level with myelopathy Sanchez Zamora MD [facility] 09/27/2023 Last Documented On 4 8:18AM ; [facility] Surgical History Last Updated Past Surgical History: 09/27/2023 C4-7 A CDF @ [facility] 10/09/2023 Last Documented On 4 9:37AM ; [facility] History of appendectomy 05/14/2022 Last Documented On 3 2:08PM ; [facility] History of History of Gallbladder 2022 Last Documented On 3 2:08PM ; [facility] History of hysterectomy 05/14/2022 Last Documented On 3 2:08PM ; [facility] Medical History Includes: Medical History in patient's chart Description Last Updated History of Heartburn / Acid Reflux 05/14 Last Documented On 3 2:08PM ; [facility] History of History of Blood Transfusion 05/14/2022 Last Documented On 3 2:08PM ; [facility] History of Irregular Heartbeat 3 Last Documented On 3 2:08PM ; [facility] Family History Includes: Family History in patient's chart Description Last Updated Diabetes mellitus 05/14/2022 Last Documented On 3 2:08PM ; [facility] Review of Systems Review [...] Patient Last Documented On 3 1:05PM ; [facility] PCV (Pneumovax 23) 1 05/14/2022 Complete (Refused - Patient objection) [facility] Last Documented On 3 1:05PM ; [facility] Td 1 05/14/2022 Complete (Refused - Patient objection) [facility] Last Documented On 3 1:05PM ; [facility] Allergies Includes: Active, inactive, and resolved Allergies Substance Type Reaction Onset Date Resolved Date Statu s Ampicillin Allergy Vomiting, Diarrh ea / Diarrheal disorder 05/14/2022 Active Last Documented On 5 1:04PM ; [facility] Encounters Includes: Encounters from 07/10/2023 through 07/09/2024 Encounter Provider Location Date Check-In Time Check-Out Time Diagnosis facet Chau Ramsey CRNA [facility] 07/02/19 1:22PM 2:17PM Phone Call CONCETTA BENEDICT PA-C [facility] 06/26/19 12:51PM 1:22PM Overweight [Patient Encounter] Sanchez mejía MD 06/06/19 25 05/20/2024 4:01PM 05/20/2024 11:59PM Epidural Steroid Injection Chau Ramsey CRNA [facility] 03/12/20 25 2:44PM 3:13PM Epidural Steroid Injection Chau Ramsey [facility] 05/21/19 25 04/27/2024 9:16AM 04/27/2024 11:59PM Follow Up [place] [facility] 04/27/19 9:26AM 10:49AM Overweight facet Chau Ramsey [facility] 04/02/19 2:41PM 3:06PM Follow Up [place]ays[place] [facility] 03/23/19 25 10:03AM 10:54AM Overweight [Patient Encounter] [place] [facility] 02/21/20 24 12/30/2023 3:52PM 12/30/2023 11:59PM [Patient Encounter] CONCETTA BENEDICT PA-C 02/04/20 24 12/30/2023 4:08PM 12/30/2023 11:59PM Follow Up [place] [facility] 12/30/19 24 10:48AM 12:01PM Overweight Post Op [place] [facility] 11/25/19 24 1:36PM 2:03PM Overweight Post Op [place] [employer] [facility] 10/23/19 24 9:47AM 10:19AM Overweight Post Op [place] [employer] [facility] 10/09/19 24 12:55PM 1:32PM Overweight [facility] 09/27/19 24 8:28AM 06/17/2023 11:59PM [Patient Encounter] [place] [facility] 09/26/19 24 06/17/2023 2:34PM 06/17/2023 11:59PM Insurance Includes: Active Insurance Policies Plan Name Member ID Group # Subscriber Relationship Effect erika Dates 1 - [facility] [id number] Kamaljit Damon 03/11/2022 - Unknown Clinical Notes Includes: Signed Clinical Notes starting from 02/22/2022 * Progress note Date Encounter Last Documented by 07/01/2024 facet Last documented on 07/03/2024; 8:35 AM, Chau Ramsey CRNA; [facility] Plan LUMBAR TWO LEVEL FACET BLOCK [...] containing 40 mg of KENALOG was injected. [place] were removed. Band-Aid applied. Patient tolerated the [...] documented on 06/25/2024; 1:33 PM, CONCETTA Cardenas; [facility] Active Problems & Conditions - Joint [...] Past Surgical History: 09/27/2023 C4-7 ACDF @ [facility] - Hysterectomy - History of [...] 10/23/2023 Neck @ [facility] 11/25/2023 Neck @ [facility] 12/30/2023 Neck @ [facility] 12/30/2023 LSpine @ [facility]. CT Scan: CT scan 10/12/2022 Kushal @ [facility]. MRI Scan: An MRI was performed 09/05/2022 Neck @ [facility] 01/17/2024 LSpine @ [facility]. Counseling/Education - Tobacco non-user - Use of [...] on 05/22/2024; 8:33 AM, Sanchez Hayden MD; [facility] Active Problems & Conditions - Joint [...] Past Surgical History: 09/27/2023 C4-7 ACDF @ [facility] - Hysterectomy - History of [...] 12/30/2023 Neck @ [facility] 12/30/2023 LSpine @ [facility]. CT Scan: CT scan 10/12/2022 Amyelda @ [facility]. MRI Scan: An MRI was performed 09/05/2022 Neck @ [facility] 01/17/2024 LSpine @ [facility]. Counseling/Education - Tobacco non-user - Use of [...] documented on 04/07/2024; 11:53 AM, Chau Ramsey RADIOLOGY RN; [facility] Plan LUMBAR TWO LEVEL FACET BLOCK [...] containing 40 mg of KENALOG was injected. [place] were removed. Band-Aid applied. Patient tolerated the [...] on 03/23/2024; 11:40 AM, Sanchez Hayden MD; [facility] Active Problems & Conditions - Joint [...] in her back that is worse running [id number]. We provided her a home exercise program [...] Past Surgical History: 09/27/2023 C4-7 ACDF @ [facility] - Hysterectomy - History of [...] CT Scan: CT scan 10/12/2022 Kushal @ [facility]. MRI Scan: An MRI was performed 09/05/2022 Neck @ [facility] 01/17/2024 LSpine @ [facility]. Counseling/Education - Tobacco non-user - Use of [...] on 12/31/2023; 10:58 AM, Sanchez Hayden MD; [facility] Active Problems & Conditions - Joint [...] Past Surgical History: 09/27/2023 C4-7 ACDF @ [facility] - Hysterectomy - History of [...] 11/25/2023 Neck @ [facility] 12/30/2023 Neck @ [facility]. CT Scan: CT scan 10/12/2022 Kushal @ [facility]. MRI Scan: An MRI was performed 09/05/2022 Neck @ [facility]. Counseling/Education - Tobacco non-user - Use of [...] on 11/25/2023; 3:49 PM, Sanchez Hayden MD; [facility] Active Problems & Conditions - Joint [...] 08/08/2022 Neck @ [facility] 10/09/2023 Neck @ [facility] 10/23/2023 Neck @ [facility] 11/25/2023 Neck @ [facility]. CT Scan: CT scan 10/12/2022 Kushal @ [facility]. MRI Scan: An MRI was performed 09/05/2022 Neck @ [facility]. Counseling/Education - Tobacco non-user - Use of [...] on 10/23/2023; 6:38 PM, Sanchez Hayden MD; [facility] Active Problems & Conditions - Joint [...] is a 48-year-old female following up with mi status post a C4-5, C5-6, C6-7 anterior [...] Past Surgical History: 09/27/2023 C4-7 ACDF @ [facility] - Hysterectomy - History of [...] @ [facility]. CT Scan: CT scan 10/12/2022 CSpine @ [facility]. MRI Scan: An MRI was performed 09/05/2022 Neck @ [facility]. Counseling/Education - Tobacco non-user - Use of [...] on 10/10/2023; 9:37 AM, Sanchez Hayden MD; [facility] Active Problems & Conditions - Joint [...] Past Surgical History: 09/27/2023 C4-7 ACDF @ [facility] - Hysterectomy - History of [...] and I believe that 1 of the RADIOLOGY RN is in the room may have administered [...] 08/08/2022 Neck @ [facility] 10/09/2023 Neck @ [facility]. CT Scan: CT scan 10/12/2022 Kushal @ [facility]. MRI Scan: An MRI was performed 09/05/2022 Neck @ [facility]. Counseling/Education - Tobacco non-user - Use of [...]
--- OUTSIDE RECORDS SUMMARY | 2024-07-09 10:18 | XMS_ITS | Clinical Summary ---
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 Name Role Phone Anne Galdamez APRN Unavailable [phone] Yara LINDSEY, Meir Wiseman Unavailable [phone] Reason for Visit and Chief Complaint facet Problems Includes: Problems addressed during this encounter and other active Problems All Visits Onset Date Resolved Date Provider Condition S tatus Lower Back Pain 12/30/2023 Sanchez mejía MD Active Last Documented On 4 11:59AM ; [facility] Neck Pain 09/24/2022 Sanchez Zamora MD Active Last Documented On 3 8:32AM ; [facility] Joint Pain, Localized in the Right Wrist 05/14/2022 Meir Livingston MD Active Last Documented On 3 12:47PM ; [facility] Plan of Treatment LUMBAR TWO LEVEL [...] containing 40 mg of KENALOG was injected. [place] were removed. Band-Aid applied. Patient tolerated the procedure without difficulty. There were no complications. Patient was reevaluated 10 minutes postprocedure. Patient reports improvement in terms of their lumbar back pain in flexion, extension, left and right rotation. - Last Documented On 07/03/2024 8:35AM ; [facility], [facility] Future Appointments Date Time Location Provi ceferino Follow Up 08/17/2024 1:15PM [facility] ISAIAS Zamora MD Last Documented On 5 3:14PM ; [facility], [facility] Assessments Includes: Assessments from this encounter No Assessments Recorded Medical Equipment - Implanted Devices Includes: Current Devices No Medical Equipment Recorded Medications Includes: Medications discussed during this encounter and other current Medications Current Medications (continue as prescribed) Baclofen 5 MG Oral Tablet 06/25/2024 Provider: Irvin Orona APRN Diagnosis: Last Documented On 5 1:43PM By Yue Núñez ; [facility], [facility] Gabapentin 100 MG Oral Capsule 06/25/2024 Provider: Vera Orona APRN Diagnosis: Last Documented On 1:43PM By Yue Núñez ; [facility], [facility] Wegovy 2.4 MG/0.75ML Subcuta neous Solution Auto-injector 02/22/2024 Provider: Anne Galdamez APRN Diagnosis: Last Documented On 5 10:42AM By Aileen Hollingsworth ; [facility], [facility] Atenolol 25 MG Oral Tablet 02/17/2024 Provider: Diagnosis: Last Documented On 5 10:42AM By Aileen Hollingsworth ; [facility], [facility] Hyoscyamine Sulfate 0.125 MG Sublingual Tablet Subling ual 06/17/2023 Provider: Diagnosis: Last Documented On 4 3:26PM By Dottie Cardenas ; [facility], [facility] busPIRone HCl 5 MG Oral Tablet 06/17/2023 Provider: Diagnosis: Last Documented On 4 3:25PM By Dottie Cardenas ; [facility], [facility] Estradiol 1 MG Oral Tablet 05/05/2023 Provider: Mackenzie Galdamez APRN Diagnosis: Last Documented On 4 3:24PM By Dottie Cardenas ; [facility], [facility] FLUoxetine HCl 20 MG Oral Capsule 05/05/2023 Provide r: Anne Galdamez GEE Diagnosis: Last Documented On 4 3:24PM By Dottie Cardenas ; [facility] Medications Administered Includes: Administered Medications from [...] paravertebral facet, lumbar / sacral (Bilateral Procedure) 78282 Spondylosis w/o myelopathy or radiculopathy, lumbar region Chau Ramsey [facility] 07/01/2024 Last Documented On 5 4:51PM ; [facility] Injection, paravertebral facet, lumb/sacr second level (Bilateral Procedure) 80720 Spondyls w/o myelopathy or radiculopathy, lumbosacr region Chau Ramsey [facility] 07/01/2024 Last Documented On 5 4:51PM ; [facility] Triamcinolone/Kenalog, 10mg per cc 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, lumbar region Chau Ramsey [facility] 07/01/2024 Last Documented On 5 4:51PM ; [facility] Medical History Includes: Medical History [...] Active Last Documented On 5 1:04PM ; [facility] Encounters Encounter Provider Location Date Check-In Time Check- Out Time Diagnosis facet Chau Ramsey [facility] 1:22PM 2:17PM Insurance Includes: Active Insurance Policies Plan Name Member ID Group # Subscriber Relationship Effect erika Dates 1 - [facility] [place] [id number] Kamaljit Damon 03/11/2022 - Unknown Clinical Notes Includes: Clinical Notes from this encounter * Progress note Date Encounter Last Documented by 07/01/2024 facet Last documented on 07/03/2024; 8:35 AM, Chau Ramsey SUBSTANCE ABUSE RN; [facility], [facility] Plan LUMBAR TWO LEVEL FACET [...] containing 40 mg of KENALOG was injected. [place] were removed. Band-Aid applied. Patient tolerated the procedure without difficulty. There were no complications. Patient was reevaluated 10 minutes postprocedure. Patient reports improvement in terms of their lumbar back pain in flexion, extension, left and right rotation. Notes This dictation was done with voice recognition software and may contain errors and omissions.
--- OUTSIDE RECORDS SUMMARY | 2024-07-09 10:18 | XMS_ITS | Clinical Summary ---
Author Organization [facility] , [facility] Address [address] [place] [address] Phone Care Team Providers Care Head Wrestling Coach Name Role Phone Denice FLORENCENAnne Unavailable [phone] Yara LINDSEY, Meir Wiseman Unavailable [phone] Reason for Visit and Chief Complaint Epidural Steroid Injection Problems Includes: Problems addressed during this encounter and other active Problems All Visits Onset Date Resolved Date Provider Condition S tatus Lower Back Pain 12/30/2023 Sanchez mejía MD Active Last Documented On 4 11:59AM ; [facility], [facility] Neck Pain 09/24/2022 Sanchez Zamora MD Active Last Documented On 3 8:32AM ; [facility], [facility] Joint Pain, Localized in the Right Wrist 05/14/2022 Meir Livingston MD Active Last Documented On 3 12:47PM ; [facility], [facility] Plan of Treatment Future Appointments Date Time Location Provi ceferino Follow Up 08/17/2024 1:15PM [facility] [place] Sanchez Zamroa MD Last Documented On 5 3:14PM ; [facility], [facility] Assessments Includes: Assessments from this encounter No Assessments Recorded Medical Equipment - Implanted Devices Includes: Current Devices No Medical Equipment Recorded Medications Includes: Medications discussed during this encounter and other current Medications Current Medications (continue as prescribed) Baclofen 5 MG Oral Tablet 06/25/2024 Provider: Irvin Orona APRN Diagnosis: Last Documented On 5 1:43PM By Yue Núñez ; [facility], [facility] Gabapentin 100 MG Oral Capsule 06/25/2024 Provider: Vera Orona APRN Diagnosis: Last Documented On 5 1:43PM By Yue Núñez ; [facility], [facility] Wegovy 2.4 MG/0.75ML Subcuta neous Solution Auto-injector 02/22/2024 Provider: Anne Galdamez APRN Diagnosis: Last Documented On 5 10:42AM By Aileen Hollingsworth ; [facility], [facility] Atenolol 25 MG Oral Tablet 02/17/2024 Provider: Diagnosis: Last Documented On 5 10:42AM By Aileen Hollingsworth ; [facility], [facility] Hyoscyamine Sulfate 0.125 MG Sublingual Tablet Subling ual 06/17/2023 Provider: Diagnosis: Last Documented On 4 3:26PM By Dottie Cardenas ; [facility], [facility] busPIRone HCl 5 MG Oral Tablet 06/17/2023 Provider: Diagnosis: Last Documented On 4 3:25PM By Dottie Cardenas ; [facility], [facility] Estradiol 1 MG Oral Tablet 05/05/2023 Provider: Mackenzie Galdamez APRN Diagnosis: Last Documented On 4 3:24PM By Dottie Cardenas ; [facility], [facility] FLUoxetine HCl 20 MG Oral Capsule 05/05/2023 Provide r: Anne Galdamez APRN Diagnosis: Last Documented On 4 3:24PM By Dottie Cardenas ; [facility], [facility] Medications Administered Includes: Administered Medications [...] Active Last Documented On 5 1:04PM ; [facility], [facility] Encounters Encounter Provider Location Date Check-In Time Check-Out Time Diagnosis Epidural Steroid Injection Chau Ramsey CRNA 05/20/2024 9:16AM 11:59PM Insurance Includes: Active Insurance Policies Plan Name Member ID Group # Subscriber Relationship Effect erika Dates 1 - [facility] [id number] Kamaljit Damon 03/11/2022 - Unknown Clinical Notes Includes: Clinical Notes from this encounter No Clinical Notes Recorded
--- NOTE | 2024-07-09 10:49 | A.OFFVIS_ITS ---
[facility] Disclaimer: The information contained in this section may have been updated after the patient was seen, as this information can be updated by other users. Medical History (Updated 07/09/24 @ 10:51 by Vera Orona APRN) Anxiety GERD (gastroesophageal reflux disease) Palpitations Cervical vertebral fusion Surgical History Hx of cholecystectomy H/O: hysterectomy Hx of cervical spinal arthrodesis History of appendectomy Family History Other Diabetes Social History Smoking Status: Unknown if ever smoked alcohol intake: never substance use type: former substance user current occupational status: other Travel in the last 8 weeks?: None household members: spouse and children housing: house caffeine: No PM Subjective & Objective Subjective Subjective:: Patient is a pleasant 48-year-old female who presents today for follow-up of her cervical MRI. Today she rates her pain an 8 out of 10. She denies any new falls or injuries. She does state that it is still that same pain she has been dealing with from her prior visits. Patient did get gabapentin 100 mg 3 times a day from our office at the last visit along with baclofen 5 mg 3 times a day. Patient does state that the gabapentin did significantly help her nerve pain but she did not notice this much improvement with the baclofen. She denies any side effects. We did prior to this visit actually contact the patient over the phone due to the extensive findings on her imaging to get scheduled for neurosurgery consult. Patient does state that she did get a appointment with them on August 17 and they all. Her Rip has been reviewed and is appropriate. Review of Systems: General: No recent weight changes, no fever, no sleep disturbances Respiratory: No cough, no shortness of air, no recurring pulmonary infections Cardiovascular/peripheral vascular: No chest pain, no palpitations, no edema, no shortness of breath Gastrointestinal: No new onset incontinence, normal bowel movements reported Genitourinary: No new onset incontinence Musculoskeletal: Neck pain Psychiatric: [Normal mood/affect] Neurological: [Denies weakness in extremities], [denies balance issues] Pain at rest (0-10 scale): 8 Objective Objective:: Physical Exam: General: Alert and oriented x3, no acute distress, pleasant and cooperative Lungs: Respirations even and unlabored, symmetrical chest expansion Eyes: PERRL Musculoskeletal: Flexion and extension of cervical [spine] somewhat guarded secondary to pain, [antalgic gait noted] Neurological: Speech clear, no gross sensory deficit Has patient had previous pain injection?: No Conservative treatment options previously tried: Home exercise plan Length of treatment: Longer than 12 weeks Meds Home Medications and Allergies Home Medications ?Medication ?Instructions ?Recorded ?Confirmed ?Type atenolol 25 mg tablet 25 mg PO BID palpitations 08/07/17 06/25/24 History buspirone 10 mg tablet 10 mg PO TID Anxiety 30 days #90 04/09/19 06/25/24 His tory tabs ketorolac 10 mg tablet 10 mg PO Q8H 3 days #9 tabs 07/28/22 06/25/24 Rx prednisone 20 mg tablet 20 mg PO BID #10 tabs 07/28/22 06/25/24 Rx diclofenac sodium 75 mg 75 mg PO BID #28 tabs 06/11/24 06/25/24 Rx tablet,delayed release baclofen 5 mg tablet 5 mg PO TID #42 tabs 06/25/24 Rx gabapentin 100 mg capsule 100 mg PO TID #42 caps 06/25/24 Rx New Prescriptions to Start Prescriptions: Allergies Allergy/AdvReac Type Severity Reaction Status Date / Time doxycycline Allergy Severe Palpitation Verified 04/09/19 11:06 s ampicillin (AMPICILLIN) Allergy Unknown VOMITTING Verified 04/09/19 11:06 AND DIARRHEA Assessment and Plan *Assessment and plan (1) Myelomalacia of cervical cord: Status: Acute Category: Medical Code(s): G95.89 - Other specified diseases of spinal cord (2) Spinal stenosis in cervical region: Status: Acute Category: Medical Code(s): M48.02 - Spinal stenosis, cervical region Plan I did discuss at length with the patient regarding her cervical imaging with multilevel severe narrowing and softening of her cord. Patient was counseled that I do believe with her significant findings that it may be more beneficial for surgical intervention. Patient was counseled that I do believe the extent of her cervical spine is why she is not gotten more significant relief with injections in the past. Patient was counseled that I would highly recommend a spinal cord stimulator or pump trial in the future and that those may be beneficial options to give her quality of life. We did discuss at length that it is not a bad idea to even see another neurosurgeon in the meantime so she can have a couple different views on her options. Patient is going to review over with her regarding this options. I will refill her gabapentin and provide a 1 month supply of this medication. I will increase her baclofen to 10 mg 3 times daily and also send in a prescription of tramadol 50 mg 3 times daily with a 1 month supply. Patient will return to clinic in 1 month for reevaluation of symptoms and plan of care. Risks and benefits of the medication have been explained in detail to the patient. The patient does understand the risk of dependence on the medication when given over a prolonged period. Patient has been advised of risks of oversedation with the prescribed medication. Narcan has been offered to the paitent in the event of oversedation. Patient has been advised that a family member should also be educated regarding administration of Narcan. The patient has been advised to consult with his/her primary care provider and pharmacist regarding drug-drug interaction of medications currently prescribed. Patient has been prescribed a controlled substance after being counseled on the medication, medication safety, and possible side effects. Opioid contract was reviewed and signed by the patient, and that they have agreed to all of the terms set forth by our compliance program. A UDS is needed to verify patient's compliance with our office pain contract. This is ordered based off specific treatments related to chronic pain with the potential to abuse certain medications. Patient has been instructed to contact the clinic with any concerns before the next appointment. Dr. Redd has reviewed this note and agrees with this plan of care. This note was dictated using voice recognition software and make contain errors or omissions.
[2024-07-09 11:45] VITALS: BP 127/85; PULSE 101; RESP 18; O2SAT 93; BMI 26.6
== END 2024-07-09 23:59 | disposition home or self-care (01) ==
PROVIDERS: PCP Nurse Practitioner Family; Visit Provider Nurse Practitioner Family
DX: G95.89 Other specified diseases of spinal cord (principal); M48.02 Spinal stenosis, cervical region
CPT/HCPCS: 99212; G0463

== ENCOUNTER 2024-08-12 10:11 | Outpatient (POV) | payer BC, SELFPAY ==
[2024-08-12 10:33] VITALS: BP 114/67; PULSE 103; RESP 14; O2SAT 98; BMI 22.9
--- NOTE | 2024-08-12 11:04 | EXP.PAIN.SOA ---
[facility] Disclaimer: The information contained in this section may have been updated after the patient was seen, as this information can be updated by other users. Medical History Anxiety GERD (gastroesophageal reflux disease) Palpitations Cervical vertebral fusion Surgical History Hx of cholecystectomy H/O: hysterectomy Hx of cervical spinal arthrodesis History of appendectomy Family History Other Diabetes Social History Smoking Status: Unknown if ever smoked alcohol intake: never substance use type: former substance user current occupational status: other Travel in the last 8 weeks?: None household members: spouse and children housing: house caffeine: No PM Subjective & Objective Subjective Subjective:: Patient is a pleasant 48-year-old female who presents today for 1 month follow-up. Today she rates her neck pain and overall 3 out of 10 currently. She does deny any new falls or injuries. She states that the medication we are doing is really seeming to help. Patient is currently managed with baclofen 10 mg 3 times a day, tramadol 50 mg 3 times a day and gabapentin 100 mg 3 times a day. She denies any side effects. Patient is asking if we can make some adjustments to the gabapentin. Patient does still have her neurosurgery appointment coming up on the and that she did end up calling our office to get the additional referral to a neurosurgeon that we recommended. She states she has not heard anything from that office. Her Rip has been reviewed and is appropriate. Review of Systems: General: No recent weight changes, no fever, no sleep disturbances Respiratory: No cough, no shortness of air, no recurring pulmonary infections Cardiovascular/peripheral vascular: No chest pain, no palpitations, no edema, no shortness of breath Gastrointestinal: No new onset incontinence, normal bowel movements reported Genitourinary: No new onset incontinence Musculoskeletal: Neck pain Psychiatric: [Normal mood/affect] Neurological: [Denies weakness in extremities], [denies balance issues] Pain at rest (0-10 scale): 3 Objective Objective:: Physical Exam: General: Alert and oriented x3, no acute distress, pleasant and cooperative Lungs: Respirations even and unlabored, symmetrical chest expansion Eyes: PERRL Musculoskeletal: Flexion and extension of cervical [spine] somewhat guarded secondary to pain, [antalgic gait noted] Neurological: Speech clear, no gross sensory deficit Has patient had previous pain injection?: No Conservative treatment options previously tried: Home exercise plan Length of treatment: Longer than 12 weeks Meds Home Medications and Allergies Home Medications ?Medication ?Instructions ?Recorded ?Confirmed ?Type atenolol 25 mg tablet 25 mg PO BID palpitations 08/07/17 08/12/24 History buspirone 10 mg tablet 10 mg PO TID Anxiety 30 days #90 04/09/19 08/12/24 History tabs ketorolac 10 mg tablet 10 mg PO Q8H 3 days #9 tabs 07/28/22 08/12/24 Rx prednisone 20 mg tablet 20 mg PO BID #10 tabs 07/28/22 08/12/24 Rx diclofenac sodium 75 mg 75 mg PO BID #28 tabs 06/11/24 08/12/24 Rx tablet,delayed release baclofen 5 mg tablet 5 mg PO TID #42 tabs 06/25/24 08/12/24 Rx gabapentin 100 mg capsule 100 mg PO TID #90 caps 07/22/24 08/12/24 Rx baclofen 10 mg tablet See Rx Instructions .Route 08/10/24 08/12/24 Rx .COMPLEX #90 tabs gabapentin 100 mg capsule 200 mg (2 x 100 mg) PO TID #180 08/12/24 Rx caps tramadol 50 mg tablet 50 mg PO TID #90 tabs 08/12/24 Rx New Prescriptions to Start Prescriptions: gabapentin YeyoVera A tramadol YeyoVera A Allergies Allergy/AdvReac Type Severity Reaction Status Date / Time doxycycline Allergy Severe Palpitation Verified 04/09/19 11:06 s ampicillin (AMPICILLIN) Allergy Unknown VOMITTING Verified 04/09/19 11:06 AND DIARRHEA Assessment and Plan *Assessment and plan (1) Degenerative disc disease, cervical: Status: Acute Category: Medical Code(s): M50.30 - Other cervical disc degeneration, unspecified cervical region (2) Cervical radiculopathy: Status: Acute Category: Medical Code(s): M54.12 - Radiculopathy, cervical region (3) Myelomalacia of cervical cord: Status: Acute Category: Medical Code(s): G95.89 - Other specified diseases of spinal cord (4) Spinal stenosis in cervical region: Status: Acute Category: Medical Code(s): M48.02 - Spinal stenosis, cervical region Plan I will refill the patient's tramadol, baclofen and change her gabapentin to 200 mg 3 times a day. Patient will return to clinic in 1 month following her neurosurgery appointment. We will also check into the referral that we sent to Dr. Frank's office. We will review over this at our upcoming appointment. Patient agrees with this plan of care. Risks and benefits of the medication have been explained in detail to the patient. The patient does understand the risk of dependence on the medication when given over a prolonged period. Patient has been advised of risks of oversedation with the prescribed medication. Narcan has been offered to the paitent in the event of oversedation. Patient has been advised that a family member should also be educated regarding administration of Narcan. The patient has been advised to consult with his/her primary care provider and pharmacist regarding drug-drug interaction of medications currently prescribed. Patient has been prescribed a controlled substance after being counseled on the medication, medication safety, and possible side effects. Opioid contract was reviewed and signed by the patient, and that they have agreed to all of the terms set forth by our compliance program. A UDS is needed to verify patient's compliance with our office pain contract. This is ordered based off specific treatments related to chronic pain with the potential to abuse certain medications. Patient has been instructed to contact the clinic with any concerns before the next appointment. Dr. Redd has reviewed this note and agrees with this plan of care. This note was dictated using voice recognition software and make contain errors or omissions.
== END 2024-08-12 23:59 | disposition home or self-care (01) ==
PROVIDERS: Visit Provider Nurse Practitioner Family
DX: M48.02 Spinal stenosis, cervical region (principal); Z79.891 Long term (current) use of opiate analgesic; Z79.899 Other long term (current) drug therapy
CPT/HCPCS: 99212; G0463

== ENCOUNTER 2024-09-04 07:38 | Outpatient (CLI) | payer BC, SELFPAY ==
--- OUTSIDE RECORDS SUMMARY | 2023-12-03 09:30 | XMS_ITS ---
Author Organization [facility] Address 1210 [facility] [address] [place] [phone] Care Team Providers Care Fruit Dumper Name Role Phone Anne Galdamez Unavailable [phone] Allergies Allergen (clinical drug ingredient) Drug/Non Drug [...] 12/03/2023 Encounters Encounter Location Date Provider Diagnosis [facility] 12[facility] 36 [facility] [address] [place] [phone] 12/03/2023 Anne Galdamez Weight loss R63.4 Assessments [...] Details Follow Up: 3 Months,and prn, Reason: Provider Name:Anne Hamm scarlet, 09/21/2024 01:15:00 PM, 12[address] [facility] 36 [facility], [address], [place], [phone], Progress Notes * NALDO DAMONDOB:1975 (48 yo F)Acc No.[id number]:12/03/2023 Progress Notes Patient: NALDO VIZCAINO Provider: CRISTOBAL Santiago :1975 A ge:48 Y S ex:Female Date:12/03/2023 Address:[address] [id number] Subjective: * Chief Complaints: * 1 . [...] 1999, Removal of Gall Stones 03/2000, [place]olecystectomy- [place] 03/2000, Hysterectomy - [facility] 2013, Pancreatitis procedure 03/2018. * Hospitalization/Major [...] * Images: Billing Information: * Visit Code: 87574 Office Visit, Est Pt., Level 3. * Procedure Codes: * Electronic signature of Richelle Galdamez APRN on 09/04/2024 at 07:40 AM EDT Sign off status: Pending * Provider: CRISTOBAL Santiago Date: 0 12/03/2023 Generated for Elizabeth hodge/Delaney/Juaquin on: 0 09/04/2024 07:40 AM EDT History and Physical Notes * [...]
--- OUTSIDE RECORDS SUMMARY | 2024-02-25 09:30 | XMS_ITS ---
Author Organization [facility] Address 1210 [facility] [address] [place] [phone] Care Team Providers Care Museum Host/Hostess Name Role Phone Anne Galdamez Unavailable [phone] Allergies Allergen (clinical drug ingredient) Drug/Non Drug [...] Encounter Location Date Provider Diagnosis [place] 12[facility] 36 [facility] [address] [place] [phone] 02/25/2024 Anne Galdamez Post menopausal syndrome N95.1 [...] Months,and prn, Reason: Provider Name:Anneelda novak, 09/21/2024 01:15:00 PM, 1210 [facility] 36 [facility], [address], [place], [id number], Progress Notes * NALDO DAMONDOB:1975 (48 yo F)Acc No.[id number]:02/25/2024 Progress Notes Patient: NALDO VIZCAINO Provider: CRISTOBAL [...] * Surgical History: [place]endectomy - [place] 1999, Removal of Gall Stones 03/2000, Cholecystectomy- [place] 03/2000, Hysterectomy - [facility] 2013, Pancreatitis procedure 03/2018. * Hospitalization/Major [...] * Images: Billing Information: * Visit Code: 04329 Office Visit, Est Pt., Level 3. 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
--- OUTSIDE RECORDS SUMMARY | 2024-05-25 09:30 | XMS_ITS ---
Author Organization [facility] [address] [facility] [address] [place] [id number] Care Team Providers Care It Teacher Name Role Phone Anne Galdamez Unavailable [phone] Allergies Allergen (clinical drug ingredient) Drug/Non Drug Allergy documented on EMR Reaction Allergy Type Onset Date Status ampicillin Ampicillin Severe Vomiting & Diarrhea Drug Allergy Active REASON FOR VISIT 3 months, Needs labs & mammogram Medications Medication SIG (Take, Route, Frequency, Duration) Notes Start Date End Date Status Atenolol 25 MG 1 tab(s) orally twice a day Active Progesterone 100 MG 1 capsule at bedtime Orally Once a day 05/12/2024 Active Estradiol 2 MG 1 tab(s) Orally once a day Active MiraLax 17 GM/SCOOP 1 scoop mixed with 8 ounces of fluid Orally Once a day; Duration: 30 day(s) Active Methocarbamol 750 MG 1 tablet Orally 3 t imes daily prn Active Wegovy 2.4 MG/0.75ML 0.5 ml Subcutaneous weekly; Duration: 30 day(s) Active PROzac 20 MG 1 capsule Orally Onc e a day; Duration: 90 day(s) Active Konsyl Daily Fiber 100 % as directed ora lly 3 times a day; Duration: 7 day(s) Active busPIRone HCl 10 MG 1 tab(s) orally 3 ti mes a day Active Social History Tobacco Use: Social History Observation Description Date Details (start date - stop date) Current Smoker NA - NA CURRENT TOBACCO USE: Question Answer Notes Are you a: current smoker How often do you smoke cigarettes? every day 1 pack per day Vital Signs Blood pressure systolic 122 mm Hg 05/26/19 25 Blood pressure diastolic 80 mm Hg 025 Heart Rate 100 /min 05/25/2024 Height 64.5 in 05/25/2024 Weight 164.6 lbs 05/25/2024 BMI 27.81 kg/m2 05/25/2024 Encounters Encounter Location Date Provider Diagnosis [place] [address] [facility] 36 [facility] [address] [place] [id number] 05/25/2024 Anne Galdamez Post menopausal syndrome N95.1 ; Weight loss R63.4 and Polyarthralgia M25.50 Assessments Encounter Date Diagnosis (ICD Code) Assessment Notes Treatment Notes Treatment Clinical Notes Section Notes 05/25/2024 Post menopausal syndrome (ICD-10 - N95.1) pt does not use tobacco ; she has annual mammograms 05/25/2024 Weight loss (ICD-10 - R63.4) continue with current food choices and portions; discussed adding exericse activity 05/25/2024 Polyarthralgia (ICD-10 - M25.50) she thinks the addition of progesterone has helped her knee pain; it has not helped the back pain as yet Plan Of Treatment Medication Medication Name Sig Start Date Stop Date Notes Progesterone 100 MG 1 capsule at bedtime Orally Once a day 05/12/2024 Estradiol 2 MG 1 tab(s) Orally once a day Wegovy 2.4 MG/0.75ML 0.5 ml Subcutaneous weekly; Duration: 30 day(s) Treatment Notes Assessment Notes Post menopausal syndrome pt does not use tobacco ; she has annual mammograms Weight loss continue with curren t food choices and portions; discussed adding exericse activity Polyarthralgia she thinks the addit ion of progesterone has helped her knee pain; it has not helped the back pain as yet Next Appt Details Follow Up: 4 Months,and prn, Reason: Provider Name:Anne novak, 09/21/2024 01:15:00 PM, [address] [place] [facility] 36 [facility], [address], [place], [id number], Progress Notes * NALDO DAMONDOB:1975 (48 yo F)Acc No.[id number]:05/25/2024 Progress Notes Patient: Andre GRETANALDO Provider: CRISTOBAL Santiago :1975 A ge:48 Y S ex:Female Date:05/25/2024 Address:[address], [id number] Subjective: * Chief Complaints: * 1 . 3 months. 2. Needs labs & mammogram. * HPI: H PI: 48 year old female presents with c/o Patient is here today for?Pt is here today for a 3 month check up. Pt sts she is doing well and has no concerns at this time. * ROS: A LLERGY: no C ough. n o R unny nose. G ASTROENTEROLOGY: no N ausea. n o V omiting. n o D iarrhea.?no C onstipation. M USCULOSKELETAL: Joint pain y es, o ngonig neck pain after surgery; has FU appt with neuro surg; bilateral knee pain making walking/exercise difficult. U ROLOGY: no D ifficulty urinating. n o B lood in urine. * Medical History: P alpitations. * Surgical History: A ppendectomy - [facility] 1999, Removal of Gall Stones 03/2000, [place]olecystectomy- [place] 03/[place], Hysterectomy - [facility] 2013, Pancreatitis procedure 03/2018. * Hospitalization/Major Diagno [...] orally 3 times a day , Taking PROzac 20 MG Capsule 1 capsule Orally Once a day , Taking Atenolol 25 MG Tablet 1 tab(s) orally twice a day , Taking Wegovy 2.4 MG/0.75ML Solution Auto-injector 0.5 ml Subcutaneous weekly , Taking Estradiol 2 MG Tablet 1 tab(s) Orally once a day , Taking Progesterone 100 MG Capsule 1 capsule at bedtime Orally Once a day , Medication List reviewed and reconciled with the patient * Allergies: A mpicillin: Severe Vomiting & Diarrhea - Allergy. Objective: * Vitals: W t:164.6, Temp:97.9, BP:122/80, HR:100, O2 Sat:99% on RA, Nurse:nadia, Ht: 64.5, BMI:27.81. * Examination: G eneral Examination: General Appearance: NAD, appears healthy, alert; weight loss noted. H eart: RRR, no ectopics. L ungs: CTAB A&P. N eurologic Exam:? alert and oriented. E xtremities: no leg edema. Assessment: * Assessment: 1. P ost menopausal syndrome - N95.1 (Primary) 2 . W eight loss - R63.4? 3. P olyarthralgia - M25.50 Plan: * Treatment: 2. W eight loss Refill Wegovy Solution Auto-injector, 2.4 MG/0.75ML, 0.5 ml, Subcutaneous, weekly, 30 day(s), 4, Refills 3. Notes: continue with current food choices and portions; discussed adding exericse activity ? 3. P olyarthralgia Continue Progesterone Capsule, 100 MG, 1 capsule at bedtime, Orally, Once a day. Notes: she thinks the addition of progesterone has helped her knee pain; it has not helped the back pain as yet * Procedure Codes: 3 074F SYST BP LT 130 MM HG, 3079F DIAST BP 80-89 MM HG * Follow Up: 4 Months,and prn * Images: Billing Information: * Visit Code: 70269 Office Visit, Est Pt., Level 3. * Procedure Codes: 3074F SYST BP LT 130 MM HG. 3079F DIAST BP 80-89 MM HG. * Electronic signature of Richelle Galdamez APRN on 09/04/2024 at 07:40 AM EDT Sign off status: Pending * Provider: CRISTOBAL Santiago Date: 0 05/25/2024 Generated for Elizabeth hodge/Delaney/eTransmitting on: 0 09/04/2024 07:40 AM EDT History and Physical Notes * HPI (History of Present Illness) Category Sub-Category Detail Notes Category Not es HPI Patient is here today for Pt is here today for a 3 month check up. Pt sts she is doing well and has no concerns at this time Examination Category Sub-Category Detail Notes Category Not es General Examination Heart: RRR, no ectopics Lungs: CTAB A&P Extremities: no leg edema General Appearance: NAD, appears healthy , alert; weight loss noted Neurologic Exam: alert and oriented
--- OUTSIDE RECORDS SUMMARY | 2024-07-27 13:45 | XMS_ITS | Encounter Summary ---
Author Organization [employer] In [facility]atives Address [address] [place] [address] Care Team Providers Care Hall Director Name Role Phone Vianney Galdamez MD Primary Care Provider [phone] Reason for Referral * Echocardiography (Routine) - New Request Specialty Diagnoses / Procedures Referred By Contac t Referred To Contact Diagnoses Abnormal EKG Procedures ECHO COMPLETE (DOPPLER / COLOR) W OR WO CONTRAST Melanie Melchor PA-C [address] [place] [phone] Phone: tel: fax: [facility] [address] [place] [address] Phone: tel: Referral ID Status Reason Start Date Expiration Date V isits Requested Visits Authorized [id number] New Request 07/12/2025 07/12/2026 1 1 Reason for Visit * Reason Comments Follow-up Palpitations Tachycardia Encounter Details Date Type Department Care Team (Late st Contact Info) Description 07/27/2024 1:45 PM EDT Office Visit [facility] Cardiology - [address] [phone] Melanie Melchor PA-C [address] [place] [phone] Tachycardia (Primary Dx); Palpitations; Abnormal EKG Social History Tobacco Use Types Packs/Day Years Used Date Smoking Tobacco: Former Cigarettes Q uit: 2020 Smokeless Tobacco: Never Alcohol Use Standard Drinks/Week Comments Never 0 (1 standard drink = 0.6 oz pur e alcohol) caffeine use Humiliation, Afraid, Rape, and Kick questionnair e Answer Date Recorded Within the last year, have y ou been afraid of your partner or ex-partner? No 09/23/2023 Within the last year, have y ou been humiliated or emotionally abused in other ways by your partner or ex-partner? No Within the last year, have y ou been kicked, hit, slapped, or otherwise physically hurt by your partner or ex-partner? No 09/23/2023 Within the last year, have y ou been raped or forced to have any kind of sexual activity by your partner or ex-partner? No 09/23/2023 PHQ-2 Answer Date Recorded Patient Health Questionnaire-2 Score 0 09/23/2023 CHI Intimate Partner Violence Answer Da te Recorded Within the last year, have y ou been afraid of your partner or ex-partner? No 09/23/2023 Within the last year, have y ou been humiliated or emotionally abused in other ways by your partner or ex-partner? No Within the last year, have y ou been kicked, hit, slapped, or otherwise physically hurt by your partner or ex-partner? No 09/23/2023 Within the last year, have y ou been raped or forced to have any kind of sexual activity by your partner or ex-partner? No 09/23/2023 Interpersonal Safety Answer Date Record ed Family or friends hurt you Not on file 03/29 Family or friends insult you Not on file Family or friends threaten you Not on file 0 03/29/2023 Family or friends scream or curse at you Not on file 03/29/2023 Housing Stability Answer Date Recorded Living situation today Not on file Living situation problems Not on file 2023 Family and Community Support Answer Ramon e Recorded Help with Day to Day Activities Not on file 03/29/2023 Feeling Lonely or Isolated Not on file 03/29 Educational Attainment Answer Date Víctor rded Speak language other than Georgian at home Not on file 03/29/2023 Want help with school or training Not on file 03/29/2023 Depression Answer Date Recorded PHQ-2 Risk Not on file 03/29/2023 Disabilities Answer Date Recorded Difficulty concentrating Not on file 024 Difficulty doing errands alone Not on file 0 03/29/2023 Substance Use Answer Date Recorded Used prescription meds for non-medical reasons N ot on file 03/29/2023 Used illegal drugs past 12 months Not on file 03/29/2023 Comments No Sex and Gender Information Value Date Recorded Sex Assigned at Not on file Legal Sex Female 5:58 PM CDT Gender Identity Not on file Sexual Orientation Not on file documented as of this encounter Last Filed Vital Signs Vital Sign Reading Time Taken Comments Blood Pressure 110/86 07/27/2024 2:19 PM EDT Pulse 75 07/27/2024 2:19 PM EDT Temperature - - Respiratory Rate 20 07/27/2024 2:19 PM EDT Oxygen Saturation 98% 07/27/2024 2:19 PM EDT Inhaled Oxygen Concentration - - Weight 77.3 kg (170 lb 6.4 oz) 07/27/2024 2:19 P M EDT Height 165.1 cm (5' 5 ) 07/27/2024 2:19 PM EDT Body Mass Index 28.36 07/27/2024 2:19 PM EDT documented in this encounter Progress Notes * Melanie Melchor PA-C - 07/27/2024 1:45 PM EDT History of Present Illness Pleasant 48-year-old white female with chronic intermittent palpitations that have been well-controlled with atenolol. Normal Holter and normal echo in the past. Comes today for routine follow-up. No significant breakthrough palpitation symptoms. Denies near syncope syncope chest pain or shortness of breath. Is compliant with beta-demetrius therapy. Is anticipating cervical disc surgery. Review of Systems 14 point review of systems is negative except as noted in HPI. Social History Tobacco Use Smoking status: Former Current packs/day: 0.00 Types: Cigarettes Quit date: 2019 Years since quittin.3 Smokeless tobacco: Never Vaping Use Vaping status: Never Used Substance Use Topics Alcohol use: Never Comment: caffeine use Drug use: Never Past Surgical History: Procedure Laterality Date APPENDECTOMY CHOLECYSTECTOMY COLONOSCOPY DISCECTOMY,ANTERIOR CERVICAL W/FUSION N/A 09/27/2023 Procedure: (CERVICAL 4-5,5-6,6-7 ACDF); Surgeon: Sanchez Zamora MD; Location: [facility]; Service: Orthopedic Surgery; Laterality: N/A; [place] 0530, 3 HR (R), PASS [place] [employer] ESOPHAGOGASTRODUODENOSCOPY HYSTERECTOMY Past Medical History: Diagnosis Date Allergic rhinitis 02/19/2019 Anxiety 06/29/2022 Blood transfusion without reported diagnosis Colonic polyp COVID-19 vaccine series completed Diverticulitis Encounter for general adult medical examination without abnormal findings 06/29/2022 GERD (gastroesophageal reflux disease) 06/29/2022 Irritable bowel syndrome with constipation Palpitations PAT (paroxysmal atrial tachycardia) (HCC) Seasonal allergies 06/29/2022 Spinal disorder Tachycardia Family History Problem Relation Name Age of Onset No Known Problem Mother No Known Problem Father Current Outpatient Medications: busPIRone (BUSPAR) 10 MG tablet, Take 1 tablet (10 mg total) by mouth 2 (two) times daily., Disp: ,Rfl: estradioL (ESTRACE) 1 MG tablet, Take 2 tablets (2 mg total) by mouth daily., Disp: , Rfl: fexofenadine (GERBER) 180 MG tablet, Take 1 tablet (180 mg total) by mouth in the morning., Disp: , Rfl: fLUoxetine (PROzac) 20 MG capsule, Take 1 capsule (20 mg total) by mouth daily., Disp: , Rfl: gabapentin (NEURONTIN) 100 MG capsule, Take 1 capsule (100 mg total) by mouth 3 (three) times daily. Max Daily Amount: 300 mg, Disp: , Rfl: methocarbamoL (ROBAXIN) 750 MG tablet, Take 1 tablet (750 mg total) by mouth 3 (three) times daily as needed., Disp: , Rfl: traMADoL (ULTRAM) 50 mg tablet, Take 1 tablet (50 mg total) by mouth 3 (three) times daily. Max Daily Amount: 150 mg, Disp: , Rfl: Wegovy 0.25 mg/0.5 mL syringe, Inject 0.5 mLs (0.25 mg total) under the skin once a week Takes on Saturday.., Disp: , Rfl: atenoloL (TENORMIN) 25 MG tablet, Take 1 tablet (25 mg total) by mouth 2 (two) times daily., Disp: 180 tablet, Rfl: 3 docusate sodium (COLACE) 100 MG capsule, Take 1 capsule (100 mg total) by mouth 2 (two) times daily. (Patient not taking: Reported on 07/27/2024.), Disp: 60 capsule, Rfl: 0 fluticasone propionate (FLONASE) 50 mcg/actuation nasal spray, 1 spray by intraNASAL route nightly.(Patient not taking: Reported on 07/27/2024.), Disp: , Rfl: HYDROcodone-acetaminophen (NORCO 5-325) 5-325 mg per tablet, Take 1 tablet by mouth every 6 (six) hours as needed for pain. Max Daily Amount: 4 tablets (Patient not taking: Reported on 07/27/2024.), Disp: 42 tablet, Rfl: 0 hyoscyamine (LEVSIN/SL) 0.125 mg SL tablet, Take 1 tablet (125 mcg total) by mouth every 6 (six) hours as needed. (Patient not taking: Reported on 07/27/2024.), Disp: , Rfl: meloxicam (MOBIC) 15 MG tablet, Take 1 tablet (15 mg total) by mouth daily as needed. (Patient not taking: Reported on 07/27/2024.), Disp: , Rfl: polyethylene glycol (GLYCOLAX) 17 gram packet, Take 17 g by mouth as needed. (Patient not taking: Reported on 07/27/2024.), Disp: , Rfl: Physical Exam Constitutional: Appearance: Normal appearance. Patient is normal weight. Cardiovascular: Rate and Rhythm: Normal rate and regular rhythm. Pulses: Normal pulses. Heart sounds: Normal heart sounds. Pulmonary: Effort: Pulmonary effort is normal. Breath sounds: Normal breath sounds. Abdominal: General: Abdomen is flat. Bowel sounds are normal. Palpations: Abdomen is soft. Skin: General: Skin is warm and dry. Capillary Refill: Capillary refill takes less than 2 seconds. Neurological: General: No focal deficit present. Mental Status: He is alert and oriented to person, place, and time. Mental status is at baseline. Psychiatric: Mood and Affect: Mood normal. Behavior: Behavior normal. Thought Content: Thought content normal. Judgment: Judgment normal. Lab Review EKG: NSR IVCD ( new ) Assessment -Chronic intermittent palpitations well-contained on atenolol - IVCD -Former smoker quit x3 years -Chronic anxiety -Chronic pain from cervical radiculopathy Plan No cardiovascular issues. Good palpitation suppression with atenolol. EKG does demonstrate LBBB which is unchanged from last year but new when compared to an EKG from 2022. Will schedule an echo. She is currently without chest pain. Her palpitation symptoms are adequately controlled with atenolol. Prescription is renewed electronically. She will be notified with echoresults otherwise follow-up in 1 year Melanie Melchor PA-C documented in this encounter Miscellaneous Notes * Addendum Note - Vera Humphrey MA - 07/27/2024 1:45 PM EDTAddended by: VERA HUMPHREY on: 07/27/2024 04:38 PM Modules accepted: Orders documented in this encounter Plan of Treatment Upcoming Encounters Date Type Department Care Team (Late st Contact Info) Description 07/20/2025 10:00 AM EDT Appointment [facility] Echocardiography [address] [place] [address] Melanie Melchor PA-C [address] [phone] 07/26/2025 9:30 AM EDT Office Visit [facility] Cardiology - [place] [address] [place] [address] Melanie Melchor PA-C [address] [phone] Scheduled Orders Name Type Priority Associated Diagnoses Orde r Schedule ECHO COMPLETE (DOPPLER / COLOR) W OR WO CONTRAST Echocardiography Routine Abnormal EKG Expected: 07/12/2025, Expires: 07/27/2025 documented as of this encounter Procedures Procedure Name Priority Date/Time Associated Diagnosis Comments FS_MODEL_IP_ECG 12-LEAD Routine 07/27/2024 4:26 P M EDT Tachycardia documented in this encounter Results * ECG 12 lead (07/27/2024 4:26 PM EDT) Melanie Melchor PA-C ECG ORDERABLES Final Result documented in this encounter Visit Diagnoses Diagnosis Tachycardia- Primary Unspecified tachycardia Palpitations Abnormal EKG Nonspecific abnormal electrocardiogram (ECG) (EKG) documented in this encounter Care Teams Hall Director Relationship Specialty Start Date End Date Vianney Galdamez MD [address] [place] [address] [address] [address] [place] [address] PCP - General 08/15/22 documented as of this encounter
--- NOTE | 2024-09-04 07:39 | IR_ITS ---
FINAL REPORT CLINICAL HISTORY: C-SPINE PAIN 42s ft 252.69 dap FINDINGS: CERVICAL MYELOGRAM HISTORY: Neck pain. ATTENDING PHYSICIAN: Dr. Brian PHYSICIAN [employer] ATTENDANT: Juan Pablo Leblanc PA-C PROCEDURE: Informed consent was obtained. A time-out was performed, and the patient was prepped and draped in usual sterile fashion over the lumbar spine. Utilizing local anesthesia and direct fluoroscopic guidance, access to the thecal space was obtained at the L4-L5 level. 10 mL of Isovue 300M was injected. Contrast is identified in the thecal space. Contrast was then maneuvered into the cervical spine region by Trendelenburg positioning. There are postoperative and degenerative changes of the cervical spine. Please see CT report. Fluoroscopy time: 42 seconds Radiation exposure in Reference air Kerma: mGy Fluoro dose: 252.69 DAP in uGym2 IMPRESSION: Postoperative and degenerative changes. Please see CT scan report. Reviewed, Interpreted and Dictated by Carlene Brian MD Transcribed by ANTOINETTE Oneal Authenticated and [facility]
--- OUTSIDE RECORDS SUMMARY | 2024-09-04 07:40 | XMS_ITS | Encounter Summary ---
Author Organization [employer] Address [address] [place] [address] Care Team Providers Care Corporation Lawyer Name Role Phone Vianney Galdamez MD Primary Care Provider [phone] Encounter Details Date Type Department Care Team (Late st Contact Info) Description 04/16/2018 Transcribed Document [facility] [place] [facility] [place] [address] ProviderLydia MD [address] [place] [id number] Social History Tobacco Use Types Packs/Day Years Used Date Smoking Tobacco: Never Assessed Comments Unknown Sex and Gender Information Value Date Recorded Sex Assigned at Not on file Legal Sex Female 5:58 PM CDT Gender Identity Not on file Sexual Orientation Not on file documented as of this encounter Miscellaneous Notes * Cerner Conversion Note - Lydia Frazier MD - 04/16/2018 4:28 PM BEAUTY ADVISOR Patient Education Materials Follows: Endoscopic Retrograde Cholangiopancreatography (ERCP), Care After Refer to this sheet in the next few weeks. These instructions provide you with information on caring for yourself after your procedure. Your health care provider may also give you more specific instructions. Your treatment has been planned according to current medical practices, but problems sometimes occur. Call your health care provider if you have any problems or questions after your procedure. WHAT TO EXPECT AFTER THE PROCEDURE After your procedure, it is typical to feel: ??? Soreness in your throat. ? Sick to your stomach (nauseous). ? Bloated. ??? Dizzy. ? Fatigued. HOME CARE INSTRUCTIONS ??? Have a friend or family member stay with you for the first 24 hours after your procedure. ??? Start taking your usual medicines and eating normally as soon as you feel well enough to do so or as directed by your health care provider. SEEK MEDICAL CARE IF: ??? You have abdominal pain. ? You develop signs of infection, such as: ? ? Chills. ? ? Feeling unwell. ? SEEK IMMEDIATE MEDICAL CARE IF: ??? You have difficulty swallowing. ??? You have worsening throat, chest, or abdominal pain. ??? You vomit. ??? You have bloody or very black stools. ??? You have a fever. This information is not intended to replace advice given to you by your health care provider. Make sure you discuss any questions you have with your health care provider. Document Released: 12/16/2013 Document Reviewed: 12/16/2013 [employer] Interactive Patient Education ? 2017 [employer]. documented in this encounter Plan of Treatment Upcoming Encounters Date Type Department Care Team (Late st Contact Info) Description 07/20/2025 10:00 AM EDT Appointment [facility] Echocardiography [address] [place] [phone] Melanie Melchor PA-C [address] [phone] 07/26/2025 9:30 AM EDT Office Visit [facility] Cardiology - [place] [address] [place] [address] Melanie Melchor PA-C [address] [phone] documented as of this encounter Visit Diagnoses Not on filedocumented in this encounter Care Teams Corporation Lawyer Relationship Specialty Start Date End Date Vianney Galdamez MD [address] [facility] [address] [place] [address] PCP - General 08/15/22 documented as of this encounter
--- OUTSIDE RECORDS SUMMARY | 2024-09-04 07:40 | XMS_ITS | Encounter Summary ---
Author Organization [employer] Address [address] [place] [address] Care Team Providers Care Printer Maintainer Name Role Phone Vianney Galdamez MD Primary Care Provider [phone] Encounter Details Date Type Department Care Team (Late st Contact Info) Description 04/16/2018 Transcribed Document [facility] [place] [facility] [place] [address] ProviderLydia MD [address] [place] [id number] Social History Tobacco Use Types Packs/Day Years Used Date Smoking Tobacco: Never Assessed Comments Unknown Sex and Gender Information Value Date Recorded Sex Assigned at Not on file Legal Sex Female 5:58 PM CDT Gender Identity Not on file Sexual Orientation Not on file documented as of this encounter Miscellaneous Notes * Cerner Conversion Note - Lydia Frazier MD - 04/16/2018 4:28 PM PODIATRIST ASSISTANT [address] [place]isha [place], [place] [address] Patient Copy Patient Information: Name: YASMEEN DAMON Current Date: 04/16/2018 16:28:13 : 1975 Patient Address: [place] [address] Patient Attending Physician: LEANDRO ESPAÑA MD-GAZehra Primary Care Provider: KRISTIN GALDAMEZ (REF) Primary Care Provider Discharge Diagnosis: Weight on Admission: 163 lb, 13 oz Comment: Follow-up Instructions: With: Address: When: LEANDRO ESPAÑA [address] [facility], [address] [place] [phone] Business (1) Within As needed Comments: Office to call with appoint/instructions Ativan as directed Carrafate as directed Discharge Instructions: Diet after Discharge: Other: ice chips and water tonight, resume diet tomorrow Activity after Discharge: Rest and relax today, No strenuous activities Driving after Discharge: Do not drive Showering/Bathing: May shower Immunizations Documented During Stay: No Immunizations Found Heart Failure Discharge Instructions (if any): Stroke Related Discharge Instructions (if any): Warfarin Related Discharge Instructions (if any): Final Medication List: Other Medications atenolol 50 Milligram(s) Oral Two Times A Day. busPIRone Oral Two Times A Day. cimetidine (Tagamet HB) 200 Milligram(s) Oral Every Day. diphenhydrAMINE (Benadryl) Oral At Bedtime. ibuprofen 200 Milligram(s) Oral as needed as needed for pain. polyethylene glycol 3350 (MiraLax) 17 Gram(s) Oral Every Day. Patient Allergies: doxycycline; ampicillin Medication Instructions: Take your medications faithfully. Do NOT skip medication. Do NOT stop taking medications without the direction of a physician. Carry a list of your medications with you at all times, and take this medication list with you to your first follow up visit. Report any side effects. Avoid herbal remedies unless discussed with your physician. As part of your treatment plan, your physician may have prescribed a limited course of a controlled substance. This medication may be given to help people with moderate or severe pain or for other medical conditions, but there are risks involved with treatment. Common side effects may include nausea, constipation, drowsiness, sweating, itching, dry mouth, and rash. More serious side effects may include cognitive and motor impairment, like problems with thinking, concentrating, alertness, and movement (e.g. slowed reflexes), and driving and operating heavy machinery can be dangerous. It is important for you to talk to your physician if you have these side effects or questions. These controlled substances can produce physical dependence and be habit-forming if taken for an extended period of time, which means that the body has gotten used to them and may experience withdrawal symptoms if they are abruptly stopped. Withdrawal symptoms can include runny nose, sweating, goose bumps, diarrhea, abdominal cramping, rapid heartbeat, difficulty sleeping, and nervousness. Patient education materials: Endoscopic Retrograde Cholangiopancreatography (ERCP), Care After Refer [...] provider. Document Released: 12/16/2013 Document Reviewed: 12/16/2013 [employer] Interactive Patient Education ? 2017 [employer] CIGARETTE SMOKING: The facts are clear, cigarette smoking will shorten your life. Smoking can cause many illnesses along the way. As a healthcare provider, we recommend that you stop smoking. Assistance with quitting is available by contacting 0-250-TDQI-NOW. This is a free resource providing counseling, support, and referral. Or you may contact your personal physician. 4 WAYS TO GET AHEAD OF SEPSIS SEPSIS is a MEDICAL EMERGENCY. Time matters! Infections put you and your family at risk for a life-threatening condition called sepsis. Sepsis is the body???s extreme response to an infection. It is life-threatening, and without timely treatment, sepsis can rapidly lead to tissue damage, organ failure, and . Sepsis happens when an infection you already have???in your skin, lungs, urinary tract or somewhere else???triggers a chain reaction throughout your body. 1 PREVENT INFECTIONS Take good care of chronic conditions. Talk to your doctor about getting the recommended vaccines. 2 PRACTICE GOOD HYGIENE Wash your hands frequently. Keep cuts or open sores clean and covered until they are healed. 3 KNOW THE SYMPTOMS Confusion or disorientation Shortness of breath High heart rate Fever, shivering, or feeling very cold Extreme pain or discomfort Clammy or sweaty skin 4 ACT FAST Get medical care IMMEDIATELY if you suspect sepsis or if you have an infection that???s not getting better or is getting worse. To learn more about sepsis and how to prevent infections, visit www.cdc.gov/sepsis. STROKE is an EMERGENCY [employer] ACT F.A.S.T! FACE ?? Facial droop ?? Uneven smile ARM ?? Arm numbness ?? Arm weakness SPEECH ?? Slurred speech ?? Difficulty speaking or understanding TIME ?? Call 911 and get to the hospital immediately Have the ambulance go to the nearest stroke center. STROKE Risk Factors High blood pressure High cholesterol Heart Disease Diabetes Smoking Heavy alcohol use Physical inactivity and obesity Atrial Fibrillation (irregular heartbeat) Family history of stroke Reminder: Be sure to sign up for the [employer] patient portal, which gives you 24/ access to your medical information ??? including these discharge instructions ??? using your computer, smartphone, or tablet. Just go to [employer] to get started. Questions? Call . [facility] would like to thank you for allowing us to assist you with your healthcare needs. NESSA Sawyer SHANNON L, (or community engagement representative) have received the above patient education materials/instructions and have verbalized understanding: Patient Signature _ Date/Time Patient Content Developer Signature (if needed) Date/Time Clinician/Hospital Content Developer Signature (if needed) Date/Time documented in this encounter Plan of Treatment Upcoming Encounters Date Type Department Care Team (Late st Contact Info) Description 07/20/2025 10:00 AM EDT Appointment [facility] Echocardiography [address] [place] [address] Melanie Melchor PA-C [address] [phone] 07/26/2025 9:30 AM EDT Office Visit [facility] Cardiology - [place] [address] [place] [address] Melanie Melchor PA-C [address] [phone] documented as of this encounter Visit Diagnoses Not on filedocumented in this encounter Care Teams Printer Maintainer Relationship Specialty Start Date End Date Vianney Galdamez MD [address] [place] [facility] [address] [place] [address] PCP - General 08/15/22 documented as of this encounter
--- OUTSIDE RECORDS SUMMARY | 2024-09-04 07:40 | XMS_ITS | Encounter Summary ---
Author Organization [employer] Address [address] [place] [address] Care Team Providers Care Foundry Supervisor Name Role Phone Vianney Galdamez MD Primary Care Provider [phone] Encounter Details Date Type Department Care Team (Late st Contact Info) Description 04/16/2018 Transcribed Document [facility] [place] [facility] [place] [address] ProviderLydia MD [address] [place] [id number] Social History Tobacco Use Types Packs/Day Years Used Date Smoking Tobacco: Never Assessed Comments Unknown Sex and Gender Information Value Date Recorded Sex Assigned at Not on file Legal Sex Female 5:58 PM CDT Gender Identity Not on file Sexual Orientation Not on file documented as of this encounter Miscellaneous Notes * Cerner Conversion Note - Lydia Frazier MD - 04/16/2018 2:17 PM MANAGER TRANSPORT DATE OF PROCEDURE: 04/16/2018 PREOPERATIVE DIAGNOSIS(ES): POSTOPERATIVE DIAGNOSIS(ES): PROCEDURE: Endoscopic retrograde cholangiopancreatography with biliary sphincterotomy and balloon extraction. SURGEON: Endoscopist: Mannie Logan MD REFERRING PHYSICIAN: Darek Ferrell MD EQUIPMENT: Olympus side-viewing duodenoscope. MEDICATION: MAC sedation. INDICATION: Mrs. Damon is a 42-year-old female with a history of choledocholithiasis and prior cholecystectomy. She continues to have right upper quadrant abdominal pain. The patient does have symptoms of irritable bowel syndrome with bloating, gassiness, and irregular bowel function with both constipation and diarrhea. She had an ultrasound of the abdomen in August 2017 that showed prominence of the biliary system. She also has had panendoscopy in September 2017 and she had a single adenomatous polyp that was removed. The patient has had labs that showed normal liver and pancreatic chemistries with ALT 21, alkaline phosphatase 98, and total bilirubin 0.3. A more recent CT scan of the abdomen showed no abnormal findings. She had a subsequent MRCP that showed prominence of the biliary system into the intra and extrahepatic radicles that may be related to prior cholecystectomy. ERCP is performed for further evaluation. Cardiac and lung assessment prior to the examination was stable. FINDINGS: The scope was passed directly into the upper esophagus and passed to the second portion of the duodenum. The esophagus, stomach, and duodenum were normal except for some mild reactive gastropathy and bile reflux. There were a couple of very shallow duodenal diverticula adjacent to the ampulla. Both the pancreatic duct and the common bile duct were selectively cannulated with a guidewire. A pancreatogram was not performed. The cholangiogram was performed and the common bile duct was 9-10 mm (mildly dilated). There was delayed drainage of bile and contrast from the ampulla. The intrahepatic biliary system was normal. The cystic duct stump was normal. There were no strictures or filling defects. Based upon poor extravasation of bile and contrast, a biliary sphincterotomy was performed. There was excellent extravasation of bile and contrast, and decompression of the biliary system. There was evidence of sludge yellow sandlike debris that exuded from the bile duct. When this was noted, a 9-10 mm sweeping balloon was placed at the hilum and swept through the biliary system with the passage of mostly tadeo bile and minimal debris. Procedure was then ended. 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 PLAN: I am going to follow the patient for clinical improvement. We will discuss additional treatment options. Mannie Logan M.D. Dict: 04/16/2018 14:17:11 Trans: 04/16/2018 19:57:54 CC1: Mannie Logan M.D. CC2: Darek Ferrell MD documented in this encounter Plan of Treatment Upcoming Encounters Date Type Department Care Team (Late st Contact Info) Description 07/20/2025 10:00 AM EDT Appointment [facility] Echocardiography [address] [facility] [place] [address] Melanie Melchor PA-C [address] [facility] [address] [facility] [place] [address] 07/26/2025 9:30 AM EDT Office Visit [facility] Cardiology - [place] [address] [place] [place] [address] Melanie Melchor PA-C [address] [facility] [address] [place] [address] documented as of this encounter Visit Diagnoses Not on filedocumented in this encounter Care Teams Foundry Supervisor Relationship Specialty Start Date End Date Vianney Galdamez MD [address] [facility] [address] [place] [address] PCP - General 08/15/22 documented as of this encounter
--- OUTSIDE RECORDS SUMMARY | 2024-09-04 07:40 | XMS_ITS | Encounter Summary ---
Author Organization [employer] Address [address] [place] [address] Care Team Providers Care Dog Or Animal Sitter Name Role Phone Vianney Galdamez MD Primary Care Provider [phone] Encounter Details Date Type Department Care Team (Late Contact Info) Description 04/16/2018 Transcribed Document [facility] [place] [facility] [place] [address] ProviderLydia MD [address] [place] [address] Social History Tobacco Use Types Packs/Day Years Used Date Smoking Tobacco: Never Assessed Comments Unknown Sex and Gender Information Value Date Recorded Sex Assigned at Not on file Legal Sex Female 5:58 PM CDT Gender Identity Not on file Sexual Orientation Not on file documented as of this encounter Miscellaneous Notes * Cerner Conversion Note - Historical ProviderMD - 04/16/2018 4:27 PM REVIEW RN Discharge Instructions Entered On: 04/16/2018 16:28 EST Performed On: 04/16/2018 16:27 EST by KI SMITH RN DC Instructions HWD Stroke/TIA Discharge Ins : N/A Heart Failure Discharge Ins : N/A Warfarin Discharge Ins : N/A Diet After Discharge : Other: ice chips and water tonight, resume diet tomorrow Activity After Discharge : Rest and relax today, No strenuous activities Driving After Discharge : Do not drive Showering/Bathing : Maisha shower KI SMITH RN - 04/16/2018 16:27 EST Electronically signed by [facility] Conversion Laundry Presser Cerner at 06/29/2022 4:29 PM CDT documented in this encounter Plan of Treatment Upcoming Encounters Date Type Department Care Team (Late Contact Info) Description 07/20/2025 10:00 AM EDT Appointment [facility] Echocardiography [address] [place] [address] Melanie Melchor PA-C [address] [facility] [address] [place] [address] 07/26/2025 9:30 AM EDT Office Visit [facility] Cardiology - [place] [address] [place] [address] Melanie Melchor PA-C [address] [phone] documented as of this encounter Visit Diagnoses Not on filedocumented in this encounter Care Teams Dog Or Animal Sitter Relationship Specialty Start Date End Date Vianney Galdamez MD [address] [facility] [address] [place] [address] PCP - General 08/15/22 documented as of this encounter
--- OUTSIDE RECORDS SUMMARY | 2024-09-04 07:40 | XMS_ITS | Encounter Summary ---
Author Organization [facility] [employer] Address [address] [place] [address] Care Team Providers Care Director News Name Role Phone Vianney Galdamez MD Primary Care Provider [phone] Encounter Details Date Type Department Care Team (Late st Contact Info) Description 04/16/2018 Transcribed Document [facility] [place] [address] ProviderLydia MD [address] [place] [id number] Social History Tobacco Use Types Packs/Day Years Used Date Smoking Tobacco: Never Assessed Comments Unknown Sex and Gender Information Value Date Recorded Sex Assigned at Not on file Legal Sex Female 5:58 PM CDT Gender Identity Not on file Sexual Orientation Not on file documented as of this encounter Miscellaneous Notes * Cerner Conversion Note - Historical ProviderMD - 04/16/2018 1:12 PM WINE STEWARD Pre Procedure Adult Entered On: 04/16/2018 13:18 EST Performed On: 04/16/2018 13:12 EST by NAJMA Meyer RN Height and Weight, Clinical Dosing Height Source : Stated Height Entry Format : [place] Height, Feet : 0 ft(Converted to: 0 cm, 0 Inch) Height, Inches : 65 Inch(Converted to: 5 ft 5 Inch, 165.10 cm) Clinical Height : 165.1 cm Weight Source : Standing scale Weight Entry Format : [place] Clinical Dosing Weight : 74.45 kg Weight, Pounds : 163.8 lb Body Surface Area (BSA) : 1.82 m2 Body Mass Index : 27.3 kg/m2 (HI) [place] Body Weight : 57 kg NAJMA Meyer RN - 04/16/2018 13:12 EST Health Histories Smoking Status : 10 or more cigarettes (1/2 pack or more)/day in last 30 days Smokeless Tobacco Status : Never Desires Tobacco Cessation Medication : No Reason for No Tobacco Cessation Medication : ED/procedural patient only NAJMA Meyer RN - 04/16/2018 13:12 EST Social History (As Of: 04/16/2018 13:18:20 EST) Tobacco: 10 or more cigarettes (1/2 pack or more)/day in last 30 days Smoking Status. Years of Use: 25. Packs/Tins Daily: .5. (Last Updated: 04/16/2018 13:13:25 EST by NAJMA Meyer RN) Alcohol: Alcohol Use History No. (Last Updated: 04/16/2018 13:13:30 EST by NAJMA Meyer RN) Substance Abuse: Drug Use Hx: No. Use in Last 12 Months: No. (Last Updated: 04/16/2018 13:13:36 EST by NAJMA Meyer RN) Nutrition/Health: Caffeine intake amount: 1 drink daily. (Last Updated: 04/16/2018 13:13:43 EST by NAJMA Meyer RN) Infectious Disease History Infectious Disease History : Chicken pox/Shingles, Mononucleosis Fever/Chills Last 48 Hours : No Travel To Regions with Travel Advisories : No Travel Outside [place] Within Last 30 Days : No Contact With Traveler to Advisory Region : No Tuberculosis Symptoms : None NAJMA Meyer RN - 04/16/2018 13:12 EST Anesthesia/Transfusion History Family History of Anesthesia Reaction : Prior transfusion without reaction Transfusion History : Prior anesthesia without reaction Family History of Anesthesia Reaction : None NAJMA Meyer RN - 04/16/2018 13:12 EST Functional Assessment Living Situation : Home Patient Lives With : Spouse Current Home Treatments : None NAJMA Meyer RN - 04/16/2018 13:12 EST Psychosocial History Currently in Unsafe Situation : No Tried to Harm Yourself in the Past? : No Thoughts of Harming/Killing Yourself : No NAJMA Meyer RN - 04/16/2018 13:12 EST Advance Directive Patient has Advance Directive *Q : No, patient refuses Advance Directive information NAJMA Meyer RN - 04/16/2018 13:12 EST Teaching/Learning Assessment Barriers To Learning : None evident Individuals Taught : Patient Readiness to Learn : Cooperative Highest Level of Education : University degree(s) Baseline Knowledge of Topic : Good Readiness to Learn : Explanation NAJMA Meyer RN - 04/16/2018 13:12 EST General Info Want Family/Rep/Phys Notified of Admit : Yes Name/Contact Info Fam/Rep Notified Adm : na Name/Contact Info Physician Notified Adm : Lilli Galdamez Emergency Contact #1 : Faviola Damon Emergency Contact #1 Emergency Contact #1 Relationship : spouse Emergency Contact #2 : none Emergency Contact #2 Phone Number : none Emergency Contact #2 Relationship : none Information Obtained From : Patient Primary Language : Welsh Communication Barrier : None Objects to Sharing Info w Family : No NAJMA Meyer RN - 04/16/2018 13:12 EST Sleep Apnea Risk Assmt Hx of Obstructive Sleep Apnea Diagnosis : No Snore Loudly : Yes Tired, Fatigued, or Sleepy During Day : No Observed Stopping Breathing During Sleep : No Have/Are Being Treated for Hypertension : Yes STOP Sleep Apnea Risk Level Score : 2 STOP Sleep Apnea Risk Level : High NAJMA Meyer RN - 04/16/2018 13:12 EST Zachary Scale Zachary Sensory Perception : No impairment Zachary Moisture : Rarely moist Zachary Activity : Walks frequently Zachary Mobility : No limitation Zachary Nutrition : Excellent Zachary Friction and Shear : No apparent problem Zachary Score : 23 NAJMA Meyer RN - 04/16/2018 13:12 EST Pain Assessment Pain Assessment : Initial assessment Pain Scale Used : 0-10 Scale Location : Abdomen, right upper NAJMA Meyer RN - 04/16/2018 13:12 EST Fall Risk Scales ABCs Fall Injury Risk Identification : None GIRON Hx Falls Immediate/Within 3 Months : No Giron Secondary Diagnosis : No GIRON Use of Ambulatory Aid : None GIRON IV Therapy or IV Access : Yes Giron Gait/Transferring : Normal, bedrest, immobile Giron Mental Status : Oriented to own ability Giron Fall Risk Score : 20 GIRON Fall Scale Risk Level : 0-24 Low Risk [place] Fall Interventions : Adequate lighting, Bed in low position, Call device within reach, Fall prevention handout/education per facility policy, Frequent orientation to call device, Frequent orientation to surroundings, Hourly comfort/safety rounds, Non-slip footwear, Personal items within reach, Reinforced to call for assistance before getting out of bed, Room free of clutter/spills, Upper side-rails up, Wheels locked, Wires/Cords secured NAJMA Meyer RN - 04/16/2018 13:12 EST Valuables and Belongings Valuables and Belongings : Clothing, Personal devices Clothing : Common streetwear Clothing Disposition : Bedside Personal Device Disposition : Bedside Personal Devices : Glasses NAJMA Meyer RN - 04/16/2018 13:12 EST Pain Scale Intensity : 2 NAJMA Meyer RN - 04/16/2018 13:12 EST Image 4 - Images currently included in the form version of this document have not been included in the text rendition version of the form. documented in this encounter Plan of Treatment Upcoming Encounters Date Type Department Care Team (Late st Contact Info) Description 07/20/2025 10:00 AM EDT Appointment [facility] Echocardiography [address] [place] [address] Melanie Melchor PA-C [address] [address] 07/26/2025 9:30 AM EDT Office Visit [facility] Cardiology - [place] [address] [place] [address] Melanie Melchor PA-C [address] [phone] documented as of this encounter Visit Diagnoses Not on filedocumented in this encounter Care Teams Director News Relationship Specialty Start Date End Date Vianney Galdamez MD [address] [place] [facility] [address] [place] [address] PCP - General 08/15/22 documented as of this encounter
--- OUTSIDE RECORDS SUMMARY | 2024-09-04 07:40 | XMS_ITS | Patient Health Record ---
Author Organization [facility] Address [address] [facility] [address] [place] [id number] Care Team Providers Care Math And Sciences Department Chair Name Role Phone Anne Galdamez Unavailable [phone] Allergies Allergen (clinical drug ingredient) Drug/Non Drug Allergy documented on EMR Reaction Allergy Type Onset Date Status ampicillin Ampicillin Severe Vomiting & Diarrhea Drug Allergy Active Reason For Referral No Information Medications Medication SIG (Take, Route, Frequency, Duration) Notes Start Date End Date Status FLUoxetine HCl 20 MG Take 1 capsule by m out once daily; Duration: 90 Active Wegovy 2.4 MG/0.75ML 0.5 ml Subcutaneous weekly; Duration: 30 day(s) Active Atenolol 25 MG 1 tab(s) orally twice a day Active Progesterone 100 MG 1 capsule at bedtime Orally Once a day 05/12/2024 Active Estradiol 2 MG 1 tab(s) Orally once a day Active Konsyl Daily Fiber 100 % as directed ora lly 3 times a day; Duration: 7 day(s) Active busPIRone HCl 10 MG 1 tab(s) orally 3 ti mes a day Active MiraLax 17 GM/SCOOP 1 scoop mixed with 8 ounces of fluid Orally Once a day; Duration: 30 day(s) Active Methocarbamol 750 MG 1 tablet Orally 3 t imes daily prn Active Immunizations Vaccine Route Administration Date Status Comme nts Tetanus Tdap-Adacel (over 7yrs) IM Intramuscular 08/06/2017 Administered Tetanus Tdap-Adacel (over 7yrs) Unknown 07/22/2018 Administered Fluzone PF Quad (6-35 months) Unknown 01/18/2022 Administered COVID 19 Pfizer Unknown 05/31/2020 Administered COVID 19 Pfizer Unknown 06/24/2020 Administered COVID 19 Pfizer Unknown 01/04/2021 Administered Social History Tobacco Use: Social History Observation Description Date Details (start date - stop date) Current Smoker NA - NA CURRENT TOBACCO USE: Question Answer Notes Are you a: current smoker How often do you smoke cigarettes? every day 1 pack per day Problems Problem Type SNOMED Code ICD Code Onset Dates Problem Status W/U Status Risk Notes Problem Menopausal and postmenopausal disorder (N95.9) Active confirmed Problem Seasonal allergy (070852918) Seasonal allergies (J30.2) Active confirmed Problem Mixed anxiety and depressive disorder (865113766) Anxiety and depression (F41.8) Active confirmed Problem Environmental allergy (007120744) Environmental allergies (Z91.048) Active confirmed Problem Menopause (490001311) Hot flushes, perimenopausal (N95.1) Active confirmed Problem Mood swings (52306712) Mood swings (F39) Active confirmed Problem Menopause (627529110) Post menopausal syndrome (N95.1) Active confirmed Vital Signs Heart Rate 100 /min 05/25/2024 Blood pressure diastolic 80 mm Hg 05/25/2024 Height 64.5 in 05/25/2024 Blood pressure systolic 122 mm Hg 05/25/2024 Weight 164.6 lbs 05/25/2024 BMI 27.81 kg/m2 05/25/2024 Encounters Encounter Location Date Provider Diagnosis [facility] [address] [facility] [address] [place], [place] [id number] 12/03/2023 Anne Galdamez Weight loss R63.4 [facility] [address] [facility] [address] [place], [place] [id number] 02/25/2024 Anne Galdamez Post menopausal syndrome N95.1 and Weight loss R63.4 [facility] [address] [facility] [address] [place], [place] [id number] 05/25/2024 Anne Galdamez Post menopausal syndrome N95.1 ; Weight loss R63.4 and Polyarthralgia M25.50 [facility] [address] [facility] [address] [place], [place] [id number] 03/18/2024 Anne Galdamez [facility] [address] [facility] [address] [place], [place] [id number] 05/01/2024 Anne Galdamez Assessments Encounter Date Diagnosis (ICD Code) Assessment Notes Treatment Notes Treatment Clinical Notes Section Notes 02/25/2024 Weight loss (ICD-10 - R63.4) continue with current food choices and portions 02/25/2024 Post menopausal syndrome (ICD-10 - N95.1) pt does not use tobacco ; she has annual mammograms 12/03/2023 Weight loss (ICD-10 - R63.4) some nausea; wishes to increase; weight loss noted 05/25/2024 Weight loss (ICD-10 - R63.4) continue with current food choices and portions; discussed adding exericse activity 05/25/2024 Post menopausal syndrome (ICD-10 - N95.1) pt does not use tobacco ; she has annual mammograms 05/25/2024 Polyarthralgia (ICD-10 - M25.50) she thinks the addition of progesterone has helped her knee pain; it has not helped the back pain as yet 02/25/2024 Other will add MVI Plan Of Treatment Next Appt Details Provider Name:Anne novak, 09/21/2024 01:15:00 PM, [address], [place], [id number], Insurance Providers Payer Name Payer Address Payer Phone Subscriber Number Group Number Insured Name Patient Relationship to Insured Coverage Start Date Coverage End Date MARIA TERESA TEAGUE [address] [place] [address] [id number] NALDO DAMON Self - patient is the insured Medical (General) History Medical History History ICD Code Palpitations Surgical History Surgery Date(Month/Year) Appendectomy - [facility] 1999 Removal of Gall Stones 03/2000 Cholecystectomy- [place] 03/2000 Hysterectomy - [facility] 2014 Pancreatitis procedure 03/2018 Hospitalization History Reason Date(Month/Year) Acute Pancreatitis 04/2018
--- OUTSIDE RECORDS SUMMARY | 2024-09-04 07:40 | XMS_ITS | Encounter Summary ---
Author Organization [employer] Address [address] [place] [address] Care Team Providers Care Die Assembler Name Role Phone Vianney Galdamez MD Primary Care Provider [phone] Encounter Details Date Type Department Care Team (Late st Contact Info) Description 04/16/2018 Transcribed Document [place] [place] [address] ProviderLydia MD [address] [place] [address] [id number] Social History Tobacco Use Types Packs/Day Years Used Date Smoking Tobacco: Never Assessed Comments Unknown Sex and Gender Information Value Date Recorded Sex Assigned at Not on file Legal Sex Female 5:58 PM CDT Gender Identity Not on file Sexual Orientation Not on file documented as of this encounter Miscellaneous Notes * Cerner Conversion Note - Lydia ProviderMD - 04/16/2018 2:06 PM BENEFIT DIRECTOR LACIE Colvin IntraOp Summary Primary Physician: LEANDRO ESPAÑA MD-GAE Finalized Date/Time: 04/16/18 14:22:49 Pt. Name: YASMEEN DAMON D.O.B./Sex: 1975 Female Med Rec #: [id number] Physician: LEANDRO ESPAÑA MD-GAE Financial #: [id number] Pt. Type: O Room/Bed: Admit/Disch: 04/16/18 12:31:00 - Institution: LAC[facility] - Case Attendance Entry 1 Entry 2 Entry 3 Case Attendee LEANDRO ESPAÑA KULCHAR, KATHLEEN A RN LENA, JACHELE MD-GAE Role Performed Surgeon/Proceduralist, Apparel Sales Leader, First Scrub, First First Time In 04/16/18 13:56:00 04/16/18 13:56:00 04/16/18 13:56:00 Time Out 04/16/18 14:22:00 04/16/18 14:22:00 04/16/18 14:22:00 Procedure Endoretrogradecholangiop Endoretrogradecholangiop Endoretrogradecholangiop ancreatography, ancreatography, ancreatography, Sphincterotomy, Biliary Sphincterotomy, Biliary Sphincterotomy, Biliary Duct Balloon Sweep Duct Balloon Sweep Duct Balloon Sweep Other Attendee Superficial Wound Closed By: Last Modified By: MIKIE HERNANDEZ RN KULCHAR, KATHLEEN A, RN KULCHAR, KATHLEEN A, RN 04/16/18 14:22:46 04/16/18 14:22:46 04/16/18 14:22:46 Entry 4 Entry 5 Case Attendee DIAZ CONNELLY BRUNER, HAVEN CARBURETOR REPAIRER Role Performed CARBURETOR REPAIRER/Nurse Psychological Tests Sales Agent Documentation Billing Clerk Time In 04/16/18 13:56:00 04/16/18 13:56:00 Time Out 04/16/18 14:22:00 04/16/18 14:22:00 Procedure Endoretrogradecholangiop Endoretrogradecholangiop ancreatography, ancreatography, Sphincterotomy, Biliary Sphincterotomy, Biliary Duct Balloon Sweep Duct Balloon Sweep Other Attendee Superficial Wound Closed By: Last Modified By: MIKIE HERNANDEZ RN KULCHAR, KATHLEEN A, RN 04/16/18 14:22:46 04/16/18 14:22:46 [facility] - Case Attendance Audit 04/16/18 14:22:46 Levi Maker: [email or web address] Modifier: YUSUF 1 <+> Time Out 1 <*> Procedure Endoretrogradecholangiopancreatography, Sphincterotomy, Biliary Duct Balloon Sweep 2 <+> Time Out 2 <*> Procedure Endoretrogradecholangiopancreatography, Sphincterotomy, Biliary Duct Balloon Sweep 3 <+> Time Out 3 <*> Procedure Endoretrogradecholangiopancreatography, Sphincterotomy, Biliary Duct Balloon Sweep 4 <+> Time Out 4 <*> Procedure Endoretrogradecholangiopancreatography, Sphincterotomy, Biliary Duct Balloon Sweep 5 <+> Time Out 5 <*> Procedure Endoretrogradecholangiopancreatography, Sphincterotomy, Biliary Duct Balloon Sweep 04/16/18 14:18:28 Levi Maker: BACILIOLCKA Modifier: KULCKA 1 <*> Procedure Endoretrogradecholangiopancreatography, Sphincterotomy 2 <*> Procedure Endoretrogradecholangiopancreatography, Sphincterotomy 3 <*> Procedure Endoretrogradecholangiopancreatography, Sphincterotomy 4 <*> Procedure Endoretrogradecholangiopancreatography, Sphincterotomy 5 <*> Procedure Endoretrogradecholangiopancreatography, Sphincterotomy 04/16/18 14:11:04 Levi Maker: BACILIOLCKA Modifier: KULCKA 1 <*> Procedure Endoretrogradecholangiopancreatography 2 <*> Procedure Endoretrogradecholangiopancreatography 3 <*> Procedure Endoretrogradecholangiopancreatography 4 <*> Procedure Endoretrogradecholangiopancreatography 5 <+> Time In 5 <*> Procedure Endoretrogradecholangiopancreatography 04/16/18 14:05:57 Levi Maker: BACILIOLCKA Modifier: KULCKA 1 <+> Time In 1 <*> Procedure Endoretrogradecholangiopancreatography 2 <+> Time In 2 <*> Procedure Endoretrogradecholangiopancreatography 3 <+> Time In 3 <*> Procedure Endoretrogradecholangiopancreatography 4 <+> Time In 4 <*> Procedure Endoretrogradecholangiopancreatography <+> 5 Case Attendee <+> 5 Role Performed <+> 5 Procedure 04/16/18 13:52:21 Levi Maker: KULCKA Modifier: KULCKA <+> 3 Case Attendee <+> 3 Role Performed <+> 3 Procedure <+> 4 Case Attendee <+> 4 Role Performed <+> 4 Procedure 04/16/18 13:49:16 Levi Maker: KULCKA Modifier: KULCKA <+> 1 Procedure 2 <*> Procedure Endoretrogradecholangiopancreatography [facility] Case Times Entry 1 Patient In Room Time 04/16/18 13:56:00 Out Room Time 04/16/18 14:22:00 Anesthesia Start Time 04/16/18 13:56:00 Stop Time 04/16/18 14:15:00 Anesthesia Ready 04/16/18 14:02:00 Surgery / Procedure Times Start Time 04/16/18 14:06:00 Stop Time 04/16/18 14:15:00 Last Modified By: MIKIE HERNANDEZ RN 04/16/18 14:22:43 [facility] - Case Times Audit 04/16/18 14:22:43 Levi Maker: KULCKA Modifier: KULCKA <+> 1 Out Room Time 04/16/18 14:16:23 Levi Maker: KULCKA Modifier: KULCKA <+> 1 Stop Time <+> 1 Stop Time 04/16/18 14:10:44 Levi Maker: KULCKA Modifier: KULCKA <+> 1 Start Time [facility] - Cautery Entry 1 ESU Identification Cautery Type Monopolar ESU Cautery Type ENDO CUT Comments ID Number ERBE ID Type Hospital Number Cautery Settings ESU Grounding Pad Ground Pad Type Adult Grounding Pad Site Right Flank Grounding Pad LENA, JACHELE Applied By Grounding Pad Site Dry, Intact Skin Condition Before Cautery Grounding Pad Site Unchanged Skin Condition After Cautery Last Modified By: MIKIE HERNANDEZ RN 04/16/18 14:11:58 [facility] - Delays Entry 1 Delay Reason Other Duration 0 Minute(s) Comment NO DELAY Last Modified By: MIKIE HERNANDEZ RN 04/16/18 13:47:22 [facility] - Departure from OR Entry 1 Integumentary Assessment Integumentary WDL Assessment WDL Transfer/Handoff Transfer to PACU Phase I Post-op Transport Stretcher/Gurney Via Patient Transport MIKIE HERNANDEZ RN Accompanied by Last Modified By: MIKIE HERNANDEZ RN 04/16/18 13:47:44 [facility] - Endoscopy Details Entry 1 Abdomen Procedure Soft, Non-Tender, Assessment Non-distended Procedure Abdomen 04/16/18 14:02:00 Assessment D/T Radio Frequency Ablation Last Modified By: MIKIE HERNANDEZ RN 04/16/18 14:02:52 [facility] - Fire Risk Assessment Entry 1 Fire Info Surgical Site or 1- Yes Incision Above the Xyphoid Open O2 Source 1- Yes (Mask or Cannula) Available Ignition 1- Yes (ESU, Laser, Light Source) Fire Risk 3 Assessment Score Fire Score Fire Risk Yes Assessment Complete Fire Risk MIKIE HERNANDEZ RN Assessment Verified By Fire Risk 04/16/18 13:47:00 Assessment Verified Date/Time Fire Risk High Risk Protocol Yes Implemented Standard Fire Yes Safety Precautions Followed Last Modified By: MIKIE HERNANDEZ RN 04/16/18 13:47:53 [facility] - General Case Soil Analyst 1 Case Information OR Endo 04 [facility] Case Level 1 Room Verified Yes Wound Class II - Clean-Contaminated Specialty SN Gastroenterology Anesthesia Type MAC ASA Class 2 Diagnosis Preop Diagnosis RUQ pain Postop Same As Preop No Postop Diagnosis sludge Last Modified By: MIKIE HERNANDEZ RN 04/16/18 14:16:47 E Endo - General Case Data Audit 04/16/18 14:16:47 Levi Maker: KULCKA Modifier: KULCKA <+> 1 Preop Diagnosis <+> 1 Postop Diagnosis 04/16/18 13:51:32 Levi Maker: KULCKA Modifier: KULCKA <+> 1 ASA Class [facility] - Intraoperative Assessment Entry 1 Valid History / Yes Physical in Chart Preoperative Yes Checklist Reviewed/Evaluated Allergies Reviewed Yes Patient is Latex No Sensitive Level of WDL Consciousness (WDL = Alert, Oriented to Person, Place, and Time) Present Upon IVs, ECG monitored Arrival to OR Last Modified By: MIKIE HERNANDEZ RN 04/16/18 13:48:25 [facility] - Intraoperative Equipment Entry 1 Equipment Intraop Monitoring Electrocardiogram Three lead placement (ECG) Electrode Placement Blood Pressure Arm, left upper Location Pulse Oximeter Hand, right Probe Site Antiembolic Devices Scopes Flexible Endoscopes ERCP Scope Used Scope Serial [id number] Number/Identificatio n Number Photo/Video Documentation Photo Yes Video No Last Modified By: MIKIE HERNANDEZ RN 04/16/18 13:48:49 [facility] - Medication Admin Entry 1 Medication/Irrigant Isovue-300 50ml - [id number] Time Administered 04/16/18 14:08:00 Route of [id number] Administration Dose Dose 3 Unit of Measure ml Administered By LEANDRO ESPAÑA MD-WAZehra Procedure Irrigation Last Modified By: MIKIE HERNANDEZ RN 04/16/18 14:17:25 [facility] - Patient Positioning Entry 1 Procedure Endoretrogradecholangiop ancreatography, Sphincterotomy, Biliary Duct Balloon Sweep Body Position Prone Left Arm Position Tucked and padded at side Right Arm Position Tucked and padded at side Left Leg Position Uncrossed, parallel Right Leg Position Uncrossed, parallel Feet Uncrossed Yes Pressure Points Yes Checked Positioning Devices Roll (Other) Positioned By DIAZ CONNELLY CRNA Position Verified Positioning Yes Verified by Surgeon Last Modified By: MIKIE HERNANDEZ RN 04/16/18 14:18:30 [facility] - Patient Positioning Audit 04/16/18 14:18:30 Levi Maker: YUSUF Modifier: KULCKA 1 <*> Procedure Endoretrogradecholangiopancreatography, Sphincterotomy 04/16/18 14:11:06 Levi Maker: YUSUF Modifier: KULCKA 1 <*> Procedure Endoretrogradecholangiopancreatography [facility] [place] [facility] - Sign In Entry 1 Patient, Site, Yes Procedure Identified Surgical Consent Yes Confirmed Surgical Site N/A Marked by person performing procedure Airway Hypothermia Risk No Warming Measures No Taken Last Modified By: MIKIE HERNANDEZ RN 04/16/18 13:47:35 [facility] - Sign Out Entry 1 RN Confirmation Surgical Yes Procedure(s) Identified Instrument, Sponge N/A and Sharps Counts Correct/Documented Equipment Problems N/A Documented Specimen Labeled N/A Correctly Urinary Catheter N/A Documented in IView Safety Checklist Yes Elements Complete? RN Sign Out MIKIE HERNANDEZ RN Signature RN Sign Out 04/16/18 14:17:00 Signature Date/Time Plan of Care Outcome - Fire Risk OUTCOME STATEMENT: Goal met Patient is free from injury related to surgical fire Plan of Care Outcome - Pt Positioning OUTCOME STATEMENT: Goal met Absence of signs and symptoms of positioning injury. Plan of Care Outcome - Skin Prep OUTCOME STATEMENT: Goal met Intraoperative care is consistent with measures to prevent infection Plan of Care Outcome - Xray/Images OUTCOME STATEMENT: Goal met Absence of observable signs or symptoms of radiation injury Plan of Care Outcome - Counts OUTCOME STATEMENT: N/A Absence of signs and symptoms of injury related to extraneous objects Last Modified By: MIKIE HERNANDEZ RN 04/16/18 14:17:43 [facility] - Surgical Procedures Entry 1 Entry 2 Entry 3 Procedure Endoretrogradecholangiop Sphincterotomy Biliary Duct Balloon ancreatography Sweep Modifiers Additional Procedure Description Primary Procedure Yes No No Primary Surgeon LEANDRO ESPAÑA ROBBINS, EARL GLEN, LEANDRO ESPAÑA MD-GAE MD-GAE MD-GAE Start 04/16/18 14:06:00 04/16/18 14:06:00 04/16/18 14:06:00 Stop 04/16/18 14:15:00 04/16/18 14:15:00 04/16/18 14:15:00 Physician States Cecum Reached Anesthesia Type MAC MAC MAC Specialty SN Gastroenterology SN Gastroenterology SN Gastroenterology Wound Class II - Clean-Contaminated II - Clean-Contaminated II - Clean-Contaminated Last Modified By: MIKIE HERNANDEZ RN KULCHAR, KATHLEEN A, RN KULCHAR, KATHLEEN A, RN 04/16/18 14:18:24 04/16/18 14:18:24 04/16/18 14:18:24 E Endo - Surgical Procedures Audit 04/16/18 14:18:24 Levi Maker: YUSUF Modifier: KULCKA <+> 1 Stop <+> 2 Stop <+> 3 Procedure <+> 3 Primary Procedure <+> 3 Primary Surgeon <+> 3 Specialty <+> 3 Start <+> 3 Stop <+> 3 Wound Class <+> 3 Anesthesia Type 04/16/18 14:11:01 Levi Maker: BACILIOLCKA Modifier: KULCKA <+> 1 Start <+> 2 Procedure <+> 2 Primary Procedure <+> 2 Primary Surgeon <+> 2 Specialty <+> 2 Start <+> 2 Wound Class <+> 2 Anesthesia Type E Endo - Time Out Entry 1 Procedure to be Endoretrogradecholangiop Performed ancreatography, Sphincterotomy, Biliary Duct Balloon Sweep Time Out Time Out Pause Time 04/16/18 14:05:00 All activity Yes suspended (unless life threatening emergency) Team Verbally Correct patient Confirms Information identity, Correct side and site are marked, Consent form is present and accurate, Agreement on the procedure to be done, Correct patient position Antibiotic N/A Prophylaxis Administered Or In Progress Within the Last 60 Minutes Beta Bella N/A Administered Venous N/A Thromboembolism Prophylaxis Required Anticipated Critical Events Surgeon None expected Last Modified By: MIKIE HERNANDEZ RN 04/16/18 14:18:30 [facility] - Time Out Audit 04/16/18 14:18:30 Levi Maker: YUSUF Modifier: YUSUF 1 <*> Procedure to be Performed Endoretrogradecholangiopancreatography, Sphincterotomy 04/16/18 14:11:06 Levi Maker: YUSUF Modifier: YUSUF 1 <*> Procedure to be Performed Endoretrogradecholangiopancreatography [facility] [place] [facility] - X-Ray and Images Entry 1 X-Ray/Imaging Type Fluoroscopy Fluoroscopy Type C-Arm Houseman Name JOSE MILLER Protective Devices Yes Used Exposure Time 0.6 Last Modified By: MIKIE HERNANDEZ RN 04/16/18 14:19:02 Case Comments <None> Finalized By: MIKIE HERNANDEZ RN Document Signatures Signed By: MIKIE HERNANDEZ RN 04/16/18 14:22 Electronically signed by [facility] Conversion Bobbin Fixer Cerner at 06/29/2022 4:31 PM CDT documented in this encounter Plan of Treatment Upcoming Encounters Date Type Department Care Team (Late st Contact Info) Description 07/20/2025 10:00 AM EDT Appointment [facility] Echocardiography [address] [place] [address] Melanie Melchor PA-C [address] [address] 07/26/2025 9:30 AM EDT Office Visit [facility] Cardiology - [place] [address] [place] [address] Melanie Melchor PA-C [address] [address] documented as of this encounter Visit Diagnoses Not on filedocumented in this encounter Care Teams Die Assembler Relationship Specialty Start Date End Date Vianney Galdamez MD [address] [place] [facility] [address] [place] [address] PCP - General 08/15/22 documented as of this encounter
--- OUTSIDE RECORDS SUMMARY | 2024-09-04 07:40 | XMS_ITS | Encounter Summary ---
Author Organization [employer] Address [address] [place] [address] Care Team Providers Care Computer Consultant Name Role Phone Vianney Galdamez MD Primary Care Provider [phone] Encounter Details Date Type Department Care Team (Late st Contact Info) Description 04/16/2018 Transcribed Document [facility] [place] [facility] [place] [address] ProviderLydia MD [address] [place] [id number] Social History Tobacco Use Types Packs/Day Years Used Date Smoking Tobacco: Never Assessed Comments Unknown Sex and Gender Information Value Date Recorded Sex Assigned at Not on file Legal Sex Female 5:58 PM CDT Gender Identity Not on file Sexual Orientation Not on file documented as of this encounter Miscellaneous Notes * Cerner Conversion Note - Historical ProviderMD - 04/16/2018 4:26 PM PRESSURE TESTER OPERATOR Nursing Discharge Summary Entered On: 04/16/2018 16:27 EST Performed On: 04/16/2018 16:26 EST by KI SMITH RN Discharge Documentation Discharge Date/Time : 04/16/2018 16:26 EST Patient Disposition, General : Discharge Discharge To : Home with ambulatory/outpatient follow-up Mode Of Departure, General Discharge : Wheelchair Accompanied By, Discharge : Spouse IV Discontinued : Yes Personal Belongings With Patient : Yes Prescriptions Given to Patient : Yes Discharge Instructions Reviewed With, Opportunity For Questions Given : Patient, Spouse Patient Education Completed : Yes Number of Prescriptions Given : 2 Teaching Method : Explanation, Printed materials Teaching Evaluation : Verbalizes understanding KI SMITH RN - 04/16/2018 16:26 EST Electronically signed by [facility] Sjh Conversion Maintenance Mechanic Helper Cerner at 06/29/2022 4:13 PM CDT documented in this encounter Plan of Treatment Upcoming Encounters Date Type Department Care Team (Late st Contact Info) Description 07/20/2025 10:00 AM EDT Appointment [facility] Echocardiography [address] [place] [address] Melanie Melchor PA-C [address] [address] 07/26/2025 9:30 AM EDT Office Visit [facility] Cardiology - [place] [address] [place] [address] Melanie Melchor PA-C [address] [phone] documented as of this encounter Visit Diagnoses Not on filedocumented in this encounter Care Teams Computer Consultant Relationship Specialty Start Date End Date Vianney Galdamez MD [address] [facility] [address] [place] [address] PCP - General 08/15/22 documented as of this encounter
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
--- OUTSIDE RECORDS SUMMARY | 2024-09-04 07:40 | XMS_ITS | Encounter Summary ---
Author Organization [employer] Address [address] [place] [address] Care Team Providers Care Panel Edge Painter Name Role Phone Vianney Galdamez MD Primary Care Provider [phone] Encounter Details Date Type Department Care Team (Late st Contact Info) Description 04/16/2018 Transcribed Document [facility] [place] [address] ProviderLydia MD [address] [place] [phone] Social History Tobacco Use Types Packs/Day Years Used Date Smoking Tobacco: Never Assessed Comments Unknown Sex and Gender Information Value Date Recorded Sex Assigned at Not on file Legal Sex Female 5:58 PM CDT Gender Identity Not on file Sexual Orientation Not on file documented as of this encounter Miscellaneous Notes * Cerner Conversion Note - Lydia ProviderMD - 04/16/2018 3:30 PM SURVEILLANCE TECHNICIAN LACIE Colvin PreOp Summary Primary Physician: LEANDRO ESPAÑA MD-GAE Finalized Date/Time: 04/16/18 13:34:18 Pt. Name: YASMEEN DAMON D.O.B./Sex: 1975 Female Med Rec #: [id number] Physician: LEANDRO ESPAÑA MD-GAE Financial #: [id number] Pt. Type: O Room/Bed: Admit/Disch: 04/16/18 12:31:00 - Institution: [facility] PreOp Case Times Entry 1 In Preop 04/16/18 13:05:00 Ready for Holding n/a Room Patient Ready for 04/16/18 13:34:00 Surgery Patient Out of Preop 04/16/18 13:34:00 Patient Out of n/a Holding Room [facility] PreOp Case Times Audit 04/16/18 13:34:16 Distribution Spec: MADDISON Modifier: [email or web address] <+> 1 Patient Out of Preop <+> 1 Patient Ready for Surgery Finalized By: NAJMA Meyer, RN Document Signatures Signed By: NAJMA Meyer RN 04/16/18 13:34 documented in this encounter Plan of Treatment Upcoming Encounters Date Type Department Care Team (Late st Contact Info) Description 07/20/2025 10:00 AM EDT Appointment [facility] Echocardiography [address] [place] [address] Melanie Melchor PA-C [address] [phone] 07/26/2025 9:30 AM EDT Office Visit [facility] Cardiology - [place] [address] [place] [address] Melanie Melchor PA-C [address] [phone] documented as of this encounter Visit Diagnoses Not on filedocumented in this encounter Care Teams Panel Edge Painter Relationship Specialty Start Date End Date Vianney Galdamez MD [address] [facility] [address] [place] [address] PCP - General 08/15/22 documented as of this encounter
--- OUTSIDE RECORDS SUMMARY | 2024-09-04 07:41 | XMS_ITS | Referral Summary ---
Author Organization [employer] Address [address] [place] [address] Care Team Providers Care Warp Placer Name Role Phone Vianney Galdamez MD Primary Care Provider [phone] Encounters Date Type Department Care Team Description 07/27/2024 1:45 PM EDT Office Visit [facility] Cardiology - [address] [address] Melanie Melchor PA-C Tachycardia (Primary Dx); Palpitations; Abnormal EKG from Last 3 Months Allergies Active Allergy Reactions Criticality Noted Date Comments Ampicillin Nausea And Vomiting Low 06/29/2022 Doxycycline High 04/09/2019 Other reaction(s): Palpitations Medications fluticasone propionate (FLONASE) 50 mcg/actuation nasal spray 1 spray by intraNASAL route nightly. Active polyethylene glycol (GLYCOLAX) 17 gram packet Take 17 g by mouth as needed. Active fLUoxetine (PROzac) 20 MG capsule Take 1 capsule (20 mg total) by mouth daily. 4 Active Wegovy 0.25 mg/0.5 mL syringe Inject 0.5 mLs (0.25 mg total) under the skin once a week Takes on Saturday.. 4 Active hyoscyamine (LEVSIN/SL) 0.125 mg SL tablet Take 1 tablet (125 mcg total) by mouth every 6 (six) hours as needed. 4 Active busPIRone (BUSPAR) 10 MG tablet Take 1 tablet (10 mg total) by mouth 2 (two) times daily. 4 Active estradioL (ESTRACE) 1 MG tablet Take 2 tablets (2 mg total) by mouth daily. 4 Active meloxicam (MOBIC) 15 MG tablet Take 1 tablet (15 mg total) by mouth daily as needed. 4 Active methocarbamoL (ROBAXIN) 750 MG tablet Take 1 tablet (750 mg total) by mouth 3 (three) times daily as needed. 4 Active fexofenadine (GERBER) 180 MG tablet Take 1 tablet (180 mg total) by mouth in the morning. Active HYDROcodone-jennifer taminophen (NORCO 5-325) 5-325 mg per tablet Take 1 tablet by mouth every 6 (six) hours as needed for pain. Max Daily Amount: 4 tablets 42 tablet 4 Active Additional Information Patient not taking.Reported on 07/27/2024 docusate sodium (COLACE) 100 MG capsule Take 1 capsule (100 mg total) by mouth 2 (two) times daily. 60 capsule 4 Active Additional Information Patient not taking.Reported on 07/27/2024 gabapentin (NEURONTIN) 100 MG capsule Take 1 capsule (100 mg total) by mouth 3 (three) times daily. Max Daily Amount: 300 mg 5 Active traMADoL (ULTRAM) 50 mg tablet Take 1 tablet (50 mg total) by mouth 3 (three) times daily. Max Daily Amount: 150 mg 5 Active atenoloL (TENORMIN) 25 MG tabletIndicatio ns:Palpitations Take 1 tablet (25 mg total) by mouth 2 (two) times daily. 180 tablet 3 5 Active Active Problems Problem Noted Date Diagnosed Date Colonic polyp 08/14/2022 COVID-19 vaccine series completed 08/14/2022 PAT (paroxysmal atrial tachycardia) 08/14/2022 Anxiety 06/29/2022 GERD (gastroesophageal reflux disease) 3 Palpitations 06/29/2022 Tachycardia 06/29/2022 Seasonal allergies 06/29/2022 Encounter for general adult medical examination without abnormal findings 06/29/2022 Allergic rhinitis 02/19/2019 Social History Tobacco Use Types Packs/Day Years Used Date Smoking Tobacco: Former Cigarettes Q uit: 2019 Smokeless Tobacco: Never Tobacco Cessation:Counseling Given: Not Answered Alcohol Use Standard Drinks/Week Comments Never 0 [...] Date Víctor rded Speak language other than Sierra Leonean at home Not on file 03/29/2023 Want [...] on file Sexual Orientation Not on file Last Filed Vital Signs Vital Sign Reading Time Taken Comments Blood Pressure 110/86 07/27/2024 2:19 PM EDT Pulse 75 07/27/2024 2:19 PM EDT Temperature 36.6 C (97.9 F) 09/28/2023 4:02 PM EDT Respiratory Rate 20 07/27/2024 2:19 PM EDT Oxygen Saturation 98% 07/27/2024 2:19 PM EDT Inhaled Oxygen Concentration - - Weight 77.3 kg (170 lb 6.4 oz) 07/27/2024 2:19 P M EDT Height 165.1 cm (5' 5 ) 07/27/2024 2:19 PM EDT Body Mass Index 28.36 07/27/2024 2:19 PM EDT Plan of Treatment Upcoming Encounters Date Type Department Care Team (Late st Contact Info) Description 07/20/2025 10:00 AM EDT Appointment [facility] Echocardiography [address] [place] [address] Melanie Melchor PA-C [address] [address] 07/26/2025 9:30 AM EDT Office Visit [facility] Cardiology - [place] [address] [place] [address] Melanie Melchor PA-C [address] [address] Medical Devices Implanted Type Area Doctor Of Osteopathy Device Identifier Shelf Expiration Date Model / Serial / Lot Spcr Hedron C 12x14 7mm 7deg 1211.2417s - [id number] Implanted:Qty: 1 on 09/27/2023 by Sanchez Zamora MD at [facility] [place] IMPLANTS N/A: Neck GLOBUS 03/29/2032 1211.2417S / / [id number] Spcr Hedron C 12x14 7mm 7deg 1211.2417s - [id number] Implanted:Qty: 1 on 09/27/2023 by Sanchez Zamora MD at [facility] [place] IMPLANTS N/A: Neck GLOBUS 08/28/2032 1211.2417S / / [id number] Spcr Hedron C 12x14 7mm 7deg 1211.2417s - [id number] Implanted:Qty: 1 on 09/27/2023 by Sanchez Zamora MD at [facility] [place] IMPLANTS N/A: Neck GLOBUS 07/30/2032 1211.2417S / / [id number] Tiss Live Bn Matrix Osteo 5cc [id number] - [id number] Implanted:Qty: 1 on 09/27/2023 by Sanchez Zamora MD at [facility] [place] IMPLANTS N/A: Neck NUVASIVE 12/24/2027 [id number] / [id number] / Spcr Hedron C 12x14 8mm 7deg 1211.2418s - [id number] Implanted:Qty: 1 on 09/27/2023 by Sanchez Zamora MD at [facility] [place] IMPLANTS N/A: Neck GLOBUS 03/29/2032 1211.2418S / / [id number] Scr Self Drl 14mmx4.6mm 171.014 - [id number] Implanted:Qty: 8 on 09/27/2023 by Sanchez Zamora MD at [facility] [place] IMPLANTS N/A: Neck GLOBUS 171.014 / 171.014 / Plt 3 Lev 51mm 161.351 - [id number] Implanted:Qty: 1 on 09/27/2023 by Sanchez Zamora MD at [facility] [place] IMPLANTS N/A: Neck GLOBUS 161.351 / 161.351 / Explanted Type Area Doctor Of Osteopathy Device Identifier Shelf Expiration Date Model / Serial / Lot Pin Distractor 12mm 665.612 - [id number] Explanted:Qty: 2 on 09/27/2023 at [facility] [place] IMPLANTS N/A: Neck GLOBUS 665.612 / 665.612 / Scr Self Drl Lisa Ang 4.2x14mm 161.014 - [id number] Explanted:Qty: 8 on 09/30/2023 at [facility] [place] IMPLANTS N/A: Neck GLOBUS 161.014 / 161.014 / Procedures Procedure Name Priority Date/Time Associated Diagnosis Comments FS_MODEL_IP_ECG 12-LEAD Routine 07/27/2024 4:26 P M EDT Tachycardia from Last 3 Months Results * ECG 12 lead (07/27/2024 4:26 PM EDT) Melnaie Melchor PA-C ECG ORDERABLES Final Result from Last 3 Months Insurance [employer] CROSS/BLUE SHIELD Advance Directives For more information, please contact: [phone] * Full Code (Latest Code Status on File) Date Activated Date Inactivated Comments 09/27/2023 4:49 PM 09/28/2023 5:48 PM -Attempt Res uscitation if person has no pulse and is not breathing. -If no pulse or not breathing attempt CPR/CODE. -Call Rapid Response if patient is in distress. Care Teams Warp Placer Relationship Specialty Start Date End Date Vianney Galdamez MD [address] [place] [facility] [address] [place] [address] PCP - General 08/15/22
--- OUTSIDE RECORDS SUMMARY | 2024-09-04 07:41 | XMS_ITS | Clinical Summary ---
Author Organization [employer] Address [address] [place] [address] Care Team Providers Care Supervisor Paper Products Name Role Phone Vianney Galdamez MD Primary Care Provider [phone] Allergies Active Allergy Reactions Criticality Noted Date [...] without abnormal findings 06/29/2022 Allergic rhinitis 02/19/2019 Encounters Date Type Department Care Team Description 07/27/2024 1:45 PM EDT Office Visit [facility] Cardiology - [address] [address] Melanie Melchor PA-C Tachycardia (Primary Dx); Palpitations; Abnormal EKG from Last 3 Months Family History Medical History Relation Name Comments No Known Problem Father No Known Problem Mother Relation Name Status Comments Father Mother Social History Tobacco Use Types Packs/Day Years Used Date Smoking Tobacco: Former Cigarettes Q uit: 2020 Smokeless Tobacco: Never Tobacco Cessation:Counseling Given: Not [...] Date Víctor rded Speak language other than Cypriot at home Not on file 03/29/2023 Want [...] Info) Description 07/20/2025 10:00 AM EDT Appointment [facility] Echocardiography [address] [place] [address] Melanie Melchor PA-C [address] [address] 07/26/2025 9:30 AM EDT Office Visit [facility] Cardiology - [place] [address] [place] [address] Melanie Melchor PA-C [address] [address] [phone] (work) Health Maintenance Due Date Last Done Comments CT Colonography 1975 Colonoscopy 1975 Colorectal Cancer Screening 1975 FOBT/FIT 1975 Fit-DNA (Cologuard) 1975 Sigmoidoscopy 1975 HIV Screening 10/20/1991 Hepatitis C Screening 1994 Pap Smear 1997 Breast Cancer Screening 2016 Lipid Panel 2021 COVID-19 VACCINE ( season) 2023 12/06/2021, 01/04/2021, 06/24/2020, Additional history exists Depression Screening (12+) 09/22/2024 09/23/2023 Influenza Vaccine (Season Ended) 2024 Tobacco Cessation Counseling and Screening (12+) 07/27/2025 07/27/2024 DTAP/TDAP/TD VACCINES (3 - Td or Tdap) 07/22/2028 07/22/2018, 08/06/2017 Pneumococcal Vaccine: 0-49 Years Aged Out No longer eligible based on patient's age to complete this topic Medical Devices Implanted Type Area Copy Messenger Device Identifier Shelf Expiration Date Model / Serial / Lot Spcr Hedron C 12x14 7mm 7deg 1211.2417s - [id number] Implanted:Qty: 1 on 09/27/2023 by Sanchez Zamora MD at [facility] IMPLANTS N/A: Neck GLOBUS 03/29/2032 1211.2417S / / [id number] Spcr Hedron C 12x14 7mm 7deg 1211.2417s - [id number] Implanted:Qty: 1 on 09/27/2023 by Sanchez Zamora MD at [facility] IMPLANTS N/A: Neck GLOBUS 08/28/2032 1211.2417S / / [id number] Spcr Hedron C 12x14 7mm 7deg 1211.2417s - [id number] Implanted:Qty: 1 on 09/27/2023 by Sanchez Zamora MD at [facility] IMPLANTS N/A: Neck GLOBUS 07/30/2032 1211.2417S / / [id number] Tiss Live Bn Matrix Osteo 5cc [id number] - [id number] Implanted:Qty: 1 on 09/27/2023 by Sanchez Zamora MD at [facility] IMPLANTS N/A: Neck NUVASIVE 12/24/2027 [id number] / [id number] / Spcr Hedron C 12x14 8mm 7deg 1211.2418s - [id number] Implanted:Qty: 1 on 09/27/2023 by Sanchez Zamora MD at [facility] IMPLANTS N/A: Neck GLOBUS 03/29/2032 1211.2418S / / [id number] Scr Self Drl 14mmx4.6mm 171.014 - [id number] Implanted:Qty: 8 on 09/27/2023 by Sanchez Zamora MD at [facility] IMPLANTS N/A: Neck GLOBUS 171.014 / 171.014 / Plt 3 Lev 51mm 161.351 - [id number] Implanted:Qty: 1 on 09/27/2023 by Sanchez Zamora MD at [facility] IMPLANTS N/A: Neck GLOBUS 161.351 / 161.351 / Explanted Type Area Copy Messenger Device Identifier Shelf Expiration Date Model / Serial / Lot Pin Distractor 12mm 665.612 - [id number] Explanted:Qty: 2 on 09/27/2023 at [facility] IMPLANTS N/A: Neck GLOBUS 665.612 / 665.612 / Scr Self Drl Lisa Ang 4.2x14mm 161.014 - [id number] Explanted:Qty: 8 on 09/30/2023 at [facility] IMPLANTS N/A: Neck GLOBUS 161.014 / 161.014 / Procedures Procedure Name Priority Date/Time Associated Diagnosis Comments FS_MODEL_IP_ECG 12-LEAD Routine 07/27/2024 4:26 P M EDT Tachycardia from Last 3 Months Results * ECG 12 lead (07/27/2024 4:26 PM EDT) us Melanie Melchor PA-C ECG ORDERABLES Final Result from Last 3 [place] [id number] BLUE CROSS/BLUE SHIELD Advance Directives For more information, please contact: [phone] * Full Code (Latest Code Status on File) Date Activated Date Inactivated Comments 09/27/2023 4:49 PM 09/28/2023 5:48 PM -Attempt Res uscitation if person has no pulse and is not breathing. -If no pulse or not breathing attempt CPR/CODE. -Call Rapid Response if patient is in distress. Care Teams Supervisor Paper Products Relationship Specialty Start Date End Date Vianney Galdamez MD [address] [facility] [address] [place] [address] PCP - General 08/15/22
--- NOTE | 2024-09-04 07:43 | CT_ITS ---
FINAL REPORT TECHNIQUE: Thin section axial CT with sagittal reconstruction without contrast. Imaging performed after intrathecal contrast administration. This study was performed with techniques to keep radiation doses as low as reasonably achievable, (ALARA). Individualized dose reduction techniques using automated exposure control or adjustment of mA and/or kV according to the patient''s size were employed. CLINICAL HISTORY: CERVICAL SPINE PAIN, post myelogram COMPARISON: None FINDINGS: CT CERVICAL MYELOGRAM Status post fusion C4 through C7. Minimal retrolisthesis at C4 on C5. No evidence of fracture. C2-3: Tiny right paracentral disc protrusion. C3-4: Small to moderate right paracentral disc osteophyte complex contacts and mildly compresses right spinal canal. Mild right canal stenosis. C4-5: Moderate-sized right paracentral disc osteophyte complex. Mild right cord compression. Moderate canal stenosis, nowdk-qsmukhy-toiu-left. Severe left bony neural foraminal narrowing. C5-6: Bony hypertrophic changes the endplates. Moderate canal stenosis slightly asymmetric to the right. Mild canal compromise and cord contact. Severe right and moderate left bony neural foraminal narrowing. C6-7: Moderate-sized left paracentral disc protrusion covered by osteophytes. Moderate left canal stenosis. Mild left cord compression. C7-T1: Tiny central disc protrusion. IMPRESSION: Significant bony canal stenosis related to degenerative disease and bony hypertrophic changes most pronounced at C4-5 and C5-6. Reviewed, Interpreted and Dictated by Carlene Brian MD Transcribed by Yesenia Baum Authenticated and [facility]
[2024-09-04 08:00] VITALS: BP 108/68; PULSE 85; RESP 17; TEMP 36.6; O2SAT 98; BMI 26.6
[2024-09-04 08:30] VITALS: BP 115/73; PULSE 69; RESP 17; TEMP 36.6; O2SAT 100
--- NOTE | 2024-09-04 08:35 | PC.NURSE ---
rounded on patient. no needs. offered drink, offered warm blankets, pt responded no to all offers
[2024-09-04] MEDS: IOPAMIDOL-300 (61%);15ML VIAL 10 ML IV (08:39)
[2024-09-04 09:00] VITALS: BP 113/74; PULSE 69; RESP 17; O2SAT 100
--- NOTE | 2024-09-04 09:12 | PC.NURSE ---
rounded on pt, no needs at this time
--- NOTE | 2024-09-04 09:26 | PC.NURSE ---
rounded on pt, no needs voiced at this time
[2024-09-04 09:30] VITALS: BP 115/74; PULSE 85; RESP 17; O2SAT 100
[2024-09-04 10:00] VITALS: BP 113/76; PULSE 82; RESP 18; O2SAT 98
--- NOTE | 2024-09-04 10:00 | PC.NURSE ---
Page Brink RN rounded on pt, no needs at this time
== END 2024-09-04 10:35 | disposition home or self-care (01) ==
PROVIDERS: PCP Nurse Practitioner Family; Visit Provider Orthopaedic Surgery
DX: M48.02 Spinal stenosis, cervical region (principal); M47.812 Spondylosis without myelopathy or radiculopathy, cervical region; M50.31 Other cervical disc degeneration, high cervical region; M50.321 Other cervical disc degeneration at C4-C5 level; M50.322 Other cervical disc degeneration at C5-C6 level; M50.323 Other cervical disc degeneration at C6-C7 level
CPT/HCPCS: 62302; 72125; Q9967

== ENCOUNTER 2024-09-16 09:26 | Outpatient (POV) | payer BC, SELFPAY ==
--- OUTSIDE RECORDS SUMMARY | 2023-12-03 09:30 | XMS_ITS ---
Author Organization [facility] Address 1210 [facility] [address] [place] [phone] Care Team Providers Care Network Account Manager Name Role Phone Anne Galdamez Unavailable [phone] Allergies Allergen (clinical drug ingredient) Drug/Non Drug [...] Encounter Location Date Provider Diagnosis [facility] 36 [facility] [address] [place] [phone] 12/03/2023 Anne Galdamez Weight loss R63.4 Assessments [...] Follow Up: 3 Months,and prn, Reason: Provider Name:Anneelda sapptammie, 09/21/2024 09:45:00 AM, 12[address] [facility] 36 [facility], [address], [place], [phone], Progress Notes * NALDO DAMONDOB:1975 (48 yo F)Acc No.[id number]:12/03/2023 Progress Notes Patient: NALDO VIZCAINO Provider: CRISTOBAL [...] 1999, Removal of Gall Stones 03/2000, [place]olecystectomy- [place] 03/2000, Hysterectomy - [facility] 2013, Pancreatitis procedure 03/2018. * Hospitalization/Major [...] * Images: Billing Information: * Visit Code: 98464 Office Visit, Est Pt., Level 3. * Procedure Codes: * Electronic signature of Richelle Galdamez APRN on 09/16/2024 at 09:34 AM EDT Sign off status: Pending * Provider: CRISTOBAL Santiago Date: 0 12/03/2023 Generated for Elizabeth hodge/Delaney/Juaquin on: 0 09/16/2024 09:34 AM EDT History and Physical Notes * [...]
--- OUTSIDE RECORDS SUMMARY | 2024-02-25 09:30 | XMS_ITS ---
Author Organization [facility] Address [facility] [address] [place] [phone] Care Team Providers Care Park Guard Name Role Phone Anne Galdamez Unavailable [phone] Allergies Allergen (clinical drug ingredient) Drug/Non Drug [...] Encounter Location Date Provider Diagnosis [place] 1210 [facility] 36 [facility] [address] [place] [phone] 02/25/2024 Anne Galdamez Post menopausal syndrome N95.1 and Weight loss [...] Up: 3 Months,and prn, Reason: Provider Name:Anneelda novak, 09/21/2024 09:45:00 AM, 1210 [facility] 36 [facility], [address], [place], [phone], Progress Notes * NALDO DAMONDOB:1975 (48 yo F)Acc No.[id number]:02/25/2024 Progress Notes Patient: NALDO VIZCAINO Provider: CRISTOBAL Santiago :1975 A ge:48 Y S ex:Female Date:02/25/2024 Address:[address] [id number] Subjective: * Chief Complaints: [...] * Surgical History: [place]endectomy - [place] 1999, Removal of Gall Stones 03/2000, Cholecystectomy- [place] 03/2000, Hysterectomy - [facility] 2013, Pancreatitis procedure 03/2018. * Hospitalization/Major [...] * Images: Billing Information: * Visit Code: 79680 Office Visit, Est Pt., Level 3. 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
--- OUTSIDE RECORDS SUMMARY | 2024-05-25 09:30 | XMS_ITS ---
Author Organization [facility] Address [address] [facility] [address] [place] [id number] Care Team Providers Care Nursing Specialist Name Role Phone Anne Galdamez Unavailable [phone] Allergies Allergen (clinical drug ingredient) Drug/Non Drug [...] Encounter Location Date Provider Diagnosis [place] [address] [place] [facility] 36 [facility] [address] [place] [id number] 05/25/2024 Anne Galdamez Post menopausal syndrome N95.1 [...] Months,and prn, Reason: Provider Name:Anne novak, 09/21/2024 09:45:00 AM, [address] [place] [facility] 36 [facility], [address], [place], [id number], Progress Notes * NALDO DAMONDOB:1975 (48 yo F)Acc No.[id number]:05/25/2024 Progress Notes Patient: Andre GRETANALDO Provider: CRISTOBAL Santiago :1975 A ge:48 Y S ex:Female Date:05/25/2024 Address:[address], [id number] Subjective: * Chief Complaints: * 1 . [...] 1999, Removal of Gall Stones 03/2000, Cholecystectomy- [place] 03/[place], Hysterectomy - [facility] [...] * Images: Billing Information: * Visit Code: 05311 Office Visit, Est Pt., Level 3. * Procedure Codes: 3074F SYST BP LT 130 MM HG. 3079F DIAST BP 80-89 MM HG. * Electronic signature of Richelle Galdamez APRN on 09/16/2024 at 09:34 AM EDT Sign off status: Pending * Provider: CRISTOBAL Santiago Date: 0 05/25/2024 Generated for Elizabeth hodge/Delaney/eTransmitting on: 0 09/16/2024 09:34 AM EDT History [...]
--- OUTSIDE RECORDS SUMMARY | 2024-07-27 13:45 | XMS_ITS | Encounter Summary ---
Author Organization [employer] ([place], [place], [place], [place]) Address [address] [place] [address] Care Team Providers Care Stranner Name Role Phone Vianney Galdamez MD Primary Care Provider [phone] Reason for Referral * Echocardiography (Routine) - New Request Specialty Diagnoses / Procedures Referred By Contac t Referred To Contact Diagnoses Abnormal EKG Procedures ECHO COMPLETE (DOPPLER / COLOR) W OR WO CONTRAST Melanie Melchor PA-C [address] [place] [phone] Phone: tel: fax: [address] [address] Phone: tel: Referral ID Status Reason Start Date Expiration Date V isits Requested Visits Authorized [id number] New Request 07/12/2025 07/12/2026 1 1 Reason for Visit * Reason Comments Follow-up Palpitations Tachycardia Encounter Details Date Type Department Care Team (Late st Contact Info) Description 07/27/2024 1:45 PM EDT Office Visit [facility] Cardiology - [address] [phone] Melanie Melchor PA-C [address] [place] [phone] Tachycardia (Primary Dx); Palpitations; Abnormal EKG Social History Tobacco Use Types Packs/Day Years Used Date Smoking Tobacco: Former Cigarettes Q uit: 2020 Smokeless Tobacco: Never Alcohol Use Standard Drinks/Week Comments Never 0 (1 standard drink = 0.6 oz pur e alcohol) caffeine use [facility] - Mental Health Answer Date Recorde d Little interest or pleasure in doing things Not at all 09/23/2023 Feeling down, depressed, or hopeless Not at all 09/23/2023 Feeling of Stress Not on file 09/23/2023 [facility]I Intimate Partner Violence Answer Da [...] by your partner or ex-partner? No 09/23/2023 Family and Community Support Answer Ramon e Recorded Help with Day to Day Activities Not on file 03/29/2023 Feeling Lonely or Isolated Not on file 03/29 Educational Attainment Answer Date Víctor rded Speak language other than [place] at home Not on file 03/29/2023 Want help with school or training Not on file 03/29/2023 Substance Use Answer Date Recorded Used [...] 4-5,5-6,6-7 ACDF); Surgeon: Sanchez Zamora MD; Location: [facility]; Service: Orthopedic Surgery; Laterality: N/A; [place] 0530, 3 HR (R), PASS [employer]U[place] [employer] ESOPHAGOGASTRODUODENOSCOPY HYSTERECTOMY Past Medical History: Diagnosis Date Allergic rhinitis 02/19/2019 Anxiety 06/29/2022 Blood transfusion without reported diagnosis Colonic polyp COVID-19 vaccine series completed Diverticulitis Encounter for general adult medical examination without abnormal findings 06/29/2022 GERD (gastroesophageal reflux disease) 06/29/2022 Irritable bowel syndrome with constipation Palpitations PAT (paroxysmal atrial tachycardia) ([facility]) Seasonal allergies 06/29/2022 Spinal disorder Tachycardia Family [...] Info) Description 07/20/2025 10:00 AM EDT Appointment [facility] Echocardiography [address] [place] [address] Melanie Melchor PA-C [address] [facility] [address] [place] [address] 07/26/2025 9:30 AM EDT Office Visit [facility] Cardiology - [place] [address] [place] [address] Melanie Melchor PA-C [address] [facility] [address] [place] [address] Scheduled Orders Name Type Priority Associated [...] (EKG) documented in this encounter Care Teams Stranner Relationship Specialty Start Date End Date Vianney Galdamez MD [address] [facility] [address] [place] [address] PCP - General 08/15/22 documented as of this encounter
--- OUTSIDE RECORDS SUMMARY | 2024-09-16 09:33 | XMS_ITS | Encounter Summary ---
Author Organization [employer] ([place], [place], [place], [place]) Address [address] [place] [address] Care Team Providers Care Agriculture Manager Name Role Phone Vianney Galdamez MD Primary Care Provider [phone] Encounter Details Date Type Department Care Team (Late st Contact Info) Description 04/16/2018 Transcribed Document [facility] [place] [facility] [place] [address] ProviderLydia MD [address] [place] [id number] Social History Tobacco Use Types Packs/Day Years Used Date Smoking Tobacco: Never Assessed Comments Unknown Sex and Gender Information Value Date Recorded Sex Assigned at Not on file Legal Sex Female 5:58 PM CDT Gender Identity Not on file Sexual Orientation Not on file documented as of this encounter Miscellaneous Notes * Cerner Conversion Note - Lydia ProviderMD - 04/16/2018 3:30 PM PRODUCT MARKETING ENGINEER LACIE Colvin PreOp Summary Primary Physician: LEANDRO ESPAÑA MD-GAE Finalized Date/Time: 04/16/18 13:34:18 Pt. Name: YASMEEN DAMON.O.B./Sex: 1975 Female Med Rec #: [id number] Physician: LEANDRO ESPAÑA MD-GAE Financial #: [id number] Pt. Type: O Room/Bed: Admit/Disch: 04/16/18 12:31:00 - Institution: [facility] Colvin PreOp Case Times Entry 1 In Preop 04/16/18 13:05:00 Ready for Holding n/a Room Patient Ready for 04/16/18 13:34:00 Surgery Patient Out of Preop 04/16/18 13:34:00 Patient Out of n/a Holding Room [facility] PreOp Case Times Audit 04/16/18 13:34:16 Supervisor Carding: MADDISON Modifier: BROOKEJ <+> 1 Patient Out of Preop <+> 1 Patient Ready for Surgery Finalized By: NAJMA Meyer RN Document Signatures Signed By: NAJMA Meyer RN 04/16/18 13:34 documented in this encounter Plan of Treatment Upcoming Encounters Date Type Department Care Team (Late st Contact Info) Description 07/20/2025 10:00 AM EDT Appointment [facility] Echocardiography [address] [place] [address] Melanie Melchor PA-C [address] [address] 07/26/2025 9:30 AM EDT Office Visit [facility] Cardiology - [place] [address] [place] [address] Melanie Melchor PA-C [address] [address] documented as of this encounter Visit Diagnoses Not on filedocumented in this encounter Care Teams Agriculture Manager Relationship Specialty Start Date End Date Vianney Galdamez MD [address] [place] [facility] [address] [place] [address] PCP - General 08/15/22 documented as of this encounter
--- OUTSIDE RECORDS SUMMARY | 2024-09-16 09:34 | XMS_ITS | Encounter Summary ---
Author Organization [employer] ([place], [place], [place], [place]) Address [address] [place] [address] Care Team Providers Care Accounting Manager Controller Name Role Phone Vianney Galdamez MD Primary Care Provider [phone] Encounter Details Date Type Department Care Team (Late st Contact Info) Description 04/16/2018 Transcribed Document [facility] [place] [address] ProviderLydia MD [address] [place] [address] Social History Tobacco Use Types Packs/Day Years Used Date Smoking Tobacco: Never Assessed Comments Unknown Sex and Gender Information Value Date Recorded Sex Assigned at Not on file Legal Sex Female 5:58 PM CDT Gender Identity Not on file Sexual Orientation Not on file documented as of this encounter Miscellaneous Notes * Cerner Conversion Note - Lydia ProviderMD - 04/16/2018 4:28 PM WIRE MACHINE OPERATOR Patient Education Materials Follows: Endoscopic Retrograde Cholangiopancreatography [...] provider. Document Released: 12/16/2013 Document Reviewed: 12/16/2013 [employer] Interactive Patient Education ? 2017 [employer]. documented in this encounter Plan of Treatment Upcoming Encounters Date Type Department Care Team (Late st Contact Info) Description 07/20/2025 10:00 AM EDT Appointment [facility] Echocardiography [address] [place] [address] Melanie Melchor PA-C [address] [phone] 07/26/2025 9:30 AM EDT Office Visit [facility] Cardiology - [place] [address] [place] [address] Melanie Melchor PA-C [address] [phone] documented as of this encounter Visit Diagnoses Not on filedocumented in this encounter Care Teams Accounting Manager Controller Relationship Specialty Start Date End Date Vianney Galdamez MD [address] [place] [facility] [address] [place] [address] PCP - General 08/15/22 documented as of this encounter
--- OUTSIDE RECORDS SUMMARY | 2024-09-16 09:34 | XMS_ITS | Encounter Summary ---
Author Organization [employer] ([place], [place], [place], [place]) Address [address] [place] [address] Care Team Providers Care Blue Split Trimmer Name Role Phone Vianney Galdamez MD Primary Care Provider [phone] Encounter Details Date Type Department Care Team (Late st Contact Info) Description 04/16/2018 Transcribed Document [facility] [place] [address] [place] [address] ProviderLydia MD [address] [place] [phone] Social History Tobacco Use Types Packs/Day Years Used Date Smoking Tobacco: Never Assessed Comments Unknown Sex and Gender Information Value Date Recorded Sex Assigned at Not on file Legal Sex Female 5:58 PM CDT Gender Identity Not on file Sexual Orientation Not on file documented as of this encounter Miscellaneous Notes * Cerner Conversion Note - Historical ProviderMD - 04/16/2018 2:17 PM STONE GRADER DATE OF PROCEDURE: 04/16/2018 PREOPERATIVE DIAGNOSIS(ES): POSTOPERATIVE [...] Mannie Logan M.D. CC2: Darek Ferrell MD Electronically signed by [facility] Conversion Account Receivable Associate Cerner at 06/29/2022 4:15 PM CDT documented in this encounter Plan of Treatment Upcoming Encounters Date Type Department Care Team (Late st Contact Info) Description 07/20/2025 10:00 AM EDT Appointment [facility] Echocardiography [address] [place] [address] Melanie Melchor PA-C [address] [facility] [address] [place] [address] 07/26/2025 9:30 AM EDT Office Visit [facility] Cardiology - [place] [address] [place] [address] Melanie Melchor PA-C [address] [facility] [address] [place] [address] documented as of this encounter Visit Diagnoses Not on filedocumented in this encounter Care Teams Blue Split Trimmer Relationship Specialty Start Date End Date Vianney Galdamez MD [address] [facility] [address] [place] [address] PCP - General 08/15/22 documented as of this encounter
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
--- OUTSIDE RECORDS SUMMARY | 2024-09-16 09:34 | XMS_ITS | Encounter Summary ---
Author Organization [employer] ([place], [place], [place], [place]) Address [address] [address] Care Team Providers Care Extras Casting Director Name Role Phone Vianney Galdamez MD Primary Care Provider [phone] Encounter Details Date Type Department Care Team (Late st Contact Info) Description 04/16/2018 Transcribed Document [facility] [place] [address] [place] [address] ProviderLydia MD [address] [place] [address] Social History Tobacco Use Types Packs/Day Years Used Date Smoking Tobacco: Never Assessed Comments Unknown Sex and Gender Information Value Date Recorded Sex Assigned at Not on file Legal Sex Female 5:58 PM CDT Gender Identity Not on file Sexual Orientation Not on file documented as of this encounter Miscellaneous Notes * Cerner Conversion Note - Historical ProviderMD - 04/16/2018 4:27 PM STREETCAR OPERATOR Discharge Instructions Entered On: 04/16/2018 16:28 EST [...] 04/16/2018 16:27 EST Electronically signed by Rebel [facility] Conversion Medication Aid Cerner at 06/29/2022 4:29 PM CDT documented in this encounter Plan of Treatment Upcoming Encounters Date Type Department Care Team (Late st Contact Info) Description 07/20/2025 10:00 AM EDT Appointment [facility] Echocardiography [address] [place] [address] Melanie Melchor PA-C [address] [facility] [place] [address] 07/26/2025 9:30 AM EDT Office Visit [facility] Cardiology - [place] [address] [place] [address] Melanie Melchor PA-C 227 [facility] [address] [place] [address] documented as of this encounter Visit Diagnoses Not on filedocumented in this encounter Care Teams Extras Casting Director Relationship Specialty Start Date End Date Vianney Galdamez MD 1210 [facility] [address] [place] [address] PCP - General 08/15/22 documented as of this encounter
--- OUTSIDE RECORDS SUMMARY | 2024-09-16 09:34 | XMS_ITS | Encounter Summary ---
Author Organization [employer] ([place], [place], [place], [place]) Address [address] [place] [address] Care Team Providers Care Gambreler Name Role Phone Vianney Galdamez MD Primary Care Provider [phone] Encounter Details Date Type Department Care Team (Late st Contact Info) Description 04/16/2018 Transcribed Document [facility] [place] Medicine [facility] [place] [address] ProviderLydia MD [address] [place] [address] Social History Tobacco Use Types Packs/Day Years Used Date Smoking Tobacco: Never Assessed Comments Unknown Sex and Gender Information Value Date Recorded Sex Assigned at Not on file Legal Sex Female 5:58 PM CDT Gender Identity Not on file Sexual Orientation Not on file documented as of this encounter Miscellaneous Notes * Cerner Conversion Note - Historical ProviderMD - 04/16/2018 1:12 PM CORRECTION OFFICER [place] JAIL Pre Procedure Adult Entered On: 04/16/2018 13:18 EST Performed On: 04/16/2018 13:12 EST by NAJMA Meyer RN Height and Weight, Clinical Dosing Height Source : Stated Height Entry Format : [place] Height, Feet : 0 ft(Converted to: 0 cm, 0 Inch) Height, Inches : 65 Inch(Converted to: 5 ft 5 Inch, 165.10 cm) Clinical Height : 165.1 cm Weight Source : Standing scale Weight Entry Format : [place] Clinical Dosing Weight : 74.45 kg Weight, Pounds : 163.8 lb Body Surface Area (BSA) : 1.82 m2 Body Mass Index : 27.3 kg/m2 (HI) [place] Body Weight : 57 kg NAJMA Meyer [...] Spouse Current Home Treatments : None NAJMA Meyre RN - 04/16/2018 13:12 EST Psychosocial History [...] Obtained From : Patient Primary Language : Citizen Of [place] Communication Barrier : None Objects to Sharing [...] Scale Risk Level : 0-24 Low Risk [place] Fall Interventions : Adequate lighting, Bed in [...] Info) Description 07/20/2025 10:00 AM EDT Appointment [facility] Echocardiography [address] [place] [address] Melanie Melchor PA-C [address] [phone] 07/26/2025 9:30 AM EDT Office Visit [facility] Cardiology - [place] [address] [place] [address] Melanie Melchor PA-C [address] [phone] documented as of this encounter Visit Diagnoses Not on filedocumented in this encounter Care Teams Gambreler Relationship Specialty Start Date End Date Vianney Galdamez MD 1210 [place] [facility] [address] [place] [address] PCP - General 08/15/22 documented as of this encounter
--- OUTSIDE RECORDS SUMMARY | 2024-09-16 09:34 | XMS_ITS | Encounter Summary ---
Author Organization [employer] ([place], [place], [place], [place]) Address [address] [place] [address] Care Team Providers Care Motion Picture Film Examiner Name Role Phone Vianney Galdamez MD Primary Care Provider [phone] Encounter Details Date Type Department Care Team (Late st Contact Info) Description 04/16/2018 Transcribed Document [facility] [place] [address] [place] [address] ProviderLydia MD [address] [place] [address] Social History Tobacco Use Types Packs/Day Years Used Date Smoking Tobacco: Never Assessed Comments Unknown Sex and Gender Information Value Date Recorded Sex Assigned at Not on file Legal Sex Female 5:58 PM CDT Gender Identity Not on file Sexual Orientation Not on file documented as of this encounter Miscellaneous Notes * Cerner Conversion Note - Historical ProviderMD - 04/16/2018 4:26 PM GUN STRIPER Nursing Discharge Summary Entered On: 04/16/2018 16:27 [...] KI SMITH RN - 04/16/2018 16:26 EST documented in this encounter Plan of Treatment Upcoming Encounters Date Type Department Care Team (Late st Contact Info) Description 07/20/2025 10:00 AM EDT Appointment [facility] Echocardiography [address] [place] [address] Melanie Melchor PA-C [address] [address] 07/26/2025 9:30 AM EDT Office Visit [facility] Cardiology - [place] [address] [place] [address] Melanie Melchor PA-C [address] [address] documented as of this encounter Visit Diagnoses Not on filedocumented in this encounter Care Teams Motion Picture Film Examiner Relationship Specialty Start Date End Date Vianney Galdamez MD 1210 [facility] [address] [place] [address] PCP - General 08/15/22 documented as of this encounter
--- OUTSIDE RECORDS SUMMARY | 2024-09-16 09:34 | XMS_ITS | Encounter Summary ---
Author Organization [employer] ([place], [place], [place], [place]) Address [address] [place] [address] Care Team Providers Care Aircraft Parts Assembler Name Role Phone Vianney Galdamez MD Primary Care Provider [phone] Encounter Details Date Type Department Care Team (Late st Contact Info) Description 04/16/2018 Transcribed Document [facility] [place] [address] [place] [address] ProviderLydia MD [address] [place] [address] Social History Tobacco Use Types Packs/Day [...] Lydia Frazier MD - 04/16/2018 4:28 PM VICE PRESIDENT SUPPLY CHAIN [place] [address], [place] [address] Patient Copy Patient Information: Name: YASMEEN DAMON Current Date: 04/16/2018 16:28:13 : 1975 Patient Address: [place] [address] Patient Attending Physician: LEANDRO ESPAÑA MD-[facility] Primary Care Provider: KRISTIN GALDAMEZ (REF) Primary Care Provider Discharge Diagnosis: Weight on Admission: 163 lb, 13 oz Comment: Follow-up Instructions: With: Address: When: LEANDRO ESPAÑA [address] [facility], [address] [place] [phone] Business (1) Within As needed Comments: Office [...] provider. Document Released: 12/16/2013 Document Reviewed: 12/16/2013 [employer] Interactive Patient Education ? 2017 [employer] CIGARETTE SMOKING: The facts are clear, cigarette smoking will shorten your life. Smoking can cause many illnesses along the way. As a healthcare provider, we recommend that you stop smoking. Assistance with quitting is available by contacting 5-003-AHBR-NOW. This is a free resource providing counseling, [...] Be sure to sign up for the [employer] patient portal, which gives you 01/10 access to your medical information ??? including these discharge instructions ??? using your computer, smartphone, or tablet. Just go to [employer] to get started. Questions? Call . [facility] would like to thank you for allowing us to assist you with your healthcare needs. INESSA SHANNON L, (or business representative) have received the above patient education materials/instructions and have verbalized understanding: Patient Signature _ Date/Time Patient Pick Up Driver Signature (if needed) Date/Time Clinician/Hospital Pick Up Driver Signature (if needed) Date/Time documented in this encounter Plan of Treatment Upcoming Encounters Date Type Department Care Team (Late st Contact Info) Description 07/20/2025 10:00 AM EDT [facility]ment [facility] [address] [place] [address] Melanie Melchor PA-C [address] [address] 07/26/2025 9:30 AM EDT Office Visit [facility] Cardiology - [place] [address] [place] [address] Melanie Melchor PA-C [address] [address] documented as of this encounter Visit Diagnoses Not on filedocumented in this encounter Care Teams Aircraft Parts Assembler Relationship Specialty Start Date End Date Vianney Galdamez MD 1210 [facility] [address] [place] [address] PCP - General 08/15/22 documented as of this encounter
--- OUTSIDE RECORDS SUMMARY | 2024-09-16 09:34 | XMS_ITS | Patient Health Record ---
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) Anxiety and depression (F41.8) Active confirmed Problem Environmental allergy (172413961) Environmental allergies (Z91.048) Active confirmed Problem Menopause (165788246) Hot flushes, perimenopausal (N95.1) Active confirmed Problem Mood swings (00199810) Mood swings (F39) Active confirmed Problem Menopause (215718675) Post menopausal syndrome (N95.1) Active confirmed Vital Signs Heart Rate 100 /min 05/25/2024 Blood pressure diastolic 80 mm Hg 05/25/2024 Height 64.5 in 05/25/2024 Blood pressure systolic 122 mm Hg 05/25/2024 Weight 164.6 lbs 05/25/2024 BMI 27.81 kg/m2 05/25/2024 Encounters Encounter Location Date Provider Diagnosis [facility] [address] [facility] [address] [place], [place] [id number] 12/03/2023 Anne Galdamez Weight loss R63.4 [facility] [address] [facility] [address] [place], [place] [id number] 02/25/2024 Anne Galdamez Post menopausal syndrome N95.1 and Weight loss R63.4 [facility] [address] [facility] [address] [place], [place] [id number] 05/25/2024 Anne Galdamez Post menopausal syndrome N95.1 ; Weight loss R63.4 and Polyarthralgia M25.50 [facility] [address] [facility] [address] [place], [place] [id number] 03/18/2024 Anne Galdamez [facility] [address] [facility] [address] [place], [place] [phone] 05/01/2024 Anne Galdamez Assessments Encounter Date Diagnosis (ICD Code) Assessment Notes Treatment Notes Treatment Clinical Notes Section Notes 12/03/2023 Weight loss (ICD-10 - R63.4) some nausea; wishes to increase; weight loss noted 02/25/2024 Weight loss (ICD-10 - R63.4) continue [...] Next Appt Details Provider Name:Anne novak, 09/21/2024 09:45:00 AM, [address], [place], [id number], Insurance Providers Payer Name Payer Address Payer Phone Subscriber Number Group Number Insured Name Patient Relationship to Insured Coverage Start Date Coverage End Date MARIA TERESA TEAGUE [id number] [place] [address] [id number] NALDO DAMON Self - patient is the insured Medical (General) History Medical History History ICD Code Palpitations Surgical History Surgery Date(Month/Year) Appendectomy - [facility] 1999 Removal of Gall Stones 03/2000 Cholecystectomy- [place] 03/2000 Hysterectomy - [facility] 2014 Pancreatitis procedure 03/2018 Hospitalization History Reason Date(Month/Year) Acute Pancreatitis 04/2018
--- OUTSIDE RECORDS SUMMARY | 2024-09-16 09:34 | XMS_ITS | Encounter Summary ---
Author Organization [employer] ([place], [place], [place], [place]) Address [address] [place] [address] Care Team Providers Care Self Sealing Fuel Tank Repairer Name Role Phone Vianney Galdamez MD Primary Care Provider [phone] Encounter Details Date Type Department Care Team (Late st Contact Info) Description 04/16/2018 Transcribed Document [facility] [place] [address] [place] [address] ProviderLydia MD [address] [place] [id number] Social History Tobacco Use Types Packs/Day Years Used Date Smoking Tobacco: Never Assessed Comments Unknown Sex and Gender Information Value Date Recorded Sex Assigned at Not on file Legal Sex Female 5:58 PM CDT Gender Identity Not on file Sexual Orientation Not on file documented as of this encounter Miscellaneous Notes * Cerner Conversion Note - Historical ProviderMD - 04/16/2018 2:06 PM PROJECT MANAGEMENT INSTRUCTOR [facility] IntraOp Summary Primary Physician: LEANDRO ESPAÑA MD-GAE Finalized Date/Time: 04/16/18 14:22:49 Pt. Name: YASMEEN DAMON /Sex: 1975 Female Med Rec #: [id number] Physician: LEANDRO ESPAÑA MD-GAE Financial #: [id number] Pt. Type: O Room/Bed: Admit/Disch: 04/16/18 12:31:00 - Institution: [facility] - Case Attendance Entry 1 Entry 2 Entry 3 Case Attendee LEANDRO ESPAÑA KULCHAR, KATHLEEN A, KEILA ADAMS Role Performed Surgeon/Proceduralist, Exploration Engineer, First Scrub, First First Time In 04/16/18 13:56:00 04/16/18 13:56:00 04/16/18 13:56:00 Time Out 04/16/18 14:22:00 04/16/18 14:22:00 04/16/18 14:22:00 Procedure Endoretrogradecholangiop Endoretrogradecholangiop Endoretrogradecholangiop ancreatography, ancreatography, ancreatography, Sphincterotomy, Biliary Sphincterotomy, Biliary Sphincterotomy, Biliary Duct Balloon Sweep Duct Balloon Sweep Duct Balloon Sweep Other Attendee Superficial Wound Closed By: Last Modified By: MIKIE HERNANDEZ RN KULCHAR, KATHLEEN A, MIKIE JAIN RN 04/16/18 14:22:46 04/16/18 14:22:46 04/16/18 14:22:46 Entry 4 Entry 5 Case Attendee DIAZ CONNELLY BRUNER, HAVEN OIL SPOT WASHER Role Performed OIL SPOT WASHER/Nurse Valver Interlocking Tower Operator Time In 04/16/18 13:56:00 04/16/18 13:56:00 Time Out 04/16/18 14:22:00 04/16/18 14:22:00 Procedure Endoretrogradecholangiop Endoretrogradecholangiop ancreatography, ancreatography, Sphincterotomy, Biliary Sphincterotomy, Biliary Duct Balloon Sweep Duct Balloon Sweep Other Attendee Superficial Wound Closed By: Last Modified By: MIKIE HERNANDEZ RN KULCHAR, KATHLEEN A, RN 04/16/18 14:22:46 04/16/18 14:22:46 [facility] - Case Attendance Audit 04/16/18 14:22:46 Hop Sorter: YUSUF Modifier: YUSUF 1 <+> Time Out [...] Sphincterotomy, Biliary Duct Balloon Sweep 04/16/18 14:18:28 Hop Sorter: KULCKA Modifier: KULCKA 1 <*> Procedure Endoretrogradecholangiopancreatography, Sphincterotomy 2 <*> Procedure Endoretrogradecholangiopancreatography, Sphincterotomy 3 <*> Procedure Endoretrogradecholangiopancreatography, Sphincterotomy 4 <*> Procedure Endoretrogradecholangiopancreatography, Sphincterotomy 5 <*> Procedure Endoretrogradecholangiopancreatography, Sphincterotomy 04/16/18 14:11:04 Hop Sorter: BACILIOLCKA Modifier: KULCKA 1 <*> Procedure Endoretrogradecholangiopancreatography 2 <*> Procedure Endoretrogradecholangiopancreatography 3 <*> Procedure Endoretrogradecholangiopancreatography 4 <*> Procedure Endoretrogradecholangiopancreatography 5 <+> Time In 5 <*> Procedure Endoretrogradecholangiopancreatography 04/16/18 14:05:57 Hop Sorter: BACILIOLCKA Modifier: KULCKA 1 <+> Time In 1 <*> Procedure Endoretrogradecholangiopancreatography 2 <+> Time In 2 <*> Procedure Endoretrogradecholangiopancreatography 3 <+> Time In 3 <*> Procedure Endoretrogradecholangiopancreatography 4 <+> Time In 4 <*> Procedure Endoretrogradecholangiopancreatography <+> 5 Case Attendee <+> 5 Role Performed <+> 5 Procedure 04/16/18 13:52:21 Hop Sorter: KULCKA Modifier: KULCKA <+> 3 Case Attendee <+> 3 Role Performed <+> 3 Procedure <+> 4 Case Attendee <+> 4 Role Performed <+> 4 Procedure 04/16/18 13:49:16 Hop Sorter: KULCKA Modifier: KULCKA <+> 1 Procedure 2 <*> Procedure Endoretrogradecholangiopancreatography [facility] [place] - Case Times Entry 1 Patient In Room Time 04/16/18 13:56:00 Out Room Time 04/16/18 14:22:00 Anesthesia Start Time 04/16/18 13:56:00 Stop Time 04/16/18 14:15:00 Anesthesia Ready 04/16/18 14:02:00 Surgery / Procedure Times Start Time 04/16/18 14:06:00 Stop Time 04/16/18 14:15:00 Last Modified By: MIKIE HERNANDEZ RN 04/16/18 14:22:43 [facility] - Case Times Audit 04/16/18 14:22:43 Hop Sorter: KULCKA Modifier: KULCKA <+> 1 Out Room Time 04/16/18 14:16:23 Hop Sorter: KULCKA Modifier: KULCKA <+> 1 Stop Time <+> 1 Stop Time 04/16/18 14:10:44 Hop Sorter: KULCKA Modifier: KULCKA <+> 1 Start Time [...] 04/16/18 13:47:53 [facility] End[facility] - General Case Irrigation Teacher 1 Case Information [place] Endo 04 [facility] Case Level 1 Room Verified Yes Wound Class II - Clean-Contaminated Specialty SN Gastroenterology Anesthesia Type MAC ASA Class 2 Diagnosis Preop Diagnosis RUQ pain Postop Same As Preop No Postop Diagnosis sludge Last Modified By: MIKIE HERNANDEZ RN 04/16/18 14:16:47 [facility] - General Case Data Audit 04/16/18 14:16:47 Hop Sorter: KULCKA Modifier: KULCKA <+> 1 Preop Diagnosis <+> 1 Postop Diagnosis 04/16/18 13:51:32 Hop Sorter: KULCKA Modifier: KULCKA <+> 1 ASA Class [facility] - Intraoperative Assessment Entry 1 Valid History / Yes Physical in Chart Preoperative Yes Checklist Reviewed/Evaluated Allergies Reviewed Yes Patient is Latex No Sensitive Level of WDL Consciousness (WDL = Alert, Oriented to Person, Place, and Time) Present Upon IVs, ECG monitored Arrival to OR Last Modified By: MIKIE HERNANDEZ RN 04/16/18 13:48:25 [facility] End[facility] - Intraoperative Equipment Entry 1 Equipment [...] Admin Entry 1 Medication/Irrigant Isovue-300 50ml - [id number] Time Administered 04/16/18 14:08:00 Route of [id number] Administration Dose Dose 3 Unit of Measure ml Administered By LEANDRO ESPAÑA MD-GILBERTO Procedure Irrigation Last Modified By: MIKIE HERNANDEZ [...] Endo - Patient Positioning Audit 04/16/18 14:18:30 Hop Sorter: YUSUF Modifier: BACILIOLCKA 1 <*> Procedure Endoretrogradecholangiopancreatography, Sphincterotomy 04/16/18 14:11:06 Hop Sorter: YUSUF Modifier: KULCKA 1 <*> Procedure Endoretrogradecholangiopancreatography [facility] - Sign In Entry 1 Patient, Site, Yes Procedure Identified Surgical Consent Yes Confirmed Surgical Site N/A Marked by person performing procedure Airway Hypothermia Risk No Warming Measures No Taken Last Modified By: MIKIE HERNANDEZ RN 04/16/18 13:47:35 [facility] End[facility] - Sign Out Entry 1 RN [...] Primary Surgeon LEANDRO ESPAÑA ROBBINS, EARL GLEN, ROBBINS, EARL GLEN, MD-GAE MD-GAE MD-GAE Start 04/16/18 14:06:00 04/16/18 [...] RN 04/16/18 14:18:24 04/16/18 14:18:24 04/16/18 14:18:24 [facility] End[facility] - Surgical Procedures Audit 04/16/18 14:18:24 Hop Sorter: UYSUF Modifier: KULCKA <+> 1 Stop <+> 2 Stop <+> 3 Procedure <+> 3 Primary Procedure <+> 3 Primary Surgeon <+> 3 Specialty <+> 3 Start <+> 3 Stop <+> 3 Wound Class <+> 3 Anesthesia Type 04/16/18 14:11:01 Hop Sorter: YUSUF Modifier: KULCKA <+> 1 Start <+> 2 Procedure <+> 2 Primary Procedure <+> 2 Primary Surgeon <+> 2 Specialty <+> 2 Start <+> 2 Wound Class <+> 2 Anesthesia Type [facility] - Time Out Entry 1 Procedure [...] Endo - Time Out Audit 04/16/18 14:18:30 Hop Sorter: YUSUF Modifier: YUSUF 1 <*> Procedure to be Performed Endoretrogradecholangiopancreatography, Sphincterotomy 04/16/18 14:11:06 Hop Sorter: YUSUF Modifier: YUSUF 1 <*> Procedure to be Performed Endoretrogradecholangiopancreatography [facility] [place] - X-Ray and Images Entry 1 X-Ray/Imaging Type Fluoroscopy Fluoroscopy Type C-Arm Liquid Yeast Supervisor Name JOSE MILLER Protective Devices Yes Used Exposure Time 0.6 Last Modified By: MIKIE HERNANDEZ RN 04/16/18 14:19:02 Case Comments <None> Finalized By: MIKIE HERNANDEZ RN Document Signatures Signed By: MIKIE HERNANDEZ RN 04/16/18 14:22 Electronically signed by Rebel [facility] Conversion Optical Lens Manufacturing Tech Cerner at 06/29/2022 4:31 PM CDT documented in this encounter Plan of Treatment Upcoming Encounters Date Type Department Care Team (Late st Contact Info) Description 07/20/2025 10:00 AM EDT [facility]ointment [facility] [address] [place] [address] Melanie Melchor PA-C [address] [address] 07/26/2025 9:30 AM EDT Office Visit [facility] Cardiology - [place] [address] [place] [address] Melanie Melchor PA-C [address] [address] documented as of this encounter Visit Diagnoses Not on filedocumented in this encounter Care Teams Self Sealing Fuel Tank Repairer Relationship Specialty Start Date End Date Vianney Galdamez MD [address] [place] [facility] [address] [place] [address] PCP - General 08/15/22 documented as of this encounter
--- OUTSIDE RECORDS SUMMARY | 2024-09-16 09:35 | XMS_ITS | Clinical Summary ---
Author Organization [employer] ([place], [place] Address [address] [place] [address] Care Team Providers Care Debarker Operator Name Role Phone Vianney Galdamez MD Primary Care Provider [phone] Allergies Active Allergy Reactions Criticality Noted Date [...] Description 07/27/2024 1:45 PM EDT Office Visit [facility] Cardiology - [address] [address] Melanie Melchor PA-C Tachycardia (Primary [...] 0.6 oz pur e alcohol) caffeine use [facility] - Mental Health Answer Date Recorde [...] Date Víctor rded Speak language other than [place] at home Not on file 03/29/2023 Want [...] [facility] Echocardiography [address] [place] [address] Melanie Melchor PA-C [address] [facility] [address] [place] [address] 07/26/2025 9:30 AM EDT Office Visit [facility] Cardiology - [place] [address] [place] [address] Melanie Melchor PA-C [address] [address] Health Maintenance Due Date Last Done Comments CT Colonography 1976 Colonoscopy 1976 Colorectal Cancer Screening 1976 FOBT/FIT 1976 Fit-DNA (Cologuard) 1976 Sigmoidoscopy 1976 HIV Screening 10/20/1991 Hepatitis C Screening 1994 Pap Smear 1997 Breast Cancer Screening 2016 Lipid Panel 2021 COVID-19 VACCINE ( season) 2023 12/06/2021, 01/04/2021, 06/24/2020, Additional history exists Depression Screening (12+) 09/22/2024 09/23/2023 Influenza Vaccine (#1) 2024 Tobacco Cessation Counseling and Screening (12+) 07/27/2025 07/27/2024 DTAP/TDAP/TD VACCINES (3 - Td or Tdap) 07/22/2028 07/22/2018, 08/06/2017 Pneumococcal Vaccine: 0-49 Years Aged Out No longer eligible based on patient's age to complete this topic Medical Devices Implanted Type Area Systems Engineer Device Identifier Shelf Expiration Date Model / Serial / Lot Spcr Hedron C 12x14 7mm 7deg 1211.2417s - [id number] Implanted:Qty: 1 on 09/27/2023 by Sanchez Zamora MD at [facility] IMPLANTS N/A: Neck GLOBUS 03/29/2032 1211.2417S / / [id number] Spcr Hedron C 12x14 7mm 7deg 1211.2417s - [id number] Implanted:Qty: 1 on 09/27/2023 by Sanchez Zamora MD at [facility] IMPLANTS N/A: Neck GLOBUS 08/28/2032 1211.2417S / / [id number] Spcr Hedron C 12x14 7mm 7deg 1211.2417s - [id number] Implanted:Qty: 1 on 09/27/2023 by Sanchez Zamora MD at [facility] IMPLANTS N/A: Neck GLOBUS 07/30/2032 1211.2417S / / [id number] Tiss Live Bn Matrix Osteo 5cc [id number] - [id number] Implanted:Qty: 1 on 09/27/2023 by Sanchez Zamora MD at [facility] IMPLANTS N/A: Neck NUVASIVE 12/24/2027 [id number] / [id number] / Spcr Hedron C 12x14 8mm 7deg 1211.2418s - [id number] Implanted:Qty: 1 on 09/27/2023 by Sanchez Zamora MD at [facility] IMPLANTS N/A: Neck GLOBUS 03/29/2032 1211.2418S / / [id number] Scr Self Drl 14mmx4.6mm 171.014 - [id number] Implanted:Qty: 8 on 09/27/2023 by Sanchez Zamora MD at [facility] IMPLANTS N/A: Neck GLOBUS 171.014 / 171.014 / Plt 3 Lev 51mm 161.351 - [id number] Implanted:Qty: 1 on 09/27/2023 by Sanchez Zamora MD at [facility] IMPLANTS N/A: Neck GLOBUS 161.351 / 161.351 / Explanted Type Area Systems Engineer Device Identifier Shelf Expiration Date Model / Serial / Lot Pin Distractor 12mm 665.612 - [id number] Explanted:Qty: 2 on 09/27/[address] [facility] IMPLANTS N/A: Neck GLOBUS 665.612 / [id number] / Scr Self Drl Lisa Ang 4.2x14mm 161.014 - [id number] Explanted:Qty: 8 on 09/30/[address] [facility] IMPLANTS N/A: Neck GLOBUS 161.014 / 161.014 / Procedures Procedure Name Priority Date/Time Associated Diagnosis Comments FS_MODEL_IP_ECG 12-LEAD Routine 07/27/2024 4:26 P M EDT Tachycardia from Last 3 Months Results * ECG 12 lead (07/27/2024 4:26 PM EDT) Melanie Melchor PA-C ECG ORDERABLES Final Result from Last 3 Months Insurance BLUE CROSS/BLUE SHIELD Advance Directives For more information, please contact: [phone] * Full Code (Latest Code Status on File) Date Activated Date Inactivated Comments 09/27/2023 4:49 PM 09/28/2023 5:48 PM -Attempt Res uscitation if person has no pulse and is not breathing. -If no pulse or not breathing attempt CPR/CODE. -Call Rapid Response if patient is in distress. Care Teams Debarker Operator Relationship Specialty Start Date End Date Vianney Galdamez MD [address] [facility] [address] [place] [id number] PCP - General 08/15/22
--- OUTSIDE RECORDS SUMMARY | 2024-09-16 09:35 | XMS_ITS | Referral Summary ---
Author Organization [employer] ([place], [place], [place], [place]) Address [address] [place] [address] Care Team Providers Care System Configuration Specialist Name Role Phone Vianney Galdamez MD Primary Care Provider [phone] Encounters Date Type Department Care Team Description 07/27/2024 1:45 PM EDT Office Visit [facility] Cardiology - [address] [address] Melanie Melchor PA-C Tachycardia (Primary [...] 0.6 oz pur e alcohol) caffeine use [facility] - Mental Health Answer Date Recorde [...] Date Víctor rded Speak language other than [place] at home Not on file 03/29/2023 Want [...] Info) Description 07/20/2025 10:00 AM EDT Appointment [facility] Echocardiography [address] [place] [address] Melanie Melchor PA-C [address] [facility] [address] [place] [address] 07/26/2025 9:30 AM EDT Office Visit [facility] Cardiology - [place] [address] [place] [address] Melanie Melchor PA-C [address] [facility] [address] [place] [address] Medical Devices Implanted Type Area Mohs Surgeon/General Dermatologist Device Identifier Shelf Expiration Date Model / Serial / Lot Spcr Hedron C 12x14 7mm 7deg 1211.2417s - [id number] Implanted:Qty: 1 on 09/27/2023 by Sanchez Zamora MD at [facility] IMPLANTS N/A: Neck GLOBUS 03/29/2032 1211.2417S / / [id number] Spcr Hedron C 12x14 7mm 7deg 1211.2417s - [id number] Implanted:Qty: 1 on 09/27/2023 by Sanchez Zamora MD at [facility] IMPLANTS N/A: Neck GLOBUS 08/28/2032 1211.2417S / / [id number] Spcr Hedron C 12x14 7mm 7deg 1211.2417s - [id number] Implanted:Qty: 1 on 09/27/2023 by Sanchez Zamora MD at [facility] IMPLANTS N/A: Neck GLOBUS 07/30/2032 1211.2417S / / [id number] Tiss Live Bn Matrix Osteo c 4580029 - [id number] Implanted:Qty: 1 on 09/27/2023 by Sanchez Zamora MD at [facility] IMPLANTS N/A: Neck NUVASIVE 12/24/2027 [id number] / [id number] / Spcr Hedron C 12x14 8mm 7deg 1211.2418s - [id number] Implanted:Qty: 1 on 09/27/2023 by Sanchez Zamora MD at [facility] IMPLANTS N/A: Neck GLOBUS 03/29/2032 1211.2418S / / [id number] Scr Self Drl 14mmx4.6mm 171.014 - [id number] Implanted:Qty: 8 on 09/27/2023 by Sanchez Zamora MD at [facility] IMPLANTS N/A: Neck GLOBUS 171.014 / 171.014 / Plt 3 Lev 51mm 161.351 - [id number] Implanted:Qty: 1 on 09/27/2023 by Sanchez Zamora MD at [facility] IMPLANTS N/A: Neck GLOBUS 161.351 / 161.351 / Explanted Type Area Mohs Surgeon/General Dermatologist Device Identifier Shelf Expiration Date Model / Serial / Lot Pin Distractor 12mm 665.612 - [id number] Explanted:Qty: 2 on 09/27/2023 at [facility] IMPLANTS N/A: Neck GLOBUS 665.612 / 665.612 / Scr Self Drl Lisa Ang 4.2x14mm 161.014 - [id number] Explanted:Qty: 8 on 09/30/2023 at [facility] IMPLANTS N/A: Neck GLOBUS 161.014 / 161.014 / Procedures Procedure Name Priority Date/Time Associated Diagnosis Comments FS_MODEL_IP_ECG 12-LEAD Routine 07/27/2024 4:26 P M EDT Tachycardia from Last 3 Months Results * ECG 12 lead (07/27/2024 4:26 PM EDT) Melanie Melchor PA-C ECG ORDERABLES Final Result from Last [address] [place] [id number] BLUE CROSS/BLUE SHIELD Advance Directives For more information, please contact: [phone] * Full Code (Latest Code Status on File) Date Activated Date Inactivated Comments 09/27/2023 4:49 PM 09/28/2023 5:48 PM -Attempt Res uscitation if person has no pulse and is not breathing. -If no pulse or not breathing attempt CPR/CODE. -Call Rapid Response if patient is in distress. Care Teams System Configuration Specialist Relationship Specialty Start Date End Date Vianney Galdamez MD [address] [facility] [address] [place] [id number] PCP - General 08/15/22
[2024-09-16 10:18] VITALS: BP 115/75; PULSE 99; RESP 14; O2SAT 99; BMI 26.6
--- NOTE | 2024-09-16 12:00 | EXP.PAIN.SOA ---
[facility] Disclaimer: The information contained in this section may have been updated after the patient was seen, as this information can be updated by other users. Medical History Anxiety GERD (gastroesophageal reflux disease) Palpitations Cervical vertebral fusion Surgical History Hx of cholecystectomy H/O: hysterectomy Hx of cervical spinal arthrodesis History of appendectomy Family History Other Diabetes Social History Smoking Status: Unknown if ever smoked alcohol intake: never substance use type: former substance user current occupational status: other Travel in the last 8 weeks?: None household members: spouse and children housing: house caffeine: No PM Subjective & Objective Subjective Subjective:: Patient is a pleasant 48-year-old female who presents today for her monthly follow-up. Today she rates her pain a 2 out of 10. She denies any new trauma or injury. She does still have the chronic neck pain with some radicular symptoms however states it is so much better now with our medication regimen we have her on. Patient is scheduled to see neurosurgery on Saturday. Patient is currently managed with baclofen 10 mg 3 times a day, tramadol 50 mg 3 times a day and gabapentin 100 mg 3 times a day. Her Rip has been reviewed and is appropriate. Review of Systems: General: No recent weight changes, no fever, no sleep disturbances Respiratory: No cough, no shortness of air, no recurring pulmonary infections Cardiovascular/peripheral vascular: No chest pain, no palpitations, no edema, no shortness of breath Gastrointestinal: No new onset incontinence, normal bowel movements reported Genitourinary: No new onset incontinence Musculoskeletal: Neck pain Psychiatric: [Normal mood/affect] Neurological: [Denies weakness in extremities], [denies balance issues] Pain at rest (0-10 scale): 2 Objective Objective:: Physical Exam: General: Alert and oriented x3, no acute distress, pleasant and cooperative Lungs: Respirations even and unlabored, symmetrical chest expansion Eyes: PERRL Musculoskeletal: Flexion and extension of cervical [spine] somewhat guarded secondary to pain, [antalgic gait noted] Neurological: Speech clear, no gross sensory deficit Has patient had previous pain injection?: No Conservative treatment options previously tried: Home exercise plan Length of treatment: Longer than 12 with Meds Home Medications and Allergies Home Medications ?Medication ?Instructions ?Recorded ?Confirmed ?Type atenolol 25 mg tablet 25 mg PO BID palpitations 08/07/17 09/16/24 History ketorolac 10 mg tablet 10 mg PO Q8H 3 days #9 tabs 07/28/22 09/16/24 Rx prednisone 20 mg tablet 20 mg PO BID #10 tabs 07/28/22 09/16/24 Rx diclofenac sodium 75 mg 75 mg PO BID #28 tabs 06/11/24 09/16/24 Rx tablet,delayed release baclofen 5 mg tablet 5 mg PO TID #42 tabs 06/25/24 09/16/24 Rx gabapentin 100 mg capsule 100 mg PO TID #90 caps 07/22/24 09/16/24 Rx gabapentin 100 mg capsule 200 mg (2 x 100 mg) PO TID #180 08/12/24 09/16/24 Rx caps tramadol 50 mg tablet 50 mg PO TID #90 tabs 08/12/24 09/16/24 Rx baclofen 10 mg tablet See Rx Instructions .Route 09/14/24 09/16/24 Rx .COMPLEX #90 tabs New Prescriptions to Start Prescriptions: Allergies Allergy/AdvReac Type Severity Reaction Status Date / Time doxycycline Allergy Severe Palpitation Verified 09/04/24 07:59 s ampicillin (AMPICILLIN) Allergy Unknown VOMITTING Verified 09/04/24 07:59 AND DIARRHEA Assessment and Plan *Assessment and plan (1) Spinal stenosis in cervical region: Status: Acute Category: Medical Code(s): M48.02 - Spinal stenosis, cervical region (2) Myelomalacia of cervical cord: Status: Acute Category: Medical Code(s): G95.89 - Other specified diseases of spinal cord (3) Cervical radiculopathy: Status: Acute Category: Medical Code(s): M54.12 - Radiculopathy, cervical region (4) Degenerative disc disease, cervical: Status: Acute Category: Medical Code(s): M50.30 - Other cervical disc degeneration, unspecified cervical region Plan I will refill her baclofen, gabapentin and tramadol and provide a 3-month supply of this medication. I did discuss with the patient to feel free to call us and move up her appointment if she needs to be seen sooner following her evaluation with neurosurgery. Patient agrees with this plan of care. Patient will return to clinic in 3 months. Patient has been instructed to contact the clinic with any concerns before the next appointment. Dr. Redd has reviewed this note and agrees with this plan of care. This note was dictated using voice recognition software and make contain errors or omissions. All injections are used with Lidocaine, Bupivacaine and dexamethasone. Occasionally urine drug screen is needed to verify patient's compliance with our office pain contract. This is ordered based off specific treatments related to chronic pain with the potential to abuse certain medications.
== END 2024-09-16 23:59 | disposition home or self-care (01) ==
PROVIDERS: PCP Nurse Practitioner Family; Visit Provider Nurse Practitioner Family
DX: M47.12 Other spondylosis with myelopathy, cervical region (principal); Z79.899 Other long term (current) drug therapy; Z79.891 Long term (current) use of opiate analgesic
CPT/HCPCS: 99212; G0463

== ENCOUNTER 2024-10-02 07:49 | Outpatient (CLI) | payer BC, SELFPAY ==
--- OUTSIDE RECORDS SUMMARY | 2024-02-25 09:30 | XMS_ITS ---
Author Organization [facility] [address] [place] [phone] Care Team Providers Care Automotive Repair Technician Name Role Phone Anne Galdamez Unavailable [phone] Allergies Allergen (clinical drug ingredient) Drug/Non Drug Allergy documented on EMR Reaction Allergy Type Onset Date Status ampicillin Ampicillin Severe Vomiting & Diarrhea Drug Allergy Active REASON FOR VISIT 3 mth follow up Medications Medication SIG (Take, Route, Frequency, Duration) Notes Start Date End Date Status Wegovy 2.4 MG/0.75ML 0.5 ml Subcutaneous weekly; Duration: 30 day(s) Active Methocarbamol 750 MG 1 tablet Orally 3 t imes daily prn Active Meloxicam 15 MG 1 tablet Orally Once a day; Duration: 30 day(s) Not-Taking Estradiol 2 MG 1 tab(s) Orally once a day; Duration: 90 days Active busPIRone HCl 10 MG 1 tab(s) orally 3 ti mes a day Active MiraLax 17 GM/SCOOP 1 scoop mixed with 8 ounces of fluid Orally Once a day; Duration: 30 day(s) Active Konsyl Daily Fiber 100 % as directed ora lly 3 times a day; Duration: 7 day(s) Active PROzac 20 MG 1 capsule Orally Onc e a day; Duration: 90 day(s) Active Atenolol 25 MG 1 tab(s) orally twic e a day Active Social History Tobacco Use: Social History Observation Description Date Details (start date - stop date) Current Smoker NA - NA CURRENT TOBACCO USE: Question Answer Notes Are you a: current smoker How often do you smoke cigarettes? every day 1 pack per day Vital Signs Blood pressure systolic 120 mm Hg 02/25/20 24 Blood pressure diastolic 80 mm Hg 024 Heart Rate 114 /min 02/25/2024 Height 64.5 in 02/25/2024 Weight 170.2 lbs 02/25/2024 BMI 28.76 kg/m2 02/25/2024 Encounters Encounter Location Date Provider Diagnosis [facility] [address] [place] [phone] 02/25/2024 Anne Denice Post menopausal syndrome N95.1 and Weight loss R63.4 Assessments Encounter Date Diagnosis (ICD Code) Assessment Notes Treatment Notes Treatment Clinical Notes Section Notes 02/25/2024 Post menopausal syndrome (ICD-10 - N95.1) pt does not use tobacco ; she has annual mammograms 02/25/2024 Weight loss (ICD-10 - R63.4) continue with current food choices and portions 02/25/2024 Other will add MVI Plan Of Treatment Medication Medication Name Sig Start Date Stop Date Notes Wegovy 2.4 MG/0.75ML 0.5 ml Subcutaneous weekly; Duration: 30 day(s) Estradiol 2 MG 1 tab(s) Orally once a day; Duration: 90 days Treatment Notes Assessment Notes Post menopausal syndrome pt does not use tobacco ; she has annual mammograms Weight loss continue with curren t food choices and portions Other will add MVI Next Appt Details Follow Up: 3 Months,and prn, Reason: Progress Notes * NALDO DAMONDOB:1975 (48 yo F)Acc No.[id number]:02/25/2024 Progress Notes Patient: NALDO VIZCAINO Provider: CRISTOBAL Santiago :1975 A ge:48 Y S ex:Female Date:02/25/2024 Address:[address], [id number] Subjective: * Chief Complaints: * 1 . 3 mth follow up. * HPI: H PI: 48 year old female presents with c/o Patient is here today for?Pt is here today for a 3 month f/u. Pt sts she has no concerns or complaints at this time, but sts she would like to discucc hormone replacement. G YN: c/o hot flashes. Denies : Fever. D enies : incontinence. has had a hysterectomy and has been on estradiol 1mg daily; feels run down. * ROS: A LLERGY: no C ough. n o R unny nose. G ASTROENTEROLOGY: no N ausea. n o V omiting. n o D iarrhea.?no C onstipation. M USCULOSKELETAL: Joint pain y es, o ngonig neck pain after surgery; has FU appt with neuro surg. U ROLOGY: no D ifficulty urinating. n o B lood in urine. * Medical History: P alpitations. * Surgical History: A [place]endectomy - [place] 1999, Removal of Gall Stones 03/2000, Cholecystectomy- [place] 03/2000, Hysterectomy - [facility] 2013, Pancreatitis procedure 03/2018. * Hospitalization/Major [...] . Alcohol: No. * Medications: T aking Methocarbamol 750 MG Tablet 1 tablet Orally [...] orally twice a day , Taking Wegovy 2.4 MG/0.75ML Solution Auto-injector 0.5 ml Subcutaneous weekly , Not-Taking Meloxicam 15 MG Tablet 1 tablet Orally Once a day , Discontinued Wegovy 1.7 MG/0.75ML Solution Auto- injector 0.75 mL Subcutaneous once a week , Medication List reviewed and reconciled with the patient * Allergies: A mpicillin: Severe Vomiting & Diarrhea - Allergy. Objective: * Vitals: W t:170.2, Temp:97.7, BP:120/80, HR:114, Nurse:DELBERT, Ht: 64.5, BMI:28.76. * Examination: G eneral Examination: General Appearance: NAD, appears healthy, alert, pleasant. H eart: RRR. L ungs: CTAB A&P. N eurologic Exam: alert and oriented. E xtremities: no leg edema. Assessment: * Assessment: 1. P ost menopausal syndrome - N95.1 (Primary) 2 . W eight loss - R63.4? Plan: * Treatment: 2. W eight loss Refill Wegovy Solution Auto-injector, 2.4 MG/0.75ML, 0.5 ml, Subcutaneous, weekly, 30 day(s), 4, Refills 3. Notes: continue with current food choices and portions 3. O thers Notes: will add MVI * Follow Up: 3 Months,and prn * Images: Billing Information: * Visit Code: 05816 Office Visit, Est Pt., Level 3. 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 Pt sts she has no concerns or complaints at this time, but sts she would like to discucc hormone replacement Examination Category Sub-Category Detail Notes Category Not es General Examination Heart: RRR Lungs: CTAB A&P Extremities: no leg edema General Appearance: NAD, appears healthy , alert, pleasant Neurologic Exam: alert and oriented
--- OUTSIDE RECORDS SUMMARY | 2024-05-25 09:30 | XMS_ITS ---
Author Organization [facility] Address [address] [facility] [address] [place] [id number] Care Team Providers Care Technology Officer Name Role Phone Anne Galdamez Unavailable [phone] Allergies Allergen (clinical drug ingredient) Drug/Non Drug [...] 05/25/2024 Encounters Encounter Location Date Provider Diagnosis [place] [address] [facility] [address] [place] [id number] 05/25/2024 Anne Galdamez Post menopausal syndrome N95.1 [...] Details Follow Up: 4 Months,and prn, Reason: Progress Notes * NALDO DAMONDOB:1975 (48 yo F)Acc No.[id number]:05/25/2024 Progress Notes Patient: NALDO VIZCAINO Provider: CRISTOBAL Santiago :1975 A ge:48 Y S ex:Female Date:05/25/2024 Address:[address] [id number] Subjective: * Chief Complaints: * 1 . [...] 1999, Removal of Gall Stones 03/2000, [place]olecystectomy- [place] 03/2000, Hysterectomy - [facility] [...] * Images: Billing Information: * Visit Code: 14031 Office Visit, Est Pt., Level 3. * Procedure Codes: 3074F SYST BP LT 130 MM HG. 3079F DIAST BP 80-89 MM HG. * Electronic signature of Richelle Galdamez APRN on 10/02/2024 at 07:52 AM EDT Sign off status: Pending * Provider: CRISTOBAL Santiago Date: 0 05/25/2024 Generated for Elizabeth hodge/Delaney/Billyitting on: 0 10/02/2024 07:52 AM EDT History [...]
--- OUTSIDE RECORDS SUMMARY | 2024-09-21 05:45 | XMS_ITS ---
[facility] Address [address] [facility] [address] [place] [id number] Care Team Providers Care Conveyor Man Name Role Phone Anne Galdamez Unavailable [phone] Allergies Allergen (clinical drug ingredient) Drug/Non Drug Allergy documented on EMR Reaction Allergy Type Onset Date Status ampicillin Ampicillin Severe Vomiting & Diarrhea Drug Allergy Active Results Component Value Reference Range Notes P-Comprehensive Metabolic Pa aislinn (CMP) Reviewed date:09/28/2024 08:58:13 AM Interpretation:prot 5.9 Performing Lab: Notes/Report: Test performed by [facility], [employer] [address] [place] [address] , [address], [place] [address] Jose Sales MD, Chop Saw Operator CLIA: [id number] Sodium 140 135-145 mmol/L Potassium 4.6 3.5-5.3 mmol/L Chloride 104 97-108 mmol/L CO2 25 20-32 mmol/L Glucose 81 65-99 mg/dL BUN 12 6-20 mg/dL Creatinine 0.66 0.50-1.00 mg/dL Calcium 9.3 8.6-10.4 mg/dL eGFR by Creatinine 108 >59 mL/min/1.73m2 Protein 5.9 6.0-8.3 g/dL Albumin 3.7 3.5-5.3 g/dL Alkaline Phosphatase 89 35-121 IU/L ALT (SGPT) 8 <5-47 IU/L AST (SGOT) 11 <5-40 IU/L Bilirubin, Total 0.5 <0.2-1.2 mg/dL A/G Ratio 1.7 1.1-2.5 P-Lipid Panel Reviewed date:09/28/2024 08:58:55 AM Interpretation:LDL 139; HDL 33; TG 222 Performing Lab: Notes/Report: Test performed by [facility], [address] , [address], [place] [address] Jose Sales MD, Chop Saw Operator CLIA: [id number] Cholesterol 216 <200 mg/dL Triglycerides 222 <150 mg/dL HDL Cholesterol 33 >39 mg/dL Cholesterol / HDL Ratio 6.55 0.00-4.44 Ratio Non-HDL Cholesterol 183 <130 mg/dL LDL Cholesterol (Calculation) 139 <130 mg/dL LDL Cholesterol Levels* Less than 100 mg/dL Optimal 100 to 129 mg/dL Near Optimal/ Above Optimal 130 to 159 mg/dL Borderline High 160 to 189 mg/dL High 190 mg/dL and above Very High * Categories as recommended by the 2004 ATPIII guidelines LDL/HDL Ratio 4.2 <3.3 Ratio LDL Cholesterol Patient History Test Date: 07/30/2023 LDL Results: 97 Units: mg/dL % Change: - Test Date: 09/21/2024 LDL Results: 139 Units: mg/dL % Change: +43% REASON FOR VISIT 4 month ckup, Needs labs & mammogram Medications Medication SIG (Take, Route, Frequency, Duration) Notes Start Date End Date Status Atenolol 25 MG 1 tab(s) orally twic e a day Active FLUoxetine HCl 20 MG Take 1 capsule by m outh once daily Active Estradiol 2 MG 1 tab(s) Orally once a day Active Progesterone 100 MG 1 capsule at bedtime Orally Once a day 05/12/2024 Active Wegovy 2.4 MG/0.75ML 0.5 ml Subcutaneous weekly Active traMADol HCl 50 MG 1 tablet as needed Orally 3 times a day Active Baclofen 10 MG 1 tablet as needed Orally 3 times a day Active Konsyl Daily Fiber 100 % as directed ora lly 3 times a day; Duration: 7 day(s) Active Gabapentin 100 MG 1 capsule at bedtime Orally 3 times a day Active busPIRone HCl 10 MG 1 tab(s) orally 3 ti mes a day Not-Taking busPIRone HCl 10 MG 1 tablet Orally 3 ti mes a day; Duration: 90 days 09/21/2024 Active MiraLax 17 GM/SCOOP 1 scoop mixed [...] Problem Status W/U Status Risk Notes Problem Cervical radiculopathy (M54.12) Active confirmed Problem Hypertension (37350125) HTN (hypertension) (I10) Active confirmed Vital Signs Blood pressure systolic 120 mm Hg 09/22/19 25 Blood pressure diastolic 70 mm Hg 025 Heart Rate 92 /min 09/21/2024 Height 64.5 in 09/21/2024 Weight 164.4 lbs 09/21/2024 BMI 27.78 kg/m2 09/21/2024 Encounters Encounter Location Date Provider Diagnosis [facility] [address] [place] [id number] 09/21/2024 Anne Galdamez Post menopausal syndrome N95.1 ; Breast cancer screening Z12.39 ; Lipid screening Z13.220 ; Anxiety and depression F41.8 ; Cervical radiculopathy M54.12 ; HTN (hypertension) I10 and Weight loss R63.4 Assessments Encounter Date Diagnosis (ICD Code) Assessment Notes Treatment Notes Treatment Clinical Notes Section Notes 09/21/2024 Post menopausal syndrome (ICD-10 - N95.1) We will proceed with checking labs since she her last lipid panel was high. Continue taking the Wegovy and watch diet. Schedule a mammogram as she is past due for this. Going to restart her Buspirone like she was on to get her back to feeling like herself. 09/21/2024 Breast cancer screening (ICD-10 - Z12.39) 09/21/2024 Lipid screening (ICD-10 - Z13.220) 09/21/2024 Anxiety and depression (ICD-10 - F41.8) 09/21/2024 Cervical radiculopathy (ICD-10 - M54.12) continue to follow with pain management and surgeon 09/21/2024 HTN (hypertension) (ICD-10 - I10) 09/21/2024 Weight loss (ICD-10 - R63.4) Plan Of Treatment Medication Medication Name Sig Start Date Stop Date Notes Atenolol 25 MG 1 tab(s) orally twice a day FLUoxetine HCl 20 MG Take 1 capsule by mouth once daily Estradiol 2 MG 1 tab(s) Orally once a day Progesterone 100 MG 1 capsule at bedtime Orally Once a day 05/12/2024 Wegovy 2.4 MG/0.75ML 0.5 ml Subcutaneous weekly traMADol HCl 50 MG 1 tablet as needed O rally 3 times a day Baclofen 10 MG 1 tablet as needed O rally 3 times a day Gabapentin 100 MG 1 capsule at bedtime Orally 3 times a day busPIRone HCl 10 MG 1 tablet Orally 3 ti mes a day; Duration: 90 days 09/21/2024 Treatment Notes Assessment Notes Post menopausal syndrome We will proceed with checking labs since she her last lipid panel was high. Continue taking the Wegovy and watch diet. Schedule a mammogram as she is past due for this. Going to restart her Buspirone like she was on to get her back to feeling like herself. Cervical radiculopathy continue to follo w with pain management and surgeon Pending Test Test Name Order Date Mammogram 09/21/2024 Next Appt Details Follow Up: 6 Months,and prn, Reason: Progress Notes * NALDO DAMONDOB:1975 (48 yo F)Acc No.[id number]:09/21/2024 Progress Notes Patient: NALDO VIZCAINO Provider: CRISTOBAL Santiago :1975 A ge:48 Y S ex:Female Date:09/21/2024 Address:[address], [id number] Subjective: * Chief Complaints: * 1 . 4 month ckup. 2. Needs labs & mammogram. * HPI: H PI: Stopped taking her Buspirone a month ago but she said she needs back on this. She goes to meet with her neurosurgeon today for her back. She just got 3 new medications from the pain clinic to help until surgery. Patient is here today for f or a checkup. Pt is fasting. Pt states she would like to be put back on mood medications. C onstitutional: c/o fatigue. C ardiology: Denies : Chest Pain. D enies : Short of Breath. D enies : Dizziness. D enies : Palpitations. N eurology: c/o weakness. c/o Nerve Pain. Denies : headache. D enies : tingling/ numbness. D enies : syncope. P sychology: c/o feeling overwhelmed. c/o Anxiety. c/o depression. * ROS: C ARDIOLOGY: no C hest pain. n o P alpitations. n o S hortness of breath. D ERMATOLOGY: no R rambo. n o H preethi. G ASTROENTEROLOGY: no N ausea. n o V omiting. n o D iarrhea.? P SYCHOLOGY: Depression y es. n o S uicidal ideation. A nxiety y es. U ROLOGY: no D ifficulty urinating. n o B lood in urine. * Medical History: P alpitations. * Surgical History: A ppendectomy - [facility] 1999, Removal of Gall Stones 03/2000, Cholecystectomy- [place] 03/2000, Hysterectomy - [facility] 2013, Pancreatitis procedure 03/2018. * [...] . Alcohol: No. * Medications: T aking Gabapentin 100 MG Capsule 1 capsule at bedtime Orally 3 times a day , Taking Baclofen 10 MG Tablet 1 tablet as needed Orally 3 times a day , Taking traMADol HCl 50 MG Tablet 1 tablet as needed Orally 3 times a day , Taking MiraLax 17 GM/SCOOP Powder 1 scoop mixed with 8 ounces of fluid Orally Once a day , Taking Konsyl Daily Fiber 100 % Packet as directed orally 3 times a day , Taking Atenolol 25 MG Tablet 1 tab(s) orally twice a day , Taking Wegovy 2.4 MG/0.75ML Solution Auto-injector 0.5 ml Subcutaneous weekly , Taking Progesterone 100 MG Capsule 1 capsule at bedtime Orally Once a day , Taking Estradiol 2 MG Tablet 1 tab(s) Orally once a day , Taking FLUoxetine HCl 20 MG Capsule Take 1 capsule by mouth once daily , Not-Taking busPIRone HCl 10 MG Tablet 1 tab(s) orally 3 times a day , Discontinued Methocarbamol 750 MG Tablet 1 tablet Orally 3 times daily prn , Medication List reviewed and reconciled with the patient * Allergies: A mpicillin: Severe Vomiting & Diarrhea - Allergy. Objective: * Vitals: W t: 164.4, Temp: 97.9, BP: 120/70, HR: 92, Nurse: pe, Ht: 64.5, BMI:27.78. * Examination: G eneral Examination: General Appearance: N AD, appears healthy, alert. H EENT: n ormal. N trudi: n o lymphadenopathy. H eart: R RR. L ungs: c lear to auscultation, normal. A bdomen: b owel sounds present, normal. N eurologic Exam: a lert and oriented. S kin: n ormal, no rash. P eripheral pulses: n ormal (2+) bilaterally. E xtremities: n ormal. Assessment: * Assessment: 1. P ost menopausal syndrome - N95.1 (Primary) 2 . B reast cancer screening - Z12.39 3 . L ipid screening - Z13.220 4 . A nxiety and depression - F41.8 5 . C ervical radiculopathy - M54.12 6 . H TN (hypertension) - I10 7 . W eight loss - R63.4 Plan: * Treatment: Value Reference Range A /G Ratio 1.7 1.1-2.5 - * A lbumin 3.7 3.5-5.3 - g/dL * A lkaline Phosphatase 89 35-121 - IU/L * A LT (SGPT) 8 <5-47 - IU/L * A ST (SGOT) 11 <5-40 - IU/L * B ilirubin, Total 0.5 <0.2-1.2 - mg/dL * B UN 12 6-20 - mg/dL * C alcium 9.3 8.6-10.4 - mg/dL * C hloride 104 97-108 - mmol/L * C O2 25 20-32 - mmol/L * C reatinine 0.66 0.50-1.00 - mg/dL * G lucose 81 65-99 - mg/dL * P otassium 4.6 3.5-5.3 - mmol/L * S odium 140 135-145 - mmol/L * P rotein 5.9 L 6.0-8.3 - g/dL * e GFR by Creatinine 108 >59 - mL/min/1.73m2 * Anne Galdamez 09/28/2024 08:57:55 AM EDT >I spoke with pt and reported results Notes: We will proceed with checking labs since she her last lipid panel was high. Continue taking the Wegovy and watch diet. Schedule a mammogram as she is past due for this. Going to restart her Buspirone like she was on to get her back to feeling like herself.??2.?Breast cancer screening?Imaging: Mammogram* Lucretia Taylor 09/21/2024 01:1 1:06 PM EDT > faxed to [facility] Scheduling 3.?Lipid screening?LAB: P-Lipid Panel (Collection Date & Time - 09/21/2024 09:43 AM)?LDL 139; HDL 33; TG 222* Value Reference Range C holesterol / HDL Ratio 6.55 H 0.00-4.44 - Ratio * C holesterol 216 H <200 - mg/dL * H DL Cholesterol 33 L >39 - mg/dL * L DL Cholesterol (Calculation) 139 H <130 - mg/d L * L DL/HDL Ratio 4.2 H <3.3 - Ratio * N on-HDL Cholesterol 183 H <130 - mg/dL * T riglycerides 222 H <150 - mg/dL * Anne Galdamez 09/23/2024 02:36:12 PM EDT >left message visa phone for return Anne Salazar 09/24/2024 01:13:17 PM EDT >no answer when phonedHAnne oates 09/28/2024 08:58:35 AM EDT >I spoke with pt and reported results 4.?Anxiety and depression? Start busPIRone HCl Tablet, 10 MG, 1 tablet, Orally, 3 times a day, 90 days, 270 Tablet, Refills 1; Continue FLUoxetine HCl Capsule, 20 MG, Take 1 capsule by mouth once daily.??5.?Cervical radiculopathy? Continue Gabapentin Capsule, 100 MG, 1 capsule at bedtime, Orally, 3 times a day;?Continue Baclofen Tablet, 10 MG, 1 tablet as needed, Orally, 3 times a day;?Continue traMADol HCl Tablet, 50 MG, 1 tablet as needed, Orally, 3 times a day.?? Notes: continue to follow with pain management and surgeon??6.?HTN (hypertension)? Continue Atenolol Tablet, 25 MG, 1 tab(s), orally, twice a day.??7.?Weight loss? Continue Wegovy Solution Auto-injector, 2.4 MG/0.75ML, 0.5 ml, Subcutaneous, weekly.?? * Follow Up: 6 Months,and prn * Images: Billing Information: * Visit Code: 18595 Office Visit, Est Pt., Level 4. * Procedure Codes: * Electronic signature of Richelle Galdamez APRN on 10/02/2024 at 07:52 AM EDT Sign off status: Pending * Provider: CRISTOBAL Santiago Date: 09/21/2024 Generated for Printi ng/Faxing/eTransmitting on: 10/02/2024 07:52 AM EDT History and Physical Notes * HPI (History of Present Illness) Category Sub-Category Detail Notes Category Not es Neurology headache tingling/ numbness weakness syncope Nerve Pain Cardiology Short of Breath Chest Pain Palpitations Dizziness Psychology feeling overwhelmed Anxiety depression Constitutional fatigue HPI Patient is here today for for a checkup. Pt is fasting. Pt states she would like to be put back on mood medications Examination Category Sub-Category Detail Notes Category Not es General Examination HEENT: normal Heart: RRR Lungs: clear to auscultatio n, normal Abdomen: bowel sounds present , normal Extremities: normal General Appearance: NAD, appears healthy , alert Skin: normal, no rash Neurologic Exam: alert and oriented Neck: no lymphadenopathy Peripheral pulses: normal (2+) bilatera lly
--- NOTE | 2024-10-02 07:52 | MM_ITS ---
PROCEDURE INFORMATION: Exam: MG Bilateral Screening 3D Mammography Exam date and time: 10/02/2024 7:58 AM Age: 48 years old Clinical indication: Screening examination TECHNIQUE: Imaging protocol: Bilateral Screening tomosynthesis and 2D mammography including computer-aided detection (CAD) when performed. COMPARISON: MG MM DIG SCREENING MAMM BI W/CAD 01/01/2022 4:39 PM FINDINGS: MAMMOGRAPHY: Breast composition: The breasts are heterogeneously dense, which may obscure small masses. Mass: None. Architectural distortion: None. Calcifications: No suspicious calcifications. Asymmetric density: None. Skin thickening: None. Axillary adenopathy: None. IMPRESSION: No mammographic evidence of malignancy. Annual screening is recommended unless otherwise clinically indicated. ASSESSMENT: BI-RADS Category 1: Negative.
--- OUTSIDE RECORDS SUMMARY | 2024-10-02 07:52 | XMS_ITS | Patient Health Record ---
Author Organization [facility] Address [address] [facility] [address] [facility] [address] [place] [id number] Care Team Providers Care Recep Name Role Phone Anne Galdamez Unavailable [phone] Allergies Allergen (clinical drug ingredient) Drug/Non Drug Allergy documented on EMR Reaction Allergy Type Onset Date Status ampicillin Ampicillin Severe Vomiting & Diarrhea Drug Allergy Active Results Component Value Reference Range Notes P-Lipid Panel Reviewed date:09/28/2024 08:58:55 AM Interpretation:LDL 139; HDL 33; TG 222 Performing Lab: Notes/Report: Test performed by [employer] [facility] [address] [place] [address] , [address], [place] [address] Jose Sales MD, Payroll Bookkeeper CLIA: [id number] Cholesterol 216 <200 mg/dL Triglycerides 222 <150 [...] Results: 139 Units: mg/dL % Change: +43% P-Comprehensive Metabolic Pa aislinn (CMP) Reviewed date:09/28/2024 08:58:13 AM Interpretation:prot 5.9 Performing Lab: Notes/Report: Test performed by [facility] [address] [place] [address] , [address], [place] [address] Jose Sales MD, Payroll Bookkeeper CLIA: [id number] Sodium 140 135-145 mmol/L Potassium 4.6 3.5-5.3 [...] 0.5 <0.2-1.2 mg/dL A/G Ratio 1.7 1.1-2.5 Reason For Referral No Information Medications Medication SIG (Take, Route, Frequency, Duration) Notes Start Date End Date Status Atenolol 25 MG 1 tab(s) orally twic e a day Active traMADol HCl 50 MG 1 tablet as needed Orally 3 times a day Active busPIRone HCl 10 MG 1 tablet Orally 3 ti mes a day; Duration: 90 days 09/21/2024 Active Baclofen 10 MG 1 tablet as needed Orally 3 times a day Active Konsyl Daily Fiber 100 % as directed ora lly 3 times a day; Duration: 7 day(s) Active Gabapentin 100 MG 1 capsule at bedtime Orally 3 times a day Active busPIRone HCl 10 MG 1 tab(s) orally 3 ti mes a day Not-Taking MiraLax 17 GM/SCOOP 1 scoop mixed with 8 ounces of fluid Orally Once a day; Duration: 30 day(s) Active FLUoxetine HCl 20 MG Take 1 capsule by m outh once daily Active Estradiol 2 MG 1 tab(s) Orally once a day Active Progesterone 100 MG 1 capsule at bedtime Orally Once a day 05/12/2024 Active Wegovy 2.4 MG/0.75ML 0.5 ml Subcutaneous weekly Active Immunizations Vaccine Route Administration Date Status [...] Problem Status W/U Status Risk Notes Problem Hypertension (17347853) HTN (hypertension) (I10) Active confirmed Problem Menopausal and postmenopausal disorder (N95.9) Active confirmed Problem Seasonal allergy (257784352) Seasonal allergies (J30.2) Active confirmed Problem Mixed anxiety and depressive disorder (006760195) Anxiety and depression (F41.8) Active confirmed Problem Environmental allergy (816126055) Environmental allergies (Z91.048) Active confirmed Problem Cervical radiculopathy (81835734) Cervical radiculopathy (M54.12) Active confirmed Problem Menopause (601194830) Hot flushes, perimenopausal (N95.1) Active confirmed Problem Mood swings (25093223) Mood swings (F39) Active confirmed Problem Menopause (241993600) Post menopausal syndrome (N95.1) Active confirmed Vital Signs Heart Rate 92 /min 09/21/2024 Blood pressure diastolic 70 mm Hg 09/21/2024 Height 64.5 in 09/21/2024 Blood pressure systolic 120 mm Hg 09/21/2024 Weight 164.4 lbs 09/21/2024 BMI 27.78 kg/m2 09/21/2024 Encounters Encounter Location Date Provider Diagnosis [facility] [address] [facility] [address] [place], [place] [phone] 12/03/2023 Anne Galdamez Weight loss R63.4 [facility] [address] [facility] [address] [place], [place] [id number] 02/25/2024 Anne Galdamez Post menopausal syndrome N95.1 and Weight loss R63.4 [facility] [address] [facility] [address] [place], [place] [phone] 05/25/2024 Anne Galdamez Post menopausal syndrome N95.1 ; Weight loss R63.4 and Polyarthralgia M25.50 [facility] [address] [facility] [address] [place], [place] [phone] 09/21/2024 Anne Galdamez Post menopausal syndrome N95.1 ; Breast cancer screening Z12.39 ; Lipid screening Z13.220 ; Anxiety and depression F41.8 ; Cervical radiculopathy M54.12 ; HTN (hypertension) I10 and Weight loss R63.4 [facility] [address] [facility] [address] [place], [place] [phone] 03/18/2024 Anne Galdamez [facility] [address] [facility] [address] [place] [id number] 05/01/2024 Anne Galdamez [facility] [address] [place] [facility] [address] [facility] [address] [place] [phone] 09/25/2024 Anne Galdamez Assessments Encounter Date Diagnosis (ICD [...] use tobacco ; she has annual mammograms 09/21/2024 Breast cancer screening (ICD-10 - Z12.39) 09/21/2024 Post menopausal syndrome (ICD-10 - N95.1) We will proceed with checking labs since she her last lipid panel was high. Continue taking the Wegovy and watch diet. Schedule a mammogram as she is past due for this. Going to restart her Buspirone like she was on to get her back to feeling like herself. 09/21/2024 Lipid screening (ICD-10 - Z13.220) 05/25/2024 Polyarthralgia (ICD-10 - M25.50) she thinks the addition of progesterone has helped her knee pain; it has not helped the back pain as yet 09/21/2024 Anxiety and depression (ICD-10 - F41.8) 09/21/2024 Cervical radiculopathy (ICD-10 - M54.12) continue to follow with pain management and surgeon 09/21/2024 HTN (hypertension) (ICD-10 - I10) 09/21/2024 Weight loss (ICD-10 - R63.4) 02/25/2024 Other will add MVI Plan Of Treatment Pending Test Test Name Order Date Mammogram 09/21/2024 Insurance Providers Payer Name Payer Address Payer Phone Subscriber Number Group Number Insured Name Patient Relationship to Insured Coverage Start Date Coverage End Date [facility] [address] [place] [address] [id number] NALDO DAMON Self - patient is the insured Medical (General) History Medical History History ICD Code Palpitations Surgical History Surgery Date(Month/Year) [facility]endectomy - [facility] 1999 Removal of Gall Stones 03/2000 Cholecystectomy- [place] 03/2000 [facility] 2014 Pancreatitis procedure 03/2018 Hospitalization History Reason Date(Month/Year) Acute Pancreatitis 04/2018
--- OUTSIDE RECORDS SUMMARY | 2024-10-02 07:52 | XMS_ITS | Encounter Summary ---
Author Organization [employer] ([place], [place], [place], [place]) Address [address] [place] [address] Care Team Providers Care Field Coil Winder Name Role Phone Vianney Galdamez MD Primary Care Provider [phone] Encounter Details Date Type Department Care Team (Late st Contact Info) Description 04/16/2018 Transcribed Document [facility] [place] [address] [place] [address] ProviderLydia MD [address] [place] [address] [phone] Social History Tobacco Use Types Packs/Day Years Used Date Smoking Tobacco: Never Assessed Comments Unknown Sex and Gender Information Value Date Recorded Sex Assigned at Not on file Legal Sex Female 5:58 PM CDT Gender Identity Not on file Sexual Orientation Not on file documented as of this encounter Miscellaneous Notes * Cerner Conversion Note - Historical ProviderMD - 04/16/2018 2:17 PM OPTICAL EFFECTS LAYOUT PERSON DATE OF PROCEDURE: 04/16/2018 PREOPERATIVE DIAGNOSIS(ES): POSTOPERATIVE [...] CC2: Darek Ferrell MD Electronically signed by [facility] Conversion Turntable Engineer Cerner at 06/29/2022 4:15 PM CDT documented in this encounter Plan of Treatment Upcoming Encounters Date Type Department Care Team (Late st Contact Info) Description 07/20/2025 10:00 AM EDT Appointment [facility] Echocardiography [address] [place] [address] Melanie Melchor PA-C [address] [facility] [address] [place] [address] 07/26/2025 9:30 AM EDT Office Visit [facility] Cardiology - [place] [address] [place] [address] Melanie Melchor PA-C [address] [facility] [address] [place] [address] documented as of this encounter Visit Diagnoses Not on filedocumented in this encounter Care Teams Field Coil Winder Relationship Specialty Start Date End Date Vianney Galdamez MD [address] [facility] [address] [place] [address] PCP - General 08/15/22 documented as of this encounter
--- OUTSIDE RECORDS SUMMARY | 2024-10-02 07:52 | XMS_ITS | Encounter Summary ---
Author Organization [employer] ([place], [place], [place], [place]) Address [address] [place] [address] Care Team Providers Care Gear Setter Name Role Phone Vianney Galdamez MD Primary Care Provider [phone] Encounter Details Date Type Department Care Team (Late st Contact Info) Description 04/16/2018 Transcribed Document [facility] [place] [address] [place] [address] ProviderLydia MD [address] [place] [address] Social History Tobacco Use Types Packs/Day [...] Lydia Frazier MD - 04/16/2018 4:28 PM ELECTRICIAN REFINERY [place] [address], [place] [address] Patient Copy Patient Information: Name: YASMEEN DAMON Current Date: 04/16/2018 16:28:13 : 1975 Patient Address: [place] [address] Patient Attending Physician: LEANDRO ESPAÑA MD-[facility] Primary Care Provider: KRISTIN GALDAMEZ (REF) Primary Care Provider Discharge Diagnosis: Weight on Admission: 163 lb, 13 oz Comment: Follow-up Instructions: With: Address: When: LEANDRO ESPAÑA [address] [facility]3], [address] [place] [id number] Business (1) Within As needed Comments: Office [...] provider. Document Released: 12/16/2013 Document Reviewed: 12/16/2013 [employer] Interactive Patient Education ? 2017 [employer] CIGARETTE SMOKING: The facts are clear, cigarette smoking will shorten your life. Smoking can cause many illnesses along the way. As a healthcare provider, we recommend that you stop smoking. Assistance with quitting is available by contacting 3-502-UXBB-NOW. This is a free resource providing counseling, [...] Be sure to sign up for the [employer] patient portal, which gives you 01/10 access to your medical information ??? including these discharge instructions ??? using your computer, smartphone, or tablet. Just go to [employer] to get started. Questions? Call . [facility] would like to thank you for allowing us to assist you with your healthcare needs. INESSA SHANNON L, (or enrollment eligibility representative) have received the above patient education materials/instructions and have verbalized understanding: Patient Signature _ Date/Time Patient Senior Supplier Quality Engineer Signature (if needed) Date/Time Clinician/Hospital Senior Supplier Quality Engineer Signature (if needed) Date/Time Electronically signed by Rebel, [facility] Conversion Winder Operator Cerner at 06/29/2022 4:12 PM CDT documented in this encounter Plan of Treatment Upcoming Encounters Date Type Department Care Team (Late st Contact Info) Description 07/20/2025 10:00 AM EDT Appointment [facility] Echocardiography [address] [place] [address] Melanie Melchor PA-C [address] [address] 07/26/2025 9:30 AM EDT Office Visit [facility] Cardiology - [place] [address] [place] [address] Melanie Melchor PA-C [address] [address] documented as of this encounter Visit Diagnoses Not on filedocumented in this encounter Care Teams Gear Setter Relationship Specialty Start Date End Date Vianney Galdamez MD [address] [facility] [address] [place] [address] PCP - General 08/15/22 documented as of this encounter
--- OUTSIDE RECORDS SUMMARY | 2024-10-02 07:52 | XMS_ITS | Encounter Summary ---
Author Organization [employer] ([place], [place], [place], [place]) Address [address] [place] [address] Care Team Providers Care Junior Administrative Assistant Name Role Phone Vianney Galdamez MD Primary Care Provider [phone] Encounter Details Date Type Department Care Team (Late st Contact Info) Description 04/16/2018 Transcribed Document [facility] [place] [facility] [place] [address] ProviderLydia MD [address] [place] [address] Social History Tobacco Use Types Packs/Day Years Used Date Smoking Tobacco: Never Assessed Comments Unknown Sex and Gender Information Value Date Recorded Sex Assigned at Not on file Legal Sex Female 5:58 PM CDT Gender Identity Not on file Sexual Orientation Not on file documented as of this encounter Miscellaneous Notes * Cerner Conversion Note - Lydia ProviderMD - 04/16/2018 2:06 PM FABRIC FINISHER [facility] PACU Summary Primary Physician: LEANDRO LOGAN MD-GAE Finalized Date/Time: 04/16/18 16:32:14 Pt. Name: YASMEEN DAMON.O.B./Sex: 1975 Female Med Rec #: [id number] Physician: LEANDRO LOGAN MD-GAE Financial #: [id number] Pt. Type: O Room/Bed: Admit/Disch: 04/16/18 12:31:00 - Institution: [facility] PACU Case Times Entry 1 In PACU I 04/16/18 14:27:00 Ready for PACU 04/16/18 16:21:00 Discharge Discharge from PACU 04/16/18 16:32:00 I General Comments: patient co burning, cramping, and stabbing. Dr. Logan in to see and talk to patient. Prescriptions to patient. [facility] PACU Case Times Audit 04/16/18 16:32:12 Label Tacker: SMITDO Modifier: SMITDO <+> 1 Discharge from PACU I 04/16/18 16:22:42 Label Tacker: SMITDO Modifier: SMITDO 1 <*> Ready for PACU Discharge Finalized By: KI SMITH, RN Document Signatures Signed By: KI SMITH RN 04/16/18 16:32 Electronically signed by Mario Luque Conversion Electronic Masking System Operator Cerner at 06/29/2022 4:16 PM CDT documented in this encounter Plan of Treatment Upcoming Encounters Date Type Department Care Team (Late st Contact Info) Description 07/20/2025 10:00 AM EDT Appointment [facility] Echocardiography [address] [place] [address] Melanie Melchor PA-C [address] [address] 07/26/2025 9:30 AM EDT Office Visit [facility] Cardiology - [place] [address] [place] [address] Melanie Melchor PA-C [address] [address] documented as of this encounter Visit Diagnoses Not on filedocumented in this encounter Care Teams Junior Administrative Assistant Relationship Specialty Start Date End Date Vianney Galdamez MD [address] [place] [facility] [address] [place] [address] PCP - General 08/15/22 documented as of this encounter
--- OUTSIDE RECORDS SUMMARY | 2024-10-02 07:52 | XMS_ITS | Encounter Summary ---
Author Organization [employer] ([place], [place], [place], [place]) Address [address] [place] [address] Care Team Providers Care Wall To Wall Carpet Installer Name Role Phone Vianney Galdamez MD Primary Care Provider [phone] Encounter Details Date Type Department Care Team (Late st Contact Info) Description 04/16/2018 Transcribed Document [facility] [place] Family Medicine [facility] [place] [address] ProviderLydia MD [address] [place] [address] Social History Tobacco Use Types Packs/Day Years Used Date Smoking Tobacco: Never Assessed Comments Unknown Sex and Gender Information Value Date Recorded Sex Assigned at Not on file Legal Sex Female 5:58 PM CDT Gender Identity Not on file Sexual Orientation Not on file documented as of this encounter Miscellaneous Notes * Cerner Conversion Note - Historical ProviderMD - 04/16/2018 1:12 PM CRITICAL CARE CNS Pre Procedure Adult Entered On: 04/16/2018 13:18 EST Performed On: 04/16/2018 13:12 EST by NAJMA Meyer RN Height and Weight, Clinical Dosing Height Source : Stated Height Entry Format : [place] Height, Feet : 0 ft(Converted to: 0 cm, 0 Inch) Height, Inches : 65 Inch(Converted to: 5 ft 5 Inch, 165.10 cm) Clinical Height : 165.1 cm Weight Source : Standing scale Weight Entry Format : [place] Clinical Dosing Weight : 74.45 kg Weight, Pounds : 163.8 lb Body Surface Area (BSA) : 1.82 m2 Body Mass Index : 27.3 kg/m2 (HI) [place] Body Weight : 57 kg NAJMA Meyer [...] Obtained From : Patient Primary Language : Mosotho Communication Barrier : None Objects to Sharing [...] Yes Giron Gait/Transferring : Normal, bedrest, immobile Grion Mental Status : Oriented to own ability Giron Fall Risk Score : 20 GIRON Fall Scale Risk Level : 0-24 Low Risk [place] Fall Interventions : Adequate lighting, Bed in [...] Info) Description 07/20/2025 10:00 AM EDT Appointment [facility] Echocardiography [address] [place] [address] Melanie Melchor PA-C [address] [phone] 07/26/2025 9:30 AM EDT Office Visit [facility] Cardiology - [place] [address] [place] [address] Melanie Melchor PA-C [address] [phone] documented as of this encounter Visit Diagnoses Not on filedocumented in this encounter Care Teams Wall To Wall Carpet Installer Relationship Specialty Start Date End Date Vianney Galdamez MD [address] [place] [facility] [address] [place] [address] PCP - General 08/15/22 documented as of this encounter
--- OUTSIDE RECORDS SUMMARY | 2024-10-02 07:52 | XMS_ITS | Encounter Summary ---
Author Organization [employer] ([place], [place], [place], [place]) Address [address] [place] [address] Care Team Providers Care It Service Technician Name Role Phone Vianney Galdamez MD Primary Care Provider [phone] Encounter Details Date Type Department Care Team (Late st Contact Info) Description 04/16/2018 Transcribed Document [facility] [place] [facility] [place] [address] ProviderLydia MD [address] [place] [address] [phone] Social History Tobacco Use Types Packs/Day Years Used Date Smoking Tobacco: Never Assessed Comments Unknown Sex and Gender Information Value Date Recorded Sex Assigned at Not on file Legal Sex Female 5:58 PM CDT Gender Identity Not on file Sexual Orientation Not on file documented as of this encounter Miscellaneous Notes * Cerner Conversion Note - Lydia ProviderMD - 04/16/2018 3:30 PM OIL DIPPER [facility] PreOp Summary Primary Physician: LEANDRO ESPAÑA MD-GAE Finalized Date/Time: 04/16/18 13:34:18 Pt. Name: YASMEEN DAMON.O.B./Sex: 1975 Female Med Rec #: [id number] Physician: LEANDRO ESPAÑA MD-GAE Financial #: [id number] Pt. Type: O Room/Bed: Admit/Disch: 04/16/18 12:31:00 - Institution: [facility] PreOp Case Times Entry 1 In Preop 04/16/18 13:05:00 Ready for Holding n/a Room Patient Ready for 04/16/18 13:34:00 Surgery Patient Out of Preop 04/16/18 13:34:00 Patient Out of n/a Holding Room [facility] PreOp Case Times Audit 04/16/18 13:34:16 Clerk Travel Reservations: MADDISON Modifier: BROOKEJ <+> 1 Patient Out of Preop <+> 1 Patient Ready for Surgery Finalized By: NAJMA Meyer RN Document Signatures Signed By: NAJMA Meyer RN 04/16/18 13:34 documented in this encounter Plan of Treatment Upcoming Encounters Date Type Department Care Team (Late st Contact Info) Description 07/20/2025 10:00 AM EDT Appointment [facility] Echocardiography [address] [place] [address] Melanie Melchor PA-C [address] [address] 07/26/2025 9:30 AM EDT Office Visit [facility] Card[facility] [place] [address] [place] [address] Melanie Melchor PA-C [address] [address] documented as of this encounter Visit Diagnoses Not on filedocumented in this encounter Care Teams It Service Technician Relationship Specialty Start Date End Date Vianney Galdamez MD [address] [place] [facility] [address] [place] [address] PCP - General 08/15/22 documented as of this encounter
--- OUTSIDE RECORDS SUMMARY | 2024-10-02 07:52 | XMS_ITS | Encounter Summary ---
Author Organization [employer] ([place], [place], [place], [place]) Address [address] [place] [address] Care Team Providers Care Accounts Adjustable Clerk Name Role Phone Vianney Galdamez MD Primary Care Provider [phone] Encounter Details Date Type Department Care Team (Late st Contact Info) Description 04/16/2018 Transcribed Document [facility] [place] [address] [place] [address] ProviderLydia MD [address] [place] [address] [id number] Social History Tobacco Use Types Packs/Day Years Used Date Smoking Tobacco: Never Assessed Comments Unknown Sex and Gender Information Value Date Recorded Sex Assigned at Not on file Legal Sex Female 5:58 PM CDT Gender Identity Not on file Sexual Orientation Not on file documented as of this encounter Miscellaneous Notes * Cerner Conversion Note - Historical ProviderMD - 04/16/2018 2:06 PM ANALOG DESIGN ENGINEER [facility] IntraOp Summary Primary Physician: LEANDRO ESPAÑA MD-GAE Finalized Date/Time: 04/16/18 14:22:49 Pt. Name: YASMEEN DAMON /Sex: 1975 Female Med Rec #: [id number] Physician: LEANDRO ESPAÑA MD-GAE Financial #: [id number] Pt. Type: O Room/Bed: Admit/Disch: 04/16/18 12:31:00 - Institution: [facility] - Case Attendance Entry 1 Entry 2 Entry 3 Case Attendee LEANDRO ESPAÑA KULCHAR, KATHLEEN A, KEILA ADAMS Role Performed Surgeon/Proceduralist, Client Service Administrator, First Scrub, First First Time In 04/16/18 [...] 5 Case Attendee DIAZ CONNELLY BRUNER, HAVEN CLINICAL REIMBURSEMENT SPECIALIST Role Performed CLINICAL REIMBURSEMENT SPECIALIST/Nurse Early Head Start Teacher Press And Blow Machine Tender Time In 04/16/18 13:56:00 04/16/18 13:56:00 Time Out 04/16/18 14:22:00 04/16/18 14:22:00 Procedure Endoretrogradecholangiop Endoretrogradecholangiop ancreatography, ancreatography, Sphincterotomy, Biliary Sphincterotomy, Biliary Duct Balloon Sweep Duct Balloon Sweep Other Attendee Superficial Wound Closed By: Last Modified By: MIKIE HERNANDEZ RN KULCHAR, KATHLEEN A, RN 04/16/18 14:22:46 04/16/18 14:22:46 [facility] - Case Attendance Audit 04/16/18 14:22:46 Optics Technical Officer: YUSUF Modifier: YUSUF 1 <+> Time Out [...] Sphincterotomy, Biliary Duct Balloon Sweep 04/16/18 14:18:28 Optics Technical Officer: KULCKA Modifier: KULCKA 1 <*> Procedure Endoretrogradecholangiopancreatography, Sphincterotomy 2 <*> Procedure Endoretrogradecholangiopancreatography, Sphincterotomy 3 <*> Procedure Endoretrogradecholangiopancreatography, Sphincterotomy 4 <*> Procedure Endoretrogradecholangiopancreatography, Sphincterotomy 5 <*> Procedure Endoretrogradecholangiopancreatography, Sphincterotomy 04/16/18 14:11:04 Optics Technical Officer: BACILIOLCKA Modifier: KULCKA 1 <*> Procedure Endoretrogradecholangiopancreatography 2 <*> Procedure Endoretrogradecholangiopancreatography 3 <*> Procedure Endoretrogradecholangiopancreatography 4 <*> Procedure Endoretrogradecholangiopancreatography 5 <+> Time In 5 <*> Procedure Endoretrogradecholangiopancreatography 04/16/18 14:05:57 Optics Technical Officer: BACILIOLCKA Modifier: KULCKA 1 <+> Time In 1 <*> Procedure Endoretrogradecholangiopancreatography 2 <+> Time In 2 <*> Procedure Endoretrogradecholangiopancreatography 3 <+> Time In 3 <*> Procedure Endoretrogradecholangiopancreatography 4 <+> Time In 4 <*> Procedure Endoretrogradecholangiopancreatography <+> 5 Case Attendee <+> 5 Role Performed <+> 5 Procedure 04/16/18 13:52:21 Optics Technical Officer: KULCKA Modifier: KULCKA <+> 3 Case Attendee <+> 3 Role Performed <+> 3 Procedure <+> 4 Case Attendee <+> 4 Role Performed <+> 4 Procedure 04/16/18 13:49:16 Optics Technical Officer: KULCKA Modifier: KULCKA <+> 1 Procedure 2 <*> Procedure Endoretrogradecholangiopancreatography [facility] Endo - Case Times Entry 1 Patient In Room Time 04/16/18 13:56:00 Out Room Time 04/16/18 14:22:00 Anesthesia Start Time 04/16/18 13:56:00 Stop Time 04/16/18 14:15:00 Anesthesia Ready 04/16/18 14:02:00 Surgery / Procedure Times Start Time 04/16/18 14:06:00 Stop Time 04/16/18 14:15:00 Last Modified By: MIKIE HERNANDEZ RN 04/16/18 14:22:43 [facility] - Case Times Audit 04/16/18 14:22:43 Optics Technical Officer: KULCKA Modifier: KULCKA <+> 1 Out Room Time 04/16/18 14:16:23 Optics Technical Officer: KULCKA Modifier: KULCKA <+> 1 Stop Time <+> 1 Stop Time 04/16/18 14:10:44 Optics Technical Officer: KULCKA Modifier: KULCKA <+> 1 Start Time [...] 04/16/18 13:47:53 [facility] End[facility] - General Case Helper/Driver 1 Case Information OR Endo 04 [facility] Case Level 1 Room Verified Yes Wound Class II - Clean-Contaminated Specialty SN Gastroenterology Anesthesia Type MAC ASA Class 2 Diagnosis Preop Diagnosis RUQ pain Postop Same As Preop No Postop Diagnosis sludge Last Modified By: MIKIE HERNANDEZ RN 04/16/18 14:16:47 [facility] - General Case Data Audit 04/16/18 14:16:47 Optics Technical Officer: KULCKA Modifier: KULCKA <+> 1 Preop Diagnosis <+> 1 Postop Diagnosis 04/16/18 13:51:32 Optics Technical Officer: KULCKA Modifier: KULCKA <+> 1 ASA Class [...] Admin Entry 1 Medication/Irrigant Isovue-300 50ml - [id number] Time Administered 04/16/18 14:08:00 Route of [id number] Administration Dose Dose 3 Unit of Measure [...] Endo - Patient Positioning Audit 04/16/18 14:18:30 Optics Technical Officer: YUSUF Modifier: BACILIOLCKA 1 <*> Procedure Endoretrogradecholangiopancreatography, Sphincterotomy 04/16/18 14:11:06 Optics Technical Officer: YUSUF Modifier: KULCKA 1 <*> Procedure Endoretrogradecholangiopancreatography [...] Endo - Surgical Procedures Audit 04/16/18 14:18:24 Optics Technical Officer: YUSUF Modifier: KULCKA <+> 1 Stop <+> 2 Stop <+> 3 Procedure <+> 3 Primary Procedure <+> 3 Primary Surgeon <+> 3 Specialty <+> 3 Start <+> 3 Stop <+> 3 Wound Class <+> 3 Anesthesia Type 04/16/18 14:11:01 Optics Technical Officer: YUSUF Modifier: KULCKA <+> 1 Start <+> [...] Endo - Time Out Audit 04/16/18 14:18:30 Optics Technical Officer: YUSUF Modifier: YUSUF 1 <*> Procedure to be Performed Endoretrogradecholangiopancreatography, Sphincterotomy 04/16/18 14:11:06 Optics Technical Officer: YUSUF Modifier: YUSUF 1 <*> Procedure to be Performed Endoretrogradecholangiopancreatography [facility] Endo - X-Ray and Images Entry 1 X-Ray/Imaging Type Fluoroscopy Fluoroscopy Type C-Arm Sports Attorney Name JOSE MILLER Protective Devices Yes Used Exposure Time 0.6 Last Modified By: MIKIE HERNANDEZ RN 04/16/18 14:19:02 Case Comments <None> Finalized By: MIKIE HERNANDEZ RN Document Signatures Signed By: MIKIE HERNANDEZ RN 04/16/18 14:22 Electronically signed by Rebel [facility] Conversion Dishwasher Cerner at 06/29/2022 4:31 PM CDT documented in this encounter Plan of Treatment Upcoming Encounters Date Type Department Care Team (Late st Contact Info) Description 07/20/2025 10:00 AM EDT Appointment [facility] Echocardiography [address] [place] [address] Melanie Melchor PA-C [address] [address] 07/26/2025 9:30 AM EDT Office Visit [facility] Cardiology - [place] [address] [place] [address] Melanie Melchor PA-C [address] [address] documented as of this encounter Visit Diagnoses Not on filedocumented in this encounter Care Teams Accounts Adjustable Clerk Relationship Specialty Start Date End Date Vianney Galdamez MD [address] [place] [facility] [address] [place] [address] PCP - General 08/15/22 documented as of this encounter
--- OUTSIDE RECORDS SUMMARY | 2024-10-02 07:52 | XMS_ITS | Encounter Summary ---
Author Organization [employer] ([place], [place], [place], [place]) Address [address] [place] [address] Care Team Providers Care Speech Pathologist Name Role Phone Vianney Galdamez MD Primary Care Provider [phone] Encounter Details Date Type Department Care Team (Late st Contact Info) Description 04/16/2018 Transcribed Document [facility] [place] [address] [place] [address] ProviderLydia MD [address] [place] [address] Social History Tobacco Use Types Packs/Day Years Used Date Smoking Tobacco: Never Assessed Comments Unknown Sex and Gender Information Value Date Recorded Sex Assigned at Not on file Legal Sex Female 5:58 PM CDT Gender Identity Not on file Sexual Orientation Not on file documented as of this encounter Miscellaneous Notes * Cerner Conversion Note - Historical ProviderMD - 04/16/2018 4:27 PM GLASS INSTALLER TECHNICIAN Discharge Instructions Entered On: 04/16/2018 16:28 EST [...] EST Electronically signed by Rebel [facility] Conversion Supply Chain Systems Manager Cerner at 06/29/2022 4:29 PM CDT documented in this encounter Plan of Treatment Upcoming Encounters Date Type Department Care Team (Late st Contact Info) Description 07/20/2025 10:00 AM EDT Appointment [facility] Echocardiography [address] [place] [address] Melanie Melchor PA-C [address] [facility] [address] [place] [address] 07/26/2025 9:30 AM EDT Office Visit [facility] [place] [address] [place] [address] Melanie Melchor PA-C 227 [facility] [address] [place] [address] documented as of this encounter Visit Diagnoses Not on filedocumented in this encounter Care Teams Speech Pathologist Relationship Specialty Start Date End Date Vianney Galdamez MD 12[address] [facility] [address] [place] [address] PCP - General 08/15/22 documented as of this encounter
--- OUTSIDE RECORDS SUMMARY | 2024-10-02 07:52 | XMS_ITS | Encounter Summary ---
Author Organization [employer] ([place], [place], [place], [place]) Address [address] [place] [address] Care Team Providers Care Press Feeder Name Role Phone Vianney Galdamez MD Primary Care Provider [phone] Encounter Details Date Type Department Care Team (Late st Contact Info) Description 04/16/2018 Transcribed Document [facility] Family Medicine [address] [place] [address] ProviderLydia MD [address] [place] [address] Social History Tobacco Use Types Packs/Day Years Used Date Smoking Tobacco: Never Assessed Comments Unknown Sex and Gender Information Value Date Recorded Sex Assigned at Not on file Legal Sex Female 5:58 PM CDT Gender Identity Not on file Sexual Orientation Not on file documented as of this encounter Miscellaneous Notes * Cerner Conversion Note - Historical ProviderMD - 04/16/2018 4:26 PM MAP PLOTTER Nursing Discharge Summary Entered On: 04/16/2018 16:27 [...] Info) Description 07/20/2025 10:00 AM EDT Appointment [facility] Echocardiography [address] [place] [address] Melanie Melchor PA-C [address] [address] 07/26/2025 9:30 AM EDT Office Visit [facility] Cardiology - [place] [address] [place] [address] Melanie Melchor PA-C [address] [address] documented as of this encounter Visit Diagnoses Not on filedocumented in this encounter Care Teams Press Feeder Relationship Specialty Start Date End Date Vianney Galdamez MD [address] [facility] [address] [place] [address] PCP - General 08/15/22 documented as of this encounter
--- OUTSIDE RECORDS SUMMARY | 2024-10-02 07:52 | XMS_ITS | Encounter Summary ---
Author Organization [employer] ([place]) Address [address] [place] [address] Care Team Providers Care Brine Maker Name Role Phone Vianney Galdamez MD Primary Care Provider [phone] Encounter Details Date Type Department Care Team (Late st Contact Info) Description 04/16/2018 Transcribed Document [facility] Family Medicine [facility] [place] [address] ProviderLydia MD [address] [place] [address] Social History Tobacco Use Types Packs/Day Years Used Date Smoking Tobacco: Never Assessed Comments Unknown Sex and Gender Information Value Date Recorded Sex Assigned at Not on file Legal Sex Female 5:58 PM CDT Gender Identity Not on file Sexual Orientation Not on file documented as of this encounter Miscellaneous Notes * Cerner Conversion Note - Lydia ProviderMD - 04/16/2018 4:28 PM CLERICAL ASSIGNER Patient Education Materials Follows: Endoscopic Retrograde Cholangiopancreatography [...] provider. Document Released: 12/16/2013 Document Reviewed: 12/16/2013 [employer] Interactive Patient Education ? 2017 [employer]. documented in this encounter Plan of Treatment Upcoming Encounters Date Type Department Care Team (Late st Contact Info) Description 07/20/2025 10:00 AM EDT Appointment [facility] Echocardiography [address] [place] [address] Melanie Melchor PA-C [address] [phone] 07/26/2025 9:30 AM EDT Office Visit [facility] Cardiology - [place] [address] [place] [address] Melaine Melchor PA-C [address] [phone] documented as of this encounter Visit Diagnoses Not on filedocumented in this encounter Care Teams Brine Maker Relationship Specialty Start Date End Date Vianney Galdamez MD [address] [place] [facility] [address] [place] [address] PCP - General 08/15/22 documented as of this encounter
--- OUTSIDE RECORDS SUMMARY | 2024-10-02 07:53 | XMS_ITS | Clinical Summary ---
Author Organization [employer] ([place], [place], [place]) Address [address] [place] [address] Care Team Providers Care Costume Technician Name Role Phone Vianney Galdamez MD Primary Care Provider Allergies Active Allergy Reactions Criticality Noted Date [...] Description 07/27/2024 1:45 PM EDT Office Visit [facility] Cardiology - [address] [address] Melanie Melchor PA-C Tachycardia (Primary [...] 0.6 oz pur e alcohol) caffeine use [facility] - Mental Health Answer Date Recorde [...] Date Víctor rded Speak language other than Scottish at home Not on file 03/29/2023 Want [...] Info) Description 07/20/2025 10:00 AM EDT Appointment [facility] Echocardiography [address] [place] [address] Melanie Melchor PA-C [address] [facility] [address] [place] [address] 07/26/2025 9:30 AM EDT Office Visit [facility] Cardiology - [place] [address] [place] [address] Melanie Melchor PA-C [address] [address] Health Maintenance Due Date Last Done Comments CT Colonography 1976 Colonoscopy 1976 Colorectal Cancer Screening 1976 FOBT/FIT 1976 Fit-DNA (Cologuard) 1976 Sigmoidoscopy 1976 Depression Screening (12+) 1988 HIV Screening 10/20/1991 Hepatitis C Screening 1994 Pap Smear 1997 Breast Cancer Screening 2016 Lipid Panel 2021 COVID-19 VACCINE ( season) 2023 12/06/2021, 01/04/2021, 06/24/2020, Additional history exists Influenza Vaccine (#1) 2024 Tobacco Cessation Counseling and Screening (12+) 07/27/2025 07/27/2024 DTAP/TDAP/TD VACCINES (3 - Td or Tdap) 07/22/2028 07/22/2018, 08/06/2017 Pneumococcal Vaccine: 0-49 Years Aged Out No longer eligible based on patient's age to complete this topic Medical Devices Implanted Type Area Chain Offbearer Device Identifier Shelf Expiration Date Model / Serial / Lot Spcr Hedron C 12x14 7mm 7deg 1211.2417s - [id number] Implanted:Qty: 1 on 09/27/2023 by Sanchez Zamora MD at [facility] IMPLANTS N/A: Neck GLOBUS 03/29/2032 1211.2417S / / [id number] Spcr Hedron C 12x14 7mm 7deg 1211.2417s - [id number] Implanted:Qty: 1 on 09/27/2023 by Sanchez Zamora MD at [facility] IMPLANTS N/A: Neck GLOBUS 08/28/2032 1211.2417S / / [id number] Spcr Hedron C 12x14 7mm 7deg 1211.2417s - [id number] Implanted:Qty: 1 on 09/27/2023 by Sanchez Zamora MD at [facility] IMPLANTS N/A: Neck GLOBUS 07/30/2032 1211.2417S / / [id number] Tiss Live Bn Matrix Osteo 5cc [id number] - [id number] Implanted:Qty: 1 on 09/27/2023 by Sanchez Zamora MD at [facility] IMPLANTS N/A: Neck NUVASIVE 12/24/2027 [id number] / [id number] / Spcr Hedron C 12x14 8mm 7deg 1211.2418s - [id number] Implanted:Qty: 1 on 09/27/2023 by Sanchez Zamora MD at [facility] IMPLANTS N/A: Neck GLOBUS 03/29/2032 1211.2418S / / [id number] Scr Self Drl 14mmx4.6mm 171.014 - [id number] Implanted:Qty: 8 on 09/27/2023 by Sanchez Zamora MD at [facility] IMPLANTS N/A: Neck GLOBUS 171.014 / 171.014 / Plt 3 Lev 51mm 161.351 - [id number] Implanted:Qty: 1 on 09/27/2023 by Sanchez Zamora MD at [facility] IMPLANTS N/A: Neck GLOBUS 161.351 / 161.351 / Explanted Type Area Chain Offbearer Device Identifier Shelf Expiration Date Model / Serial / Lot Pin Distractor 12mm 665.612 - [id number] Explanted:Qty: 2 on 09/27/2023 at [facility] IMPLANTS N/A: Neck GLOBUS 665.612 / 665.612 / Scr Self Drl Lisa Ang 4.2x14mm 161.014 - [id number] Explanted:Qty: 8 on 09/30/2023 at [facility] IMPLANTS N/A: Neck GLOBUS 161.014 / 161.014 / Procedures Procedure Name Priority Date/Time Associated Diagnosis Comments FS_MODEL_IP_ECG 12-LEAD Routine 07/27/2024 4:26 P M EDT Tachycardia from Last 3 Months Results * ECG 12 lead (07/27/2024 4:26 PM EDT) Melanie Melchor PA-C ECG ORDERABLES Final Result from Last 3 Months Insurance [employer] CROSS/BLUE SHIELD Advance Directives For more information, please contact: [phone] * Full Code (Latest Code Status on File) Date Activated Date Inactivated Comments 09/27/2023 4:49 PM 09/28/2023 5:48 PM -Attempt Res uscitation if person has no pulse and is not breathing. -If no pulse or not breathing attempt CPR/CODE. -Call Rapid Response if patient is in distress. Care Teams Costume Technician Relationship Specialty Start Date End Date Vianney Galdamez MD [address] [place] [facility] [address] [place] [address] PCP - General 08/15/22
--- OUTSIDE RECORDS SUMMARY | 2024-10-02 07:53 | XMS_ITS | Referral Summary ---
Author Organization [employer] ([place], [place], [place], [place]) Address [address] [place] [address] Care Team Providers Care Electronic Field Service Engineer Name Role Phone Vianney Galdamez MD Primary Care Provider [phone] Encounters Date Type Department Care Team Description 07/27/2024 1:45 PM EDT Office Visit [facility] Cardiology - [address] [address] Melanie Melchor PA-C Tachycardia (Primary [...] 0.6 oz pur e alcohol) caffeine use [facility] - Mental Health Answer Date Recorde [...] Date Víctor rded Speak language other than Austrian at home Not on file 03/29/2023 Want [...] Info) Description 07/20/2025 10:00 AM EDT Appointment [facility] Echocardiography [address] [place] [address] Melanie Melchor PA-C [address] [facility] [address] [place] [address] 07/26/2025 9:30 AM EDT Office Visit [facility] Cardiology - [place] [address] [place] [address] Melanie Melchor PA-C [address] [facility] [address] [place] [address] Medical Devices Implanted Type Area Training Consultant Device Identifier Shelf Expiration Date Model / Serial / Lot Spcr Hedron C 12x14 7mm 7deg 1211.2417s - [id number] Implanted:Qty: 1 on 09/27/2023 by Sanchez Zamora MD at [facility] IMPLANTS N/A: Neck GLOBUS 03/29/2032 1211.2417S / / [id number] Spcr Hedron C 12x14 7mm 7deg 1211.2417s - [id number] Implanted:Qty: 1 on 09/27/2023 by Sanchez Zamora MD at [facility] IMPLANTS N/A: Neck GLOBUS 08/28/2032 1211.2417S / / [id number] Spcr Hedron C 12x14 7mm 7deg 1211.2417s - [id number] Implanted:Qty: 1 on 09/27/2023 by Sanchez Zamora MD at [facility] IMPLANTS N/A: Neck GLOBUS 07/30/2032 1211.2417S / / [id number] Tiss Live Bn Matrix Osteo c [id number] - [id number] Implanted:Qty: 1 on 09/27/2023 by Sanchez Zamora MD at [facility] IMPLANTS N/A: Neck NUVASIVE 12/24/2027 [id number] / [id number] / Spcr Hedron C 12x14 8mm 7deg 1211.2418s - [id number] Implanted:Qty: 1 on 09/27/2023 by Sanchez Zamora MD at [facility] IMPLANTS N/A: Neck GLOBUS 03/29/2032 1211.2418S / / [id number] Scr Self Drl 14mmx4.6mm 171.014 - [id number] Implanted:Qty: 8 on 09/27/2023 by Sanchez Zamora MD at [facility] IMPLANTS N/A: Neck GLOBUS 171.014 / 171.014 / Plt 3 Lev 51mm 161.351 - [id number] Implanted:Qty: 1 on 09/27/2023 by Sanchez Zamora MD at [facility] IMPLANTS N/A: Neck GLOBUS 161.351 / 161.351 / Explanted Type Area Training Consultant Device Identifier Shelf Expiration Date Model / Serial / Lot Pin Distractor 12mm 665.612 - [id number] Explanted:Qty: 2 on 09/27/2023 at [facility] IMPLANTS N/A: Neck GLOBUS 665.612 / 665.612 / Scr Self Drl Lisa Ang 4.2x14mm 161.014 - [id number] Explanted:Qty: 8 on 09/30/2023 at [facility] IMPLANTS N/A: Neck GLOBUS 161.014 / 161.014 / Procedures Procedure Name Priority Date/Time Associated Diagnosis Comments FS_MODEL_IP_ECG 12-LEAD Routine 07/27/2024 4:26 P M EDT Tachycardia from Last 3 Months Results * ECG 12 lead (07/27/2024 4:26 PM EDT) Melanie Melchor PA-C ECG ORDERABLES Final Result from Last [address] [place] [id number] BLUE CROSS/BLUE SHIELD Advance Directives For more information, please contact: [phone] * Full Code (Latest Code Status on File) Date Activated Date Inactivated Comments 09/27/2023 4:49 PM 09/28/2023 5:48 PM -Attempt Res uscitation if person has no pulse and is not breathing. -If no pulse or not breathing attempt CPR/CODE. -Call Rapid Response if patient is in distress. Care Teams Electronic Field Service Engineer Relationship Specialty Start Date End Date Vianney Galdamez MD [address] [facility] [address] [place] [address] PCP - General 08/15/22
--- OUTSIDE RECORDS SUMMARY | 2024-10-02 07:53 | XMS_ITS | Clinical Summary ---
Author Organization [facility] Address [address] [place] [address] Care Team Providers Care Supervisor Print Line Name Role Phone January Cabrera Primary Care Provider [phone] Allergies Active Allergy Reactions Criticality Noted Date Comments Ampicillin 09/08/2015 Medications atenolol (TENORMIN) 25 MG tablet Take 1 tablet by mouth 2 (two) times a day. 180 tablet 3 09/21/2015 Active Active Problems Problem Noted Date Diagnosed Date Palpitations 09/21/2015 Overview (09/21/2015): Better with atenolol Social History Tobacco Use Types Packs/Day Years Used Date Smoking Tobacco: Every Day Cigarettes Abuse Screen Answer Date Recorded Unsafe at Home or Work/School Not on file Feels Threatened by Someone? Not on file 11/2022 Does Anyone Keep You from Co ntacting Others or Doint Things Outside the Home? Not on file 12/17/2022 Physical Sign of Abuse Present Not on file 1 Housing Stability Answer Date Recorded Current Living Arrangements Not on file 11/2022 Potentially Unsafe Housing Conditions Not on babs e 12/17/2022 Family and Community Support Answer Ramon e Recorded Help with Day-to-Day Activities Not on file 12/17/2022 Lonely or Isolated Not on file 12/17/2022 Employment Answer Date Recorded Do you want help finding or keeping work or a esmer b? Not on file 12/17/2022 Disabilities Answer Date Recorded Concentrating, Remembering, or Making Decisions Difficulty Not on file 12/17/2022 Doing Errands Independently Difficulty Not on fi le 12/17/2022 Education Answer Date Recorded Help with school or training? Not on file Preferred Language Not on file 12/17/2022 Comments Unknown Sex and Gender Information Value Date Recorded Sex Assigned at Not on file Legal Sex Female 3:35 PM EDT Gender Identity Not on file Sexual Orientation Not on file Last Filed Vital Signs Vital Sign Reading Time Taken Comments Blood Pressure 114/73 09/21/2015 1:53 PM EDT Pulse 86 09/21/2015 1:53 PM EDT Temperature - - Respiratory Rate - - Oxygen Saturation 99% 10/28/2012 10:56 AM EDT Inhaled Oxygen Concentration - - Weight 63.6 kg (140 lb 3.2 oz) 09/21/2015 1:53 P M EDT Height 162.6 cm (5' 4 ) 02/23/2015 2:34 PM EST Body Mass Index 24.07 02/23/2015 2:34 PM EST Plan of Treatment Health Maintenance Due Date Last Done Comments Annual Gynecologic Pelvic an d Breast Exam 1976 TDAP/TD VACCINES (1 - Tdap) 10/20/1995 ANNUAL PHYSICAL 08/09/2016 HEPATITIS C SCREENING 08/09/2016 MAMMOGRAM 2016 COLOGUARD 2021 COLON CANCER SCREENING 5 YEA R SIGMOIDOSCOPY 2021 COLONOSCOPY 2021 [address] CANCER SCREENING 2021 CT COLONOGRAPHY 2021 FECAL OCCULT BLOOD TEST 2021 FIT Testing (1 year) 2021 COVID-19 Vaccine ( - 2023-2 5 season) 2023 INFLUENZA VACCINE 12/09/2024 Pneumococcal Vaccine 0-49 Aged Out No longer eligible based on patient's age to complete this topic Insurance [facility] Care Teams Supervisor Print Line Relationship Specialty Start Date End Date January Cabrera PA [address] [place] [address] PCP - General 02/08/15
== END 2024-10-02 23:59 | disposition home or self-care (01) ==
LOC: RAD 07:50
PROVIDERS: PCP Nurse Practitioner Family; Visit Provider Nurse Practitioner Family
DX: Z12.31 Encounter for screening mammogram for malignant neoplasm of breast (principal); R92.333 Mammographic heterogeneous density, bilateral breasts
CPT/HCPCS: 77063; 77067

== ENCOUNTER 2024-11-21 02:00 | Emergency (ER) | payer BC, SELFPAY ==
--- OUTSIDE RECORDS SUMMARY | 2023-09-02 09:30 | XMS_ITS ---
[facility] Address [address] [place] [id number] Care Team Providers Care Road Passenger Firer Name Role Phone Anne Galdamez Unavailable [phone] Allergies Allergen (clinical drug ingredient) Drug/Non Drug Allergy documented on EMR Reaction Allergy Type Onset Date Status ampicillin Ampicillin Severe Vomiting & Diarrhea Drug Allergy Active REASON FOR VISIT 1 month follow up Medications Medication SIG (Take, Route, Frequency, Duration) Notes Start Date End Date Status Wegovy 0.25 MG/0.5ML 0.5 ml Subcutaneous weekly; Duration: 30 day(s) 07/30/2023 Active Zepbound 2.5 MG/0.5ML 2.5 mg weekly Subcutaneous weekly; Duration: 28 days 08/07/2023 Not-Taking Wegovy 0.25 MG/0.5ML 0.5 ml Subcutaneous ; Duration: 30 day(s) 09/02/2023 Active Wegovy 0.5 MG/0.5ML 0.5 ml Subcutaneous weekly; Duration: 30 day(s) 09/02/2023 Active Terbinafine HCl 250 MG 1 tablet Orally O nce a day; Duration: 84 days 11/02/2022 Not-Takin g Atenolol 25 MG 1 tab(s) orally twic e a day Active PROzac 20 MG 1 capsule Orally Onc e a day; Duration: 90 day(s) Active Estradiol 1 MG 1 tab(s) Orally once a day; Duration: 90 days Active Konsyl Daily Fiber 100 % as directed ora lly 3 times a day; Duration: 7 day(s) Active busPIRone HCl 10 MG 1 tab(s) orally 3 ti mes a day Active MiraLax 17 GM/SCOOP 1 scoop mixed with 8 ounces of fluid Orally Once a day; Duration: 30 day(s) Active Methocarbamol 750 MG 1 tablet Orally 3 t imes daily prn Active Meloxicam 15 MG 1 tablet Orally Once a day; Duration: 30 day(s) Active Social History Tobacco Use: Social History Observation Description Date Details (start date - stop date) Current Smoker NA - NA CURRENT TOBACCO USE: Question Answer Notes Are you a: current smoker How often do you smoke cigarettes? every day 1 pack per day Vital Signs Blood pressure systolic 118 mm Hg 09/02/19 Blood pressure diastolic 78 mm Hg 024 Heart Rate 85 /min 09/02/2023 Height 64.5 in 09/02/2023 Weight 197.4 lbs 09/02/2023 BMI 33.36 kg/m2 09/02/2023 Encounters Encounter Location Date Provider Diagnosis [facility] [address], [place] [id number] 09/02/2023 Anne Galdamez Weight loss R63.4 Assessments Encounter Date Diagnosis (ICD Code) Assessment Notes Treatment Notes Treatment Clinical Notes Section Notes 09/02/2023 Weight loss (ICD-10 - R63.4) will increase wegovy to 0.5 x 4 weeks and if tolerated to increase to 0.75 weekly Plan Of Treatment Medication Medication Name Sig Start Date Stop Date Notes Wegovy 0.25 MG/0.5ML 0.5 ml Subcutaneous ; Duration: 30 day(s) 09/02/2023 Wegovy 0.5 MG/0.5ML 0.5 ml Subcutaneous weekly; Duration: 30 day(s) 09/02/2023 Treatment Notes Assessment Notes Weight loss will increase wegovy to 0.5 x 4 weeks and if tolerated to increase to 0.75 weekly Next Appt Details Follow Up: 3 Months,and prn, Reason: Progress Notes * NALDO DAMONDOB:1975 (49 yo F)Acc No.[id number]:09/02/2023 Progress Notes Patient: NALDO VIZCAINO Provider: CRISTOBAL Santiago :1975 A ge:47 Y S ex:Female Date:09/02/2023 Address:[address], [id number] Subjective: * Chief Complaints: * 1 . 1 month follow up. * HPI: C onstitutional: weight loss P t presents for a 4 week follow up. Pt was started on Wegovy. Pt sts that she cannot tell she is even taking Wegovy. Pt sts that otherwise she has no concerns. pt is feeling well ; no problems with injections; she feels better than she has in a long time; no weight loss but she is eating less with a decrease in appetite; she has made changes in her food choices. * ROS: A LLERGY: no C ough. n o R unny nose. G ASTROENTEROLOGY: no N ausea. n o V omiting. n o D iarrhea.?no C onstipation. U ROLOGY: no D ifficulty urinating. n o B lood in urine. * Medical History: P alpitations. * Surgical History: A ppendectomy - [facility] 1999, Removal of Gall Stones 03/2000, Cholecystectomy- [facility] 03/2000, Hysterectomy - [facility] 2013, Pancreatitis procedure 03/2018. * Hospitalization/Major Diagno stic Procedure: A cute Pancreatitis 04/2018. * Family History: F ather: alive. M other: alive, diagnosed with Heart Disease, Diabetes. * Social History: C URRENT TOBACCO USE: Yes A re you a: c urrent smoker, H ow often do you smoke cigarettes? e very day 1 pack per day. C affeine: yes, frequency: occasional. Marital Status: . Alcohol: No. * Medications: T aking Meloxicam 15 MG Tablet 1 tablet Orally Once a day , Taking Methocarbamol 750 MG Tablet 1 tablet Orally 3 times daily prn , Taking MiraLax 17 GM/SCOOP Powder 1 scoop mixed with 8 ounces of fluid Orally Once a day , Taking busPIRone HCl 10 MG Tablet 1 tab(s) orally 3 times a day , Taking Konsyl Daily Fiber 100 % Packet as directed orally 3 times a day , Taking Estradiol 1 MG Tablet 1 tab(s) Orally once a day , Taking PROzac 20 MG Capsule 1 capsule Orally Once a day , Taking Atenolol 25 MG Tablet 1 tab(s) orally twice a day , Taking Wegovy 0.25 MG/0.5ML Solution Auto-injector 0.5 ml Subcutaneous weekly , Not-Taking Zepbound 2.5 MG/0.5ML Solution Auto-injector 2.5 mg weekly Subcutaneous weekly , Not-Taking Terbinafine HCl 250 MG Tablet 1 tablet Orally Once a day , Medication List reviewed and reconciled with the patient * Allergies: A mpicillin: Severe Vomiting & Diarrhea - Allergy. Objective: * Vitals: W t:197.4, Temp:97.6, BP:118/78, HR:85, Nurse:DRU, Ht: 64.5, BMI:33.36. * Examination: G eneral Examination: General Appearance: NAD, appears healthy, alert, pleasant. H eart: RRR. L ungs: CTAB A&P. N eurologic Exam: alert and oriented. E xtremities: no leg edema. Assessment: * Assessment: 1. W eight loss - R63.4 (Primary) Plan: * Treatment: * Follow Up: 3 Months,and prn * Images: Billing Information: * Visit Code: 09604 Office Visit, Est Pt., Level 3. * Procedure Codes: * Electronic signature of Richelle Galdamez APRN on 11/21/2024 at 04:06 AM EDT Sign off status: Pending * Provider: CRISTOBAL Santiago Date: 0 09/02/2023 Generated for Elizabeth hodge/Delaney/Juaquin on: 11/21/2024 04:06 AM EDT History and Physical Notes * HPI (History of Present Illness) Category Sub-Category Detail Notes Category Not es Constitutional weight loss Pt presents for a 4 week follow up. Pt was started on Wegovy. Pt sts that she cannot tell she is even taking Wegovy. Pt sts that otherwise she has no concerns pt is feeling well ; no problems with injections; she feels better than she has in a long time; no weight loss but she is eating less with a decrease in appetite; she has made changes in her food choices Examination Category Sub-Category Detail Notes Category Not es General Examination Heart: RRR Lungs: CTAB A&P Extremities: no leg edema General Appearance: NAD, appears healthy , alert, pleasant Neurologic Exam: alert and oriented
--- OUTSIDE RECORDS SUMMARY | 2023-12-03 09:30 | XMS_ITS ---
Author Organization [facility] Address 1210 [facility] [address] [place] [id number] Care Team Providers Care Irrigator Valve Pipe Name Role Phone Anne Galdamez Unavailable [phone] Allergies Allergen (clinical drug ingredient) Drug/Non Drug Allergy documented on EMR Reaction Allergy Type Onset Date Status ampicillin Ampicillin Severe Vomiting & Diarrhea Drug Allergy Active REASON FOR VISIT 3 month check, Needs mammogram Medications Medication SIG (Take, Route, Frequency, Duration) Notes Start Date End Date Status Atenolol 25 MG 1 tab(s) orally twice a day Active PROzac 20 MG 1 capsule Orally Onc e a day; Duration: 90 day(s) Active Wegovy 1.7 MG/0.75ML 0.75 mL Subcutaneou s once a week; Duration: 28 days Active Estradiol 1 MG 1 tab(s) Orally [...] Orally 3 t imes daily prn Active Wegovy 2.4 MG/0.75ML 0.5 ml Subcutaneous weekly; Duration: 30 day(s) Active Meloxicam 15 MG 1 tablet Orally Once a day; Duration: 30 day(s) Active Social History Tobacco Use: Social History Observation Description Date Details (start date - stop date) Current Smoker NA - NA CURRENT TOBACCO USE: Question Answer Notes Are you a: current smoker How often do you smoke cigarettes? every day 1 pack per day Vital Signs Blood pressure systolic 120 mm Hg 12/03/19 Blood pressure diastolic 76 mm Hg 024 Heart Rate 112 /min 12/03/2023 Height 64.5 in 12/03/2023 Weight 179.4 lbs 12/03/2023 BMI 30.32 kg/m2 12/03/2023 Encounters Encounter Location Date Provider Diagnosis [facility] [address] [place] [phone] 12/03/2023 Anne Galdamez Weight loss R63.4 Assessments Encounter Date Diagnosis (ICD Code) Assessment Notes Treatment Notes Treatment Clinical Notes Section Notes 12/03/2023 Weight loss (ICD-10 - R63.4) some nausea; wishes to increase; weight loss noted Plan Of Treatment Medication Medication Name Sig Start Date Stop Date Notes Wegovy 2.4 MG/0.75ML 0.5 ml Subcutaneous weekly; Duration: 30 day(s) Treatment Notes Assessment Notes Weight loss some nausea; wishes to increase; weight loss noted Next Appt Details Follow Up: 3 Months,and prn, Reason: Progress Notes * NALDO DAMONDOB:1975 (49 yo F)Acc No.[id number]:12/03/2023 Progress Notes Patient: NALDO VIZCAINO Provider: CRISTOBAL Santiago :1975 A ge:48 Y S ex:Female Date:12/03/2023 Address:[facility] [place], [id number] Subjective: * Chief Complaints: * 1 . 3 month check. 2. Needs mammogram. * HPI: C onstitutional: 48 year old female presents with c/o weight loss P t is here today for a 3 month check up. Pt was started on Wegovy a few months back and sts that. * ROS: A LLERGY: no C ough. n o R unny nose. G ASTROENTEROLOGY: no N ausea. n o V omiting. n o D iarrhea.?no C onstipation. U ROLOGY: no D ifficulty urinating. n o B lood in urine. * Medical History: P alpitations. * Surgical History: A ppendectomy - [place] 1999, Removal of Gall Stones 03/2000, [place]cystectomy- [place] 03/[place], Hysterectomy - [facility] 2013, Pancreatitis procedure 03/2018. * Hospitalization/Major Diagno stic Procedure: A cute Pancreatitis 04/2018. * Family History: F ather: alive. M other: alive, diagnosed with Diabetes, Heart Disease. * Social History: C URRENT TOBACCO USE: [...] orally twice a day , Taking Wegovy 1.7 MG/0.75ML Solution Auto-injector 0.75 mL Subcutaneous once a week , Discontinued Wegovy 0.25 MG/0.5ML Solution Auto-injector 0.5 ml Subcutaneous weekly , Discontinued Wegovy 0.25 MG/0.5ML Solution Auto-injector 0.5 ml Subcutaneous , Discontinued Zepbound 2.5 MG/0.5ML Solution Auto-injector 2.5 mg weekly Subcutaneous weekly , Discontinued Terbinafine HCl 250 MG Tablet 1 tablet Orally Once a day , Medication List reviewed and reconciled with the patient * Allergies: A mpicillin: Severe Vomiting & Diarrhea - Allergy. Objective: * Vitals: W t:179.4, Temp:98.3, BP:120/76, HR:112, Nurse:ISRA, Ht: 64.5, BMI:30.32. * Examination: G eneral Examination: General Appearance: NAD, appears healthy, alert, pleasant. H eart: RRR. Assessment: * Assessment: 1. W eight loss - R63.4 (Primary) Plan: * Treatment: * Follow Up: 3 Months,and prn * Images: Billing Information: * Visit Code: 68438 Office Visit, Est Pt., Level 3. * Procedure Codes: * Electronic signature of Richelle Galdamez APRN on 11/21/2024 at 04:05 AM EDT Sign off status: Pending * Provider: CRISTOBAL Santiago Date: 12/03/2023 Generated for Elizabeth hodge/Delaney/Juaquin on: 11/21/2024 04:05 AM EDT History and Physical Notes * HPI (History of Present Illness) Category Sub-Category Detail Notes Category Not es Constitutional weight loss Pt is here today for a 3 month check up. Pt was started on Wegovy a few months back and sts that Examination Category Sub-Category Detail Notes Category Not es General Examination Heart: RRR General Appearance: NAD, appears healthy , alert, pleasant
--- OUTSIDE RECORDS SUMMARY | 2024-02-25 09:30 | XMS_ITS ---
Author Organization [facility] Address [facility] [address] [place] [phone] Care Team Providers Care Spooler Operator Automatic Name Role Phone Anne Galdamez Unavailable [phone] Allergies Allergen (clinical drug ingredient) Drug/Non Drug [...] [address] [place] [phone] 02/25/2024 Anne Denice Post menopausal syndrome N95.1 [...] Notes * NALDO DAMONDOB:1975 (49 yo F)Acc No.[id number]:02/25/2024 Progress Notes Patient: NALDO VIZCAINO Provider: CRISTOBAL Santiago :1975 A ge:48 Y S ex:Female Date:02/25/2024 Address:[address], [id number] Subjective: * Chief Complaints: * 1 . [...] * Surgical History: [place]endectomy - [place], Removal of Gall Stones 03/2000, Cholecystectomy- [place] 03/2000, Hysterectomy - [facility] 2013, Pancreatitis procedure 03/2018. * Hospitalization/Major [...] * Images: Billing Information: * Visit Code: 17643 Office Visit, Est Pt., Level 3. * Procedure Codes: * Electronic signature of Richelle Galdamez APRN on 11/21/2024 at 04:05 AM EDT Sign off status: Pending * Provider: CRISTOBAL Santiago Date: 1 04/27/2023 Generated for Elizabeth hodge/Delaney/eTmellisaitting on: 0 11/21/2024 04:05 AM EDT History and Physical Notes * HPI (History of Present Illness) Category Sub-Category Detail Notes Category Not es DIRECTOR OF CLINICAL APPLICATIONS Fever has had a hyste rectomy and [...]
--- OUTSIDE RECORDS SUMMARY | 2024-05-25 09:30 | XMS_ITS ---
Author Organization [facility] Address [facility] [facility] [address] [place] [id number] Care Team Providers Care Supervisor Process Testing Name Role Phone Anne Galdamez Unavailable [phone] Allergies Allergen (clinical drug ingredient) Drug/Non Drug [...] Provider Diagnosis [place] [address] [facility] [address] [place] [id number] 05/25/2024 Anne Galdamez Post menopausal syndrome N95.1 [...] Notes * NALDO DAMONDOB:1975 (49 yo F)Acc No.[id number]:05/25/2024 Progress Notes Patient: NALDO VIZCAINO Provider: CRISTOBAL Santiago :1975 A ge:48 Y S ex:Female Date:05/25/2024 Address:[address] [id number] Subjective: * Chief Complaints: * 1 . [...] 03/2000, Cholecystectomy- [place] 03/2000, Hysterectomy - [facility] 2013, Pancreatitis procedure 03/2018. * Hospitalization/Major Diagno [...] * Images: Billing Information: * Visit Code: 20261 Office Visit, Est Pt., Level 3. * Procedure Codes: 3074F SYST BP LT 130 MM HG. 3079F DIAST BP 80-89 MM HG. * Electronic signature of Richelle Galdamez APRN on 11/21/2024 at 04:05 AM EDT Sign off status: Pending * Provider: CRISTOBAL Santiago Date: 0 05/25/2024 Generated for Elizabeth hodge/Delaney/Billyitting on: 0 11/21/2024 04:05 AM EDT History [...]
--- OUTSIDE RECORDS SUMMARY | 2024-09-21 05:45 | XMS_ITS ---
[facility] Address [address] [facility] [address] [place] [id number] Care Team Providers Care Financial Accountant Name Role Phone Anne Galdamez Unavailable [phone] Allergies Allergen (clinical drug ingredient) Drug/Non Drug Allergy documented on EMR Reaction Allergy Type Onset Date Status ampicillin Ampicillin Severe Vomiting & Diarrhea Drug Allergy Active Results Component Value Reference Range Notes P-Comprehensive Metabolic Pa aislinn (CMP) Reviewed date:09/28/2024 08:58:13 AM Interpretation:prot 5.9 Performing Lab: Notes/Report: Test performed by [facility], [facility] [address] [place] [address] , [address], [place] [address] Jose Sales MD, Manager Acquisition CLIA: [id number] Sodium 140 135-145 mmol/L Potassium 4.6 3.5-5.3 [...] 222 Performing Lab: Notes/Report: Test performed by [facility], [address] , [address], [place] [address] Jose Sales MD, Manager Acquisition CLIA: [id number] Cholesterol 216 <200 mg/dL Triglycerides 222 <150 [...] Results: 139 Units: mg/dL % Change: +43% Mammogram Reviewed date:10/07/2024 02:35:34 PM Interpretation:no evidence of malignancy Performing Lab: Notes/Report: no evidence of malignancy REASON FOR VISIT 4 month ckup, Needs [...] W/U Status Risk Notes Problem Cervical radiculopathy (89402910) Cervical radiculopathy (M54.12) Active confirmed Problem Hypertension (25172502) HTN (hypertension) (I10) Active confirmed Vital Signs Blood pressure systolic 120 mm Hg 09/22/19 25 Blood pressure diastolic 70 mm Hg 025 Heart Rate 92 /min 09/21/2024 Height 64.5 in 09/21/2024 Weight 164.4 lbs 09/21/2024 BMI 27.78 kg/m2 09/21/2024 Encounters Encounter Location Date Provider Diagnosis [facility] [address] [place] [phone] 09/21/2024 Anne Galdamez Post menopausal syndrome N95.1 ; Breast cancer screening Z12.39 ; Lipid screening Z13.220 ; Anxiety and depression F41.8 ; Cervical radiculopathy M54.12 ; HTN (hypertension) I10 ; Weight loss R63.4 and BMI 27.0-27.9,adult Z68.27 Assessments Encounter Date Diagnosis (ICD Code) Assessment [...] I10) 09/21/2024 Weight loss (ICD-10 - R63.4) 09/21/2024 BMI 27.0-27.9,adult (ICD-10 - Z68.27) Plan Of Treatment Medication Medication Name Sig [...] follo w with pain management and surgeon Next Appt Details Follow Up: 6 Months,and prn, Reason: Progress Notes * NALDO DAMONDOB:1975 (49 yo F)Acc No.[id number]:09/21/2024 Progress Notes Patient: NALDO VIZCAINO Provider: CRISTOBAL Santiago :1975 A ge:48 Y S ex:Female Date:09/21/2024 Address:[facility] [place], [id number] Subjective: * Chief Complaints: * 1 . [...] alpitations. * Surgical History: A ppendectomy - [place] 1999, Removal of Gall Stones 03/2000, Cholecystectomy- [place] 03/2000, Hysterectomy - [facility] 2013, Pancreatitis procedure 03/2018. * Hospitalization/Major Diagno [...] 7 . W eight loss - R63.4 8 . B MD 27.0-27.9,adult - Z68.27 Plan: * Treatment: Value Reference Range A [...] back to feeling like herself.??2.?Breast cancer screening?Imaging: Mammogram (Performed Date - 10/02/2024)?no evidence of malignancy * Lucretia Taylor 09/21/2024 01:1 1:06 PM EDT > faxed to [facility] TeresaAnne Galdamez 10/07/2024 12:21:08 PM EDT >please notify pt of Mamm results; to continue with annual MammGobleDebra 10/07/2024 02:35:00 PM EDT > pt informed of results 3.?Lipid screening?LAB: P-Lipid Panel (Collection Date & [...] EDT >left message visa phone for return britniDenice Anne 09/24/2024 01:13:17 PM EDT >no answer when [...] 2.4 MG/0.75ML, 0.5 ml, Subcutaneous, weekly.?? * Procedure Codes: G 8420 BMI<30 AND >=22 CALC & DOCU, G8950 PREHTN/HTN BP DOC INDCD F/U DOC, 3074F SYST BP LT 130 MM HG, 3078F DIAST BP < 80 MM HG * Follow Up: 6 Months,and prn * Images: Billing Information: * Visit Code: 90047 Office Visit, Est Pt., Level 4. * Procedure Codes: G8420 BMI<30 AND >=22 CALC & DOCU. G8950 PREHTN/HTN BP DOC INDCD F/U DOC. 3074F SYST BP LT 130 MM HG. 3078F DIAST BP < 80 MM HG. * Electronic signature of Richelle Galdamez APRN on 11/21/2024 at 04:06 AM EDT Sign off status: Pending * Provider: CRISTOBAL Santiago Date: 0 09/21/2024 Generated for Elizabeth hodge/Delaney/Juaquin on: 0 11/21/2024 04:06 AM EDT History and Physical [...]
[2024-11-21] VITALS (12 sets, daily range): BP systolic 111–137; BP diastolic 67–83; PULSE 79–105; RESP 16; TEMP 36.7–37.1; O2SAT 94–100; BMI 25.7
--- OUTSIDE RECORDS SUMMARY | 2024-11-21 04:05 | XMS_ITS | Encounter Summary ---
Author Organization [employer] ([place], [place], [place], [place]) Address [address] [place] [address] Care Team Providers Care Section Weaver Name Role Phone Vianney Galdamez MD Primary Care Provider [phone] Encounter Details Date Type Department Care Team (Late st Contact Info) Description 04/16/2018 Transcribed Document [facility] Family Medicine [address] [place] [address] ProviderLydia MD [address] [place] [id number] Social History Tobacco Use Types Packs/Day Years Used Date Smoking Tobacco: Never Assessed Comments Unknown Sex and Gender Information Value Date Recorded Sex Assigned at Not on file Legal Sex Female 5:58 PM CDT Gender Identity Not on file Sexual Orientation Not on file documented as of this encounter Miscellaneous Notes * Cerner Conversion Note - Historical ProviderMD - 04/16/2018 2:17 PM PROCESS OWNER DATE OF PROCEDURE: 04/16/2018 PREOPERATIVE DIAGNOSIS(ES): POSTOPERATIVE [...] CC2: Darek Ferrell MD Electronically signed by [facility] Conversion Aviation Tactical Readiness Officer Cerner at 06/29/2022 4:15 PM CDT documented in this encounter Plan of Treatment Upcoming Encounters Date Type Department Care Team (Late st Contact Info) Description 07/20/2025 10:00 AM EDT Appointment [facility] Echocardiography [address] [place] [address] Melanie Melchor PA-C [address] [facility] [address] [place] [address] 07/26/2025 9:30 AM EDT Office Visit [facility] Cardiology - [place] [address] [place] [address] Melanie Melchor PA-C [address] [facility] [address] [place] [address] documented as of this encounter Visit Diagnoses Not on filedocumented in this encounter Care Teams Section Weaver Relationship Specialty Start Date End Date Vianney Galdamez MD [address] [facility] [address] [place] [address] PCP - General 08/15/22 documented as of this encounter
--- OUTSIDE RECORDS SUMMARY | 2024-11-21 04:05 | XMS_ITS | Patient Health Record ---
Author Organization [facility] Address [address] [place] [facility] [address] [facility] [address] [place] [id number] Care Team Providers Care Phlebotomist Name Role Phone Anne Galdamez Unavailable [phone] Allergies Allergen (clinical drug ingredient) Drug/Non Drug Allergy documented on EMR Reaction Allergy Type Onset Date Status ampicillin Ampicillin Severe Vomiting & Diarrhea Drug Allergy Active Results Component Value Reference Range Notes Mammogram Reviewed date:10/07/2024 02:35:34 PM Interpretation:no evidence of malignancy Performing Lab: Notes/Report: no evidence of malignancy P-Lipid Panel Reviewed date:09/28/2024 08:58:55 AM Interpretation:LDL 139; HDL 33; TG 222 Performing Lab: Notes/Report: Test performed by [facility] [employer] [facility], [address] , [address], [place] [address] Jose Sales MD, Websphere Commerce Developer CLIA: [id number] Cholesterol 216 <200 mg/dL Triglycerides 222 <150 [...] 5.9 Performing Lab: Notes/Report: Test performed by [facility] [employer] [facility] , [address], [place] [address] Jose Sales MD, Websphere Commerce Developer CLIA: [id number] Sodium 140 135-145 mmol/L Potassium 4.6 3.5-5.3 [...] Once a day; Duration: 30 day(s) Active Progesterone 100 MG 1 capsule at bedtime Orally Once a day; Duration: 90 days Active Estradiol 2 MG 1 tab(s) Orally once a day Active Wegovy 2.4 MG/0.75ML 0.5 ml Subcutaneous weekly Active FLUoxetine HCl 20 MG 1 capsule Orally On ce a day; Duration: 90 days Active Immunizations Vaccine Route Administration Date Status [...] Status W/U Status Risk Notes Problem Hypertension (01656167) HTN (hypertension) (I10) Active confirmed Problem Menopausal and postmenopausal disorder (N95.9) Active confirmed Problem Seasonal allergy (373794133) Seasonal allergies (J30.2) Active confirmed Problem Mixed anxiety and depressive disorder (863107333) Anxiety and depression (F41.8) Active confirmed Problem Environmental allergy (044587609) Environmental allergies (Z91.048) Active confirmed Problem Cervical radiculopathy (69653490) Cervical radiculopathy (M54.12) Active confirmed Problem Menopause (437479671) Hot flushes, perimenopausal (N95.1) Active confirmed Problem Mood swings (65969100) Mood swings (F39) Active confirmed Problem Menopause (155257456) Post menopausal syndrome (N95.1) Active confirmed Vital Signs Heart Rate 92 /min 09/21/2024 Blood pressure diastolic 70 mm Hg 09/21/2024 Height 64.5 in 09/21/2024 Blood pressure systolic 120 mm Hg 09/21/2024 Weight 164.4 lbs 09/21/2024 BMI 27.78 kg/m2 09/21/2024 Encounters Encounter Location Date Provider Diagnosis [facility] [address] [place], [place] [id number] 12/03/2023 Anne Galdamez Weight loss R63.4 [facility] [address] [place], [place] [id number] 02/25/2024 Anne Galdamez Post menopausal syndrome N95.1 and Weight loss R63.4 [facility] [address] [place], [place] [id number] 05/25/2024 Anne Galdamez Post menopausal syndrome N95.1 ; Weight loss R63.4 and Polyarthralgia M25.50 [facility] [address] [place], [place] [id number] 09/21/2024 Anne Galdamez Post menopausal syndrome N95.1 ; Breast cancer screening Z12.39 ; Lipid screening Z13.220 ; Anxiety and depression F41.8 ; Cervical radiculopathy M54.12 ; HTN (hypertension) I10 ; Weight loss R63.4 and BMI 27.0-27.9,adult Z68.27 [facility] [address] [place], [place] [id number] 03/18/2024 Anne Galdamez [facility] [address] [place] [id number] 05/01/2024 Anne Galdamez [facility] [address] [facility] [address] [place] [id number] 09/25/2024 Anne Galdamez Assessments Encounter Date Diagnosis [...] R63.4) 09/21/2024 BMI 27.0-27.9,adult (ICD-10 - Z68.27) 02/25/2024 Other will add MVI Plan Of Treatment No Information Insurance Providers Payer Name Payer Address Payer Phone Subscriber Number Group Number Insured Name Patient Relationship to Insured Coverage Start Date Coverage End Date [facility] [address] [place] [address] [id number] NALDO DAMON Self - patient is the insured Medical (General) History Medical History History ICD Code Palpitations Surgical History Surgery Date(Month/Year) Appendectomy - YOLANDE Tapia 1999 Removal of Gall Stones 03/2000 Cholecystectomy- [facility] [place] 03/2000 Hysterectomy - [facility] 2014 Pancreatitis procedure 03/2018 Hospitalization History Reason Date(Month/Year) Acute Pancreatitis 04/2018
--- OUTSIDE RECORDS SUMMARY | 2024-11-21 04:05 | XMS_ITS | Encounter Summary ---
Author Organization [employer] ([place], [place], [place], [place]) Address [address] [place] [address] Care Team Providers Care Dispatch Manager Name Role Phone Vianney Galdamez MD Primary Care Provider [phone] Encounter Details Date Type Department Care Team (Late st Contact Info) Description 04/16/2018 Transcribed Document [facility] Family Medicine [address] [place] [address] ProviderLydia MD [address] [place] [address] Social History Tobacco Use Types Packs/Day [...] Lydia Frazier MD - 04/16/2018 4:28 PM PARIMUTUEL CLERK [place] [address], [place] [address] Patient Copy Patient Information: Name: YASMEEN DAMON Current Date: 04/16/2018 16:28:13 : 1975 Patient Address: [place] [address] Patient Attending Physician: LEANDRO ESPAÑA MD-[facility] Primary Care Provider: KRISTIN GALDAMEZ (REF) Primary Care Provider Discharge Diagnosis: Weight on Admission: 163 lb, 13 oz Comment: Follow-up Instructions: With: Address: When: LEANDRO ESPAÑA [address] [place] [id number] Business (1) Within As needed Comments: Office [...] provider. Document Released: 12/16/2013 Document Reviewed: 12/16/2013 [employer] Patient Education ? 2017 [employer] CIGARETTE SMOKING: The facts are clear, cigarette smoking will shorten your life. Smoking can cause many illnesses along the way. As a healthcare provider, we recommend that you stop smoking. Assistance with quitting is available by contacting 7-819-YPQB-NOW. This is a free resource providing counseling, [...] Be sure to sign up for the [employer] patient portal, which gives you 01/10 access to your medical information ??? including these discharge instructions ??? using your computer, smartphone, or tablet. Just go to [employer] to get started. Questions? Call . [facility] would like to thank you for allowing us to assist you with your healthcare needs. INESSA SHANNON L, (or desk representative) have received the above patient education materials/instructions and have verbalized understanding: Patient Signature _ Date/Time Patient Traffic Coordinator Signature (if needed) Date/Time Clinician/Hospital Traffic Coordinator Signature (if needed) Date/Time Electronically signed by Rebel, [facility] Conversion Tractor Crane Operator Cerner at 06/29/2022 4:12 PM CDT documented in this encounter Plan of Treatment Upcoming Encounters Date Type Department Care Team (Late st Contact Info) Description 07/20/2025 10:00 AM EDT Appointment [facility] Echocardiography [address] [place] [address] Melanie Melchor PA-C [address] [address] 07/26/2025 9:30 AM EDT Office Visit [facility] Cardiology - [place] [address] [place] [address] Melanie Melchor PA-C [address] [address] documented as of this encounter Visit Diagnoses Not on filedocumented in this encounter Care Teams Dispatch Manager Relationship Specialty Start Date End Date Vianney Galdamez MD [address] [facility] [address] [place] [address] PCP - General 08/15/22 documented as of this encounter
--- OUTSIDE RECORDS SUMMARY | 2024-11-21 04:05 | XMS_ITS | Encounter Summary ---
Author Organization [employer] ([place], [place], [place], [place]) Address [address] [place] [address] Care Team Providers Care Network Engineer Administrator Name Role Phone Vianney Galdamez MD Primary Care Provider [phone] Encounter Details Date Type Department Care Team (Late st Contact Info) Description 04/16/2018 Transcribed Document [facility] Family Medicine [place] [address] ProviderLydia MD [address] [place] [id number] Social History Tobacco Use Types Packs/Day Years Used Date Smoking Tobacco: Never Assessed Comments Unknown Sex and Gender Information Value Date Recorded Sex Assigned at Not on file Legal Sex Female 5:58 PM CDT Gender Identity Not on file Sexual Orientation Not on file documented as of this encounter Miscellaneous Notes * Cerner Conversion Note - Lydia ProviderMD - 04/16/2018 3:30 PM SCHOOL ATTENDANCE SECRETARY [facility] PreOp Summary Primary Physician: LEANDRO ESPAÑA MD-[facility] Finalized Date/Time: 04/16/18 13:34:18 Pt. Name: YASMEEN DAMON.O.B./Sex: 1975 Female Med Rec #: [id number] Physician: LEANDRO ESPAÑA MD-[facility] Financial #: [id number] Pt. Type: O Room/Bed: Admit/Disch: 04/16/18 12:31:00 - Institution: [facility] PreOp Case Times Entry 1 In Preop 04/16/18 13:05:00 Ready for Holding n/a Room Patient Ready for 04/16/18 13:34:00 Surgery Patient Out of Preop 04/16/18 13:34:00 Patient Out of n/a Holding Room [facility] PreOp Case Times Audit 04/16/18 13:34:16 Plaster Caster: MADDISON Modifier: BROOKEJ <+> 1 Patient Out of Preop <+> 1 Patient Ready for Surgery Finalized By: NAJMA Meyer RN Document Signatures Signed By: NAJMA Meyer RN 04/16/18 13:34 documented in this encounter Plan of Treatment Upcoming Encounters Date Type Department Care Team (Late st Contact Info) Description 07/20/2025 10:00 AM EDT Appointment [facility] Echocardiography [address] [place] [address] Melanie Melchor PA-C [address] [address] 07/26/2025 9:30 AM EDT Office Visit [facility] [place] [address] [place] [address] Melanie Melchor PA-C [address] [address] documented as of this encounter Visit Diagnoses Not on filedocumented in this encounter Care Teams Network Engineer Administrator Relationship Specialty Start Date End Date Vianney Galdamez MD [address] [place] [facility] [address] [place] [address] PCP - General 08/15/22 documented as of this encounter
--- OUTSIDE RECORDS SUMMARY | 2024-11-21 04:05 | XMS_ITS | Encounter Summary ---
Author Organization [employer] ([place], [place], [place], [place]) Address [address] [place] [address] Care Team Providers Care Board Certified Music Therapist Name Role Phone Vianney Galdamez MD Primary Care Provider [phone] Encounter Details Date Type Department Care Team (Late st Contact Info) Description 04/16/2018 Transcribed Document [facility] Family Medicine [facility] [place] [address] ProviderLydia MD [address] [place] [address] Social History Tobacco Use Types Packs/Day Years Used Date Smoking Tobacco: Never Assessed Comments Unknown Sex and Gender Information Value Date Recorded Sex Assigned at Not on file Legal Sex Female 5:58 PM CDT Gender Identity Not on file Sexual Orientation Not on file documented as of this encounter Miscellaneous Notes * Cerner Conversion Note - Lydia ProviderMD - 04/16/2018 2:06 PM BRAKE RIDER [facility] PACU Summary Primary Physician: LEANDRO LOGAN MD-[facility] Finalized Date/Time: 04/16/18 16:32:14 Pt. Name: YASMEEN DAMON.O.B./Sex: 1975 Female Med Rec #: [id number] Physician: LEANDRO LOGAN MD-[facility] Financial #: [id number] Pt. Type: O Room/Bed: Admit/Disch: 04/16/18 12:31:00 - Institution: [facility] PACU Case Times Entry 1 In PACU I 04/16/18 14:27:00 Ready for PACU 04/16/18 16:21:00 Discharge Discharge from PACU 04/16/18 16:32:00 I General Comments: patient co burning, cramping, and stabbing. Dr. Logan in to see and talk to patient. Prescriptions to patient. [facility] Col[facility] PACU Case Times Audit 04/16/18 16:32:12 Edge Inker: SMITDO Modifier: SMITDO <+> 1 Discharge from PACU I 04/16/18 16:22:42 Edge Inker: SMITDO Modifier: SMITDO 1 <*> Ready for PACU Discharge Finalized By: KI SMITH, RN Document Signatures Signed By: KI SMITH RN 04/16/18 16:32 documented in this encounter Plan of Treatment Upcoming Encounters Date Type Department Care Team (Late st Contact Info) Description 07/20/2025 10:00 AM EDT Appointment [facility] Echocardiography [address] [place] [address] Melanie Melchor PA-C [address] [address] 07/26/2025 9:30 AM EDT Office Visit [facility] Cardiology - [place] [address] [place] [address] Melanie Melchor PA-C [address] [address] documented as of this encounter Visit Diagnoses Not on filedocumented in this encounter Care Teams Board Certified Music Therapist Relationship Specialty Start Date End Date Vianney Galdamez MD [address] [place] [facility] [address] [place] [address] PCP - General 08/15/22 documented as of this encounter
--- OUTSIDE RECORDS SUMMARY | 2024-11-21 04:05 | XMS_ITS | Encounter Summary ---
Author Organization [employer] ([place], [place], [place], [place]) Address [address] [place] [address] Care Team Providers Care Console Assembler Name Role Phone Vianney Galdamez MD Primary Care Provider [phone] Encounter Details Date Type Department Care Team (Late st Contact Info) Description 04/16/2018 Transcribed Document [facility] Family Medicine [address] [place] [address] ProviderLydia MD [address] [place] [address] Social History Tobacco Use Types Packs/Day Years Used Date Smoking Tobacco: Never Assessed Comments Unknown Sex and Gender Information Value Date Recorded Sex Assigned at Not on file Legal Sex Female 5:58 PM CDT Gender Identity Not on file Sexual Orientation Not on file documented as of this encounter Miscellaneous Notes * Cerner Conversion Note - Historical ProviderMD - 04/16/2018 4:26 PM CURING FINISHER Nursing Discharge Summary Entered On: 04/16/2018 16:27 [...] - 04/16/2018 16:26 EST Electronically signed by Mario Luque Conversion Manager Of Loss Prevention Operations Cerner at 06/29/2022 4:13 PM CDT documented in this encounter Plan of Treatment Upcoming Encounters Date Type Department Care Team (Late st Contact Info) Description 07/20/2025 10:00 AM EDT Appointment [facility] Echocardiography [address] [place] [address] Melanie Melchor PA-C [address] [address] 07/26/2025 9:30 AM EDT Office Visit [facility] Cardiology - [place] [address] [place] [address] Melanie Melchor PA-C [address] [address] documented as of this encounter Visit Diagnoses Not on filedocumented in this encounter Care Teams Console Assembler Relationship Specialty Start Date End Date Vianney Galdamez MD 1210 [facility] [address] [place] [address] PCP - General 08/15/22 documented as of this encounter
--- OUTSIDE RECORDS SUMMARY | 2024-11-21 04:06 | XMS_ITS | Encounter Summary ---
Author Organization [employer] ([place], [place], [place], [place]) Address [address] [place] [address] Care Team Providers Care Lifestyle Consultant Name Role Phone Vianney Galdamez MD Primary Care Provider [phone] Encounter Details Date Type Department Care Team (Late st Contact Info) Description 04/16/2018 Transcribed Document [facility] Family Medicine [facility] [place] [address] ProviderLydia MD [address] [place] [address] Social History Tobacco Use Types Packs/Day Years Used Date Smoking Tobacco: Never Assessed Comments Unknown Sex and Gender Information Value Date Recorded Sex Assigned at Not on file Legal Sex Female 5:58 PM CDT Gender Identity Not on file Sexual Orientation Not on file documented as of this encounter Miscellaneous Notes * Cerner Conversion Note - Historical ProviderMD - 04/16/2018 1:12 PM AUTOMOTIVE PRODUCT SPECIALIST Pre Procedure Adult Entered On: 04/16/2018 13:18 EST Performed On: 04/16/2018 13:12 EST by NAJMA Meyer RN Height and Weight, Clinical Dosing Height Source : Stated Height Entry Format : [place] Height, Feet : 0 ft(Converted to: 0 cm, 0 Inch) Height, Inches : 65 Inch(Converted to: 5 ft 5 Inch, 165.10 cm) Clinical Height : 165.1 cm Weight Source : Standing scale Weight Entry Format : [place]era Clinical Dosing Weight : 74.45 kg Weight, Pounds : 163.8 lb Body Surface Area (BSA) : 1.82 m2 Body Mass Index : 27.3 kg/m2 (HI) [place] Body Weight : 57 kg NAJMA Meyer [...] Obtained From : Patient Primary Language : Jamaican Communication Barrier : None Objects to Sharing [...] Scale Risk Level : 0-24 Low Risk Bell Buckle Fall Interventions : Adequate lighting, Bed in [...] EDT Appointment [facility] Echocardiography [address] [place] [address] Melanie Melchor PA-C [address] [phone] 07/26/2025 9:30 AM EDT Office [facility] Cardiology - [place] [address] [place] [address] Melanie Melchor PA-C [address] [phone] documented as of this encounter Visit Diagnoses Not on filedocumented in this encounter Care Teams Lifestyle Consultant Relationship Specialty Start Date End Date Vianney Galdamez MD 1210 [place] [facility] [address] [place] [address] PCP - General 08/15/22 documented as of this encounter
--- OUTSIDE RECORDS SUMMARY | 2024-11-21 04:06 | XMS_ITS | Encounter Summary ---
Author Organization [employer] ([place], [place], [place], [place]) Address [address] [place] [address] Care Team Providers Care Linux Unix Administrator Name Role Phone Vianney Galdamez MD Primary Care Provider [phone] Reason for Visit * Reason Comments Medication Refill Encounter Details Date Type Department Care Team (Late st Contact Info) Description 11/16/2024 Refill [facility] Cardiology - [place] [address] [place] [address] Melanie Melchor PA-C [address] [address] Palpitations Social History Tobacco Use Types Packs/Day Years Used Date Smoking Tobacco: Former Cigarettes Q uit: 2020 Smokeless Tobacco: Never Alcohol Use Standard Drinks/Week Comments Never 0 (1 standard drink = 0.6 oz pur e alcohol) caffeine use [facility] - Mental Health Answer Date Recorde d [...] Date Víctor rded Speak language other than Cameroonian at home Not on file 03/29/2023 Want [...] on file documented as of this encounter Plan of Treatment Upcoming Encounters Date Type Department Care Team (Late st Contact Info) Description 07/20/2025 10:00 AM EDT Appointment [facility] Echocardiography [address] [place] [address] Melanie Melchor PA-C [address] [phone] 07/26/2025 9:30 AM EDT Office Visit [facility] Cardiology - [place] [address] [place] [address] Melanie Melchor PA-C [address] [address] documented as of this encounter Visit Diagnoses Diagnosis Palpitations documented in this encounter Care Teams Linux Unix Administrator Relationship Specialty Start Date End Date Vianney Galdamez MD 1210 [facility] [address] [place] [address] PCP - General 08/15/22 documented as of this encounter
--- OUTSIDE RECORDS SUMMARY | 2024-11-21 04:06 | XMS_ITS | Clinical Summary ---
Author Organization [employer] ([place], [place], [place], [place]) Address [address] [place] [address] Care Team Providers Care Grounds Caretaker Name Role Phone Vianney Galdamez MD Primary Care Provider [phone] Allergies Active Allergy Reactions Criticality Noted Date Comments Ampicillin Nausea And Vomiting Low 06/29/2022 Doxycycline High 04/09/2019 Other reaction(s): Palpitations Medications fluticasone propionate (FLONASE) 50 mcg/actuation nasal spray 1 spray by intraNASAL route nightly. Active polyethylene glycol (GLYCOLAX) 17 gram packet Take 17 g by mouth as needed. Active fLUoxetine (PROzac) 20 MG capsule Take 1 capsule (20 mg total) by mouth daily. 07/29/19 24 Active Wegovy 0.25 mg/0.5 mL syringe Inject 0.5 mLs (0.25 mg total) under the skin once a week Takes on Saturday.. 08/16/19 24 Active hyoscyamine (LEVSIN/SL) 0.125 mg SL tablet Take 1 tablet (125 mcg total) by mouth every 6 (six) hours as needed. 07/29/19 24 Active busPIRone (BUSPAR) 10 MG tablet Take 1 tablet (10 mg total) by mouth 2 (two) times daily. 07/29/19 24 Active estradioL (ESTRACE) 1 MG tablet Take 2 tablets (2 mg total) by mouth daily. 07/29/19 24 Active meloxicam (MOBIC) 15 MG tablet Take 1 tablet (15 mg total) by mouth daily as needed. 07/06/19 24 Active methocarbamoL (ROBAXIN) 750 MG tablet Take 1 tablet (750 mg total) by mouth 3 (three) times daily as needed. 07/06/19 24 Active fexofenadine (GERBER) 180 MG tablet Take 1 tablet (180 mg total) by mouth in the morning. Active HYDROcodone-ac etaminophen (NORCO 5-325) 5-325 mg per tablet Take 1 tablet by mouth every 6 (six) hours as needed for pain. Max Daily Amount: 4 tablets 42 tablet 09/28/19 24 Active Additional Information Patient not taking.Reported on 07/27/2024 docusate sodium (COLACE) 100 MG capsule Take 1 capsule (100 mg total) by mouth 2 (two) times daily. 60 capsule 09/28/19 24 Active Additional Information Patient not taking.Reported on 07/27/2024 gabapentin (NEURONTIN) 100 MG capsule Take 1 capsule (100 mg total) by mouth 3 (three) times daily. Max Daily Amount: 300 mg 07/27/19 25 Active traMADoL (ULTRAM) 50 mg tablet Take 1 tablet (50 mg total) by mouth 3 (three) times daily. Max Daily Amount: 150 mg 07/10/19 25 Active atenoloL (TENORMIN) 25 MG tabletIndicati ons:Palpitatio ns Take 1 tablet by mouth twice daily 180 tablet 11/17/19 25 Active atenoloL (TENORMIN) 25 MG tabletIndicati ons:Palpitatio ns Take 1 tablet (25 mg total) by mouth 2 (two) times daily. 180 tablet 3 07/28/19 25 025 Discontinued Active Problems Problem Noted Date Diagnosed Date Colonic polyp 08/14/2022 COVID-19 vaccine series completed 08/14/2022 PAT (paroxysmal atrial tachycardia) 08/14/2022 Anxiety 06/29/2022 GERD (gastroesophageal reflux disease) Palpitations 06/29/2022 Tachycardia 06/29/2022 Seasonal allergies 06/29/2022 Encounter for general adult medical examination without abnormal findings 06/29/2022 Allergic rhinitis 02/19/2019 Encounters Date Type Department Care Team Description 11/16/2024 Refill [facility] Cardiology - [address] [address] Melanie Melchor PA-C Palpitations from Last 3 Months Family History Medical [...] 0.6 oz pur e alcohol) caffeine use [facility] - Mental Health Answer Date Recorde d [...] Date Víctor rded Speak language other than South African at home Not on file 03/29/2023 Want [...] Info) Description 07/20/2025 10:00 AM EDT Appointment [facility] Echocardiography [address] [place] [address] Melanie Melchor PA-C [address] [facility] [address] [place] [phone] 07/26/2025 9:30 AM EDT Office Visit [facility] Cardiology - [place] [address] [place] [address] Melanie Melchor PA-C [address] [place] [address] [place] [phone] Health Maintenance Due Date Last Done Comments CT Colonography 1975 Colonoscopy 1975 Colorectal Cancer Screening 1975 FOBT/FIT 1975 Fit-DNA (Cologuard) 1975 Sigmoidoscopy 1975 Depression Screening (12+) 1988 HIV Screening 10/20/1991 Hepatitis C Screening 1994 Pap Smear 1997 Breast Cancer Screening 2016 Lipid Panel 2021 COVID-19 VACCINE ( season) 2024 12/06/2021, 01/04/2021, 06/24/2020, Additional history exists Influenza Vaccine (#1) 2024 Tobacco Cessation Counseling and Screening (12+) 07/27/2025 07/27/2024 DTAP/TDAP/TD VACCINES (3 - Td or Tdap) 07/22/2028 07/22/2018, 08/06/2017 Pneumococcal Vaccine: 0-49 Years Aged Out No longer eligible based on patient's age to complete this topic Medical Devices Implanted Type Area Catering Server Device Identifier Shelf Expiration Date Model / Serial / Lot Spcr Hedron C 12x14 7mm 7deg 1211.2417s - [id number] Implanted:Qty: 1 on 09/27/2023 by Sanchez Zamora MD at [facility] IMPLANTS N/A: Neck GLOBUS 03/29/2032 1211.2417S / / [id number] Spcr Hedron C 12x14 7mm 7deg 1211.2417s - [id number] Implanted:Qty: 1 on 09/27/2023 by Sanchez Zamora MD at [facility] IMPLANTS N/A: Neck GLOBUS 08/28/2032 1211.2417S / / [id number] Spcr Hedron C 12x14 7mm 7deg 1211.2417s - [id number] Implanted:Qty: 1 on 09/27/2023 by Sanchez Zamora MD at [facility] IMPLANTS N/A: Neck GLOBUS 07/30/2032 1211.2417S / / [id number] Tiss Live Bn Matrix Osteo 5cc [id number] - [id number] Implanted:Qty: 1 on 09/27/2023 by Sanchez Zamora MD at [facility] IMPLANTS N/A: Neck NUVASIVE 12/24/2027 [id number] / [id number] / Spcr Hedron C 12x14 8mm 7deg 1211.2418s - [id number] Implanted:Qty: 1 on 09/27/2023 by Sanchez Zamora MD at [facility] IMPLANTS N/A: Neck GLOBUS 03/29/2032 1211.2418S / / [id number] Scr Self Drl 14mmx4.6mm 171.014 - [id number] Implanted:Qty: 8 on 09/27/2023 by Sanchez Zamora MD at [facility] IMPLANTS N/A: Neck GLOBUS 171.014 / 171.014 / Plt 3 Lev 51mm 161.351 - [id number] Implanted:Qty: 1 on 09/27/2023 by Sanchez Zamora MD at [facility] IMPLANTS N/A: Neck GLOBUS 161.351 / 161.351 / Explanted Type Area Catering Server Device Identifier Shelf Expiration Date Model / Serial / Lot Pin Distractor 12mm 665.612 - [id number] Explanted:Qty: 2 on 09/27/2023 at [facility] IMPLANTS N/A: Neck GLOBUS 665.612 / 665.612 / Scr Self Drl Lisa Ang 4.2x14mm 161.014 - [id number] Explanted:Qty: 8 on 09/30/2023 at [facility] IMPLANTS N/A: Neck GLOBUS 161.014 / 161.014 / Insurance BLUE CROSS/BLUE SHIELD Advance Directives For more information, please contact: [phone] * Full Code (Latest Code Status on File) Date Activated Date Inactivated Comments 09/27/2023 4:49 PM 09/28/2023 5:48 PM -Attempt Res uscitation if person has no pulse and is not breathing. -If no pulse or not breathing attempt CPR/CODE. -Call Rapid Response if patient is in distress. Care Teams Grounds Caretaker Relationship Specialty Start Date End Date Vianney Galdamez MD 12[address] [place] [facility] [address] [place] [facility] (work) PCP - General 08/15/22
--- OUTSIDE RECORDS SUMMARY | 2024-11-21 04:06 | XMS_ITS | Referral Summary ---
Author Organization [employer] ([place], [place], [place], [place]) Address [address] [place] [address] Care Team Providers Care Ending Machine Operator Name Role Phone Vianney Galdamez MD Primary Care Provider [phone] Encounters Date Type Department Care Team Description 11/16/2024 Refill [facility] Cardiology - [address] [address] Melanie Melchor PA-C Palpitations from Last 3 Months Allergies Active Allergy [...] (2 mg total) by mouth daily. 07/29/19 Active meloxicam (MOBIC) 15 MG tablet Take [...] Daily Amount: 4 tablets 42 tablet 09/28/19 Active Additional Information Patient not taking.Reported on 07/27/2024 docusate sodium (COLACE) 100 MG capsule Take 1 capsule (100 mg total) by mouth 2 (two) times daily. 60 capsule 09/28/19 Active Additional Information Patient not taking.Reported on [...] 0.6 oz pur e alcohol) caffeine use [facility] - Mental Health Answer Date Recorde [...] Date Víctor rded Speak language other than Finnish at home Not on file 03/29/2023 Want [...] [facility] Echocardiography [address] [place] [address] Melanie Melchor PA-C [address] [place] [address] 07/26/2025 9:30 AM EDT Office Visit [facility] Cardiology - [place] [address] [place] [address] Melanie Melchor PA-C [address] [facility] [address] [place] [address] Medical Devices Implanted Type Area Production Packager Device Identifier Shelf Expiration Date Model / Serial / Lot Spcr Hedron C 12x14 7mm 7deg 1211.2417s - [id number] Implanted:Qty: 1 on 09/27/2023 by Sanchez Zamora MD at [facility] IMPLANTS N/A: Neck GLOBUS 03/29/2032 1211.2417S / / [id number] Spcr Hedron C 12x14 7mm 7deg 1211.2417s - [id number] Implanted:Qty: 1 on 09/27/2023 by Sanchez Zamora MD at [facility] IMPLANTS N/A: Neck GLOBUS 08/28/2032 1211.2417S / / [id number] Spcr Hedron C 12x14 7mm 7deg 12117s - [id number] Implanted:Qty: 1 on 09/27/2023 by Sanchez Zamora MD at [facility] IMPLANTS N/A: Neck GLOBUS 07/30/2032 1211.2417S / / [id number] Tiss Live [employer] Matrix Osteo 5cc [id number] - [id number] Implanted:Qty: 1 on 09/27/2023 by Sanchez Zamora MD at [facility] IMPLANTS N/A: Neck NUVASIVE 12/24/2027 [id number] / [id number] / Spcr Hedron C 12x14 8mm 7deg 1211.2418s - [id number] Implanted:Qty: 1 on 09/27/2023 by Sanchez Zamora MD at [facility] IMPLANTS N/A: Neck GLOBUS 03/29/2032 1211.2418S / / [id number] Scr Self Drl 14mmx4.6mm 171.014 - [id number] Implanted:Qty: 8 on 09/27/2023 by Sanchez Zamora MD at [facility] IMPLANTS N/A: Neck GLOBUS 171.014 / 171.014 / Plt 3 Lev 51mm 161.351 - [id number] Implanted:Qty: 1 on 09/27/2023 by Sanchez Zamora MD at [facility] IMPLANTS N/A: Neck GLOBUS 161.351 / 161.351 / Explanted Type Area Production Packager Device Identifier Shelf Expiration Date Model / Serial / Lot Pin Distractor 12mm 665.612 - [id number] Explanted:Qty: 2 on 09/27/[address] [facility] IMPLANTS N/A: Neck GLOBUS 665.612 / 665.612 / Scr Self Drl Lisa Ang 4.2x14mm 161.014 - [id number] Explanted:Qty: 8 on 09/30/[address] [facility] IMPLANTS N/A: Neck GLOBUS 161.014 / 161.014 / Insurance BLUE CROSS/BLUE SHIELD Advance Directives For more information, please contact: [phone] * Full Code (Latest Code Status on File) Date Activated Date Inactivated Comments 09/27/2023 4:49 PM 09/28/2023 5:48 PM -Attempt Res uscitation if person has no pulse and is not breathing. -If no pulse or not breathing attempt CPR/CODE. -Call Rapid Response if patient is in distress. Care Teams Ending Machine Operator Relationship Specialty Start Date End Date Vianney Galdamez MD [address] [place] [facility] [address] [place] [address] PCP - General 08/15/22
--- OUTSIDE RECORDS SUMMARY | 2024-11-21 04:06 | XMS_ITS | Encounter Summary ---
Author Organization [employer] ([place], [place], [place], [place]) Address [address] [place] [address] Care Team Providers Care Red Cross Worker Name Role Phone Vianney Galdamez MD Primary Care Provider [phone] Encounter Details Date Type Department Care Team (Late st Contact Info) Description 04/16/2018 Transcribed Document [facility] [place] [address] [place] [address] ProviderLydia MD [address] [place] [address] Social History Tobacco Use Types Packs/Day Years Used Date Smoking Tobacco: Never Assessed Comments Unknown Sex and Gender Information Value Date Recorded Sex Assigned at Not on file Legal Sex Female 5:58 PM CDT Gender Identity Not on file Sexual Orientation Not on file documented as of this encounter Miscellaneous Notes * [employer]ner Conversion Note - Historical ProviderMD - 04/16/2018 4:27 PM COMMERCIAL SALES DIRECTOR Discharge Instructions Entered On: 04/16/2018 16:28 EST [...] 04/16/2018 16:27 EST Electronically signed by Rebel [facility] Conversion Child Care Coordinator Cerner at 06/29/2022 4:29 PM CDT documented in this encounter Plan of Treatment Upcoming Encounters Date Type Department Care Team (Late st Contact Info) Description 07/20/2025 10:00 AM EDT Appointment [facility] Echocardiography [address] [place] [address] Melanie Melcohr PA-C [address] [facility] [address] [place] [address] 07/26/2025 9:30 AM EDT Office Visit [facility] Cardiology - [place] [address] [place] [address] Melanie Melchor PA-C [address] [facility] [address] [place] [address] documented as of this encounter Visit Diagnoses Not on filedocumented in this encounter Care Teams Red Cross Worker Relationship Specialty Start Date End Date Vianney Galdamez MD [address] [facility] [address] [place] [address] PCP - General 08/15/22 documented as of this encounter
--- OUTSIDE RECORDS SUMMARY | 2024-11-21 04:06 | XMS_ITS | Clinical Summary ---
Author Organization [facility] Address [address] [place] [address] Care Team Providers Care Reverse Engineer Name Role Phone January Cabrera Primary Care Provider [phone] Allergies Active Allergy Reactions Criticality Noted Date [...] COVID-19 Vaccine ( - 2023-2 5 season) 2024 INFLUENZA VACCINE 12/09/2024 Pneumococcal Vaccine 0-49 Aged Out No longer eligible based on patient's age to complete this topic Insurance [facility] Care Teams Reverse Engineer Relationship Specialty Start Date End Date January Cabrera PA [address] [place] [address] PCP - General 02/08/15
--- OUTSIDE RECORDS SUMMARY | 2024-11-21 04:06 | XMS_ITS | Encounter Summary ---
Author Organization [employer] ([place], [place], [place], [place]) Address [address] [place] [address] Care Team Providers Care Bread Dough Mixer Name Role Phone Vianney Galdamez MD Primary Care Provider [phone] Encounter Details Date Type Department Care Team (Late st Contact Info) Description 04/16/2018 Transcribed Document [facility] Family Medicine [facility] [place] [address] ProviderLydia MD [address] [place] [address] Social History Tobacco Use Types Packs/Day Years Used Date Smoking Tobacco: Never Assessed Comments Unknown Sex and Gender Information Value Date Recorded Sex Assigned at Not on file Legal Sex Female 5:58 PM CDT Gender Identity Not on file Sexual Orientation Not on file documented as of this encounter Miscellaneous Notes * [employer] Conversion Note - Lydia ProviderMD - 04/16/2018 4:28 PM CLINICAL ACCOUNT MANAGER Patient Education Materials Follows: Endoscopic Retrograde Cholangiopancreatography [...] provider. Document Released: 12/16/2013 Document Reviewed: 12/16/2013 [employer] Patient Education ? 2017 [employer]. documented in this encounter Plan of Treatment Upcoming Encounters Date Type Department Care Team (Late st Contact Info) Description 07/20/2025 10:00 AM EDT Appointment [facility] Echocardiography [address] [place] [address] Melanie Melchor PA-C [address] [phone] 07/26/2025 9:30 AM EDT Office Visit [facility] Cardiology - [place] [address] [place] [address] Melanie Melchor PA-C [address] [phone] documented as of this encounter Visit Diagnoses Not on filedocumented in this encounter Care Teams Bread Dough Mixer Relationship Specialty Start Date End Date Vianney Galdamez MD [address] [place] [facility] [address] [place] [address] PCP - General 08/15/22 documented as of this encounter
--- OUTSIDE RECORDS SUMMARY | 2024-11-21 04:06 | XMS_ITS | Encounter Summary ---
Author Organization [employer] ([place], [place], [place], [place]) Address [address] [place] [address] Care Team Providers Care Director Of Home Care Hospice Name Role Phone Vianney Galdamez MD Primary Care Provider [phone] Encounter Details Date Type Department Care Team (Late st Contact Info) Description 04/16/2018 Transcribed Document [facility] Family Medicine [address] [place] [address] ProviderLydia MD [address] [place] [id number] Social History Tobacco Use Types Packs/Day Years Used Date Smoking Tobacco: Never Assessed Comments Unknown Sex and Gender Information Value Date Recorded Sex Assigned at Not on file Legal Sex Female 5:58 PM CDT Gender Identity Not on file Sexual Orientation Not on file documented as of this encounter Miscellaneous Notes * [employer] Conversion Note - Historical ProviderMD - 04/16/2018 2:06 PM DATA DESIGNER [facility] Intra[facility] Summary Primary Physician: LEANDRO ESPAÑA MD-GAE Finalized Date/Time: 04/16/18 14:22:49 Pt. Name: YASMEEN DAMON /Sex: 1975 Female Med Rec #: [id number] Physician: LEANDRO ESPAÑA MD-GAE Financial #: [id number] Pt. Type: O Room/Bed: Admit/Disch: 04/16/18 12:31:00 - Institution: [facility] - Case Attendance Entry 1 Entry 2 Entry 3 Case Attendee LEANDRO ESPAÑA KULCHAR, KATHLEEN A, KEILA ADAMS Role Performed Surgeon/Proceduralist, Residential Treatment Specialist, First Scrub, First First Time In 04/16/18 [...] 5 Case Attendee DIAZ CONNELLY BRUNER, HAVEN LUMBER TRIMMER Role Performed LUMBER TRIMMER/Nurse Rolled Ham Lacer Magazine Feeder Time In 04/16/18 13:56:00 04/16/18 13:56:00 Time Out 04/16/18 14:22:00 04/16/18 14:22:00 Procedure Endoretrogradecholangiop Endoretrogradecholangiop ancreatography, ancreatography, Sphincterotomy, Biliary Sphincterotomy, Biliary Duct Balloon Sweep Duct Balloon Sweep Other Attendee Superficial Wound Closed By: Last Modified By: MIKIE HERNANDEZ RN KULCHAR, KATHLEEN A, RN 04/16/18 14:22:46 04/16/18 14:22:46 [facility] - Case Attendance Audit 04/16/18 14:22:46 Associate Principal: YUSUF Modifier: YUSUF 1 <+> Time Out [...] Sphincterotomy, Biliary Duct Balloon Sweep 04/16/18 14:18:28 Associate Principal: KULCKA Modifier: KULCKA 1 <*> Procedure Endoretrogradecholangiopancreatography, Sphincterotomy 2 <*> Procedure Endoretrogradecholangiopancreatography, Sphincterotomy 3 <*> Procedure Endoretrogradecholangiopancreatography, Sphincterotomy 4 <*> Procedure Endoretrogradecholangiopancreatography, Sphincterotomy 5 <*> Procedure Endoretrogradecholangiopancreatography, Sphincterotomy 04/16/18 14:11:04 Associate Principal: BACILIOLCKA Modifier: KULCKA 1 <*> Procedure Endoretrogradecholangiopancreatography 2 <*> Procedure Endoretrogradecholangiopancreatography 3 <*> Procedure Endoretrogradecholangiopancreatography 4 <*> Procedure Endoretrogradecholangiopancreatography 5 <+> Time In 5 <*> Procedure Endoretrogradecholangiopancreatography 04/16/18 14:05:57 Associate Principal: BACILIOLCKA Modifier: KULCKA 1 <+> Time In 1 <*> Procedure Endoretrogradecholangiopancreatography 2 <+> Time In 2 <*> Procedure Endoretrogradecholangiopancreatography 3 <+> Time In 3 <*> Procedure Endoretrogradecholangiopancreatography 4 <+> Time In 4 <*> Procedure Endoretrogradecholangiopancreatography <+> 5 Case Attendee <+> 5 Role Performed <+> 5 Procedure 04/16/18 13:52:21 Associate Principal: KULCKA Modifier: KULCKA <+> 3 Case Attendee <+> 3 Role Performed <+> 3 Procedure <+> 4 Case Attendee <+> 4 Role Performed <+> 4 Procedure 04/16/18 13:49:16 Associate Principal: KULCKA Modifier: KULCKA <+> 1 Procedure 2 <*> Procedure Endoretrogradecholangiopancreatography [facility] Endo - Case Times Entry 1 Patient In Room Time 04/16/18 13:56:00 Out Room Time 04/16/18 14:22:00 Anesthesia Start Time 04/16/18 13:56:00 Stop Time 04/16/18 14:15:00 Anesthesia Ready 04/16/18 14:02:00 Surgery / Procedure Times Start Time 04/16/18 14:06:00 Stop Time 04/16/18 14:15:00 Last Modified By: MIKIE HERNANDEZ RN 04/16/18 14:22:43 [facility] - Case Times Audit 04/16/18 14:22:43 Associate Principal: KULCKA Modifier: KULCKA <+> 1 Out Room Time 04/16/18 14:16:23 Associate Principal: KULCKA Modifier: KULCKA <+> 1 Stop Time <+> 1 Stop Time 04/16/18 14:10:44 Associate Principal: KULCKA Modifier: KULCKA <+> 1 Start Time [facility] - Cautery Entry 1 ESU Identification Cautery Type Monopolar ESU Cautery Type ENDO CUT Comments ID Number ERBE ID Type Hospital Number Cautery Settings ESU Grounding Pad Ground Pad Type Adult Grounding Pad Site Right Flank Grounding Pad LEAN, JACHELE Applied By Grounding Pad Site Dry, [...] 04/16/18 13:47:53 [facility] - General Case Service Inspector 1 Case Information OR Endo 04 [facility] Case Level 1 Room Verified Yes Wound Class II - Clean-Contaminated Specialty SN Gastroenterology Anesthesia Type MAC ASA Class 2 Diagnosis Preop Diagnosis RUQ pain Postop Same As Preop No Postop Diagnosis sludge Last Modified By: MIKIE HERNANDEZ RN 04/16/18 14:16:47 [facility] - General Case Data Audit 04/16/18 14:16:47 Associate Principal: KULCKA Modifier: KULCKA <+> 1 Preop Diagnosis <+> 1 Postop Diagnosis 04/16/18 13:51:32 Associate Principal: KULCKA Modifier: KULCKA <+> 1 ASA Class [...] Admin Entry 1 Medication/Irrigant Isovue-300 50ml - [id number] Time Administered 04/16/18 14:08:00 Route of [id number] Administration Dose Dose 3 Unit of Measure [...] Endo - Patient Positioning Audit 04/16/18 14:18:30 Associate Principal: YUSUF Modifier: BACILIOLCKA 1 <*> Procedure Endoretrogradecholangiopancreatography, Sphincterotomy 04/16/18 14:11:06 Associate Principal: YUSUF Modifier: KULCKA 1 <*> Procedure Endoretrogradecholangiopancreatography [...] Endo - Surgical Procedures Audit 04/16/18 14:18:24 Associate Principal: YUSUF Modifier: KULCKA <+> 1 Stop <+> 2 Stop <+> 3 Procedure <+> 3 Primary Procedure <+> 3 Primary Surgeon <+> 3 Specialty <+> 3 Start <+> 3 Stop <+> 3 Wound Class <+> 3 Anesthesia Type 04/16/18 14:11:01 Associate Principal: YUSUF Modifier: KULCKA <+> 1 Start <+> [...] Endo - Time Out Audit 04/16/18 14:18:30 Associate Principal: YUSUF Modifier: YUSUF 1 <*> Procedure to be Performed Endoretrogradecholangiopancreatography, Sphincterotomy 04/16/18 14:11:06 Associate Principal: YUSUF Modifier: YUSUF 1 <*> Procedure to be Performed Endoretrogradecholangiopancreatography [facility] Endo - X-Ray and Images Entry 1 X-Ray/Imaging Type Fluoroscopy Fluoroscopy Type C-Arm Vp Marketing Services And Skin Name JOSE MILLER Protective Devices Yes Used Exposure Time 0.6 Last Modified By: MIKIE HERNANDEZ RN 04/16/18 14:19:02 Case Comments <None> Finalized By: MIKIE HERNANDEZ RN Document Signatures Signed By: MIKIE HERNANDEZ RN 04/16/18 14:22 Electronically signed by Rebel [facility] Conversion It Sales Representative Cerner at 06/29/2022 4:31 PM CDT documented in this encounter Plan of Treatment Upcoming Encounters Date Type Department Care Team (Late st Contact Info) Description 07/20/2025 10:00 AM EDT Appointment [facility] Echocardiography [address] [place] [address] Melanie Melchor PA-C [address] [address] 07/26/2025 9:30 AM EDT Office Visit [facility] Cardiology - [place] [address] [place] [address] Melanie Melchor PA-C [address] [address] documented as of this encounter Visit Diagnoses Not on filedocumented in this encounter Care Teams Director Of Home Care Hospice Relationship Specialty Start Date End Date Vianney Galdamez MD [address] [place] [facility] [address] [place] [address] PCP - General 08/15/22 documented as of this encounter
[2024-11-21] MEDS: ONDANSETRON 4MG/2ML VIAL 4 MG IV (05:03)
[2024-11-21] MEDS: HYDROMORPHONE 2MG/ML SYRINGE 1 MG IV (05:03)
--- NOTE | 2024-11-21 05:14 | HMH.EDGENADL ---
Discharge Plan Disposition Chief Complaint: PAIN Prescriptions Prescriptions: New clindamycin HCl [Cleocin HCl] 300 mg capsule 300 mg PO TID 7 Days Qty: 21 0RF No Action diclofenac sodium 75 mg tablet,delayed release (DR/EC) 75 mg PO BID Qty: 28 0RF gabapentin 100 mg capsule 100 mg PO TID Qty: 90 0RF atenolol 25 MG tablet 25 mg PO BID ketorolac 10 mg tablet 10 mg PO Q8H 3 Days Qty: 9 0RF prednisone [prednisone] 20 mg tablet 20 mg PO BID Qty: 10 0RF baclofen 5 mg tablet 5 mg PO TID Qty: 42 0RF tramadol 50 mg tablet 50 mg PO TID Qty: 90 2RF baclofen 10 mg tablet See Rx Instructions .ROUTE .COMPLEX Qty: 90 2RF Dose Instruction: TAKE 1 TABLET BY MOUTH THREE TIMES DAILY Rx Instructions: TAKE 1 TABLET BY MOUTH THREE TIMES DAILY gabapentin 100 mg capsule 200 mg PO TID Qty: 180 0RF Referrals Follow up/Referrals: Provider,Referral, MD [Primary Care Provider, Medical] - See instructions Print Language Print Language: Rwand[place] Discharge ED Provider: Cece Tucker General Adult HPI <Cece Tucker MD - Last Filed: 11/21/24 06:38> General Chief complaint: PAIN Stated complaint: spinal fusion- neck 11/20, pain Time Seen by Provider: 11/21/24 04:24 Mode of Arrival: Ambulatory Source of Information: Patient Description of Symptoms (Recalled from ER Triage Doc. by RN): PT presents to the ED for evaluation of neck pain post spinal fusion on 11/19/2024 at [facility]. PT had a perc at 1999 History of Present Illness HPI narrative: 49-year-old female presents to the ER for postoperative pain. Patient reports spinal fusion 11/19/2024 at [facility] with fusion of C4-C7. Patient reports she had difficulty with pain control in the hospital and has been taking her prescribed Percocets as directed. Most recent Percocet was approximately 8 hours prior to my evaluation. She states the pain in her neck is not letting her rest and she is just hoping for relief. She is not having fevers or chills. She has tingling in the right hand that has been present since the time of the surgery and she was told by her surgeon that this should gradually resolve. No other complaints or concerns at this time. Patient reports before her discharge less than 24 hours ago she had unremarkable x-ray with the hardware looking good. Related Data Home Medications ?Medication ?Instructions ?Recorded ?Confirmed atenolol 25 mg tablet 25 mg PO BID palpitations 08/07/17 09/16/24 Previous Rx's ?Medication ?Instructions ?Recorded ketorolac 10 mg tablet 10 mg PO Q8H 3 days #9 tabs 07/28/22 prednisone 20 mg tablet 20 mg PO BID #10 tabs 07/28/22 diclofenac sodium 75 mg 75 mg PO BID #28 tabs 06/11/24 tablet,delayed release baclofen 5 mg tablet 5 mg PO TID #42 tabs 06/25/24 gabapentin 100 mg capsule 100 mg PO TID #90 caps 07/22/24 baclofen 10 mg tablet See Rx Instructions .Route 09/16/24 .COMPLEX #90 tabs gabapentin 100 mg capsule 200 mg (2 x 100 mg) PO TID #180 09/16/24 caps tramadol 50 mg tablet 50 mg PO TID #90 tabs 09/16/24 clindamycin HCl 300 mg capsule 300 mg PO TID 7 days #21 caps 11/21/24 (Cleocin HCl) Allergies Allergy/AdvReac Type Severity Reaction Status Date / Time doxycycline Allergy Severe Palpitation Verified 09/04/24 07:59 s ampicillin (AMPICILLIN) Allergy Unknown VOMITTING Verified 09/04/24 07:59 AND DIARRHEA [facility] <Cece Tucker MD - Last Filed: 11/21/24 06:38> [facility] Disclaimer: The information contained in this section may have been updated after the patient was seen, as this information can be updated by other users. Medical History Anxiety GERD (gastroesophageal reflux disease) Palpitations Cervical vertebral fusion Surgical History Hx of cholecystectomy H/O: hysterectomy Hx of cervical spinal arthrodesis History of appendectomy Family History Other Diabetes Social History Smoking Status: Current some day smoker tobacco type: cigarettes packs per day: 1 alcohol intake: never substance use type: former substance user current occupational status: other Travel in the last 8 weeks?: None household members: spouse and children housing: house caffeine: No Other Medical History Have you received the Flu Vaccine for this season: No Have you received the Pneumonia Vaccine: No <Cece Tucker MD - Last Filed: 11/21/24 06:38> ROS Obtained: Yes Systems reviewed as appropriate & no additional complaints except as documented per HPI Physical Exam <Cece Tucker MD - Last Filed: 11/21/24 06:38> General General appearance: alert and in no apparent distress Head Head exam: atraumatic and normocephalic Eye Eye exam: Present PERRL and EOMI ENT ENT exam: Present mucous membranes moist Neck Neck exam: Present normal inspection and other (Range of motion limited secondary to pain, patient has posterior midline incision that is well-approximated with anita, no surrounding induration or fluctuance, no drainage) Chest Chest inspection: Present symmetric chest wall rise Respiratory Respiratory exam: Present normal lung sounds bilaterally; Absent respiratory distress, wheezes or stridor Cardiovascular Cardiovascular exam: Present regular rate and normal rhythm Abdominal Exam Abdominal exam: Present soft; Absent distention or tenderness Extremities Exam Extremities exam: Present full ROM; Absent edema Neurological Exam Neurological exam: Present alert, oriented X3 and other (Paresthesias in the third, fourth, fifth finger of the right hand but no true deficit); Absent motor sensory deficit Psychiatric Psychiatric exam: Present normal affect and normal mood Skin Skin exam: Present warm and dry Medical Decision Making <Cece Tucker MD - Last Filed: 11/21/24 06:38> Medical Records Medical records reviewed: Yes I reviewed the patient's medical records. Screening: Per USPSTF and CDC recommendations, given the prevalence of disease in our region, it is our hospital?s policy to screen for HIV and viral Hepatitis for all patients aged 18 and over and those with ongoing risk factors. MR Comment: Discharge summary from [facility] was reviewed demonstrating fusion of C4-C7 Rip Inquiry Pt receiving controlled substance: No Vital Signs: 11/21/24 04:00 11/21/24 04:20 11/21/24 04:40 Temperature 98.8 F Temperature Source Oral Pulse Rate 100 H 98 H Pulse Rate [Right] 105 H Respiratory Rate 16 Blood Pressure 115/68 118/71 Blood Pressure [Right Arm] 134/78 Blood Pressure Mean [Right Arm] 96 02 Sat by Pulse Oximetry 100 99 100 Oxygen Delivery Method Room Air 11/21/24 06:26 11/21/24 06:59 11/21/24 07:00 Temperature Temperature Source Pulse Rate 83 90 88 Pulse Rate [Right] Respiratory Rate Blood Pressure 121/71 125/81 126/78 Blood Pressure [Right Arm] Blood Pressure Mean [Right Arm] 02 Sat by Pulse Oximetry 94 L 99 98 Oxygen Delivery Method Room Air 11/21/24 07:20 11/21/24 07:41 11/21/24 08:00 Temperature Temperature Source Pulse Rate 87 94 H 82 Pulse Rate [Right] Respiratory Rate Blood Pressure 111/68 137/83 123/76 Blood Pressure [Right Arm] Blood Pressure Mean [Right Arm] 02 Sat by Pulse Oximetry 96 99 96 Oxygen Delivery Method Room Air Room Air Room Air 11/21/24 08:20 11/21/24 08:30 Temperature Temperature Source Pulse Rate 79 81 Pulse Rate [Right] Respiratory Rate Blood Pressure 113/67 113/67 Blood Pressure [Right Arm] Blood Pressure Mean [Right Arm] 02 Sat by Pulse Oximetry 96 96 Oxygen Delivery Method Lab Data Lab Results 11/21/24 05:03: WBC 21.4 H*, RBC 4.00 L, Hgb 11.7 L, Hct 38.0, MCV 95.0, MCH 29.3, MCHC 30.8 L, RDW 12.9, Plt Count 373, MPV 10.8 H, Neut % (Auto) 72.9, Lymph % (Auto) 18.3, Park % (Auto) 8.1, Eos % (Auto) 0.1, Baso % (Auto) 0.1, Neut # (Auto) 15.6 H, Lymph # (Auto) 3.9, Park # (Auto) 1.7 H, Eos # (Auto) 0.0, Baso # (Auto) 0.0, Total Counted 100, Neutrophils % (Manual) 74, Lymphocytes % (Manual) 17, Monocytes % (Manual) 9, Platelet Estimate Normal, RBC Morphology Normal, Sodium 141, Potassium 3.9, Chloride 105, Carbon Dioxide 28, Anion Gap 11.9, BUN 12, Creatinine 0.80, Estimated Creat Clear 92, Estimated GFR 77, Est GFR ( Amer) 93, Glucose 106 H, Calcium 9.5, Total Bilirubin 0.2, AST 39 H, ALT 20, Alkaline Phosphatase 68, C-Reactive Protein TNP, Total Protein 6.6, Albumin 3.9, Globulin 2.7, Albumin/Globulin Ratio 1.4, HCV Ab OLIVIA w/Rflx PCR Qn Negative, HIV Ag/Ab Combo Qual Negative 11/21/24 05:03 11/21/24 05:03 Orders (Tests/Meds): ED MEDICATIONS Discontinued Medications Generic Name Dose Route Start Last Admin Trade Name Aakash PRN Reason Stop Dose Admin Hydromorphone HCl 1 mg 11/21/24 04:47 11/21/24 05:03 Hydromorphone 2mg/Ml Syringe IV 11/21/24 04:48 1 mg ONCE ONE Administration Hydromorphone HCl 0.5 mg 11/21/24 06:46 11/21/24 06:55 Hydromorphone 2mg/Ml Syringe IV 11/21/24 06:47 0.5 mg ONCE ONE Administration Ondansetron HCl 4 mg 11/21/24 04:47 11/21/24 05:03 Ondansetron 4mg/2ml Vial IV 11/21/24 04:48 4 mg ONCE ONE Administration ORDERS Category Date Time Status CBC w/Auto Diff [Complete Blood Count Auto Diff] Stat Lab 11/21/24 05:03 Completed CMP [Comprehensive Metabolic Panel] Stat Lab 11/21/24 05:03 Completed CRP [C-Reactive Protein] Stat Lab 11/21/24 05:03 Completed HIV Combo Stat Lab 11/21/24 05:03 Completed Hepatitis C Ab Qual. W/ RFX Stat Lab 11/21/24 05:03 Completed Medical Decision Narrative: In summary, this 49-year-old female with comorbidities described in the HPI presents to the emergency department today with neck pain postsurgery. On initial evaluation patient is hemodynamically stable, afebrile, she has paresthesias in the third, fourth, fifth fingers of the right hand as described in physical exam, surgical incision itself is well-appearing without evidence of dehiscence or infection. Differential diagnosis includes but is not limited to hardware movement, infection, muscle spasm, postoperative pain. I recommended to perform labs and CT imaging but patient is refusing imaging stating she has not had any traumatic injury since she was discharged less than 24 hours ago and they said her hardware looked good at the time of discharge. She states she cannot lay flat for imaging right now anyway. She is agreeable to proceed with labs that I recommended. Hematologic and serum labs were ordered. Patient received IV Dilaudid and Zofran for pain management. Labs reviewed by me demonstrate patient has a new leukocytosis WBC 21.4. Since her pain has been controlled her heart rate has come down. Her leukocytosis is new in less than 24 hours. Her labs yesterday from [facility] showed a WBC of 13.9. She is afebrile. CMP nonactionable. I discussed the results with the patient. She understands her results are concerning for infection. We discussed that CT would not be the optimal study to evaluate for deep space infection especially for the potential of spinal epidural abscess. Unfortunately her hardware will cause significant artifact on CT limiting ability to evaluate any of the structures within the cervical spine area. I reached out to [facility] and discussed this case with Dr. Khan with the hospitalist service. He tentatively excepted this patient for transfer to [facility] pending confirmation from the orthopedic team. Awaiting a callback from [facility] at this time. Patient is currently stable and resting more comfortably. She understands we are waiting for callback from [facility] and that she will likely be transferred there for further workup and evaluation. Patient handed off to Dr. Hines in stable condition pending call back from [facility]. <Curry Hines MD - Last Filed: 11/21/24 09:11> Vital Signs: 11/21/24 04:00 11/21/24 04:20 11/21/24 04:40 Temperature 98.8 F Temperature Source Oral Pulse Rate 100 H 98 H Pulse Rate [Right] 105 H Respiratory Rate 16 Blood Pressure 115/68 118/71 Blood Pressure [Right Arm] 134/78 Blood Pressure Mean [Right Arm] 96 02 Sat by Pulse Oximetry 100 99 100 Oxygen Delivery Method Room Air 11/21/24 06:26 11/21/24 06:59 11/21/24 07:00 Temperature Temperature Source Pulse Rate 83 90 88 Pulse Rate [Right] Respiratory Rate Blood Pressure 121/71 125/81 126/78 Blood Pressure [Right Arm] Blood Pressure Mean [Right Arm] 02 Sat by Pulse Oximetry 94 L 99 98 Oxygen Delivery Method Room Air 11/21/24 07:20 11/21/24 07:41 11/21/24 08:00 Temperature Temperature Source Pulse Rate 87 94 H 82 Pulse Rate [Right] Respiratory Rate Blood Pressure 111/68 137/83 123/76 Blood Pressure [Right Arm] Blood Pressure Mean [Right Arm] 02 Sat by Pulse Oximetry 96 99 96 Oxygen Delivery Method Room Air Room Air Room Air 11/21/24 08:20 11/21/24 08:30 Temperature Temperature Source Pulse Rate 79 81 Pulse Rate [Right] Respiratory Rate Blood Pressure 113/67 113/67 Blood Pressure [Right Arm] Blood Pressure Mean [Right Arm] 02 Sat by Pulse Oximetry 96 96 Oxygen Delivery Method Lab Data Lab Results 11/21/24 05:03: WBC 21.4 H*, RBC 4.00 L, Hgb 11.7 L, Hct 38.0, MCV 95.0, MCH 29.3, MCHC 30.8 L, RDW 12.9, Plt Count 373, MPV 10.8 H, Neut % (Auto) 72.9, Lymph % (Auto) 18.3, Park % (Auto) 8.1, Eos % (Auto) 0.1, Baso % (Auto) 0.1, Neut # (Auto) 15.6 H, Lymph # (Auto) 3.9, Park # (Auto) 1.7 H, Eos # (Auto) 0.0, Baso # (Auto) 0.0, Total Counted 100, Neutrophils % (Manual) 74, Lymphocytes % (Manual) 17, Monocytes % (Manual) 9, Platelet Estimate Normal, RBC Morphology Normal, Sodium 141, Potassium 3.9, Chloride 105, Carbon Dioxide 28, Anion Gap 11.9, BUN 12, Creatinine 0.80, Estimated Creat Clear 92, Estimated GFR 77, Est GFR ( Amer) 93, Glucose 106 H, Calcium 9.5, Total Bilirubin 0.2, AST 39 H, ALT 20, Alkaline Phosphatase 68, C-Reactive Protein TNP, Total Protein 6.6, Albumin 3.9, Globulin 2.7, Albumin/Globulin Ratio 1.4, HCV Ab OLIVIA w/Rflx PCR Qn Negative, HIV Ag/Ab Combo Qual Negative Orders (Tests/Meds): ED MEDICATIONS Discontinued Medications Generic Name Dose Route Start Last Admin Trade Name Freq PRN Reason Stop Dose Admin Hydromorphone HCl 1 mg 09/13/25 04:47 11/21/24 05:03 Hydromorphone 2mg/Ml Syringe IV 11/21/24 04:48 1 mg ONCE ONE Administration Hydromorphone HCl 0.5 mg 11/21/24 06:46 11/21/24 06:55 Hydromorphone 2mg/Ml Syringe IV 11/21/24 06:47 0.5 mg ONCE ONE Administration Ondansetron HCl 4 mg 11/21/24 04:47 11/21/24 05:03 Ondansetron 4mg/2ml Vial IV 11/21/24 04:48 4 mg ONCE ONE Administration ORDERS Category Date Time Status CBC w/Auto Diff [Complete Blood Count Auto Diff] Stat Lab 11/21/24 05:03 Completed CMP [Comprehensive Metabolic Panel] Stat Lab 11/21/24 05:03 Completed CRP [C-Reactive Protein] Stat Lab 11/21/24 05:03 Completed HIV Combo Stat Lab 11/21/24 05:03 Completed Hepatitis C Ab Qual. W/ RFX Stat Lab 11/21/24 05:03 Completed Medical Decision Narrative: In summary, this 49-year-old female with comorbidities described in the HPI presents to the emergency department today with neck pain postsurgery. On initial evaluation patient is hemodynamically stable, afebrile, she has paresthesias in the third, fourth, fifth fingers of the right hand as described in physical exam, surgical incision itself is well-appearing without evidence of dehiscence or infection. Differential diagnosis includes but is not limited to hardware movement, infection, muscle spasm, postoperative pain. I recommended to perform labs and CT imaging but patient is refusing imaging stating she has not had any traumatic injury since she was discharged less than 24 hours ago and they said her hardware looked good at the time of discharge. She states she cannot lay flat for imaging right now anyway. She is agreeable to proceed with labs that I recommended. Hematologic and serum labs were ordered. Patient received IV Dilaudid and Zofran for pain management. Labs reviewed by me demonstrate patient has a new leukocytosis WBC 21.4. Since her pain has been controlled her heart rate has come down. Her leukocytosis is new in less than 24 hours. Her labs yesterday from [facility] showed a WBC of 13.9. She is afebrile. CMP nonactionable. I discussed the results with the patient. She understands her results are concerning for infection. We discussed that CT would not be the optimal study to evaluate for deep space infection especially for the potential of spinal epidural abscess. Unfortunately her hardware will cause significant artifact on CT limiting ability to evaluate any of the structures within the cervical spine area. I reached out to [facility] and discussed this case with Dr. Khan with the hospitalist service. He tentatively excepted this patient for transfer to [facility] pending confirmation from the orthopedic team. Awaiting a callback from [facility] at this time. Patient is currently stable and resting more comfortably. She understands we are waiting for callback from [facility] and that she will likely be transferred there for further workup and evaluation. Patient handed off to Dr. Hines in stable condition pending call back from [facility]. Curry Hines MD At the time my assumption of care, plan was to follow-up callback from [facility] Ultimately, we had not heard from [facility] for some time. A callback at approximately 8 AM they stated that patient's surgeon, Dr. Taqueria wade, is actually associated with [facility] and [facility]. They have been attempting to get a hold of somebody from [facility] to accept the patient, however been unsuccessful. They also tried discussing with [facility] orthopedic service who did not accept the patient. I did discuss difficulties we are having getting patient accepted for transfer and options moving forward. I give the I did express option to discuss the case with spine to see if they would be willing to accept the patient or to attempt to get MR imaging here, however it is unclear at this time if her hardware is compatible with MRI as she has not had any MR imaging since her surgery. I did express to her that her rising white blood cell count can be evidence of infection, however given her recent surgery could be reactive in nature. She states that she has not had any recent steroids. She expresses that she has been in the hospital for several days and is exhausted. She does want some time to think about it. After having some time to think about it and discuss it with her , she does not want to leave the hospital at this time and plan to follow-up with her surgeon on Saturday. I did express to her that we cannot guarantee that she will not become septic and possibly from infection. She stated that she is understanding and is able to reiterate back to me the risks of leaving AGAINST MEDICAL ADVICE. Patient states that she has been taking Percocet and occasional tramadol at home without relief. I did encourage her to continue taking the Percocet and recommended high-strength ibuprofen (800 mg) instead of tramadol. She is currently on a muscle relaxer as well. Patient will be leaving AGAINST MEDICAL ADVICE but does state that she will return to the hospital if she has any fever or worsening symptoms. Patient plans on calling her surgeon on Saturday morning to discuss plans moving forward. Critical Care <Cece Tucker MD - Last Filed: 11/21/24 06:38> Critical Care Time Critical Care Time: No
[2024-11-21 05:22] LABS: Albumin Level 3.9 g/dl (3.5-5.0); Chloride 105 mmol/L (98-107)
[2024-11-21 05:23] LABS: Potassium 3.9 mmoL/L (3.5-5.1); Sodium 141 mmol/L (136-145)
[2024-11-21 05:25] LABS: Alanine Aminotransferase 20 U/L (12-78); Anion Gap 11.9 mEq/L (5-15); Aspartate Amino Transferase 39 U/L (14-36); Blood Urea Nitrogen 12 mg/dl (7-17); Carbon Dioxide 28 mmol/L (22.0-30.0); Creatinine Clearance Estimated 92 mL/min (50-200); Creatinine,Serum 0.80 mg/dl (0.52-1.04); Estimated Glomerular Filt Rate 77 ml/min (>60); GFR (African American) 93 ML/MIN (>60)
[2024-11-21 05:26] LABS: Albumin/Globulin Ratio 1.4 (1.1-1.8); Alkaline Phosphatase 68 U/L (38-126); Bilirubin,Total 0.2 mg/dl (0.2-1.3); Calcium 9.5 mg/dl (8.4-10.2); Globulin 2.7 g/dL (1.3-3.2); Glucose 106 mg/dl (74-100); Total Protein,Serum 6.6 g/dl (6.3-8.2)
[2024-11-21 05:37] LABS: Hematocrit 38.0 % (37.0-47.0); Hemoglobin 11.7 g/dL (12.2-16.2); Immature Granulocytes % 0.5 %; Mean Corpuscular HGB Conc 30.8 g/dL (31.8-35.4); Mean Corpuscular Hemoglobin 29.3 pg (27.0-31.2); Mean Corpuscular Volume 95.0 fl (81-99); Nucleated Red Blood Cells % 0 %; Platelet Count 373 K/mm3 (142-424); Red Blood Count 4.00 M/mm3 (4.20-5.40); Red Cell Distribution Width-SD 44.8 fL; White Blood Count 21.4 K/mm3 (4.8-10.8)
[2024-11-21 06:00] LABS: RBC Morphology Normal; Total Cells Counted 100
[2024-11-21 06:15] LABS: Hepatitis C Ab Qual. W/ RFX NEGATIVE (Negative)
[2024-11-21] MEDS: HYDROMORPHONE 2MG/ML SYRINGE 0.5 MG IV (06:55)
--- NOTE | 2024-11-21 07:48 | PC.NURSE ---
pt reported to bl[facility] that she wanted to go home and take a shower then go to [facility]. I went in and spoke with the pt about situation. explained to pt that she was unable to be discharged due to diagnosis, and that she would have to sign out AMA to be able to just leave. informed pt that would be able to go POV once accepted to [facility] but would be unable to leave until officially accepted. pt states that she wants to speak to her at the bedside and will let me know what she decides.
--- NOTE | 2024-11-21 08:09 | PC.NURSE ---
Called [facility] back to talk to them about the patient transfer they said that they dont have neuro and ortho wouldnt accept but they anuradha call back with conformation. After speaking with Dr. Hines he has requested that i call them back and try to get more information.
--- NOTE | 2024-11-21 08:11 | PC.NURSE ---
pt states that she would like to wait for a bed
--- NOTE | 2024-11-21 08:17 | PC.NURSE ---
Just got off the phone with [facility]. they stated that orthopedics would not accept because It was [facility] that did her surgery at [facility], so the orthopedic Dr. at [facility] will not accept any patients of Dr. Meng from [facility]. Quirino from [facility] did say that the roundhouse supervisor was trying to get ahold of someone from [facility] orthopedic to see if they would be willing to come see the patient at [facility] if they accepted the patient. Waiting to hear back.
--- NOTE | 2024-11-21 09:00 | PC.NURSE ---
pt has changed her mind and decided that she wants to leave against medical advice. pt reports that she wants to go home and shower, then she plans to go to [facility] on her own. pt informed of risks of leaving and given return precautions.
--- NOTE | 2024-11-21 09:08 | PC.NURSE ---
pt requested dose of pain medication prior to leaving. spoke with and he states that he will be driving pt home.
[2024-11-21] MEDS: MORPHINE 4MG/ML SYRINGE 4 MG IV (09:12)
== END 2024-11-21 09:20 | disposition left against medical advice (07) ==
PROVIDERS: Emergency Provider Emergency Medicine
DX: G89.18 Other acute postprocedural pain (principal); M54.2 Cervicalgia; R20.2 Paresthesia of skin; K21.9 Gastro-esophageal reflux disease without esophagitis; F17.210 Nicotine dependence, cigarettes, uncomplicated
CPT/HCPCS: 80053; 85007; 85025; 86803; 87389; 96374; 96375; 96376; 99284; 99285; J1171; J2270; J2405